=== PATIENT | female | born 1935 | race Caucasian/White ===

== ENCOUNTER 2016-06-30 12:46 | Inpatient (IN) | payer OTHER ==
[2016-06-30] MEDS ORDERED: NS 1,000 ML IV ONE (13:22)
--- NOTE | 2016-06-30 13:24 | EDPHY ---
H & P Stated Complaint: Fell, no LOC, did not hit her head Time Seen by Provider: 06/30/16 12:50 HPI/ROS: CHIEF COMPLAINT: Generalized weakness HISTORY OF PRESENT ILLNESS: The patient is a 81-year-old female who is brought to the emergency department by both of her sons complaining of generalized weakness. She reports that she fell down this morning and was too weak to get up. She denies injuring herself in the fall. Son states that she is falling asleep at inappropriate times and is more "flaky" than usual. She has not had a fever but has had chills. She denies shortness of breath or cough. She denies abdominal pain. She has a chronic wound over her left Achilles tendon that is significantly more inflamed with purulent discharge and surrounding cellulitis than ever before according to family. REVIEW OF SYSTEMS: Constitutional: See HPI EENTM: denies: blurred vision, double vision, nose congestion Respiratory: denies: cough, shortness of breath Cardiac: denies: chest pain, irregular heart rate, lightheadedness, palpitations Gastrointestinal/Abdominal: denies: abdominal pain, diarrhea, nausea, vomiting, blood streaked stools Genitourinary: denies: dysuria, frequency, hematuria, pain Musculoskeletal: Generalized weakness no focal weakness Skin: See HPI Neurological: denies: headache, numbness, paresthesia, tingling, dizziness, weakness Hematologic/Lymphatic: denies: blood clots, easy bleeding, easy bruising Immunologic/allergic: denies: HIV/AIDS, transplant EXAM: GENERAL: Well-appearing, well-nourished and in no acute distress. HEAD: Atraumatic, normocephalic. EYES: Pupils equal round and reactive to light, extraocular movements intact, sclera anicteric, conjunctiva are normal. ENT: TMs normal, nares patent, oropharynx clear without exudates. Moist mucous membranes. NECK: Normal range of motion, supple without lymphadenopathy or JVD. LUNGS: Bilateral coarse breath sounds HEART: Regular rate and rhythm without murmurs, rubs or gallops. ABDOMEN: Soft, nontender, normoactive bowel sounds. No guarding, no rebound. No masses appreciated. BACK: No CVA tenderness, no spinal tenderness, step-offs or deformities EXTREMITIES: Patient has a 3 x 3 ulceration to her left Achilles area with purulent drainage. Also erythema and cellulitis surrounding the wound up to just below her knee. It wraps anteriorly. Chronic venous stasis present both legs. NEUROLOGICAL: Cranial nerves II through XII grossly intact. Normal speech, normal gait. 5/5 strength, normal movement in all extremities, normal sensation PSYCH: Normal mood, normal affect. SKIN: See above Source: Patient Exam Limitations: No limitations - Personal History Tetanus Vaccine Date: 02/2011 - Medical/Surgical History Hx Asthma: No Hx Chronic Respiratory Disease: No Hx Diabetes: Yes Hx Cardiac Disease: No Hx Renal Disease: No Hx Cirrhosis: No Hx Alcoholism: No Hx HIV/AIDS: No Hx Splenectomy or Spleen Trauma: No Other PMH: DM2, quadbypass surgery 2010, archilles tendon repair, RENUKA, HTN, RENUKA , cardiac stents - Family History Significant Family History: No pertinent family hx - Social History Smoking Status: Former smoker Alcohol Use: Sober Drug Use: None Constitutional: Initial Vital Signs Temperature (C) 36.6 C 06/30/16 12:50 Heart Rate 96 06/30/16 12:50 Respiratory Rate 18 06/30/16 12:50 Blood Pressure 137/71 H 06/30/16 12:50 O2 Sat (%) 96 06/30/16 12:50 O2 Delivery Mode Nasal Cannula O2 (L/minute) 3 Allergies/Adverse Reactions: Penicillins Allergy (Mild, Verified 11/02/13 18:21) Rash Home Medications: Medication Instructions Recorded Aspirin [Aspirin 325 mg (*)] 325 mg PO DAILY PRN 06/30/16 Cyanocobalamin [Vitamin B12 (*)] 1,000 mcg PO DAILY 06/30/16 Herbals/Supplements -Info Only 1 ea PO DAILY 06/30/16 Metformin HCl [Metformin 1000 mg] 1,000 mg PO BID 06/30/16 Multivitamins [Multivitamin (*)] 1 each PO DAILY 06/30/16 Oxybutynin Chloride [Ditropan Xl] 10 mg PO DAILY 06/30/16 Medical Decision Making - Diagnostics Imaging Results: Imaging Impressions Chest X-Ray 06/30/16 13:21 Impression: 1. Diffuse peribronchial thickening with patchy bilateral opacities that could be related to bronchitis and multifocal pneumonia or asymmetric pulmonary edema. 2. Cardiomegaly. ED Course/Re-evaluation: 3:00 p.m. the patient meets criteria for severe sepsis but not septic shock. I have only given her 1 L out of her bolus because she also has pulmonary edema on chest x-ray. She has a history of mitral valve replacement and does have extremity edema. Blood pressure and heart rate are stable. I discussed this with Dr. Laurent Marin who agrees. We have started Invanz and vancomycin. He accepts to the medical service. Family is happy with this plan. Differential Diagnosis: Partial list of the Differential diagnosis considered include but were not limited to; cellulitis, wound infection, sepsis, pneumonia, CHF and although unlikely based on the history and physical exam, I also considered PE, seizure, CVA. Critical Care Time: Critical care time spent by me, Dr. Alexander exclusive with this patient was 35 minutes, exclusive of the PA time exclusive of procedures. The organ system that was at risk was cardiovascular and I gave IV fluids, antibiotics, consultations and admission to prevent worsening of the patient's condition - Data Points Laboratory Results: Laboratory Results 06/30/16 14:05 06/30/16 14:05 06/30/16 06/30/16 06/30/16 14:05 14:05 14:05 WBC RBC Hgb Hct MCV MCH MCHC RDW Plt Count MPV Neut % (Auto) Lymph % (Auto) [place] % (Auto) Eos % (Auto) Baso % (Auto) Nucleat RBC Rel Count Absolute Neuts (auto) Absolute Lymphs (auto) Absolute Monos (auto) Absolute Eos (auto) Absolute Basos (auto) Absolute Nucleated RBC Immature Gran % Seg Neutrophils % Band Neutrophils % Lymphocytes % Monocytes % Immature Gran # Absolute Seg Neuts Absolute Band Neuts Absolute Lymphocytes Absolute Monocytes RBC/WBC/PLT Morphology Platelet Estimate PT INR APTT VBG Lactic Acid Sodium 132 mEq/L L mEq/L (134-144) Potassium 4.2 mEq/L mEq/L (3.5-5.2) Chloride 98 mEq/L mEq/L (97-110) Carbon Dioxide 25 mEq/l mEq/l (22-31) Anion Gap 9 mEq/L mEq/L (8-16) BUN 25 mg/dL H mg/dL (7-23) Creatinine 0.7 mg/dL mg/dL (0.6-1.0) Estimated GFR > 60 Glucose 354 mg/dL H mg/dL (70-100) Hemoglobin A1c Pending Estim Average Glucose Pending Calcium 9.0 mg/dL mg/dL (8.5-10.4) Total Bilirubin 1.9 mg/dL H mg/dL (0.1-1.4) NT-Pro-B Natriuret Pep 3200 pg/mL H pg/mL (0-450) 06/30/16 06/30/16 06/30/16 14:05 14:05 14:05 WBC 18.26 10^3/uL H 10^3/uL (3.80-9.50) RBC 4.59 10^6/uL 10^6/uL (4.18-5.33) Hgb 15.0 g/dL g/dL (12.6-16.3) Hct 43.6 % % (38.0-47.0) MCV 95.0 fL fL (81.5-99.8) MCH 32.7 pg pg (27.9-34.1) MCHC 34.4 g/dL g/dL (32.4-36.7) RDW 12.8 % % (11.5-15.2) Plt Count 160 10^3/uL 10^3/uL (150-400) MPV 11.0 fL fL (8.7-11.7) Neut % (Auto) Not Reported Lymph % (Auto) Not Reported [place] % (Auto) Not Reported Eos % (Auto) Not Reported Baso % (Auto) Not Reported Nucleat RBC Rel Count 0.0 % % (0.0-0.2) Absolute Neuts (auto) Not Reported Absolute Lymphs (auto) Not Reported Absolute Monos (auto) Not Reported Absolute Eos (auto) Not Reported Absolute Basos (auto) Not Reported Absolute Nucleated RBC 0.00 10^3/uL 10^3/uL (0-0.01) Immature Gran % Not Reported Seg Neutrophils % 87 % % Band Neutrophils % 6 % % Lymphocytes % 3 % % Monocytes % 4 % % Immature Gran # Not Reported Absolute Seg Neuts 15.89 10^/uL H 10^/uL (1.70-6.50) Absolute Band Neuts 1.10 10^3/uL H 10^3/uL (0.00-0.70) Absolute Lymphocytes 0.55 10^3/uL L 10^3/uL (1.00-3.00) Absolute Monocytes 0.73 10^3/uL 10^3/uL (0.30-0.80) RBC/WBC/PLT Morphology NORMAL (NORMAL) Platelet Estimate ADEQUATE (ADEQ) PT 14.2 SEC SEC (12.0-15.0) INR 1.11 (0.83-1.16) APTT 25.4 SEC SEC (23.0-38.0) VBG Lactic Acid 2.6 mmol/L H mmol/L (0.7-2.1) Sodium Potassium Chloride Carbon Dioxide Anion Gap BUN Creatinine Estimated GFR Glucose Hemoglobin A1c Estim Average Glucose Calcium Total Bilirubin NT-Pro-B Natriuret Pep Microbiology Results: MICROBIOLOGY 06/30/16 13:40 Foot - Anaerobic Tube/Swab Gram Stain - Final Medications Given: Discontinued Medications Sodium Chloride (Ns) 1,000 mls @ 0 mls/hr IV ONCE ONE PRN Reason: Wide Open Stop: 06/30/16 13:23 Last Admin: 06/30/16 14:11 Dose: 1,000 mls Ertapenem 1 gm/ Sodium (Chloride) 100 mls @ 200 mls/hr IV EDNOW ONE PRN Reason: Protocol Stop: 06/30/16 15:20 Last Admin: 06/30/16 15:40 Dose: 100 mls Vancomycin/Sodium Chloride (Vancomycin 1 Gm (Premix)) 250 mls @ 250 mls/hr IV EDNOW ONE PRN Reason: Protocol Stop: 06/30/16 16:00 Last Admin: 06/30/16 16:16 Dose: 250 mls Insulin Human Regular (Humulin R) 10 unit IVP EDNOW ONE Stop: 06/30/16 15:06 Last Admin: 06/30/16 16:00 Dose: 10 unit Departure - [facility] Clinical Impression: Severe sepsis Cellulitis Qualifiers: Site of cellulitis: extremity Site of cellulitis of extremity: lower extremity Laterality: left Qualified Code(s): L03.116 - Cellulitis of left lower limb Pulmonary edema Qualifiers: Chronicity: acute Qualified Code(s): J81.0 - Acute pulmonary edema Condition: Fair
[2016-06-30 14:20] LABS: ADD DIFF? YES; ADD MORPH? NO; ADD SCAN? NO; ATYPICAL LYMPHOCYTE FLAG 0 (0-99); FRAGMENT RBC FLAG 0 (0-99); HEMATOCRIT 43.6 % (38.0-47.0); LEFT SHIFT FLG 10 (0-99); LIPEMIA HEMOLYSIS FLAG 90 (0-99); MEAN CELL HEMOGLOBIN 32.7 pg (27.9-34.1); MEAN CELL HEMOGLOBIN CONCENTR. 34.4 g/dL (32.4-36.7); PLATELET CLUMPS FLAG 0 (0-99); PLATELET COUNT 160 10^3/uL (150-400); RED BLOOD CELL COUNT 4.59 10^6/uL (4.18-5.33); RED CELL DISTRIBUTION WIDTH 12.8 % (11.5-15.2)
[2016-06-30 14:29] LABS: ANION GAP 9 mEq/L (8-16); BILIRUBIN,TOTAL 1.9 mg/dL (0.1-1.4); CARBON DIOXIDE 25 mEq/l (22-31); CHLORIDE 98 mEq/L (97-110); CREATININE 0.7 mg/dL (0.6-1.0); GLOMERULAR FILTRATION RATE > 60; GLUCOSE 354 mg/dL (70-100); POTASSIUM 4.2 mEq/L (3.5-5.2); SODIUM 132 mEq/L (134-144)
[2016-06-30 14:34] LABS: INR 1.11 (0.83-1.16); PROTIME(PATIENT) 14.2 SEC (12.0-15.0)
[2016-06-30 14:35] LABS: APTT 25.4 SEC (23.0-38.0)
[2016-06-30] MEDS ORDERED: ERTAPENEM 1 GM in NS 100 ML IV ONE (14:51)
[2016-06-30] MEDS ORDERED: VANCOMYCIN HCL/NORMAL SALINE 250 ML IV ONE (15:01)
[2016-06-30] MEDS ORDERED: INSULIN REGULAR HUMAN 100 UNIT/ML IVP ONE (15:05)
[2016-06-30 15:11] LABS: LACGHOST ORDER
[2016-06-30 15:20] LABS: PLATELET ESTIMATE ADEQUATE (ADEQ)
[2016-06-30] MEDS ORDERED: oxyCODONE IR 5 MG TAB PO PRN (15:21)
[2016-06-30] MEDS ORDERED: ONDANSETRON DISINTEGRATING 4 MG TAB PO PRN (15:21)
[2016-06-30] MEDS ORDERED: ALBUTEROL 3 ML DEYVIAL IH PRN (15:21)
[2016-06-30] MEDS ORDERED: D50W 25 GM/50 ML SYR IVP PRN (15:21)
[2016-06-30] MEDS ORDERED: ONDANSETRON 4 MG/2 ML VIAL IVP PRN (15:21)
[2016-06-30] MEDS ORDERED: NS 1,000 ML IV SCH (15:30)
--- NOTE | 2016-06-30 16:08 | GHP ---
[f rep st] HISTORY AND PHYSICAL DATE OF ADMISSION: 06/30/2016 CHIEF COMPLAINT: Fall and weakness. HISTORY OF PRESENT ILLNESS: This is a 81-year-old female who presented after falling today. She sa ys that this was nontraumatic. It was a mechanical fall. She lost her balance. She said that she was too weak to get up. Because of this, her son recommended that she come to the emergency departm ent. She tells me that yesterday she had some chills. She does not report any cough or shortness o f breath. She is chronically on 3 L of oxygen, she says mostly at night. She has a left posterior ankle wound, which she has been followed by recently by Dr. Painter. She tells me that her left leg i s usually slightly larger than her right leg. However, she thinks it is redder and more painful bessy n normal. Per Dr. Alexander's report, she has also seems slightly confused today to her son. PAST MEDICAL/SURGICAL HISTORY: 1. Diabetes mellitus. 2. Coronary artery disease, status post CABG and last stent placed in October 2014. 3. Chronic respiratory failure. 4. Obstructive sleep apnea. 5. Pulmonary hypertension. 6. Diastolic dysfunction. MEDICATIONS: Please see medication reconciliation. ALLERGIES: Penicillin. SOCIAL HISTORY: Drinks some alcohol. She lives with her son. FAMILY HISTORY: Coronary artery disease. REVIEW OF SYSTEMS: A 10-point review of systems is conducted and is positive for headache, otherwis e negative except per HPI. PHYSICAL EXAM: VITAL SIGNS: Blood pressure 133/76, heart rate 93, respiratory rate 18, satting 97% on 3 L, temperature is 36.6. GENERAL: The patient is a pleasant female who appears somewhat somno lent; however, she is easily aroused by voice. HEENT: Normocephalic, atraumatic. CARDIOVASCULAR: Regular rate and rhythm. She has a 2/6 systolic murmur. PULMONARY: Shows her lungs to have mild diffuse expiratory wheezes as well as bilateral basilar crackles. She does not appear to be in any respiratory distress. ABDOMEN: Soft, nontender, nondistended. SKIN: No rash. : No Brice. NE UROLOGIC: Shows her to be somnolent. However, she is alert and oriented x3. She has a nonfocal ne urologic exam. PSYCHIATRIC: Normal mood and affect. EXTREMITIES: Shows her left lower extremity with some edema and erythema extending to her mid luong. It is warm as well as tender to palpation. She has a chronic-appearing posterior ulcer that has no purulence on it. It is a clean base. It i s about 1.5 cm diameter. LABORATORY FINDINGS: White count is 18,000 with 87% neutrophils and 6% bands. INR is 1.1. Lactate is 2.6. Sodium is 132, glucose 354. Total bilirubin is 1.9. DATA: 1. I discussed this with Dr. Alexander in the emergency department. We will admit to med/surg. 2. Chest x-ray, which I personally reviewed and interpreted, shows bilateral infiltrates, I think m ost consistent with pulmonary edema. IMPRESSION AND PLAN: A 81-year-old female presents with sepsis, cellulitis, and weakness. 1. Sepsis: I think this is due to cellulitis. I agree with Dr. Alexander's evaluation. We need to be very cautious with IV fluids in the setting of pulmonary edema. She is getting 1 L now. I will continue IV fluids at a rate of 75 per hour overnight and place her on continuous pulse ox monitor. She may not tolerate full 30 mL/kg fluid bolus given her cardiac status. She will get a dose of va ncomycin as well as Invanz in the emergency department. I note that she is normotensive currently. 2. Cellulitis: In the setting of diabetes and a chronic left posterior ankle wound. She will get dual therapy with Invanz and vancomycin in the ED. I will continue only vancomycin starting tomorro w. I do not think it needs any surgical debridement at this point. I have placed a wound consult. We will follow her clinical course. I do not see any resistant organisms in microbiology at this h ospital from her in the past. 3. Fall/weakness/mild encephalopathy: I think that this is due to sepsis. Place PT/OT orders. We will follow this as we treat the underlying etiology. 4. Coronary artery disease, status post CABG as well as last stent in October 2014: I will check an echocardiogram given what I think is pulmonary edema on her chest x-ray. We will have to be car eful with volume given this. At this point, we will likely hold any diuretics when her medications are reconciled. We will continue other cardiac medications. 5. Chronic respiratory failure: I think due to chronic obstructive pulmonary disease as well as ob structive sleep apnea. We will continue oxygen. 6. Diabetes mellitus type 2: Glucose is very elevated here at 354. She got 10 units of IV insulin in the ED. We will continue her home insulin and place her on a sliding scale. I have also checke d an A1c given the significance of her lower extremity cellulitis. 7. Hyponatremia. 8. Code status: She would like to be full code. 9. VTE risk: She is moderate to high risk. I have given her low-dose Lovenox. /[id number]/MODL
--- NOTE | 2016-06-30 17:07 | ECHO ---
[id number] + + [id number] : : [place] [address] : : [phone] + + Adult Echocardiographic Report + -----+ :Name: FLORA LOVE JStudy Date: 06/30/2016 03:53 PM : : Hospital Admission Number: [id number] Sameer n: ER: :: 1935 Gender: Female Height: 64 in : :Age: 81 yrs Race: WH Weight: 210 lb : :Reason For Study: Pulmonary edema : : BSA: 2.0 meters 2 : + -----+ MMode/2D Measurements \T\ Calculations IVSd: 1.00 cm LVIDd: 5.0 cm FS: 15.1 % MV Diam: 3.2 cm LVPWd: 0.77 cm LVIDs: 4.2 cm EDV(Teich): 117.1 ml ESV(Teich): 79.9 ml EF(Teich): 31.8 % Ao root diam: LVOT diam: 1.9 cmLVLd ap4: 7.4 cm SV(MOD-sp4): 3.2 cm LVOT area: EDV(MOD-sp4): 35.0 ml LA dimension: 2.8 cm2 94.0 ml 5.1 cm LVLs ap4: 6.9 cm ESV(MOD-sp4): 59.0 ml EF(MOD-sp4): 37.2 % Normal Measurement Values: + + :LVIDd (3.5-5.7cm) IVSd (0.6-1.1cm) LVPWd (0.6-1.1cm) Aortic Root (2.0-3.7cm)Left Atrium (1.5-4.0cm): :LV Vol(d) (76-115ml) LV Vol(s) (29-48ml) Ejec Fraction (50-65%)PV Jamil (0.6- 1.2m/s) TV Jamil (0.4-1.0m/s) : :MV E Jamil (0.8-1.0m/s)MV A Jamil (0.3-1.0m/s)LVOT Jamil (0.7-1.2m/s) Asc Ao Jamil ( 0.9-1.8m/s) : + + Doppler Measurements \T\ Calculations MV E max jamil: MV V2 max: Ao V2 max: LV V1 max: 148.0 cm/sec 171.0 cm/sec 155.0 cm/sec 87.2 cm/sec MV A max jamil: MV max P.7 mmHgAo max PG: LV V1 max P.3 cm/sec MV V2 mean: 9.6 mmHg 3.0 mmHg MV E/A: 1.6 81.5 cm/sec Ao mean PG: LV V1 mean PG: MV mean P.0 mmHg5.0 mmHg 2.0 mmHg MV V2 VTI: 24.5 cm Ao V2 mean: LV V1 mean: MV area (1 diam): 99.0 cm/sec 64.1 cm/sec 8.0 cm2 Ao V2 VTI: 23.9 cm LV V1 VTI: 15.7 cm HENRI(I,D): 1.9 cm2 MVA(VTI): 1.8 cm2 MV Flow area(1diam):HENRI(V,D): 1.6 cm2 8.0 cm2 MR max jamil: MR(RF 1 diam): 6.1 %SV(MV 1 diam): TR max jamil: 446.0 cm/sec 197.0 ml 337.0 cm/sec MR max PG: SI(MV 1 diam): TR max P.6 mmHg 98.7 ml/m2 45.4 mmHg SV(LVOT): 44.5 ml RAP systole: 10.0 mmHg RVSP(TR): 55.4 mmHg RF(MV,Ao)(1 diam): 0.02 RF(MV,LVOT)(1diam): 0.77 Left Ventricle The left ventricle is normal in size. There is normal left ventricular wall thickness. EF estimate is 40-45%,. There is Doppler evidence for diastolic dysfunction. Left ventricular systolic function is mild to moderately reduced. Septal motion is consistent with conduction abnormality. LV inferolateral and inferior gaitan are akinetic. Right Ventricle The right ventricle is normal in size and function. Atria The left atrium is moderately dilated. Right atrial size is normal. The interatrial septum is intact with no evidence for an atrial septal defect. Mitral Valve The mitral valve leaflets appear thickened, but open well. There is moderate mitral annular calcification. There is no evidence of mitral valve prolapse. There is no mitral valve stenosis. There is moderate mitral regurgitation. Tricuspid Valve Normal tricuspid valve. There is mild tricuspid regurgitation. There is Doppler evidence for mild pulmonary hypertension. Right ventricular systolic pressure is 55mmHg. Aortic Valve The aortic valve is trileaflet. The aortic valve opens well. Mild aortic valve calicification. There is no aortic stenosis. Trace to mild aortic regurgitation. Pulmonic Valve The pulmonic valve is normal in structure and function. Mild pulmonic valvular regurgitation. Great Vessels The aortic root is normal size. Pericardium/Pleural There is no pericardial effusion. Conclusion A complete two-dimensional transthoracic echocardiogram was performed (2D, M-mode, Doppler and color flow Doppler). The left ventricle is normal in size. Left ventricular systolic function is mild to moderately reduced with inferolateral akinesis. Septal motion is consistent with conduction abnormality. EF estimate is 40-45%, There is Doppler evidence for diastolic dysfunction. The left atrium is moderately dilated. Mild aortic valve calicification without stenosis. Trace to mild aortic regurgitation. The mitral valve leaflets appear thickened, but open well. There is moderate mitral annular calcification with reduced posterior leaflet mobility but no mitral stenosis. There is moderate mitral regurgitation. There is mild tricuspid regurgitation. There is Doppler evidence for mild pulmonary hypertension. Right ventricular systolic pressure is 55mmHg. Compared to a study from May of 2014, LVEF has decreased, regional wall motion abnormality is new, mitral regurgitation has increased, and PA systolic pressure has increased. Final Reading Physician: Tyler Mccracken signed on 06/30/2016 05:05 PM Ordering Physician: Laurent Marin Performed By: Juany Mcdonald RDCS
[2016-06-30] MEDS ORDERED: ASPIRIN 325 MG TAB PO PRN (17:53)
[2016-06-30] MEDS: INSULIN LISPRO 100 UNIT/ML SC SCH (18:35)
[2016-06-30 22:35] LABS: COLOR YELLOW; LEUKOCYTE ESTERASE,URINE NEGATIVE (NEGATIVE); NITRITE,URINE NEGATIVE (NEGATIVE)
[2016-06-30] MEDS ORDERED: FUROSEMIDE 20 MG/2 ML VIAL IVP ONE (22:37)
[2016-06-30 22:38] LABS: BACTERIA TRACE /hpf (NONE SEEN)
[2016-06-30 23:39] LABS: HEMOGLOBIN A1C 10.5 % (4.0-6.0)
--- NOTE | 2016-06-30 23:53 | CPEKG ---
Heart Rate: 91 RR Interval: 659 P-R Interval: 153 QRSD Interval: 106 QT Interval: 360 QTC Interval: 443 P [place]: 0 QRS [place]: -71 T Wave [place]: 114 EKG Severity - ABNORMAL ECG - EKG Impression: SINUS RHYTHM EKG Impression: VENTRICULAR TRIGEMINY EKG Impression: LEFT ANTERIOR FASCICULAR BLOCK EKG Impression: BORDERLINE R WAVE PROGRESSION, ANTERIOR LEADS EKG Impression: REPOL ABNRM SUGGESTS ISCHEMIA, ANT-LAT LEADS Electronically Signed By: Heather Ross 01-Jul-2016 12:17:05
[2016-06-30] MEDS ORDERED: ASPIRIN 325 MG TAB PO ONE (23:59)
[2016-07-01] MEDS: ENOXAPARIN 100 MG/ML SYR SC SCH ×2 (01:38→20:20)
[2016-07-01 05:23] LABS: % IMMATURE GRANULYOCYTES 0.9 % (0.0-1.1); ABSOLUTE IMMATURE GRANULOCYTES 0.12 10^3/uL (0.00-0.10); ADD DIFF? NO; ADD MORPH? NO; ADD SCAN? NO; ATYPICAL LYMPHOCYTE FLAG 0 (0-99); FRAGMENT RBC FLAG 0 (0-99); HEMATOCRIT 41.5 % (38.0-47.0); HEMOGLOBIN 13.9 g/dL (12.6-16.3); LEFT SHIFT FLG 10 (0-99); LIPEMIA HEMOLYSIS FLAG 80 (0-99); MEAN CELL HEMOGLOBIN 32.6 pg (27.9-34.1); MEAN CELL HEMOGLOBIN CONCENTR. 33.5 g/dL (32.4-36.7); MEAN CELL VOLUME 97.4 fL (81.5-99.8); PLATELET CLUMPS FLAG 0 (0-99); PLATELET COUNT 143 10^3/uL (150-400); RED BLOOD CELL COUNT 4.26 10^6/uL (4.18-5.33)
[2016-07-01] MEDS: VANCOMYCIN HCL/NORMAL SALINE 250 ML IV SCH ×2 (05:24→17:11)
[2016-07-01 05:57] LABS: ALANINE AMINOTRANSFERASE 37 IU/L (9-52); ALKALINE PHOSPHATASE 53 IU/L (38-126); ANION GAP 10 mEq/L (8-16); ASPARTATE AMINOTRANSFERASE 33 IU/L (14-46); BILIRUBIN,TOTAL 1.6 mg/dL (0.1-1.4); CALCIUM 8.3 mg/dL (8.5-10.4); CARBON DIOXIDE 22 mEq/l (22-31); CHLORIDE 104 mEq/L (97-110); CREATININE 0.8 mg/dL (0.6-1.0); GLOMERULAR FILTRATION RATE > 60; GLUCOSE 230 mg/dL (70-100); SODIUM 136 mEq/L (134-144); TOTAL PROTEIN 5.3 g/dL (6.3-8.2)
[2016-07-01] MEDS ORDERED: Herbals/Supplements -Info Only PO SCH (09:00)
[2016-07-01] MEDS ORDERED: NON-FORMULARY NEW DRUG (Oxybutynin Chloride [Ditropan Xl] 10 MG) PO SCH (09:00)
[2016-07-01] MEDS ORDERED: ENOXAPARIN 40 MG/0.4 ML SYR SC SCH (09:00)
[2016-07-01] MEDS ORDERED: diphenhydrAMINE 25 MG CAP PO ONE (09:12)
[2016-07-01] MEDS ORDERED: ACETAMINOPHEN 325 MG TAB PO PRN (09:12)
[2016-07-01] MEDS ORDERED: NITROGLYCERIN 0.4 MG BTL SL PRN ×2 (09:12→11:23)
[2016-07-01] MEDS ORDERED: TEMAZEPAM 15 MG CAP PO PRN (09:12)
[2016-07-01] MEDS ORDERED: DIAZEPAM 5 MG TAB PO ONE (09:12)
[2016-07-01] MEDS ORDERED: ASPIRIN EC 325 MG TAB PO ONE (09:12)
[2016-07-01] MEDS: OXYBUTYNIN 5 MG EXT REL TAB PO SCH (09:13)
[2016-07-01] MEDS: MULTIVITAMINS 1 EACH TAB PO SCH (09:13)
--- NOTE | 2016-07-01 09:40 | GCON ---
[f rep st] CONSULTATION CARDIAC CONSULTATION DATE OF CONSULTATION: 07/01/2016 CHIEF COMPLAINT: The patient had a mechanical fall but did have some recent dyspnea and an echocard iogram showing new wall motion abnormality with abnormal troponins. HISTORY OF PRESENT ILLNESS: This is a 81-year-old female who fell yesterday. It was, by all accoun ts, a mechanical fall. She lost her balance. She has a nonhealing leg wound of her left leg and pr obably has a cellulitis, followed by Dr. Painter. She was admitted to the hospital. An echocardiogram showed a new inferior wall motion abnormality and EF decreased with some increased mitral regurgitation. Her troponins were elevated at 1.7 and 1.9, respectively. In speaking to he r, she has had no chest pain. Her EKG does not show any acute ST elevation although there is some b aseline wander. In speaking to her, she has had some increasing shortness of breath but no real specific PND, orthop larry, or other issues. She is very compliant with her meds. She does use oxygen at night. Her nguyen nary disease, she is status post coronary bypass grafting in 2010. In 2014, she had a stent placed to a [place] OM. She did have a saphenous vein graft to posterior descending artery. It was patent at that time. A left internal mammary artery to the LAD, which was patent, and a vein graft to an O M which was occluded. Today, she is seen resting comfortably in her bed, and options were discussed. At this point, she h as agreed to cardiac catheterization and if necessary, further intervention. She had no noted compl ications with prior interventions. MEDICATION LIST: See reconciliation form. PAST HISTORY: She as diabetes mellitus but normal creatinine. Coronary artery disease as above. O bstructive sleep apnea on oxygen at night. ALLERGIES: Penicillin allergies. No allergy to iodine. SOCIAL: She lives at home with her son. FAMILY HISTORY: Noncontributory. PHYSICAL EXAMINATION: VITAL SIGNS: Blood pressure is 130/80. Heart rate in the 70s and sinus. GE NERAL: She is an elderly female who is seen resting comfortably in bed. HEENT: Mouth and orophary nx were clear. NECK: Supple. LUNGS: Clear. CARDIOVASCULAR: Regular rate and rhythm with a syst olic murmur. I could not see JVP. ABDOMEN: Soft, nontender. MUSCULOSKELETAL: She had a compress ion bandage on her left ankle. Her right pulses were good. LAB: Of note white count of 12, creatinine 0.8. Troponin is 1.8 and 1.9. ASSESSMENT: 1. Probable mechanical fall without significant injury. 2. History of increasing shortness of breath with an echocardiogram showing new wall motion abnorma lity and abnormal troponins at this point. Patient has known severe coronary artery disease with co ronary bypass and stenting. We discussed our options. At this point, she has agreed to progress wi coronary angiogram and if necessary, intervention. The relative procedure, risks, benefits, comp lications, and alternatives were discussed with her. She understands and accepts and wished to proc eed. Her BNP was 3200 overnight. Her I's are great than O's. We may want to give her some Lasix a lthough she appears to be comfortable and not in extreme distress at this time. 3. History of diabetes mellitus with normal creatinine. 4. History of nonhealing foot wound. Ultrasound showed no deep venous thromboses. 5. History of hyperlipidemia and hypertension. PLAN: Cardiac cath. Further care depending on the results of this procedure. Possibly interventio n may be necessary. She understands. /[id number]/MODL
[2016-07-01] MEDS ORDERED: IOPAMIDOL (ISOVUE-370) 150 ML BTL IV ONE ×2 (10:03→10:50)
[2016-07-01] MEDS ORDERED: LIDOCAINE 1% 30 ML SDV ONE (10:03)
[2016-07-01] MEDS ORDERED: fentaNYL 100 MCG/2 ML INJ ONE (10:10)
[2016-07-01] MEDS ORDERED: MIDAZOLAM 2 MG/2 ML VIAL ONE (10:11)
--- NOTE | 2016-07-01 11:16 | PDDXCAT ---
Diagnostic Cath Note - . Date: 07/01/16 Bet Taker: Alfa Indication: other (sob with abn troponins) - Procedure Access: right groin Procedure: left heart catheterization, coronary angiography, left ventriculogram , vein graft injection, RIVERA injection - Materials Left Heart Cath size: 6F Left Heart Cath materials: standard multipack (JL4, JR4, pigtail), other (rivera catheter and rcb catheter) - Findings-Left Heart Catheterization LM: 1. normal LAD: 1. prox occluded with competitive lad flow..some flow into 1st dg LCX: 1. mid occl but patent stent and flow into superior om RCA: 1. difffuse disease throughout with competitive flow in rca/pda rSV. known occl svg to diag. 2. patent svg to rca RIVERA: 1. patent to lad EDP: 1. 25 mmhg LVEF: 1. 50-55% Wall motion: 1. mild inf rwma Complications: none Estimated blood loss: <50ml Closure method: manual pressure Assessment: 1.satble 3vv cad as described above..no acute changes...findings similar to 2015 cath (post krishna intervention) Plan: 1. continue medical management Patient Problems: Problems Problem Status Onset Cellulitis Acute Pulmonary edema Acute Severe sepsis Acute Chest pain Acute
[2016-07-01] MEDS ORDERED: ATROPINE SULFATE 1 MG/10 ML SYR IVP PRN (11:23)
[2016-07-01] MEDS ORDERED: OXYCODONE/APAP 5/325 TAB PO PRN (11:23)
[2016-07-01] MEDS ORDERED: ONDANSETRON 4 MG/2 ML VIAL IVP PRN (11:23)
[2016-07-01] MEDS: CYANO/VITAMIN B12 1000 MCG TAB PO SCH (11:24)
[2016-07-01] MEDS ORDERED: FUROSEMIDE 20 MG/2 ML VIAL IVP ONE (11:25)
[2016-07-01] MEDS: INSULIN LISPRO 100 UNIT/ML SC SCH ×3 (11:25→18:18)
[2016-07-01] MEDS: ACETAMINOPHEN 325 MG TAB PO PRN ×2 (13:38→20:19)
--- NOTE | 2016-07-01 16:44 | HOSPPROG ---
Hospitalist Progress Note Assessment/Plan: 81 yo F with hx of CAD and chronic respiratory failure as well as fever and chills and e/o cellulitis, also elevated trop and new wall motion abnormality on echo # sepsis: in setting of cellulitis as well as likely pna as below, wbc trending down, afebrile # cellulitis: present on left posterior ankle, started on invanz and vanc initially--now just vanco. Cultures pending. Wound care consulted. # nstemi/CAD: with elevated trop and new wall motion abnormality noted on echo, ecg personally reviewed and without clear st elevation other than early repol abnormality as well as lafb and prwp. S/p cath and noted to have multivessel cad that is stable w/o intervention. Presumed largely due to demand in setting of sepsis. Continue medical mgmt though currently she is only on asa--unclear if she has been intolerant of bb/statin--will need to review w/cardiology # fall/weakness: in setting of above and likely multifactorial and related to sepsis and cellulitis # acute encephalopathy: in the setting of above and now resolved, likely toxic metabolic encephalopathy related to sepsis # chronic hypoxic respiratory failure: with diffuse bilateral infiltrates and increased left basilar consolidation noted on personal review of cxr compared to old. suspect component of pna and will add ctx for coverage of pna as well as cellulitis. # dm2: SSI, poorly controlled at home with A1c of 10.5 # dispo: Ip status, will need > 48 hours stay for eval/mgmt of above given multiple active comorbid conditions Patient new to my caer. Old records reviewed and summarized as above. Care plan reviewed with cardiology as above. Subjective: no significant overnight events, patient currently feeling a bit somnolent post cardiac cath but no other complaints, no fevers overnight Objective: Vital Signs Temp Pulse Resp BP Pulse Ox 36.7 C 84 17 152/74 H 93 07/01/16 12:46 07/01/16 12:46 07/01/16 12:46 07/01/16 12:46 07/01/16 12:46 Laboratory Results 07/01/16 04:46 07/01/16 04:46 06/30/16 07/01/16 07/02/16 05:59 05:59 05:59 Intake Total 2250 200 Output Total 500 150 Balance 1750 50 PT 14.2 SEC (12.0-15.0) 06/30/16 14:05 INR 1.11 (0.83-1.16) 06/30/16 14:05 awake alert nad anicteric op clear rrr systolic murmur + ble edema cta b soft nt nd ble edema, left ankle in dressing that was not removed warm dry well perfused oriented appropriate ICD10 Worksheet Patient Problems: Problems Problem Status Onset Chest pain Acute Cellulitis Acute Pulmonary edema Acute Severe sepsis Acute
[2016-07-02 07:54] LABS: % IMMATURE GRANULYOCYTES 0.6 % (0.0-1.1); ABSOLUTE IMMATURE GRANULOCYTES 0.06 10^3/uL (0.00-0.10); ADD DIFF? NO; ADD MORPH? NO; ADD SCAN? NO; ATYPICAL LYMPHOCYTE FLAG 0 (0-99); FRAGMENT RBC FLAG 10 (0-99); HEMATOCRIT 38.9 % (38.0-47.0); HEMOGLOBIN 12.8 g/dL (12.6-16.3); LEFT SHIFT FLG 0 (0-99); LIPEMIA HEMOLYSIS FLAG 80 (0-99); MEAN CELL HEMOGLOBIN 32.3 pg (27.9-34.1); MEAN CELL HEMOGLOBIN CONCENTR. 32.9 g/dL (32.4-36.7); MEAN CELL VOLUME 98.2 fL (81.5-99.8); PLATELET CLUMPS FLAG 10 (0-99); PLATELET COUNT 147 10^3/uL (150-400); RED BLOOD CELL COUNT 3.96 10^6/uL (4.18-5.33)
[2016-07-02 08:14] LABS: ANION GAP 6 mEq/L (8-16); CALCIUM 8.4 mg/dL (8.5-10.4); CARBON DIOXIDE 26 mEq/l (22-31); CHLORIDE 101 mEq/L (97-110); CREATININE 0.8 mg/dL (0.6-1.0); GLOMERULAR FILTRATION RATE > 60; GLUCOSE 212 mg/dL (70-100); SODIUM 133 mEq/L (134-144)
[2016-07-02] MEDS: INSULIN LISPRO 100 UNIT/ML SC SCH ×3 (08:28→17:40)
[2016-07-02] MEDS: VANCOMYCIN HCL/NORMAL SALINE 250 ML IV SCH (08:29)
[2016-07-02] MEDS: CYANO/VITAMIN B12 1000 MCG TAB PO SCH (10:23)
[2016-07-02] MEDS: ENOXAPARIN 100 MG/ML SYR SC SCH ×2 (10:23→20:08)
[2016-07-02] MEDS: OXYBUTYNIN 5 MG EXT REL TAB PO SCH (10:23)
[2016-07-02] MEDS: MULTIVITAMINS 1 EACH TAB PO SCH (10:23)
--- NOTE | 2016-07-02 10:30 | WOCRNPDOC ---
FAM Advanced Assessment Note - Skin Integrity Problem, Advanced Assess Left Posterior Medial Ankle Diabetic Ulcer Dressing Type: Open to Air Exudate Amount: Scant Exudate Characteristic(s): Serosanguinous Integumentary Issue Intervention: Dressing Applied Jo-Ann Wound Tissue: Erythema (mild, discrete), Swollen, Scarred, Hypertrophic Jo-Ann Wound Swelling: Moderate Wound Bed Color: Red, Yellow Wound Bed Constitution: Smooth Tissue, Adhered Slough Wound Edges: Epibole, Thick Site Odor: None Site Measurement - Head-to-Toe Length X Width X Depth (cm): [id number] Peripheral Edema Location & Description: Bilateral LE, +1 on RLE, +2 on LLE Skin Integrity Problem Comment: Chronic, 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 Wound bed is comprised of 20% well-adhered, embedded slough, and 80% smooth tissue, non-granular in appearance. Wound margins are not attached along lateral margin from 6-12 o'clock, w/ epibole noted circumferentially. Hypertrophic scarring observed in jo-ann-wound tissue, w/ mild , discrete ertythema. No wound odor or purulence. Patient has seen Dr. Painter and [facility], but says she hasn't been "for a while." I advised resuming treatment there after discharge. Dressing applied today to help initiate autolysis of slough, however wound edges inidcate she would benefit from saucerization of the rolled edges in an outpatient setting after this current health issue has resolved.
[2016-07-02] MEDS: ACETAMINOPHEN 325 MG TAB PO PRN ×2 (12:06→20:07)
[2016-07-02] MEDS: IPRATROPIUM/ALBUTEROL 3 ML DEYVIAL IH SCH ×3 (12:39→20:47)
--- NOTE | 2016-07-02 14:57 | PDCARPN ---
Cardiology Progress Note Assessment/Plan: 81-year-old F with history of CAD and prior 4 vessel CABG in 2010. Presented with a mechanical fall, shortness of breath, and weakness. Also has cellulitis of left lower extremity. An echocardiogram demonstrated reduction in her LV systolic function with an ejection fraction of 45% compared to normal EF on previous studies. There was a new inferolateral wall motion abnormality, an increase in the degree of her mitral regurgitation to moderate, and an increase in her PA systolic pressure to 55 mmHg. BNP came back at 3200 and troponin increased to 1.9. Coronary Artery Disease- cardiac catheterization yesterday showed significant multivessel CAD. Her RIVERA to LAD graft and SVG to RCA graft are patent. A sequential SVG to diagonal and obtuse marginal has been occluded since at least 2014. Her circumflex stent site from 2014 is patent. Continued medical management. However, she is only taking aspirin. Had been on lisinopril and statin in the past. Lisinopril was discontinued for unknown reasons. She had musculoskeletal side effects with statin therapy. Congestive Heart Failure- has components of systolic dysfunction, diastolic dysfunction, and cor pulmonale/pulmonary hypertension. Currently not receiving diuretic therapy because of possible sepsis at the time of admission. May mildly volume overloaded at this point in time. Consider low-dose Lasix. Disposition- will defer to the hospitalist service once her other medical issues are resolved. No further cardiac testing is indicated. Will notify the office staff at [facility] to contact her to arrange a followup appointment within one to 2 weeks after discharge. Will sign off for now. Please call with any questions. 07/02/16 14:54 Subjective: No chest pain or palpitations. Baseline dyspnea. Objective: Vital Signs (8 Hrs) Temp Pulse Resp BP Pulse Ox 07/02/16 12:46 76 16 98 07/02/16 11:53 36.9 C 76 13 132/73 H 98 07/02/16 09:37 93 07/02/16 08:00 36.9 C 83 17 127/69 H 97 Intake/Output (24 Hrs) 07/01/16 07/02/16 07/03/16 05:59 05:59 05:59 Intake Total 2250 1250 440 Output Total 500 1525 Balance 1750 -275 440 Intake: Oral (ml) 300 1050 440 IV Intake (ml) 100 IV Infused (ml) 1950 100 Ns 1,000 ml @ 75 mls/hr 300 IV CONT DAYANA Rx#: [id number] Vancomycin HCl/Normal 150 100 Saline 250 ml @ 250 mls/ hr IV Q12H [facility] Rx#: [id number] Output: Urine (ml) 500 1475 Bedside Commode 500 100 Catheter 1375 Estimated Blood Loss (ml) 50 Other: Weight 101.2 kg Number of Voids Toilet 1 Number of Stools Bedside Commode 1 Result Diagrams: 07/02/16 03:57 07/02/16 03:57 Cardiac Labs: Cardiac Lab Results (72 Hrs) 07/01/16 06/30/16 04:46 22:59 Troponin I 1.930 H 1.820 H - Physical Exam Constitutional: no apparent distress Eyes: anicteric sclera Ears, Nose, Mouth, Throat: moist mucous membranes Cardiovascular: regular rate and rhythm, no murmurs Respiratory: other (Decreased at bases.) Gastrointestinal: normoactive bowel sounds, no tenderness, no masses Skin: no rashes ( mild edema L>R) ICD10 Worksheet Patient Problems: Problems Problem Status Onset Chest pain Acute Cellulitis Acute Pulmonary edema Acute Severe sepsis Acute
[2016-07-02] MEDS ORDERED: FUROSEMIDE 40 MG TAB PO ONE (15:58)
--- NOTE | 2016-07-02 16:02 | HOSPPROG ---
Hospitalist Progress Note Assessment/Plan: 81 yo F with hx of CAD and chronic respiratory failure presenting with fever and chills and e/o possible cellulitis as well as pna, also elevated trop and new wall motion abnormality on echo # sepsis: in setting of likely cellulitis as well as pna as below, wbc trending down, afebrile, blood and sputum cxs ngtd/wound cx with staph as next # cellulitis: present on left posterior ankle, started on invanz and vanc initially. Significant improvement with chronic non healing ulcer that is not clearly infected as well as changes c/w venous stasis. Per family, was originally much more red and c/w cellulitis. Will transition from vanc to doxy and continue to monitor. She has followed with Dr. Painter of wound care in the past and should have them evaluate again after dc. # pneumonia: has evidence of diffuse bilateral patchy infiltrates as well as left basilar consolidation c/w pna. Started on ctx for this, but given concurrent cellulitis will transition to monotherapy with doxy tonight for hopeful dc in the coming 1-2 days. # nstemi/CAD: with elevated trop and new wall motion abnormality noted on echo. Cath showing multivessel disease that was not intervened on. Plan is for medical mgmt--she has only been on asa prior to admit. Will add low dose BB. Apparently has been intolerant of statins. # fall/weakness: in setting of above and likely multifactorial and related to sepsis and cellulitis # acute encephalopathy: in the setting of above and now resolved, likely toxic metabolic encephalopathy related to sepsis # acute on chronic hypoxic respiratory failure: at baseline requires 3L of O2, but currently increased to 4-5. As above has e/o likely pna as well as volume overload as next. She has known malachi and prior tobacco use hx, ? underlying copd. # acute on chronic combined systolic/diastolic heart failure: as above, bilateral patchy infiltrates noted on cxr likely related to pulmonary edema, will start lasix 40bid and monitor. Echo showing EF of 40-45% (previously 65%), diastolic dysfunction and mild pulm htn. 2/2 ischemic CM likely as above. # dm2: SSI, poorly controlled at home with A1c of 10.5 # dispo: Ip status, will need > 48 hours stay for eval/mgmt of above given multiple active comorbid conditions Further hx obtained from patients family present at bedside. Subjective: no significant overnight events, notes that her lower extremity is less red and painful than when she came in, still more sob than usual and has had some cough as well Objective: Vital Signs Temp Pulse Resp BP Pulse Ox 36.8 C 81 16 120/67 97 07/02/16 15:12 07/02/16 15:12 07/02/16 15:12 07/02/16 15:12 07/02/16 15:12 Laboratory Results 07/02/16 03:57 07/02/16 03:57 07/01/16 07/02/16 07/03/16 05:59 05:59 05:59 Intake Total 2250 1250 440 Output Total 500 1525 Balance 1750 -275 440 PT 14.2 SEC (12.0-15.0) 06/30/16 14:05 INR 1.11 (0.83-1.16) 06/30/16 14:05 awake alert nad anicteric op clear rrr systolic murmur + ble edema cta b soft nt nd ble edema, left ankle in dressing that was not removed warm dry well perfused oriented appropriate - Time Spent With Patient Time Spent with Patient: greater than 35 minutes Time Spent with Patient: Greater than 35 minutes spent on this patients care, greater than 50% of time spent counseling, educating, and coordinating care regarding the above mentioned plan. ICD10 Worksheet Patient Problems: Problems Problem Status Onset Cellulitis Acute Pulmonary edema Acute Severe sepsis Acute Chest pain Acute
[2016-07-02] MEDS: CARVEDILOL 3.125 MG TAB PO SCH (17:40)
[2016-07-02] MEDS: DOXYCYCLINE HYCLATE 100 MG CAP/TAB PO SCH (20:08)
[2016-07-03] MEDS: HYDROCODONE/APAP 5/325 TAB PO PRN ×2 (04:12→11:09)
[2016-07-03 04:58] LABS: % IMMATURE GRANULYOCYTES 0.4 % (0.0-1.1); ABSOLUTE IMMATURE GRANULOCYTES 0.03 10^3/uL (0.00-0.10); ADD DIFF? NO; ADD MORPH? NO; ADD SCAN? NO; ATYPICAL LYMPHOCYTE FLAG 0 (0-99); FRAGMENT RBC FLAG 0 (0-99); HEMATOCRIT 38.7 % (38.0-47.0); HEMOGLOBIN 12.5 g/dL (12.6-16.3); LEFT SHIFT FLG 0 (0-99); LIPEMIA HEMOLYSIS FLAG 80 (0-99); MEAN CELL HEMOGLOBIN 31.8 pg (27.9-34.1); MEAN CELL HEMOGLOBIN CONCENTR. 32.3 g/dL (32.4-36.7); MEAN CELL VOLUME 98.5 fL (81.5-99.8); MEAN PLATELET VOLUME 11.3 fL (8.7-11.7); PLATELET CLUMPS FLAG 0 (0-99); PLATELET COUNT 137 10^3/uL (150-400); RED BLOOD CELL COUNT 3.93 10^6/uL (4.18-5.33); RED CELL DISTRIBUTION WIDTH 12.7 % (11.5-15.2)
[2016-07-03] MEDS: IPRATROPIUM/ALBUTEROL 3 ML DEYVIAL IH SCH ×4 (05:03→20:33)
[2016-07-03 05:14] LABS: ANION GAP 7 mEq/L (8-16); CALCIUM 8.1 mg/dL (8.5-10.4); CARBON DIOXIDE 27 mEq/l (22-31); CHLORIDE 100 mEq/L (97-110); CREATININE 0.9 mg/dL (0.6-1.0); GLOMERULAR FILTRATION RATE > 60; GLUCOSE 198 mg/dL (70-100); POTASSIUM 4.1 mEq/L (3.5-5.2); SODIUM 134 mEq/L (134-144)
--- NOTE | 2016-07-03 07:42 | CPEKG ---
Heart Rate: 92 RR Interval: 652 P-R Interval: 168 QRSD Interval: 102 QT Interval: 388 QTC Interval: 481 P Harmony: -11 QRS Harmony: -70 T Wave Harmony: 115 EKG Severity - ABNORMAL ECG - EKG Impression: SINUS RHYTHM EKG Impression: LEFT ANTERIOR FASCICULAR BLOCK EKG Impression: BORDERLINE R WAVE PROGRESSION, ANTERIOR LEADS EKG Impression: NONSPECIFIC T ABNORMALITIES, LATERAL LEADS EKG Impression: COMPARED WITH 06/30/2016 AT 11:52 P.M.,,VENTRICULAR ECTOPY RESOLVED Electronically Signed By: Adela Ross 03-Jul-2016 16:42:18
[2016-07-03] MEDS: INSULIN LISPRO 100 UNIT/ML SC SCH ×3 (07:49→18:05)
[2016-07-03] MEDS: CYANO/VITAMIN B12 1000 MCG TAB PO SCH (07:51)
[2016-07-03] MEDS: OXYBUTYNIN 5 MG EXT REL TAB PO SCH (07:51)
[2016-07-03] MEDS: FUROSEMIDE 40 MG TAB PO SCH ×2 (07:51→15:16)
[2016-07-03] MEDS: CARVEDILOL 3.125 MG TAB PO SCH ×2 (07:51→18:06)
[2016-07-03] MEDS: DOXYCYCLINE HYCLATE 100 MG CAP/TAB PO SCH ×2 (07:51→20:53)
[2016-07-03] MEDS: MULTIVITAMINS 1 EACH TAB PO SCH (07:51)
[2016-07-03] MEDS: ENOXAPARIN 100 MG/ML SYR SC SCH (07:54)
--- NOTE | 2016-07-03 17:22 | HOSPPROG ---
Hospitalist Progress Note Assessment/Plan: 81 yo F with hx of CAD and chronic respiratory failure presenting with fever and chills and e/o possible cellulitis as well as pna, also elevated trop and new wall motion abnormality on echo # sepsis: in setting of likely cellulitis as well as ? pna as below, wbc trending down, afebrile, blood and sputum cxs ngtd/wound cx with staph as next # cellulitis: present on left posterior ankle, started on invanz and vanc initially. Significant improvement with chronic non healing ulcer. Transitioned on 07/02 to doxy and has continued to improve symptomatically. Significant component of chronic venous stasis contributing. If continues to improve overnight would dc on oral doxy for likely 10 day total course. # pneumonia: with bilateral patchy infiltrates and sepsis as above, possibly related to volume overload rather than pna as repeat cxr personally reviewed less c/w pna. Either way, she is reasonably well covered on doxy as above. So long as no worsening issues overnight would dc as above. # nstemi/CAD: with elevated trop and new wall motion abnormality noted on echo. Cath showing multivessel disease that was not intervened on. Plan is for medical mgmt--she has only been on asa prior to admit. Will add low dose BB. Apparently has been intolerant of statins. cardiology has plans to have her f/u in their office in the coming 1-2 weeks. # fall/weakness: in setting of above and likely multifactorial and related to sepsis and cellulitis # acute encephalopathy: in the setting of above and now resolved, likely toxic metabolic encephalopathy related to sepsis # acute on chronic hypoxic respiratory failure: at baseline requires 3L of O2, but increased to 4-5 since arrival. As above has e/o likely pna as well as volume overload as next. She has known malachi and prior tobacco use hx, ? underlying copd. # acute on chronic combined systolic/diastolic heart failure: as above, bilateral patchy infiltrates noted on cxr likely related to pulmonary edema, will start lasix 40bid and monitor. Echo showing EF of 40-45% (previously 65%), diastolic dysfunction and mild pulm htn. 2/2 ischemic CM likely as above. # dm2: SSI, poorly controlled at home with A1c of 10.5 # dispo: Ip status, will need > 48 hours stay for eval/mgmt of above given multiple active comorbid conditions, patient likely good for dc home with home health per CM/PT/OT--likely will be ready for dc on 07/04 Subjective: patient had a difficult night last night, not sleeping well, no increased cough or other issues, leg continues to improve Objective: Vital Signs Temp Pulse Resp BP Pulse Ox 37.0 C 81 12 116/57 L 96 07/03/16 15:48 07/03/16 16:16 07/03/16 16:16 07/03/16 15:48 07/03/16 16:16 Laboratory Results 07/03/16 04:10 07/03/16 04:10 07/02/16 07/03/16 07/04/16 05:59 05:59 05:59 Intake Total 1250 1450 700 Output Total 1525 1100 600 Balance -275 350 100 PT 14.2 SEC (12.0-15.0) 06/30/16 14:05 INR 1.11 (0.83-1.16) 06/30/16 14:05 awake alert nad anicteric op clear rrr systolic murmur + ble edema cta b soft nt nd ble edema, left ankle in dressing that was not removed warm dry well perfused oriented appropriate - Time Spent With Patient Time Spent with Patient: greater than 35 minutes Time Spent with Patient: Greater than 35 minutes spent on this patients care, greater than 50% of time spent counseling, educating, and coordinating care regarding the above mentioned plan. ICD10 Worksheet Patient Problems: Problems Problem Status Onset Cellulitis Acute Pulmonary edema Acute Severe sepsis Acute Chest pain Acute
[2016-07-04 05:09] LABS: ANION GAP 5 mEq/L (8-16); CALCIUM 8.4 mg/dL (8.5-10.4); CARBON DIOXIDE 30 mEq/l (22-31); CHLORIDE 99 mEq/L (97-110); CREATININE 0.8 mg/dL (0.6-1.0); GLOMERULAR FILTRATION RATE > 60; GLUCOSE 186 mg/dL (70-100); POTASSIUM 3.5 mEq/L (3.5-5.2); SODIUM 134 mEq/L (134-144)
[2016-07-04] MEDS: IPRATROPIUM/ALBUTEROL 3 ML DEYVIAL IH SCH ×4 (06:02→21:01)
[2016-07-04] MEDS: CYANO/VITAMIN B12 1000 MCG TAB PO SCH (07:56)
[2016-07-04] MEDS: OXYBUTYNIN 5 MG EXT REL TAB PO SCH (07:56)
[2016-07-04] MEDS: CARVEDILOL 3.125 MG TAB PO SCH ×2 (07:57→19:15)
[2016-07-04] MEDS: MULTIVITAMINS 1 EACH TAB PO SCH (07:57)
[2016-07-04] MEDS: FUROSEMIDE 40 MG TAB PO SCH ×2 (07:58→16:23)
[2016-07-04] MEDS: DOXYCYCLINE HYCLATE 100 MG CAP/TAB PO SCH ×2 (07:58→20:52)
[2016-07-04] MEDS: INSULIN LISPRO 100 UNIT/ML SC SCH ×3 (07:58→19:17)
--- NOTE | 2016-07-04 11:47 | WOCRNPDOC ---
WOCRN Advanced Assessment Note - Skin Integrity Problem, Advanced Assess Left Posterior Medial Ankle Diabetic Ulcer Dressing Type: Allevyn Life Dressing Description: Clean/Dry Exudate Amount: Scant Exudate Color: Reddish/Yellow Exudate Characteristic(s): Serosanguinous Integumentary Issue Intervention: Dressing Changed Jo-Ann Wound Tissue: Erythema, Macerated, Scarred, Hypertrophic Jo-Ann Wound Swelling: Mild Wound Bed Color: Red, Yellow Wound Bed Constitution: Granulation Tissue (85%), Adhered Slough (15%) Wound Edges: Epibole, Thick Site Odor: None Skin Integrity Problem Comment: Minimal changes since previous assessment on . There continues to be some adhered slough medially, remainder of wound bed granulating well. There was incresed jo-ann-wound maceration observed, so skin prep was applied X2 to protect from wound exudate. Overall, edema in this extremity has diminished since admission, currently +1 non-pitting. Continue w/ plan of care, and [facility] to [facility] the wound ongoing.
--- NOTE | 2016-07-04 19:09 | HOSPPROG ---
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 - I reviewed with wound care nurse today, no necrosis but no day definite signs of acute healing during her stay here so far -Acute on chronic systolic and diastolic CHF - still with moderate edema both legs -elevation of cardiac troponins with unchanged coronary angiography no new lesions since 2015 ; question new wall motion abnormality on echocardiogram - I wonder if this is actually due to a rhabdomyolysis as she had been on the floor for at least an hour and half before paramedics arrived -I do not think the patient has pneumonia on careful review of her clinical course and x-rays -Acute on chronic hypoxic respiratory failure -Marked gait instability, with multiple recent falls at home without apparent injury - the patient has both a cane and a front wheel and four-wheel walker at home but does not use any of these at home. She has fallen frequently at home and in fact has been assisted by the local e[employer]ift to get her up off of the floor 3 times at her home in the past month -acute encephalopathy resolved -Diabetes mellitus type 2 poorly controlled at home hemoglobin A1c 10.5 PLANS: - continue diuresis and leg elevation here with wound care -Continue current antibiotics -I had a long talk with the patient and her son at the bedside. Reviewed reviewed the high risk of falls with injuries, and the significant benefit to using her walker. She will clearly need ongoing therapies to his sister and burning proper use of the walker she sounds like she does not use it very well -Ongoing physical occupational therapy here -Ongoing monitoring and management of her diabetes and this will need close follow-up in the outpatient setting SUBJECTIVE: overall she feels better with no pain no shortness of breath. However she notices her legs are still very swollen she still quite weak and not able to ambulate safely OBJECTIVE Vitals reviewed: stable without fever Public Policy Associate, my review: sinus rhythm Exam: alert oriented skin warm dry color ok resps not labored lungs clear BSs heart regular abd soft nondistended nontender, bowel sounds present limbs warm, prominent pitting edema from the ankles to the knees bilateral, still with some circumferential cellulitis of the left calf however this is less extensive than less erythematous than yesterday per the son's report to me iv site ok Objective: Vital Signs Temp Pulse Resp BP Pulse Ox 36.7 C 74 18 122/61 H 94 07/04/16 11:53 07/04/16 17:13 07/04/16 17:13 07/04/16 11:53 07/04/16 17:13 Laboratory Results 07/03/16 04:10 07/04/16 04:43 07/03/16 07/04/16 07/05/16 06:59 06:59 06:59 Intake Total 1450 1000 300 Output Total 1100 700 Balance 350 300 300 PT 14.2 SEC (12.0-15.0) 06/30/16 14:05 INR 1.11 (0.83-1.16) 06/30/16 14:05 - Time Spent With Patient Time Spent with Patient: greater than 35 minutes Time Spent with Patient: Greater than 35 minutes spent on this patients care, greater than 50% of time spent counseling, educating, and coordinating care regarding the above mentioned plan. ICD10 Worksheet Patient Problems: Problems Problem Status Onset Cellulitis Acute Pulmonary edema Acute Severe sepsis Acute Chest pain Acute
[2016-07-05] MEDS: IPRATROPIUM/ALBUTEROL 3 ML DEYVIAL IH SCH ×3 (05:43→15:30)
[2016-07-05] MEDS: INSULIN LISPRO 100 UNIT/ML SC SCH ×2 (07:34→12:59)
[2016-07-05] MEDS: DOXYCYCLINE HYCLATE 100 MG CAP/TAB PO SCH (08:17)
[2016-07-05] MEDS: FUROSEMIDE 40 MG TAB PO SCH ×2 (08:17→16:53)
[2016-07-05] MEDS: CARVEDILOL 3.125 MG TAB PO SCH (08:17)
[2016-07-05] MEDS: CYANO/VITAMIN B12 1000 MCG TAB PO SCH (08:18)
[2016-07-05] MEDS: MULTIVITAMINS 1 EACH TAB PO SCH (08:18)
[2016-07-05] MEDS: OXYBUTYNIN 5 MG EXT REL TAB PO SCH (08:18)
[2016-07-05 12:04] VITALS: BP 136/81; TEMP 98.9
[2016-07-05 12:18] VITALS: RESP 18; O2SAT 94
--- NOTE | 2016-07-05 14:05 | PDIAF ---
- Diagnosis Diagnosis: Cellulitis and ulcer L leg; chf; gait instability with multiple falls Code Status: Full Code - Medication Management Discharge Medications: Medications to Continue on Transfer Aspirin [Aspirin 325 mg (*)] 325 mg PO DAILY PRN 06/30/16 [Last Taken Unknown] Cyanocobalamin [Vitamin B12 (*)] 1,000 mcg PO DAILY 06/30/16 [Last Taken Unknown ] Metformin HCl [Metformin 1000 mg] 1,000 mg PO BID 06/30/16 [Last Taken Unknown] Multivitamins [Multivitamin (*)] 1 each PO DAILY 06/30/16 [Last Taken Unknown] Oxybutynin Chloride [Ditropan Xl] 10 mg PO DAILY 06/30/16 [Last Taken Unknown] Acetaminophen [Tylenol 325mg (*)] 650 mg PO QID PRN #0 tab 07/05/16 [Last Taken Unknown] Albuterol [Proventil Neb] 3 ml IH Q2HRS PRN #0 deyvial 07/05/16 [Last Taken Unknown] Carvedilol [Coreg (*)] 3.125 mg PO BIDMEAL tab 07/05/16 [Last Taken Unknown] Doxycycline Hyclate [Vibramycin 100 MG (*)] 100 mg PO BID capsule 07/05/16 [ Last Taken Unknown] Furosemide [Lasix 40 MG (*)] 40 mg PO BID@0900,1500 tab 07/05/16 [Last Taken Unknown] Hydrocodone/APAP 5/325 [Gilby 5/325 (*)] 1 - 2 tab PO Q4HRS PRN #0 tab 07/05/16 [Last Taken Unknown] Insulin Lispro [humALOG LISPRO 100 units/ml (*)] 0 unit SC TIDMEAL unit [Last Taken Unknown] Ipratropium/Albuterol [Duoneb (*)] 3 ml IH QID deyvial 07/05/16 [Last Taken Unknown] Temazepam [Restoril 15 MG (*)] 15 mg PO HS PRN #0 cap 07/05/16 [Last Taken Unknown] Discharge Medications: Refer to the Discharge Home Medication list for PRN reason. PICC Care - Routine: N/A - Orders Services needed: Registered Nurse, Certified Electronics Department Manager, Master Psychologist Personnel , Physical Therapy, Occupational Therapy Diet Recommendation: sodium restricted Diet Texture: Regular Texture Diet Wound Care Instructions: Dressing change orders for L achilles wound: to be done by loan approver q 3 days and PRN. 1) cleanse w/ NS and gauze. 2) apply skin prep to jo-ann-wound skin. May apply twice, allowing to dry in between, to help protect jo-ann-wound skin from exudate. 3) apply Hydrogel to wound bed. 4) tear off piece of Endoform (in patient's wound care supplies), and place into wound bed. 5) cut piece of Hydrofera Blue Ready foam to the size of the wound bed, and place in wound, writing side up. Secure w/ steri-strips. 6) cover w/ Allevyn Life dressing. Activity/Weight Bearing Restrictions: high fall risk Equipment: walker, oxygen - Labs/Radiology BMP Date: 07/12/16 - Follow Up Care Current Providers and Referrals: Dorian Rodríguez MD [Primary Care Provider] - As per Instructions
[2016-07-05 16:39] VITALS: PULSE 74
--- NOTE | 2016-07-05 18:49 | PDDCSUM ---
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 Max Grimm cardiology PROCEDURES: Coronary angiography showing no change since 2014 angiography with diffuse [place] coronary disease but patent bypass grafts HOSPITAL COURSE SUMMARY: This patient came into the hospital with fevers and acute sepsis with cellulitis of her left leg below the knee as well as an ongoing chronic skin ulcer posterior to the left Achilles. Blood cultures grew sensitive Staph and wound cultures grew Klebsiella. She was treated with IV antibiotics leg elevation diuretics and responded very well with good resolution of her cellulitis and her sepsis. She did also at the time of her admission have some low blood pressures, some mildly elevated cardiac troponins, and some mild congestive heart failure. There is a history of coronary disease with bypass surgery so she had coronary angiography here which showed no evidence of new progression of her coronary problems. She had patent grafts and old stable [place] vessel disease. An echocardiogram showed what may be some mild new wall motion abnormality. Is unclear whether she truly had new coronary event or whether her elevated troponins may have represented rhabdomyolysis related to her falling and having been on the floor for some time. Medical management of her heart disease was recommended and she remains stable here in the hospital with improvement on diuretics. The patient has severe weakness and gait instability is quite debilitated with deconditioning. At home she has a cane and 2 walkers but does not use either them. She has falling quite frequently at home and in fact has had 3 visits from the [employer] to get her off the floor at her house in the past month alone according to her son who is a historical society director at the local [employer]. It was strongly emphasized to her that she needs to use her walker to be safe. Here at this time she is stable for discharge from hospital but not stable to go home and so we are sending her to a local nursing facility for ongoing physical therapy and rehabilitation as well as wound care and antibiotic therapy. PENDING TEST RESULTS: None MEDICATION CHANGES: Doxycycline 100 mg twice daily for another week for her cellulitis and wound FOLLOW-UP PLAN: Transfer to senior living facility today for ongoing antibiotics and wound care, diuresis, and physical occupational therapies She will follow up with Dr. Grimm in Cardiology Clinic in 2 weeks Greater than 35 minutes bedside and care coordination time today
== END 2016-07-05 16:48 | DRG 871 ==
LOC: OBSVTOIN 15:21 → F2W 18:00
PROVIDERS: ADMIT Student in an Organized Health Care Education/Training Program; ATTEND Internal Medicine
PROC: B2151ZZ Fluoroscopy of Left Heart using Low Osmolar Contrast (ICD-10-PCS; principal; 2016-07-01 11:43)
PROC: B2121ZZ Fluoroscopy of Single Coronary Artery Bypass Graft using Low Osmolar Contrast (ICD-10-PCS; principal; 2016-07-01 11:43)
PROC: B2111ZZ Fluoroscopy of Multiple Coronary Arteries using Low Osmolar Contrast (ICD-10-PCS; principal; 2016-07-01 11:43)
PROC: 4A023N7 Measurement of Cardiac Sampling and Pressure, Left Heart, Percutaneous Approach (ICD-10-PCS; principal; 2016-07-01 11:43)
PROC: B2181ZZ Fluoroscopy of Left Internal Mammary Bypass Graft using Low Osmolar Contrast (ICD-10-PCS; principal; 2016-07-01 11:43)
DX: A41.9 Sepsis, unspecified organism (principal); L03.116 Cellulitis of left lower limb; L97.329 Non-pressure chronic ulcer of left ankle with unspecified severity; I50.43 Acute on chronic combined systolic (congestive) and diastolic (congestive) heart failure; J96.21 Acute and chronic respiratory failure with hypoxia; G92 Toxic encephalopathy; E11.9 Type 2 diabetes mellitus without complications; I25.10 Atherosclerotic heart disease of native coronary artery without angina pectoris; G47.33 Obstructive sleep apnea (adult) (pediatric); R26.81 Unsteadiness on feet; R29.6 Repeated falls; Z95.1 Presence of aortocoronary bypass graft
CPT/HCPCS: 97110-GP; 97116-GP; 97162-GP; 97166-GO; 97530-GP; 97535-GO; G8978-GP-CK; G8979-GP-CI; G8987-GO-CK; G8988-GO-CI; J0696; J1335; J1644; J1650; J1815; J1940; J2250; J3010; J3370; Q9967

== ENCOUNTER 2016-08-29 08:01 | Emergency (ER) | payer OTHER ==
[2016-08-29 08:19] VITALS: PULSE 74
--- NOTE | 2016-08-29 08:32 | EDPHY ---
H & P Stated Complaint: refrigerator door swung open,knocked pt off walker,hit head; no LOC Time Seen by Provider: 08/29/16 08:09 HPI/ROS: CHIEF COMPLAINT: Mechanical fall, scalp laceration, mild headache HISTORY OF PRESENT ILLNESS: The patient presents to the ED with complaints of a scalp laceration and mild headache after mechanical fall. The patient reportedly was knocked off balance by refrigerator door falling backward. She struck her head. She did not lose consciousness. The patient did sustain a laceration with a moderate amount of bleeding. The patient denies any anti- platelet or anticoagulant use. The patient denies any complaints of neck pain, back pain, chest pain or additional extremity complaints. The patient does complain of a mild occipital headache. REVIEW OF SYSTEMS: A comprehensive 10 point review of systems is otherwise negative aside from elements mentioned in the history of present illness. Source: Patient Exam Limitations: No limitations - Personal History Current Tetanus Diphtheria and Acellular Pertussis (TDAP): Yes Tetanus Vaccine Date: 02/2011 - Medical/Surgical History Hx Asthma: No Hx Chronic Respiratory Disease: Yes Hx Diabetes: Yes Hx Cardiac Disease: No Hx Renal Disease: No Hx Cirrhosis: No Hx Alcoholism: No Hx HIV/AIDS: No Hx Splenectomy or Spleen Trauma: No Other PMH: DM2, quadbypass surgery 2010, archilles tendon repair, RENUKA, HTN, RENUKA , cardiac stents - Social History Smoking Status: Former smoker - Physical Exam Exam: General Appearance: Alert, no distress Head: 5 cm posterior occipital scalp hematoma with 3 cm laceration, scalp tenderness to palpation noted Eyes: Pupils equal, round, reactive ENT, Mouth: No hemotympanum, no oral trauma Neck: Nontender, trachea midline Respiratory: No chest wall tender, subcutaneous air, lungs clear bilaterally Cardiovascular: Regular rate and rhythm Abdomen: Abdomen is soft and nontender, pelvis stable Skin: No lacerations, No abrasion Back: No midline T/L/S pain Extremities: Nontender, full range of motion Neurological: A&Ox3, normal motor function, normal sensory exam Constitutional: Initial Vital Signs Temperature (C) 36.7 C 08/29/16 08:03 Heart Rate 74 08/29/16 08:03 Respiratory Rate 18 08/29/16 08:03 Blood Pressure 168/82 H 08/29/16 08:03 O2 Sat (%) 94 08/29/16 08:03 O2 Delivery Mode Room Air Allergies/Adverse Reactions: Penicillins Allergy (Mild, Verified 08/29/16 08:02) Rash Home Medications: Medication Instructions Recorded Aspirin [Aspirin 325 mg (*)] 325 mg PO DAILY PRN 06/30/16 Cyanocobalamin [Vitamin B12 (*)] 1,000 mcg PO DAILY 06/30/16 Metformin HCl [Metformin 1000 mg] 1,000 mg PO BID 06/30/16 Multivitamins [Multivitamin (*)] 1 each PO DAILY 06/30/16 Oxybutynin Chloride [Ditropan Xl] 10 mg PO DAILY 06/30/16 Acetaminophen [Tylenol 325mg (*)] 650 mg PO QID PRN #0 tab 07/05/16 Albuterol [Proventil Neb] 3 ml IH Q2HRS PRN #0 deyvial 07/05/16 Carvedilol [Coreg (*)] 3.125 mg PO BIDMEAL tab 07/05/16 Doxycycline Hyclate [Vibramycin 100 mg PO BID capsule 07/05/16 100 MG (*)] Furosemide [Lasix 40 MG (*)] 40 mg PO BID@0900,1500 tab 07/05/16 Hydrocodone/APAP 5/325 [[place] 1 - 2 tab PO Q4HRS PRN #0 tab 07/05/16 5/325 (*)] Insulin Lispro [humALOG LISPRO 100 0 unit SC TIDMEAL unit 07/05/16 units/ml (*)] Ipratropium/Albuterol [Duoneb (*)] 3 ml IH QID deyvial 07/05/16 Temazepam [Restoril 15 MG (*)] 15 mg PO HS PRN #0 cap 07/05/16 Medical Decision Making - Diagnostics Imaging Results: CT head without contrast: Occipital scalp hematoma, no fracture or ICH noted. Images reviewed by myself and discussed with Dr. Witt. Procedures: Procedure: Laceration repair. Verbal consent was obtained from the patient. The 2 cm laceration on the scalp was anesthetized using lidocaine. The wound was irrigated per protocol, draped and explored to its base with a gloved finger. There were no deep structures involved. The wound was repaired with erin. The wound repair was simple. The procedure was performed by myself. ED Course/Re-evaluation: The patient presents to the ED with complaints of headache following a mechanical fall. The patient is noted to have a fairly large scalp laceration and associated occipital hematoma. She has no midline neck tenderness and no complaints of neck pain. Given the patient's age and complaints, a CT scan of the head was ordered to exclude skull fracture or intracranial hemorrhage. The patient's laceration was anesthetized by myself, copiously irrigated and closed. Fortunately the patient's head CT scan demonstrates no evidence of an intracranial hemorrhage or skull fracture. The patient underwent serial examinations x3 in the ED by myself over a 1.5 hour period. She remains with a GCS of 15 and no additional traumatic injury appreciated. The patient will be discharged home with customary aftercare instructions and return precautions. Differential Diagnosis: Differential diagnosis considered includes intracranial hemorrhage, skull fracture, laceration, concussion Departure - Departure Disposition: Home, Routine, Self-Care Clinical Impression: Hematoma of occipital surface of head Qualifiers: Encounter type: initial encounter Qualified Code(s): S00.83XA - Contusion of other part of head, initial encounter Occipital scalp laceration Qualifiers: Encounter type: initial encounter Qualified Code(s): S01.01XA - Laceration without foreign body of scalp, initial encounter Condition: Good Instructions: Laceration (ED) Additional Instructions: 1. Please return to the ED in 10 days for staple removal. 2. Tylenol and ibuprofen as needed for pain. 3. Apply ice to area of injury 20-30 minutes at a time 4 to 5 times a day for the next 2 days. 4. Please return to the ED immediately for severe headache, vomiting, new painful complaints or other concerns. Referrals: Dorian Rodríguez MD [Primary Care Provider] - As per Instructions
[2016-08-29 09:31] VITALS: BP 128/66; RESP 16; TEMP 97.9; O2SAT 92
== END 2016-08-29 09:31 | disposition home or self-care (01) ==
PROC: 0HQ0XZZ Repair Scalp Skin, External Approach (ICD-10-PCS; principal; 2016-08-29)
DX: S01.01XA Laceration without foreign body of scalp, initial encounter (principal); E11.9 Type 2 diabetes mellitus without complications; I10 Essential (primary) hypertension; Z79.4 Long term (current) use of insulin; Z95.5 Presence of coronary angioplasty implant and graft; Z87.891 Personal history of nicotine dependence; Z79.82 Long term (current) use of aspirin; Z79.84 Long term (current) use of oral hypoglycemic drugs; W01.198A Fall on same level from slipping, tripping and stumbling with subsequent striking against other object, initial encounter

== ENCOUNTER 2016-12-08 05:46 | Day surgery (SDC) | payer OTHER ==
--- NOTE | 2016-12-07 16:13 | GHP ---
[f rep st] PREOP HISTORY AND PHYSICAL HISTORY OF PRESENT ILLNESS: The patient presented to [facility] earlier in 2016 , back in July, complaining of a chronic heel ulcer on the left heel. She had a previous ruptured Ac hilles tendon, which had a primary repair, resulted in excessive amounts of scar tissue, delayed heal ing. She is a long-standing diabetic. She has had some moderate decrease in circulation to both low er extremities. She does suffer with chronic edema to both lower extremities. She has severe varico sities. Currently, she has a chronic ulceration currently measuring about 1 cm with 1 mm depth. No tracking, 95% granular base, and this is at the posterior left heel proximal to the Achilles tendon i nsertion into the posterior calcaneus. At this point, the wound is chronic, recurrent, and she was w ondering if there was a way to get rid of it permanently. Looking at the area, there is excessive sca r tissue in the area. There are some adhesions to the Achilles tendon, which is contributing to the problem. Any time she moves the Achilles tendon, it pulls on the skin, eventually pulling the skin, tearing it superficially and causing the reopening of the wound. At this point, my recommendation wa s to do a debridement of the scar tissue in the area and cut back to healthy skin and make sure that these adhesions are released. The patient is in moderate health. She has diabetes, hypertension, sev ere degenerative arthritis, back, knees and hips. Currently, she is on chronic anti-inflammatory, Ac cupril. She is insulin-dependent, takes Humulin insulin 30 units daily. ALLERGIES: She is allergic to penicillin, causes a rash. No other drug allergies. HABITS: At her preop appointment, she denied tobacco and alcohol use. FAMILY HISTORY: She has no significant family history of any other health issues she can recall, or foot issues. She is significantly overweight, fully ambulatory, and she does walk with a fully propulsive phase of gait. Currently, she is 80 years of age. At her preop appointment, she is alert and oriented. She is having no difficulties with any cardiac problems. She denied any chest pain, shortness of breath , GI distress, neurologic, dermatologic or other musculoskeletal problems. She denied any chronic he adaches, changes in vision, hearing, nasal or throat issues. She has had multiple surgeries in the p ast, without complication or problems to anesthesia, including the Achilles repair. PHYSICAL EXAM: Preoperatively, she had faint dorsal pedal and posterior tibial arterial pulses due t o the edema. She had 2+ pitting edema from the midcalf distally down to the toes. Skin is very taut over the posterior heel on the left side. Some loss of hair dorsally over both feet. Skin was cool to the touch on both feet. Skin is very smooth, intact, and again, with the edema, the skin appeare d to be slightly strained, but with minimal stress on the posterior left calf. She has the adhesions , scar tissue as stated, and the skin is completely adhesed to the posterior Achilles tendon on the l eft side over about a 2-inch area, and this is visible clinically. At the edge of this adhesion, the re is an open wound measuring approximately 1.5 cm, and it is kind of an oval area. It is 95% granul ar, and there is no tracking. Does not appear to be infected. She has been on antibiotics at least 5 times for multiple infections over this area. She had 5/5 manual muscle testing. The Achilles ten don is intact and functional. She walks with a slightly propulsive phase of gait. She has no pain w ith range of motion of the ankle, subtalar, mid tarsal joints bilateral. She has a low arch foot typ e with complete collapse of the mid tarsal joint on both feet. 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 PLAN: Planned procedure is debridement of wound with loosening of adhesions and primary repair of sk in with skin plasty on the posterior Achilles. It should be noted that there is some Achilles tendin itis and tenosynovitis symptoms as the wound opens up and she does more activity with the skin deborah g on the posterior Achilles tendon where it is adhesed. She does get pain over that area, and there is some palpable tenderness over that area today. Plan is as stated, debride loosening of adhesions, primary closure of the skin. We will place her in a posterior splint or a walking boot postoperative ly. I anticipate her being in that for 3 weeks. I anticipate sutures coming out in about 2-1/2 week s. She will be followed up x3 days postop at [facility], and she was given my [facility] phone number for 24-hour call should she have any problems or questions. /[id number]/MODL
[2016-12-08] MEDS ORDERED: LR 1,000 ML IV ONE (06:17)
[2016-12-08] MEDS ORDERED: LIDOCAINE 1% 2 ML INJ ID PRN (06:17)
[2016-12-08] MEDS ORDERED: BUPIVACAINE 0.25% 30 ML SDV ONE (06:48)
[2016-12-08] MEDS ORDERED: LIDOCAINE 1% 300 MG/30 ML SDV ONE (06:48)
[2016-12-08] MEDS ORDERED: ceFAZolin 1 GM/5 ML SYR ONE (06:48)
--- NOTE | 2016-12-08 07:08 | PDHPUP ---
History & Physical Update H&P update statement: This history and physical update is based on an assessment of the patient which was completed after admission or registration (within 24 hours), but prior to the surgery/procedure.
[2016-12-08] MEDS ORDERED: fentaNYL 100 MCG/2 ML INJ ONE (07:13)
[2016-12-08] MEDS ORDERED: PROPOFOL 200 MG/20 ML VIAL ONE (07:13)
[2016-12-08] MEDS ORDERED: LIDOCAINE 2% 5 ML SDV ONE (07:13)
[2016-12-08] MEDS ORDERED: SUCCINYLCHOLINE CHLORIDE*ANESTHESIA ONLY*200 MG/10 ML SYR IVP ONE (07:13)
[2016-12-08] MEDS ORDERED: ceFAZolin 2 GM/SWFI 20 ML SYR IVP ONE (07:23)
--- NOTE | 2016-12-08 07:45 | PDANEPAE ---
ANE History of Present Illness Patient presents for I&D LLE ANE Past Medical History - Cardiovascular History Hx Hypertension: Yes Hx Arrhythmias: No Hx Chest Pain: No Hx Coronary Artery / Peripheral Vascular Disease: Yes Hx CHF / Valvular Disease: No Hx Palpitations: No - Pulmonary History Hx COPD: No Hx Asthma/Reactive Airway Disease: No Hx Oxygen in Use at Home: Yes Hx Sleep Apnea: Yes Sleep Apnea Screening Result - Last Documented: Positive Pulmonary History Comment: sleep apnea 2L at noc with cpap - Neurologic History Hx Cerebrovascular Accident: No Hx Seizures: No Hx Dementia: No - Endocrine History Hx Diabetes: Yes - Renal History Hx Renal Disorders: No - Liver History Hx Hepatic Disorders: No - Neurological & Psychiatric Hx Hx Neurological and Psychiatric Disorders: No - Cancer History Hx Cancer: Yes Cancer History Comment: skin cancer - Congenital Disorder History Hx Congenital Disorders: No - GI History Hx Gastrointestinal Disorders: No - Other Health History Other Health History: wound on ankle - Chronic Pain History Chronic Pain: Yes (BONE SPURS TO LEFT SHOULDER) - Surgical History Prior Surgeries: [facility] quad bypass 2014 ANE Review of Systems Review of Systems: - Exercise capacity METS (RN): 3 METS ANE Patient History - Allergies Allergies/Adverse Reactions: Penicillins Allergy (Mild, Verified 08/29/16 08:02) Rash - Home Medications Home medications: home medication list seen and reviewed Home Medications: Aspirin [Aspirin 325 mg (*)] 06/30/16 [Last Taken 12/07/16 08:00] Cyanocobalamin [Vitamin B12 (*)] 06/30/16 [Last Taken 12/07/16 08:00] Metformin HCl [Metformin 1000 mg] PO 06/30/16 [Last Taken 12/07/16 20:00] Multivitamins [Multivitamin (*)] 06/30/16 [Last Taken 12/06/16] Acetaminophen [Tylenol 325mg (*)] 12/01/16 [Last Taken Unknown] Albuterol [Proventil Neb] 12/01/16 [Last Taken Unknown] Furosemide [Lasix 40 MG (*)] 12/01/16 [Last Taken 12/07/16 08:00] Ipratropium/Albuterol [Duoneb (*)] 12/01/16 [Last Taken Unknown] ALPHA LIPOIC ACID 12/08/16 [Last Taken Unknown] Klor-Con 12/08/16 [Last Taken Unknown] Metolazone 12/08/16 [Last Taken 2 Days Ago ~12/06/16] Oxybutynin Chloride [Ditropan Xl] 12/08/16 [Last Taken 12/07/16 08:00] Ubiquinol 12/08/16 [Last Taken Unknown] - NPO status NPO Status: no food or drink >8 hours NPO Since - Liquids (Date): 12/07/16 NPO Since - Liquids (Time): 11:59 NPO Since - Solids (Date): 12/07/16 NPO Since - Solids (Time): 17:00 - Smoking Hx Smoking Status: Former smoker - Family Anes Hx Family Hx Anesthesia Complications: none ANE Labs/Vital Signs - Vital Signs Blood Pressure: 143/81 Heart Rate: 78 Respiratory Rate: 18 O2 Sat (%): 91 Height: 162.56 cm Weight: 92.986 kg ANE Physical Exam - Airway Neck exam: FROM Mallampati Score: Class 2 Mouth exam: dentures - Pulmonary Pulmonary: no respiratory distress - Cardiovascular Cardiovascular: regular rate and rhythym - ASA Status ASA Status: III ANE Anesthesia Plan Anesthesia Plan: general endotracheal anesthesia (rba discussed)
[2016-12-08] MEDS ORDERED: OXYCODONE/APAP 5/325 TAB PO PRN (07:55)
[2016-12-08] MEDS ORDERED: HYDROCODONE/APAP 5/325 TAB PO PRN (07:55)
[2016-12-08] MEDS ORDERED: ONDANSETRON 4 MG/2 ML VIAL IVP PRN (07:55)
[2016-12-08] MEDS ORDERED: LR 500 ML IV PRN (07:55)
[2016-12-08] MEDS ORDERED: NALOXONE HCL 0.4 MG/ML INJ IVP PRN (07:55)
[2016-12-08] MEDS ORDERED: fentaNYL 100 MCG/2 ML INJ IVP PRN (07:55)
[2016-12-08 09:09] VITALS: TEMP 97.3
--- NOTE | 2016-12-08 09:38 | POSTANESTH ---
Post Anesthetic Evaluation Cardiovascular Status: Normal, Stable Respiratory Status: Similar to Pre-op Cond. Level of Consciousness/Mental Status: Can Participate in Eval Pain Control: Adequate, Prn Tx Ordered Nausea/Vomiting Control: Adequate, Prn Tx Ordered Complications Possibly Related to Anesthesia: None Noted
[2016-12-08 10:21] VITALS: BP 136/84; PULSE 76; RESP 13; O2SAT 93
--- NOTE | 2016-12-11 13:20 | GOP ---
[f rep st] OPERATIVE REPORT DATE OF OPERATION: 12/08/2016 SURGEON: Shai Saxena DPM ANESTHESIA: General, plus local infiltration of 7 cc of 1% lidocaine plain and 7 cc of 0.25% Marcain e plain. PREOPERATIVE DIAGNOSIS: Severe scar tissue, posterior heel/Achilles tendon, left foot with hypertrop hic scarring and adhesions. POSTOPERATIVE DIAGNOSIS: PROCEDURE PERFORMED: Removal of scar tissue, loosening of adhesions with primary closure of the post erior scar tissue healing on the left posterior Achilles/heel. FINDINGS: ESTIMATED BLOOD LOSS: Less than 20 cc. INDICATIONS: This had caused recurrent ulcerations on the posterior aspect of the heel. She had bee n seen in the Wound Clinic at [facility], off and on, for the last 3-4 years. At thi s point, she wanted things taken care of permanently. DESCRIPTION OF PROCEDURE: The patient was taken to the operating room and placed in a prone position , after general anesthesia. The left lower extremity was elevated, prepped and draped in the usual s terile OR fashion, achieving a sterile field about the entire distal aspect of the left lower extremi ty. At this point, converging semi-elliptical incisions were made over a previous ulceration and exc essive scar tissue on the posterior aspect of the left heel. Dissection was carried down to the leve l of subcutaneous area. There was a significant amount of thickened scarring on the posterior Achill es, and this was debrided directly posteriorly. The adhesions were both medial and lateral, and it w as a little bit worse medially than laterally as far as the skin sticking to that deep layer of tendo n posteriorly. This was freed utilizing sharp and blunt dissection. There was good active bleeding throughout the entire procedure. The area was flushed copiously with dilute antibiotic solution. At this point, the area was reinspected 3 different times for any residual adhesions. None were noted. At this point, the Achilles tendon was intact and healed nicely. Subcu closure was carried out via 4-0 Vicryl in a horizontal mattress suture, and skin closure was carried out via 3-0 Prolene in an a lternating simple interrupted and horizontal mattress suture. Adaptic, 4 x 4s, Nelli, and 4 layers o f Kerlix were placed on the left lower extremity for extreme padding on the area. The concern here is her sedentary lifestyle, the morbid obesity, and the fact that she could put too much pressure on that area and cause a necrosis of the incision. At this point, we will keep with th e cushion padding. I told her to keep pillows underneath the area. It should be noted that intraope ratively Adaptic, 4 x 4s, Nelli, and Coban were placed over the incision. Intraoperatively, the eliseo ent was flipped into a supine position, extubated, and was taken in to recovery in a satisfactory con dition, with all vital signs stable, and her prognosis is good for full recovery and healing. All po stoperative instructions were reiterated in recovery. All questions were answered, and she was given my cell phone number for 24-hour call should she have any problems or questions postoperatively. COMPLICATIONS: There were no complications. DRAINS: No drains were placed in the operative site. /[id number]/MODL
== END 2016-12-08 10:27 | disposition home or self-care (01) ==
LOC: FSGY 05:46
PROVIDERS: ATTEND Podiatrist
PROC: 0LBT0ZZ Excision of Left Ankle Tendon, Open Approach (ICD-10-PCS; principal; 2016-12-08 07:15)
DX: L90.5 Scar conditions and fibrosis of skin (principal); E11.9 Type 2 diabetes mellitus without complications; Z79.4 Long term (current) use of insulin; I10 Essential (primary) hypertension; M17.0 Bilateral primary osteoarthritis of knee; M16.10 Unilateral primary osteoarthritis, unspecified hip; E66.01 Morbid (severe) obesity due to excess calories; Z68.35 Body mass index [BMI] 35.0-35.9, adult
CPT/HCPCS: J0330; J0690; J2704; J3010

== ENCOUNTER 2017-05-03 14:49 | Observation (INO) | payer OTHER ==
--- NOTE | 2017-05-03 15:01 | CPEKG ---
Heart Rate: 104 RR Interval: 577 P-R Interval: 117 QRSD Interval: 104 QT Interval: 336 QTC Interval: 442 P [place]: 0 QRS [place]: -54 T Wave [place]: 95 EKG Severity - ABNORMAL ECG - EKG Impression: SINUS TACHYCARDIA EKG Impression: VENTRICULAR BIGEMINY EKG Impression: ST ELEVATION, PROBABLE INFERIOR INJURY EKG Impression: BORDERLINE R WAVE PROGRESSION, ANTERIOR LEADS EKG Impression: LATERAL LEADS ARE ALSO INVOLVED Electronically Signed By: Adam Vásquez 03-May-2017 21:53:52
--- NOTE | 2017-05-03 15:07 | EDPHY ---
HPI/HX/ROS/PE/MDM Narrative: CHIEF COMPLAINT: Cardiac Alert- Chest pressure HISTORY OF PRESENT ILLNESS: The patient is a 81 y/o female with a history of diabetes, cardiac stent, and a triple bypass surgery several years ago arriving via EMS as a cardiac alert for several days of chest pressure and pain, worsening with exertion. The pain and pressure is better and worse at different points in the day. She had a doctor's appointment this morning for a wound on her ankle and did not take her medications to avoid frequent urination. This afternoon, around 1:00 PM, she went to [employer] and felt a worsening in symptoms. EMS noted elevation in V1, V2, V3 on EKG and administered nitro and aspirin en route. Her blood glucose was 205 per EMS. On arrival in ED, she reported her pain had decreased to a 4 or 5 out of 10. She has associated pressure in her abdomen, pain in her back, nausea, and headache. She denies shortness of breath, vomiting, or any other associated symptoms. She denies history of an abdominal aortic aneurysm, ulcers, gallstones, or acid reflux. REVIEW OF SYSTEMS: Aside from elements discussed in the HPI, a comprehensive 10-point review of systems was reviewed and is negative. PAST MEDICAL HISTORY: Diabetes, cardiac stent, triple bypass, sleep apnea SOCIAL HISTORY: Lives in [place], retired, former smoker VITAL SIGNS: Reviewed by me GENERAL: Pleasant, overweight female, resting comfortably in no respiratory distress. Reports mild anterior chest discomfort, epigastric discomfort and back discomfort. HEENT: Atraumatic. Eyes: No icterus, no injection. Mouth: moist mucous membranes. No erythema or lesions. Neck: supple with no adenopathy. No JVD. LUNGS: Clear to auscultation bilaterally, no wheezes, rhonchi or rales. CARDIAC: Tachycardic, no rubs, murmurs or gallops. ABDOMEN: Obese abdomen. Soft, nontender, nondistended, bowel sounds normal. BACK: No CVA tenderness. EXTREMITIES: No trauma. No edema. Range of motion is normal throughout. NEURO: Alert and oriented, grossly nonfocal. SKIN: Warm and dry, no rash. PSYCHIATRIC: Normal mentation, no agitation. ED Course: 12-LEAD EKG: Please see the full report in [facility]. My interpretation: poor baseline, sinus rhythm, questionable ST elevation inferiorly. I met the patient on arrival at 2:49 PM. She presents with several days of chest pain and pressure with pain extending into her back and pressure extending into her abdomen. Her symptoms worsen with exertion. She has associated nausea and headache. She denies vomiting, shortness of breath, or any other associated symptoms. On exam, she is tachycardic with no abdominal tenderness to palpation. Dr. Tan he will was present admit the patient when she arrived in the emergency department. After review of EMS strep and patient's history, decision was made that the patient is not a criteria for the laboratory technician immediately. We will proceed with standard cardiac labs and further evaluation. 2:58 PM- EKG shows poor baseline, sinus rhythm, questionable ST elevation inferiorly. Echo at bedside. Inferior akinesis noted similar to previous. Incidental gallstone also noted. Liver and lipase labs sent. 3:29 PM- Patient is undergoing right upper quadrant ultrasound. She will be admitted to the hospitalist service from further workup. 4:05 PM- Ultrasound shows 4cm gallstone and slight thickening of the gallbladder gaitan. Chest X-ray shows no major differences from previous X-rays. At this time, she has no fever, no sonographic Adame's sign. She will be admitted for further evaluation of chest pain and surgery will consult for gallbladder. Dr. Wallace agrees to consult. Dr. Juares will be the admitting physician. MDM: After history and physical examination, the differential for this patient's presenting complaints was considered, including but not limited to, myocardial ischemia, acute coronary syndrome, gastrointestinal causes, gallstone disease, worsening congestive heart failure, pleural inflammation and pulmonary infectious causes. - Data Points Imaging Results: Imaging Impressions Chest X-Ray 05/03/17 14:58 Impression: Findings consistent with congestive heart failure are seen superimposed on probable underlying airways disease. Abdomen Ultrasound 05/03/17 15:12 Impression: 1. Technically suboptimal assessment of portions of the CBD and liver parenchyma. 2. Gallbladder sludge with cholelithiasis (dominant 4.2 cm dependent gallstone) , with mild gallbladder wall thickening but no pericholecystic fluid. If there is further clinical concern, a nuclear medicine hepatobiliary scan could be considered. Findings were discussed with Lis Galloway MD at 16:01, on 05/03/2017. Imaging: I viewed and interpreted images myself Laboratory Results: Laboratory Results 05/03/17 15:52 05/03/17 15:15 05/03/17 05/03/17 05/03/17 15:52 15:15 15:15 WBC REJ TNP RBC Not Reported TNP Hgb Not Reported TNP Hct Not Reported TNP MCV Not Reported TNP MCH Not Reported TNP MCHC Not Reported TNP RDW Not Reported TNP Plt Count Not Reported TNP MPV Not Reported TNP Neut % (Auto) Not Reported TNP Lymph % (Auto) Not Reported TNP [place] % (Auto) Not Reported TNP Eos % (Auto) Not Reported TNP Baso % (Auto) Not Reported TNP Nucleat RBC Rel Count Not Reported TNP Absolute Neuts (auto) Not Reported TNP Absolute Lymphs (auto) Not Reported TNP Absolute Monos (auto) Not Reported TNP Absolute Eos (auto) Not Reported TNP Absolute Basos (auto) Not Reported TNP Absolute Nucleated RBC Not Reported TNP Immature Gran % Not Reported TNP Immature Gran # Not Reported TNP Sodium 136 mEq/L mEq/L (135-145) Potassium 4.2 mEq/L mEq/L (3.5-5.2) Chloride 99 mEq/L mEq/L (97-110) Carbon Dioxide 24 mEq/l mEq/l (22-31) Anion Gap 13 mEq/L mEq/L (8-16) BUN 27 mg/dL H mg/dL (7-23) Creatinine 0.7 mg/dL mg/dL (0.6-1.0) Estimated GFR > 60 Glucose 206 mg/dL H mg/dL (70-100) Calcium 8.9 mg/dL mg/dL (8.5-10.4) Total Bilirubin 1.3 mg/dL mg/dL (0.1-1.4) Conjugated Bilirubin 0.5 mg/dL mg/dL (0.0-0.5) Unconjugated Bilirubin 0.8 mg/dL mg/dL (0.0-1.1) AST 28 IU/L IU/L (14-46) ALT 32 IU/L IU/L (9-52) Alkaline Phosphatase 59 IU/L IU/L (38-126) Troponin I < 0.012 ng/mL ng/mL (0.000-0.034) Total Protein 6.5 g/dL g/dL (6.3-8.2) Albumin 4.0 g/dL g/dL (3.5-5.0) Lipase 80 IU/L IU/L (23-300) Medications Given: Insulin Human Lispro (Humalog Lispro) 0 unit SC TIDMEAL DAYANA PRN Reason: Protocol Stop: 10/30/17 17:59 Last Admin: 05/03/17 18:53 Dose: 2 units Discontinued Medications Furosemide (Lasix Injection) 40 mg IVP EDNOW ONE Stop: 05/03/17 16:03 Last Admin: 05/03/17 17:00 Dose: 40 mg General Initial Vital Signs: Initial Vital Signs Temperature (C) 36.8 C 05/03/17 14:51 Heart Rate 98 05/03/17 14:51 Respiratory Rate 20 05/03/17 14:51 Blood Pressure 182/97 H 05/03/17 14:51 O2 Sat (%) 98 05/03/17 14:51 O2 Delivery Mode Nasal Cannula O2 (L/minute) 2 Allergies/Adverse Reactions: Penicillins Allergy (Mild, Verified 08/29/16 08:02) Rash Home Medications: Medication Instructions Recorded Aspirin [Aspirin 325 mg (*)] 325 mg PO DAILY 05/03/17 Cholecalciferol Vit D3 [Vitamin D3 1,000 units PO DAILY 05/03/17 (*)] Furosemide [Lasix 20 MG (*)] 20 mg PO BIDDIUR 05/03/17 Herbals/Supplements -Info Only 1 ea PO DAILY 05/03/17 Metformin HCl [Metformin 1000 mg] 1,000 mg PO BIDMEAL 05/03/17 Metolazone 2.5 mg PO PRN PRN 05/03/17 Multivitamins [Multivitamin (*)] 1 each PO DAILY 05/03/17 Oxybutynin Chloride [Ditropan Xl] 10 mg PO DAILY 05/03/17 Departure - Departure Disposition: [facility] Inpatient Acute Clinical Impression: Rule out ACS Gallstone Qualifiers: Cholecystitis presence: without cholecystitis Biliary obstruction: without biliary obstruction Qualified Code(s): K80.20 - Calculus of gallbladder without cholecystitis without obstruction Chest pain Qualifiers: Chest pain type: unspecified Qualified Code(s): R07.9 - Chest pain, unspecified Abdominal pain Qualifiers: Abdominal location: generalized Qualified Code(s): R10.84 - Generalized abdominal pain Condition: Fair Report Scribed for: Lis Galloway Report Scribed by: Kim Clark Date of Report: 05/03/17 Time of Report: 15:23 Physician Review and Approval Statement: Portions of this note were transcribed by a medical office clerk. I personally performed a history, physical exam, medical decision making, and confirmed accuracy of information the transcribed note.
--- NOTE | 2017-05-03 15:39 | ECHO ---
[email or web address] [email or web address] [id number] Main: [phone] Fax: Transthoracic Echocardiogram Name: FLORA LOVE MR#: [id number] Study Date: 05/03/2017 Study Time: 03:06 PM Date of : 1935 Age: 81 year(s) Height: ( ) Weight: ( ) BSA: Gender: Female Examination: Limited Echo Indication: Cardiac Alert Image Quality: Contrast: Requested by: Lis Galloway BP: 168 mmHg/93 mmHg Heart Rate: Rhythm: Normal sinus rhythm Indication: Cardiac Alert Procedure Staff Cream Dipper: Beny Beaulieu [facility] Reading Physician: Anatoliy Rueda MD Requesting Provider: Conclusions: The ejection fraction is visually estimated to be 55 %. No pericardial effusion. Preserved left ventricular systolic function without significant regional wall motion abnormalities. No significant valvular abnormalities by Doppler. Right ventricular systolic pressure estimate is normal. Measurements: Chambers Valvular Assessment AV/MV Valvular Assessment TV/PV Normal Normal Normal Name Value Range Name Value Range Name Value Range Visual EF: 55 % TR Vmax: 2.73 mm/s ( - ) EF Range: 55-60 % TR PGmax: 30 mmHg ( - ) syst. PAP: 35 mmHg ( - ) Continued Measurements: Valvular Assessment TV/PV Name Value CVP (est.): 5 mmHg Findings: Left Ventricle: The ejection fraction is estimated to be 55-60 %. The ejection fraction is visually estimated to be 55 %. Exam Comments: This is a limited echo to evaluate LV function. There is no pericardial effusion.. Patient: FLORA LOVE Study Date: 05/03/2017 Page 1 of 2 03:06 PM (No Signature Object) Patient: FLORA LOVE Study Date: 05/03/2017 Page 2 of 2 03:06 PM [id number]
[2017-05-03] MEDS ORDERED: FUROSEMIDE 40 MG/4 ML VIAL IVP ONE (16:02)
[2017-05-03] MEDS ORDERED: ONDANSETRON DISINTEGRATING 4 MG TAB PO PRN (16:25)
[2017-05-03] MEDS ORDERED: ACETAMINOPHEN 325 MG TAB PO PRN (16:25)
[2017-05-03] MEDS ORDERED: ONDANSETRON 4 MG/2 ML VIAL IVP PRN (16:25)
[2017-05-03] MEDS ORDERED: D50W 25 GM/50 ML SYR IVP PRN (16:30)
--- NOTE | 2017-05-03 16:37 | GCON ---
[f rep st] CONSULTATION CARDIOLOGY CONSULTATION DATE OF CONSULTATION: 05/03/2017 REFERRING PHYSICIAN: Lis Galloway MD INDICATION FOR CONSULTATION: Chest pain. HISTORY OF PRESENT ILLNESS: The patient is a pleasant 81-year-old female, well known to [facility], followed by Dr. Anatoliy Rueda, with a known history of coronary artery disease status post 4-ves peggy CABG in 2011, history of PCI to the circumflex vessel in 2014, history of diabetes, hypertension, hyperlipidemia, sleep apnea, and chronic respiratory failure on supplemental oxygen at 2 L/minute na lex cannula at night; who [facility]. Initially called her Cardi Alert for a 2-3 day history of constant substernal chest pressure which she describes as 7/. Sh e denies any exacerbating or alleviating factors. She admits to some mild associated shortness of br eath. She also complains of symptoms of abdominal pain with pain radiating to the back. She states her symptoms are sometimes worse with food. She admits to some mild nausea, no vomiting. She denies any complaints of fevers, chills, sweats. No complaints of myalgias or arthralgias. She does have some mild increase in lower extremity edema and some mild erythema to the left ankle. No complaints of PND or orthopnea. She does admit to a 10-pound weight gain over the last several days. ECG on presentation demonstrates normal sinus rhythm to sinus tachycardia with nonspecific interventr icular conduction delay and left axis deviation. ECG is unchanged compared to previous study in Oct. At the time of my exam, she is denying any complaints of substernal chest pressure. She is hypertens pamela with systolic blood pressure in the 177/97. PAST MEDICAL HISTORY: 1. Coronary artery disease. 2. History of 4-vessel CABG 2011. 3. History of PCI to the circumflex in 2014. 4. Type 2 diabetes. 5. Obstructive sleep apnea, compliant with CPAP. 6. Chronic respiratory failure, on 04/09 supplemental oxygen at 2 L/minute. 7. Obesity. MEDICATIONS ON ADMISSION: Include Ditropan, metolazone, metformin, DuoNeb, Lasix, aspirin, and albut ricardo. Of note, she is not on statin therapy. She has been intolerant to statins in the past. ALLERGIES: Penicillin. SOCIAL HISTORY: She lives with her son. She states she has recently been drinking up to 3 beers per day. She is a former smoker, quit at the age of 42. FAMILY HISTORY: Noncontributory. PHYSICAL EXAMINATION: VITAL SIGNS: Blood pressure is currently 186/93, heart rate of 103 in sinus r hythm, respiratory rate of 20, oxygen saturation 93% on 2 L/minute via nasal cannula. GENERAL: She is awake, alert, oriented, appropriate. NECK: There is no evidence of JVP or carotid bruits. CARDI AC: S1, S2. Regular rate and rhythm. No murmurs, rubs, or gallops. LUNGS: Demonstrate decreased breath sounds at bases bilaterally, no wheezing or rhonchi. ABDOMEN: Obese, soft, nontender, nondis tended. No pulsatile mass. Normal bowel sounds. EXTREMITIES: She does have 1 to 1+ bilateral ankl e edema. DATA: ECG, sinus tachycardia with nonspecific interventricular conduction delay, left axis deviation , unchanged compared to previous ECG. LAB WORK: Sodium 136, potassium 4.2, chloride 99, bicarb 24, BUN 27, creatinine 0.7, glucose 206. A ST 28, ALT 32, alkaline phosphatase 59, lipase 80. Troponin less than 0.012. Total protein 6.5, alb umin 4. CBC pending. Chest x-ray demonstrates pulmonary venous redistribution with increased interstitial markings, findin gs are consistent with congestive heart failure with underlying airway disease. Echocardiogram performed this afternoon demonstrates LVEF of 55% with no regional wall motion abnorma lities. No evidence of pericardial effusion. Pulmonary pressures were 30 mmHg. Of note, echocardiogram did demonstrate a large gallstone. She has undergone a right upper quadrant ultrasound in the emergency department. Preliminary results are large gallstone. This does not appe ar to be obstructive. We will wait for final report from the right upper quadrant ultrasound report. IMPRESSION: 1. Complaints of substernal pressure that has been continuous for the last 48 hours. 2. Known history of coronary artery disease, status post coronary artery bypass graft in 2011 and pe rcutaneous coronary intervention to the circumflex in 2014. 3. Poorly controlled hypertension. 4. History of hyperlipidemia, intolerant to statins. 5. Chronic respiratory failure, on chronic supplemental oxygen. 6. Obstructive sleep apnea, on continuous positive airway pressure. 7. Diabetes. 8. Obesity. SUMMARY: The patient is a 81-year-old female with a well-known history of coronary disease. Workup in the emergency department is not consistent with acute coronary syndrome. Her symptoms are continu ous for the last 48 hours. Troponin is normal. Echocardiogram demonstrates normal left ventricular function with no regional wall motion abnormalities. ECG is unchanged with no evidence of infarct or ischemia, and is unchanged compared to previous ECG in 2015. Workup is notable for a large gallston e. This certainly may be causing her discomfort. Chest x-ray does demonstrate pulmonary congestion. She is also hypertensive. PLAN: 1. Recommend admission to the hospitalist service in the setting of no evidence of acute coronary sy ndrome and evidence of a large gallstone. 2. Aggressive blood pressure management. 3. Increased diuresis for further risk stratification, pending ongoing evaluation. /[id number]/MODL
--- NOTE | 2017-05-03 16:39 | PDGENHP ---
History and Physical - Chief Complaint chest pain - History of Present Illness The patient is a 81 y/o female with a history of diabetes, cardiac stent, and a triple bypass surgery several years ago who presented to the E.D. via EMS as a cardiac alert for several days of chest pressure and pain, worsening with exertion. The pain and pressure is better and worse at different points in the day. She had a doctor's appointment this morning for a wound on her ankle and did not take her Lasix to avoid frequent urination. This afternoon, around 1:00 PM, she went to [facility] and felt a worsening in symptoms. EMS noted elevation in V1, V2, V3 on EKG and administered nitro and aspirin en route. Her blood glucose was 205 per EMS. On arrival in ED, she reported her pain had decreased to a 4 or 5 out of 10. She has associated pressure in her abdomen, pain in her back, nausea, and headache. Cardiac alert was activated and she was seen by Cardiology. A troponin was negative. An EKG showed possible inferior ST elevation, but after further review it is reported that its felt that the patient is not have ACS. She is being admitted for further w/u and evaluation. A bedside TTE is c/w preserved LVEF and wall motion abnormalities IN the E.D, Lasix was given. BP has been elevated in the 180's systolic. She also c/o of abdominal discomfort and a RUQ US was done which shows cholelithiasis, mild GB thickening, and negative sonographic sign. Surgery has been consulted. She was also found to have slight hyperglycemia CXR shows mild CHF She denies shortness of breath, vomiting, or any other associated symptoms. She denies history of an abdominal aortic aneurysm, ulcers, gallstones, or acid reflux. No fever, chills, shortness of breath, palpitations, vomiting, diarrhea , urinary complaints, lightheadedness. PAST MEDICAL HISTORY: Diabetes, cardiac stent, triple bypass, sleep apnea SOCIAL HISTORY: Lives in [place], retired, [facility] sm[facility] [place] History Information - Allergies/Home Medication List Allergies/Adverse Reactions: Penicillins Allergy (Mild, Verified 08/29/16 08:02) Rash Home Medications: Aspirin [Aspirin 325 mg (*)] 325 mg PO DAILY 05/03/17 [Last Taken Unknown] Cholecalciferol Vit D3 [Vitamin D3 (*)] 1,000 units PO DAILY 05/03/17 [Last Taken Unknown] Furosemide [Lasix 20 MG (*)] 20 mg PO BIDDIUR 05/03/17 [Last Taken Unknown] Herbals/Supplements -Info Only 1 ea PO DAILY 05/03/17 [Last Taken Unknown] Metformin HCl [Metformin 1000 mg] 1,000 mg PO BIDMEAL 05/03/17 [Last Taken Unknown] Metolazone 2.5 mg PO PRN PRN 05/03/17 [Last Taken Unknown] Multivitamins [Multivitamin (*)] 1 each PO DAILY 05/03/17 [Last Taken Unknown] Oxybutynin Chloride [Ditropan Xl] 10 mg PO DAILY 05/03/17 [Last Taken Unknown] I have personally reviewed and updated: medical history, social history - Social History Smoking Status: Former smoker Review of Systems Review of Systems: ROS: 10pt was reviewed & negative except for what was stated in HPI & below Physical Exam Physical Exam: Temp Pulse Resp BP Pulse Ox 36.8 C 103 H 20 186/93 H 93 05/03/17 14:51 05/03/17 15:00 05/03/17 15:00 05/03/17 15:00 05/03/17 15:00 Constitutional: no apparent distress Eyes: PERRL, EOMI Ears, Nose, Mouth, Throat: moist mucous membranes, No hearing normal Cardiovascular: regular rate and rhythym, edema (trace) Respiratory: no respiratory distress, no rales or rhonchi, clear to auscultation Gastrointestinal: normoactive bowel sounds, soft, non-tender abdomen, No willoughby' s sign, No rebound, No distension Skin: warm Neurologic: AAOx3 Psychiatric: interacting appropriately, not anxious, not encephalopathic Lymph, Heme, Immunologic: No petechiae Lab Data & Imaging Review 05/03/17 15:52 05/03/17 15:15 WBC TNP 05/03/17 15:15 RBC TNP 05/03/17 15:15 Hgb TNP 05/03/17 15:15 Hct TNP 05/03/17 15:15 MCV TNP 05/03/17 15:15 MCH TNP 05/03/17 15:15 MCHC TNP 05/03/17 15:15 RDW TNP 05/03/17 15:15 Plt Count TNP 05/03/17 15:15 MPV TNP 05/03/17 15:15 Neut % (Auto) TNP 05/03/17 15:15 Lymph % (Auto) TNP 05/03/17 15:15 [place] % (Auto) TNP 05/03/17 15:15 Eos % (Auto) TNP 05/03/17 15:15 Baso % (Auto) TNP 05/03/17 15:15 Nucleat RBC Rel Count TNP 05/03/17 15:15 Absolute Neuts (auto) TNP 05/03/17 15:15 Absolute Lymphs (auto) TNP 05/03/17 15:15 Absolute Monos (auto) TNP 05/03/17 15:15 Absolute Eos (auto) TNP 05/03/17 15:15 Absolute Basos (auto) TNP 05/03/17 15:15 Absolute Nucleated RBC TNP 05/03/17 15:15 Immature Gran % TNP 05/03/17 15:15 Immature Gran # TNP 05/03/17 15:15 Sodium 136 mEq/L (135-145) 05/03/17 15:15 Potassium 4.2 mEq/L (3.5-5.2) 05/03/17 15:15 Chloride 99 mEq/L (97-110) 05/03/17 15:15 Carbon Dioxide 24 mEq/l (22-31) 05/03/17 15:15 Anion Gap 13 mEq/L (8-16) 05/03/17 15:15 BUN 27 mg/dL (7-23) H 05/03/17 15:15 Creatinine 0.7 mg/dL (0.6-1.0) 05/03/17 15:15 Estimated GFR > 60 05/03/17 15:15 Glucose 206 mg/dL (70-100) H 05/03/17 15:15 Calcium 8.9 mg/dL (8.5-10.4) 05/03/17 15:15 Total Bilirubin 1.3 mg/dL (0.1-1.4) 05/03/17 15:15 Conjugated Bilirubin 0.5 mg/dL (0.0-0.5) 05/03/17 15:15 Unconjugated Bilirubin 0.8 mg/dL (0.0-1.1) 05/03/17 15:15 AST 28 IU/L (14-46) 05/03/17 15:15 ALT 32 IU/L (9-52) 05/03/17 15:15 Alkaline Phosphatase 59 IU/L (38-126) 05/03/17 15:15 Troponin I < 0.012 ng/mL (0.000-0.034) 05/03/17 15:15 Total Protein 6.5 g/dL (6.3-8.2) 05/03/17 15:15 Albumin 4.0 g/dL (3.5-5.0) 05/03/17 15:15 Lipase 80 IU/L (23-300) 05/03/17 15:15 Assessment & Plan Assessment: #Chest Pain #Hx of CAD #HTN #Cholelithiasis, may be the cause of her chest discomfort #DM, Hyperglycemia #Ankle wound Plan: Admit cardiac r/o TTE already obtained Serial trops Telemetry Cards is following Insulin sliding scale, check A1c wound consult for ankle wound Surgery to consult re cholelithiasis. She will be made NPO at midnight in case surgery wants to proceed with lap yazmin if she r/o from a cardiac perspective SCD's Full code, confirmed at bedside
--- NOTE | 2017-05-03 17:27 | GCON ---
[f rep st] CONSULTATION I have been asked to see the patient by Dr. Lis Galloway in regard to cholelithiasis. HISTORY OF PRESENT ILLNESS: This 81-year-old female came to the emergency room because of substernal pain. She has had it off and on for 2 days. It is unclear if it is related to eating. She states it sometimes comes on when lying supine, although she has trouble shortness of breath from the chest pressure she feels. She states occasionally she has had abdominal pain, but is very vague about where and when or how long it lasts. She also has some back pain, but this is nonspecific. The patient has long cardiac history with triple bypass surgery followed by cardiac stent. Currently , she is not on any long-term anticoagulation. She has a history congestive heart failure. Has skip ped her Lasix recently. Currently presents hypertensive. An ultrasound of the abdomen showed a 4 cm gallstone, some sludge, negative Adame sign. PHYSICAL EXAM: GENERAL: Pleasant, alert, oriented female, cooperative with the exam. Obese. ABDOM EN: Soft, obese, benign. Negative Adame sign. No hernias seen. LABORATORY EXAMS: White blood count is still pending, but liver function tests are all surprisingly normal as was her troponin. ASSESSMENT: Substernal episodes of pain, worse over the last several days. This certainly could be symptomatic cholelithiasis. Many patients with gallstones initially present as possible heart attack s and once this is ruled out ultrasound will show gallstones. Her history does not make it easy to s naranjo definitively that this is the case, however, and obviously with a cardiac history it would be ni ce to have some objective evidence that this is not some angina event. The licensed psychiatric technician has seen the patient, feels this is not acute coronary syndrome. The patient is goi ng to be admitted. Her congestive heart failure is going to be treated and I will talk with the [facility] team about any other efforts they might want to rule out myocardial ischemia as a source of he r pain. Otherwise, I would recommend cholecystectomy as it is very possible her gallstone is causing her substernal pain. /[id number]/MODL
[2017-05-03] MEDS: INSULIN LISPRO 100 UNIT/ML SC SCH (18:53)
[2017-05-03 23:39] LABS: PLATELET COUNT 196 10^3/uL (150-400)
[2017-05-04 07:00] LABS: PLATELET COUNT 194 10^3/uL (150-400)
[2017-05-04] MEDS ORDERED: Herbals/Supplements -Info Only PO SCH (09:00)
[2017-05-04] MEDS ORDERED: ASPIRIN 325 MG TAB PO SCH (09:00)
[2017-05-04] MEDS ORDERED: CHOLECALCIFEROL VIT D3 1,000 UNITS TAB PO SCH (09:00)
[2017-05-04] MEDS ORDERED: MULTIVITAMINS 1 EACH TAB PO SCH (09:00)
[2017-05-04] MEDS ORDERED: OXYBUTYNIN 5 MG EXT REL TAB PO SCH (09:00)
[2017-05-04] MEDS: INSULIN LISPRO 100 UNIT/ML SC SCH ×3 (09:05→12:39)
[2017-05-04] MEDS: FUROSEMIDE 20 MG TAB PO SCH ×2 (10:33→15:35)
[2017-05-04 10:50] VITALS: TEMP 98.2
[2017-05-04 10:52] VITALS: BP 121/62; PULSE 87; RESP 17
--- NOTE | 2017-05-04 12:49 | WOCRNPDOC ---
FAM Advanced Assessment Note - Skin Integrity Problem, Advanced Assess Left Posterior Ankle Surgical Wound/Incision Dressing Type: Coban, Gauze Dressing Description: Intact Exudate Amount: Minimal Exudate Color: Reddish/Yellow Exudate Characteristic(s): Serosanguinous Integumentary Issue Intervention: Dressing Changed Dyan Wound Tissue: Dry, Scarred Dyan Wound Swelling: None Wound Bed Color: Red Wound Bed Constitution: Granulation Tissue (90%), Loose Slough (10%, removed w/ gauze) Wound Edges: Epithelizing Site Odor: None Site Measurement - Head-to-Toe Length X Width X Depth (cm): 3.2cmx1.1cmx0.2cm Skin Integrity Problem Comment: Wound directly over L achilles tendon, which patient reports is a chronic wound that has undergone surgical debridement. She is currently a patient of Dr. Saxena's, and has been seeing him for serial debridements. Presently, trace slough in the wound which was easily removed during cleansing. No periwound eythema or swelling observed. Patient has neuropathy in this extremity and consequently denies pain. Will have nursing apply Yenni Promogran collagen to wound to facilitate healing, followed by Hydrofera Blue Annie and Tee. Patient advised to follow up w/ Dr. Saxena upon dc to resume care.
--- NOTE | 2017-05-04 15:16 | GDS ---
[f rep st] DISCHARGE SUMMARY NEW AND ACUTE DIAGNOSES: 1. Acute cholelithiasis resulting in chest and back pain. 2. Chest pain without evidence of cardiac ischemia. 3. Diabetes mellitus, currently in good control. 4. Hypertension. CHRONIC DIAGNOSES: 1. Diabetes mellitus. 2. Known coronary artery disease, status post cardiac stent and triple bypass, several years percuta neous transluminal angioplasty. CONSULTATIONS: Cardiology and surgery. PROCEDURES: 1. Abdominal ultrasound showing gallbladder sludge with cholelithiasis and a 4.2 cm gallstone, with mild gallbladder wall thickening, but no pericholecystic fluid. 2. Echocardiogram showed an EF of 55%. No pericardial effusion. No wall motion abnormality. HOSPITAL COURSE: 81-year-old female complaining of chest pain. Upon admission, she was noted to hav e a normal ECG. Troponins were normal. Echocardiogram demonstrated normal left ventricular function and no regional wall motion abnormalities. Thus, it was felt that her chest pain was noncardiac in origin. She had been noted to be hypertensive, and this was brought under control nicely during hosp italization. Abdominal ultrasound revealed a 4.2 cm gallstone and surgical consultation indicated it was probable that her chest pain had resulted from her gallstones as it had radiated to her back. T he pain resolved and surgical consultation indicated that the gallstone could be addressed as an outp atient. At the time of discharge the patient was alert, oriented and without pain. The abdomen was benign. She had no nausea and was taking a normal diet. DISCHARGE MEDICATIONS: These will be the same as her admission medications without deletions or pratik tions as follows. Metformin 1000 mg p.o. b.i.d., metolazone 2.5 mg to be taken p.r.n., Ditropan XL 1 0 mg daily, multivitamin daily, Lasix 20 mg b.i.d., vitamin D3 1000 international units daily, ASA 32 5 mg daily. PLAN: Patient has elected to return home and address the history of her gallstones as an outpatient. As she has previously seen Dr. Marquez, she has elected to contact Dr. Juan Manuel Marquez for care of her cholelithiasis. LABORATORIES: Of note at the time of discharge, WBC 6900 hemoglobin 11.1. Glucose was elevated but yet she will be placed back on her usual glucose control. Lipase was normal at 80. Hemoglobin A1c w as estimated at 9.9. FOLLOWUP: Patient will also follow up with her PCP who is located in [place]. The name is not known to our system. /[id number]/MODL
--- NOTE | 2017-05-04 15:24 | ASMTLACE ---
LACE Length of stay for Answers: Less than 1 day current admission Comorbidities - select Answers: Congestive heart failure all that apply Coronary Artery Disease Diabetes (uncontrolled or controlled) Other Notes: cardiac stent, sleep apnea # of Emergency department Answers: 1-2 visits in the last 6 months Score: 7 Date Signed: 05/04/2017 03:24 PM Electronically Signed By:Ann Delcid RN
[2017-05-04 16:47] VITALS: O2SAT 82
--- NOTE | 2017-05-04 16:51 | ASDISCHSUM ---
Discharge Information Plan Status:Home with No Needs Medically Cleared to Leave:05/04/2017 Discharge Date:05/04/2017 04:31 PM CM D/C Disposition:Home, Routine, Self-Care ADT D/C Disposition:Home, Routine, Self-Care Projected Discharge Date:05/04/2017 04:31 PM Transportation at D/C: Discharge Delay Reason: Follow-Up Date:05/04/2017 04:31 PM Discharge Slot: Final Diagnosis: Placement Information Patient Contact Information Contact Name:DAISY Relationship:Patrick Address: City:[place] Alternate Phone: [facility] Code:[place] Email: Financial Information Financial Class:Medicare Primary Plan Desc:MEDICARE OUTPATIENT Primary Plan Number:[id number] Secondary Plan Desc:[facility] Secondary Plan Number:[id number] Assessment Information LACE LACE Length of stay for Answers: Less than 1 day current admission Comorbidities - select Answers: Congestive heart failure all that apply Coronary Artery Disease Diabetes (uncontrolled or controlled) Other Notes: cardiac stent, sleep apnea # of Emergency department Answers: 1-2 visits in the last 6 months Score: 7 Date Signed: 05/04/2017 03:24 PM Electronically Signed By:Ann Delcid RN Case Management Discharge Plan Note Case Management Discharge Discharge Order Complete? Answers: Yes Discharge Comments Notes: 05/04/2017 Case Management Note Discussed pt in rounds today. PT is recommending home care, but pt is refusing home bound status. Encouraged pt to consult outpatient PT for needs. Pt to discharge independent. There were no case management needs identified. Date Signed: 05/04/2017 03:37 PM Electronically Signed By:Ann Delcid RN Intervention Information Intervention Type:KOHLER-Refused Date of Service:05/04/2017 09:49 AM Patient Type:Observation Staff Member:Savanah Martinez Hours:0.25 Discipline: Severity: Comment:Patient stated she asked to be made in patient status when being admitted from the ED. She was very angry that I informed her she is under observation status. I explained to her that she was admitt ed for chest pain and under Medicare guidelines that should be an observati on admission. Patient began to yell and started banging her hands on the table. She then refused to sign the MO ON form. I encouraged her to follow up with her rounding provider to see if her curren t medical condition warrants medical necessity for an inpatient admission.
== END 2017-05-04 16:31 | disposition home or self-care (01) ==
LOC: EDUNIT# → F2W 17:30
PROVIDERS: ADMIT Family Medicine; ATTEND Internal Medicine Pulmonary Disease
DX: R07.89 Other chest pain (principal); K80.20 Calculus of gallbladder without cholecystitis without obstruction; E11.9 Type 2 diabetes mellitus without complications; I10 Essential (primary) hypertension; I25.10 Atherosclerotic heart disease of native coronary artery without angina pectoris; Z95.5 Presence of coronary angioplasty implant and graft; Z95.1 Presence of aortocoronary bypass graft
CPT/HCPCS: 71045; 76705; 93005; 93308; 97116; 97161; 99285; G0378; G8978; G8979; J1815; J1940

== ENCOUNTER 2017-05-04 20:03 | Inpatient (IN) | payer OTHER ==
--- NOTE | 2017-05-04 20:22 | CPEKG ---
Heart Rate: 115 RR Interval: 522 P-R Interval: 180 QRSD Interval: 108 QT Interval: 328 QTC Interval: 454 P [place]: 76 QRS [place]: -55 T Wave [place]: 116 EKG Severity - ABNORMAL ECG - EKG Impression: SINUS TACHYCARDIA EKG Impression: LEFT ANTERIOR FASCICULAR BLOCK EKG Impression: PROBABLE LVH WITH SECONDARY REPOL ABNRM Electronically Signed By: Justin Vallejo 05-May-2017 16:36:16
--- NOTE | 2017-05-04 20:29 | EDPHY ---
HPI/HX/ROS/PE/MDM Narrative: CHIEF COMPLAINT: Dyspnea HPI: The patient is a 81 y/o female with a history of diabetes, cardiac stent, and CABGx3 returning to the ED a few hours after being discharged from the hospital complaining of dyspnea and malaise. She was admitted yesterday for chest pain and work up showed mild CHF, acute cholelithiasis, hyperglycemia, and hypertension. Her abdominal pain resolved and they opted to manage her cholelithiasis as an outpatient. She was discharged this afternoon and began to feel poorly almost immediately upon returning home. She complains of shortness of breath and chills and was noted to be 60% on room air in triage. She normally wears 2lpm O2 at night or while sleeping. She denies pain anywhere, fever, vomiting, diarrhea, urinary symptoms, cough. REVIEW OF SYSTEMS: Aside from elements discussed in the HPI, a comprehensive 10-point review of systems was reviewed and is negative. PMH: Diabetes, hypertension, cardiac stent, CABG x3, home O2 at night and CPAP for sleep apnea, hearing loss, bilateral knee replacements, cholelithiasis SOCIAL HISTORY: Lives in [place], retired, former smoker, family member at bedside. Prior medical records reviewed including admission yesterday 05/03/17 for chest pain. PHYSICAL EXAM: General:Patient is alert, chronically-ill appearing, hypoxemic. ENT:Eyes are normal to inspection. ENT inspection normal. Neck: Normal inspection. Full range of motion. Respiratory: Poor air movement with bilateral rales and scattered wheezes. Cardiovascular: Tachycardic regular rate and rhythm. Strong peripheral pulses. Normal cap refill. Abdomen:The abdomen is nontender to palpation. There are no peritoneal signs. Back: Normal to inspection. No tenderness to palpation. Skin: Normal color. No rash. Warm and dry. Extremities: 2+ pedal edema bilaterally. Old scars on both legs. No deformity. Full range of motion. Neuro: Oriented x3. Normal motor function. Normal sensory function. ED Course: This is a 81 y/o female with multiple comorbidities who returns a few hours after being discharged from the hospital now complaining of dyspnea. She is chronically-ill appearing with poor air movement, bilateral rales, scattered wheezes, bilateral lower extremity pitting edema, and tachycardia. SpO2 improved with O2 via NRB during my assessment. Plan for IV, labs including cultures, EKG, chest x-ray. The 12 lead EKG was interpreted by myself. Sinus tachycardia. See hard copy and/ or "tracemaster" electronic copy for interpretation. Chest x-ray: similar to x-ray from yesterday. Findings suggestive of CHF. BNP elevated at 3780. Nitro paste ordered for CHF. D-dimer elevated at 2.28. Chest CTA ordered. CTA negative for PE/PNA. Likely CHF. Patient admitted to hospitalist service. Stable on Oxymizer mask. - Data Points Imaging Results: Imaging Impressions Chest X-Ray 05/04/17 20:27 Impression: 1. Stable pulmonary edema pattern suspected. 2. Persistent moderate elevation right hemidiaphragm. Imaging: I viewed and interpreted images myself Laboratory Results: Laboratory Results 05/04/17 20:40 05/04/17 20:40 05/04/17 05/04/17 05/04/17 20:40 20:40 20:40 WBC 12.41 10^3/uL H 10^3/uL (3.80-9.50) RBC 4.68 10^6/uL 10^6/uL (4.18-5.33) Hgb 13.4 g/dL g/dL (12.6-16.3) Hct 42.3 % % (38.0-47.0) MCV 90.4 fL fL (81.5-99.8) MCH 28.6 pg pg (27.9-34.1) MCHC 31.7 g/dL L g/dL (32.4-36.7) RDW 13.7 % % (11.5-15.2) Plt Count 205 10^3/uL 10^3/uL (150-400) MPV 10.8 fL fL (8.7-11.7) Neut % (Auto) 85.5 % H % (39.3-74.2) Lymph % (Auto) 4.8 % L % (15.0-45.0) Spink % (Auto) 8.1 % % (4.5-13.0) Eos % (Auto) 0.6 % % (0.6-7.6) Baso % (Auto) 0.6 % % (0.3-1.7) Nucleat RBC Rel Count 0.0 % % (0.0-0.2) Absolute Neuts (auto) 10.61 10^3/uL H 10^3/uL (1.70-6.50) Absolute Lymphs (auto) 0.59 10^3/uL L 10^3/uL (1.00-3.00) Absolute Monos (auto) 1.01 10^3/uL H 10^3/uL (0.30-0.80) Absolute Eos (auto) 0.07 10^3/uL 10^3/uL (0.03-0.40) Absolute Basos (auto) 0.08 10^3/uL 10^3/uL (0.02-0.10) Absolute Nucleated RBC 0.00 10^3/uL 10^3/uL (0-0.01) Immature Gran % 0.4 % % (0.0-1.1) Immature Gran # 0.05 10^3/uL 10^3/uL (0.00-0.10) PT 14.6 SEC SEC (12.0-15.0) INR 1.12 (0.83-1.16) APTT 21.5 SEC L SEC (23.0-38.0) D-Dimer 2.28 ug/mLFEU H ug/mLFEU (0.00-0.50) Sodium 135 mEq/L mEq/L (135-145) Potassium 4.1 mEq/L mEq/L (3.5-5.2) Chloride 95 mEq/L L mEq/L (97-110) Carbon Dioxide 24 mEq/l D mEq/l (22-31) Anion Gap 16 mEq/L mEq/L (8-16) BUN 25 mg/dL H mg/dL (7-23) Creatinine 0.8 mg/dL mg/dL (0.6-1.0) Estimated GFR > 60 Glucose 272 mg/dL H mg/dL (70-100) Calcium 8.9 mg/dL mg/dL (8.5-10.4) Total Bilirubin 1.7 mg/dL H D mg/dL (0.1-1.4) Conjugated Bilirubin 0.5 mg/dL mg/dL (0.0-0.5) Unconjugated Bilirubin 1.2 mg/dL H mg/dL (0.0-1.1) AST 28 IU/L IU/L (14-46) ALT 39 IU/L IU/L (9-52) Alkaline Phosphatase 57 IU/L IU/L (38-126) Troponin I 0.027 ng/mL ng/mL (0.000-0.034) NT-Pro-B Natriuret Pep 3780 pg/mL H pg/mL (0-450) Total Protein 6.8 g/dL D g/dL (6.3-8.2) Albumin 4.1 g/dL g/dL (3.5-5.0) Lipase 72 IU/L IU/L (23-300) Medications Given: Discontinued Medications Nitroglycerin (Nitro-Bid 2%) 1 inch TP EDNOW ONE Stop: 05/04/17 21:08 Last Admin: 05/04/17 21:12 Dose: 1 inch General Time Seen by Provider: 05/04/17 20:08 Initial Vital Signs: Initial Vital Signs Temperature (C) 37.3 C 05/04/17 20:11 Heart Rate 124 H 05/04/17 20:11 Respiratory Rate 24 H 05/04/17 20:11 Blood Pressure 182/98 H 05/04/17 20:11 O2 Sat (%) 58 L 05/04/17 20:11 O2 (L/minute) 15 Allergies/Adverse Reactions: Penicillins Allergy (Mild, Verified 08/29/16 08:02) Rash Home Medications: Medication Instructions Recorded Aspirin [Aspirin 325 mg (*)] 325 mg PO DAILY 05/03/17 Cholecalciferol Vit D3 [Vitamin D3 1,000 units PO DAILY 05/03/17 (*)] Furosemide [Lasix 20 MG (*)] 20 mg PO BIDDIUR 05/03/17 Herbals/Supplements -Info Only 1 ea PO DAILY 05/03/17 Metformin HCl [Metformin 1000 mg] 1,000 mg PO BIDMEAL 05/03/17 Metolazone 2.5 mg PO PRN PRN 05/03/17 Multivitamins [Multivitamin (*)] 1 each PO DAILY 05/03/17 Oxybutynin Chloride [Ditropan Xl] 10 mg PO DAILY 05/03/17 Departure - Departure Disposition: [facility] Acute Clinical Impression: Hypoxemia CHF (congestive heart failure) Qualifiers: Heart failure type: unspecified Heart failure chronicity: unspecified Qualified Code(s): I50.9 - Heart failure, unspecified Condition: Fair Referrals: Dorian Rodríguez MD [Primary Care Provider] - As per Instructions Report Scribed for: Justin Vallejo Report Scribed by: Dorota Hutchison Date of Report: 05/04/17 Time of Report: 20:29 Physician Review and Approval Statement: Portions of this note were transcribed by an ED scribe. I personally performed the history, physical exam, and medical decision making; and confirm the accuracy of the information in the transcribed note.
[2017-05-04 20:51] LABS: PLATELET COUNT 205 10^3/uL (150-400)
[2017-05-04 21:03] LABS: INR 1.12 (0.83-1.16); PROTIME(PATIENT) 14.6 SEC (12.0-15.0)
[2017-05-04] MEDS ORDERED: NITROGLYCERIN 2% 1 GM PACKET TP ONE (21:07)
[2017-05-04] MEDS: INSULIN LISPRO 100 UNIT/ML SC SCH (21:30)
[2017-05-04] MEDS ORDERED: IOPAMIDOL (ISOVUE 370) 100 ML BTL IV ONE (21:59)
[2017-05-04] MEDS ORDERED: ONDANSETRON 4 MG/2 ML VIAL IVP PRN (23:42)
[2017-05-04] MEDS ORDERED: ACETAMINOPHEN 325 MG TAB PO PRN (23:42)
[2017-05-04] MEDS ORDERED: FUROSEMIDE 40 MG/4 ML VIAL IVP ONE (23:46)
[2017-05-04] MEDS ORDERED: METOLAZONE 2.5 MG TAB PO PRN (23:46)
--- NOTE | 2017-05-05 03:36 | PDGENHP ---
History and Physical - Chief Complaint Shortness of breath - History of Present Illness Source-patient is quite fatigued and somnolent. She does wake to answer a few questions but falls asleep intermittently during the interview. EMR was reviewed and case discussed with ED provider. HPI - pleasant 81-year-old female with past medical history significant for DM 2 , CAD status post stent and 3 vessel CABG, as reported CHF with normal recent LVEF of 55%, RENUKA on CPAP and oxygen, HTN, morbid obesity who now with BMI of 36 and biliary colic/cholelithiasis who presents to the emergency department today shortly after being discharged yesterday for chest pain which was found to be secondary to patient's history of biliary colic and cholelithiasis. Patient had a complete cardiac evaluation by Cardiology including echo and laboratory monitoring. Imaging was concerning for cholelithiasis but there is no evidence of acute cholecystitis. Patient pain was able to be put under control and she was discharged home with plans for outpatient follow-up. Patient did note during that hospital stay she had a 10 lb weight gain over the past several days despite diuretic therapy. Patient was also noted to have elevated blood pressures which were managed and improved. Patient states that she was feeling quite well when she left however on route home patient states that she began to develop some shortness of breath. At home her dyspnea continued to severely worsened and patient presented back to the ED for evaluation. In the ED, patient was found to be in acute respiratory distress and failure. She was hypoxic to 58% on room air. She does require the use of OxyMask on to support her O2 sats greater than 90%. Patient without significant cough. She denies any rhinorrhea. She denies any fevers but has been had experiencing some subjective chills. Please see EMR for patient's recent hospital stay History Information - Allergies/Home Medication List Allergies/Adverse Reactions: Penicillins Allergy (Mild, Verified 08/29/16 08:02) Rash Home Medications: Aspirin [Aspirin 325 mg (*)] 325 mg PO DAILY 05/03/17 [Last Taken 05/04/17] Cholecalciferol Vit D3 [Vitamin D3 (*)] 1,000 units PO DAILY 05/03/17 [Last Taken 05/04/17] Furosemide [Lasix 20 MG (*)] 20 mg PO BIDDIUR 05/03/17 [Last Taken 05/04/17] Herbals/Supplements -Info Only 1 ea PO DAILY 05/03/17 [Last Taken Unknown] Metformin HCl [Metformin 1000 mg] 1,000 mg PO BIDMEAL 05/03/17 [Last Taken Unknown] Metolazone 2.5 mg PO PRN PRN 05/03/17 [Last Taken Unknown] Multivitamins [Multivitamin (*)] 1 each PO DAILY 05/03/17 [Last Taken 05/04/17] Oxybutynin Chloride [Ditropan Xl] 10 mg PO DAILY 05/03/17 [Last Taken 05/04/17] I have personally reviewed and updated: family history, medical history, social history, surgical history - Past Medical History Additional medical history: Dm 2, CAD status post stent and CABG, history CHF with normal LV EF on recent echocardiogram 05/01/2017 at 55%, RENUKA on O2 and CPAP , HTN, obesity(BMI 36), hearing deficit with hearing aid requirement, cholelithiasis, left lateral ankle wound - Surgical History Additional surgical history: Gastric bypass, cardiac cath with stent, 3V CABG - Family History Additional family history: None reported - Social History Smoking Status: Former smoker Tobacco Use: Cigarettes Alcohol Use: None Drug Use: None Additional social history: Core-full Review of Systems Review of Systems: ROS: 10pt was reviewed & negative except for what was stated in HPI & below Constitutional: Reports: chills, weakness (Generalized), weight loss (Recent weight gain approximately 10 lb last several days.). Denies: fever, recent illness EENMT: Reports: no symptoms. Denies: blurred vision, nose congestion, sore throat Cardiac: Reports: edema. Denies: chest pain, lightheadedness, palpitations Respiratory: Reports: cough, shortness of breath. Denies: orthopnea, wheezing Gastrointestinal: Denies: vomitting, abdominal pain, diarrhea, nausea Genitourinary: Denies: dysuria, hematuria Muscolosketal: Reports: no symptoms. Denies: muscle pain Skin: Reports: no symptoms. Denies: change in color, rash Neurological: Reports: no symptoms. Denies: headache, weakness (Generalized) Hematologic/Lymphatic: Reports: no symptoms Physical Exam Physical Exam: Selected Entries 05/04/17 20:11 Heart Rate 124 H Respiratory 24 H Rate O2 Sat (%) 58 L Temperature (C) 37.3 C Blood Pressure 182/98 H Mean Arterial 126 H Pressure (MAP) Temperature Oral Source Temp Pulse Resp BP Pulse Ox 37.0 C 84 22 H 139/77 H 94 05/04/17 23:57 05/05/17 01:03 05/05/17 01:03 05/04/17 23:57 05/05/17 01:03 O2 (L/minute) 6 Constitutional: no apparent distress, chronically ill appearing, obese, other ( NAD. Patient seen on PCU floor and she is asleep resting quietly. She is quite fatigued but wakes to name and touch.) Eyes: PERRL, anicteric sclera, EOMI Ears, Nose, Mouth, Throat: moist mucous membranes, hard of hearing, No poor dentition Cardiovascular: regular rate and rhythym, no murmur, rub, or gallop (Slightly distant heart sounds.), tachycardia, edema (2+ pitting bilateral lower extremities.) Peripheral Pulses: 1+: dorsalis-pedis (R) (Limited 2/2 edema), dorsalis-pedis (L ) (Limited 2/2 edema) Respiratory: no respiratory distress, reduced air movement, other (Crackles bibasilarly left slightly greater than the right. Diminished bibasilarly.), No no rales or rhonchi, No clear to auscultation, No expiratory wheeze, No inspiratory crackles Gastrointestinal: normoactive bowel sounds, soft, non-tender abdomen, no palpable masses, other (Obese abdomen), No tenderness, No distension Genitourinary: no bladder tenderness, No [place] in urethra Skin: warm, normal color, no rashes or abrasions, no fluctuance, No rash Musculoskeletal: generalized weakness, other (Limited exam secondary to patient' s somnolence. She is able to move her extremities while lying in bed.) Neurologic: AAOx3 (Patient oriented but fatigue. She does fall asleep intermittently during the interview.), weakness (Generalized), CN II-XII Intact , No facial droop Psychiatric: interacting appropriately, not anxious, not encephalopathic ( Fatigued and falls asleep intermittently.), thought process linear, No encephalopathic Lab Data & Imaging Review 05/05/17 03:13 05/04/17 20:40 WBC 12.41 10^3/uL (3.80-9.50) H 05/04/17 20:40 RBC 4.68 10^6/uL (4.18-5.33) 05/04/17 20:40 Hgb 13.4 g/dL (12.6-16.3) 05/04/17 20:40 Hct 42.3 % (38.0-47.0) 05/04/17 20:40 MCV 90.4 fL (81.5-99.8) 05/04/17 20:40 MCH 28.6 pg (27.9-34.1) 05/04/17 20:40 MCHC 31.7 g/dL (32.4-36.7) L 05/04/17 20:40 RDW 13.7 % (11.5-15.2) 05/04/17 20:40 Plt Count 205 10^3/uL (150-400) 05/04/17 20:40 MPV 10.8 fL (8.7-11.7) 05/04/17 20:40 Neut % (Auto) 85.5 % (39.3-74.2) H 05/04/17 20:40 Lymph % (Auto) 4.8 % (15.0-45.0) L 05/04/17 20:40 [place] % (Auto) 8.1 % (4.5-13.0) 05/04/17 20:40 Eos % (Auto) 0.6 % (0.6-7.6) 05/04/17 20:40 Baso % (Auto) 0.6 % (0.3-1.7) 05/04/17 20:40 Nucleat RBC Rel Count 0.0 % (0.0-0.2) 05/04/17 20:40 Absolute Neuts (auto) 10.61 10^3/uL (1.70-6.50) H 05/04/17 20:40 Absolute Lymphs (auto) 0.59 10^3/uL (1.00-3.00) L 05/04/17 20:40 Absolute Monos (auto) 1.01 10^3/uL (0.30-0.80) H 05/04/17 20:40 Absolute Eos (auto) 0.07 10^3/uL (0.03-0.40) 05/04/17 20:40 Absolute Basos (auto) 0.08 10^3/uL (0.02-0.10) 05/04/17 20:40 Absolute Nucleated RBC 0.00 10^3/uL (0-0.01) 05/04/17 20:40 Immature Gran % 0.4 % (0.0-1.1) 05/04/17 20:40 Immature Gran # 0.05 10^3/uL (0.00-0.10) 05/04/17 20:40 PT 14.6 SEC (12.0-15.0) 05/04/17 20:40 INR 1.12 (0.83-1.16) 05/04/17 20:40 APTT 21.5 SEC (23.0-38.0) L 05/04/17 20:40 D-Dimer 2.28 ug/mLFEU (0.00-0.50) H 05/04/17 20:40 Sodium 135 mEq/L (135-145) 05/04/17 20:40 Potassium 4.1 mEq/L (3.5-5.2) 05/04/17 20:40 Chloride 95 mEq/L (97-110) L 05/04/17 20:40 Carbon Dioxide 24 mEq/l (22-31) D 05/04/17 20:40 Anion Gap 16 mEq/L (8-16) 05/04/17 20:40 BUN 25 mg/dL (7-23) H 05/04/17 20:40 Creatinine 0.8 mg/dL (0.6-1.0) 05/04/17 20:40 Estimated GFR > 60 05/04/17 20:40 Glucose 272 mg/dL (70-100) H 05/04/17 20:40 Calcium 8.9 mg/dL (8.5-10.4) 05/04/17 20:40 Total Bilirubin 1.7 mg/dL (0.1-1.4) H D 05/04/17 20:40 Conjugated Bilirubin 0.5 mg/dL (0.0-0.5) 05/04/17 20:40 Unconjugated Bilirubin 1.2 mg/dL (0.0-1.1) H 05/04/17 20:40 AST 28 IU/L (14-46) 05/04/17 20:40 ALT 39 IU/L (9-52) 05/04/17 20:40 Alkaline Phosphatase 57 IU/L (38-126) 05/04/17 20:40 Troponin I 0.027 ng/mL (0.000-0.034) 05/04/17 20:40 NT-Pro-B Natriuret Pep 3780 pg/mL (0-450) H 05/04/17 20:40 Total Protein 6.8 g/dL (6.3-8.2) D 05/04/17 20:40 Albumin 4.1 g/dL (3.5-5.0) 05/04/17 20:40 Lipase 72 IU/L (23-300) 05/04/17 20:40 Imaging Review: Portable chest x-ray 2059 hours. History: Chest Pain. Findings: Comparison to 05/03/2017. Heart size remains mildly enlarged. Pulmonary vasculature is mildly prominent centrally similar to the prior study. There is persistent moderate elevation of the right hemidiaphragm. Patchy bilateral alveolar infiltrates are stable. There are no new areas of consolidation or significant effusion. Osseous structures are unchanged. Impression: 1. Stable pulmonary edema pattern suspected. 2. Persistent moderate elevation right hemidiaphragm. CT Angio Chest W IV Contrast ___ CT Pulmonary Angiogram 2213 hours Clinical Indications: Chest Pain, possible pulmonary embolus. Technique: Thinly collimated multidetector helical CT imaging was performed through the chest while 85 mL Isovue-370 were injected intravenously without complication. The images were reconstructed in multiple planes. Dose reduction techniques were utilized. Findings: Comparison the prior study from 11/05/2014. CT Angiogram: There is no evidence of intraluminal thrombus within the pulmonary arterial system. The thoracic aorta has a normal contour without evidence of aneurysm or dissection. There is moderate atherosclerotic calcifications of the aortic arch and descending thoracic aorta as well as associated with the coronary arteries. The patient has had previous CABG. There is no pericardial effusion. There is mild cardiomegaly. CT Chest: There are small bibasilar pleural effusions with adjacent compressive atelectatic change at the lung bases. There is subtle haziness centrally within the lungs could represent early fluid overload/pulmonary edema. Peribronchial thickening is seen bilaterally.. There are no pulmonary nodules. There is stable hypodense nodule within the lower pole left lobe of the thyroid. Limited evaluation of upper abdominal structures during arterial phase of imaging once again demonstrates a large laminated gallstone in the gallbladder. There are some surgical clips associated with the stomach from gastric bypass procedure. Skeletal system: Vertebral body heights are well-maintained. There are no lytic or sclerotic osseous lesions. Hypertrophic calcifications are seen along the anterior and right lateral aspect of mid to lower thoracic spine vertebral body segments compatible with underlying diffuse idiopathic skeletal hyperostosis (DISH). Impression: 1. No evidence of pulmonary embolus using CT protocol. 2. Small bibasilar pleural effusions with adjacent compressive atelectatic change as well as central haziness within the lungs possibly from mild fluid overload/pulmonary edema. 3. Peribronchial thickening in the perihilar region bilaterally. The seen with bronchitis, viral process, or reactive airways disease. 4. Stable laminated large gallstone in the gallbladder. Findings discussed with Justin Vallejo MD at 22:43 hour, 05/04/2017. Echocardiogram report from 05/03/2017-LVEF was noted to be 55% with no evidence of hypokinesis. Echo was a limited study. Visualized and Interpreted Chest x-ray results: Yes Chest X-Ray results: effusion, other (Elevated right hemidiaphragm) Visualized and Interpreted imaging results: Yes Visualized and Interpreted EKG results: Yes EKG additional interpertation: Sinus tachycardia 110s. No acute ST changes. LAFB. LVH with repol changes. QTC is 454. Assessment & Plan Assessment: Acute hypoxic respiratory failure - patient initially presented with pulse ox of 58% on room air. She has increased pleural effusions and evidence of pulmonary edema. Patient with a previous history of CHF although her recent EF was noted to be normal patient certainly with risk factors for pulmonary hypertension and diastolic dysfunction. She is status post 40 mg of Lasix in the emergency department will plan to increase her diuresis from her baseline monitor I&Os strictly. Patient respiratory status currently improved on supplemental oxygen by OxyMask. Fluid restriction to 1500 mL daily Pulmonary edema - diuresis as noted above. Accelerated hypertension - patient has had elevated blood pressures during her initial assessment and also during her hospital stay. Patient has been given diuretics. Additionally she has had nitro paste placed with improvement of her blood pressures in her symptoms. Pulmonary effusions - continue with diuresis as noted above. History of CHF - patient currently with normal EF on recent echocardiogram 55%. This was a limited evaluation. No commentary in diastolic function or if pulmonary hypertension which is likely Leukocytosis - likely just reactive in setting of acute respiratory failure. Patient's repeat labs this a.m. Are normalized. I do not suspect a bacterial or viral infection at this time. Holding any antibiotics. Continuing with Lasix. Cholelithiasis with history of biliary colic - patient pain had resolved she is not currently complaining of any chest pain or abdominal pain. patient was recent evaluation see EMR. Plan for outpatient follow-up and assessment. Left ankle wound present on admission-patient was just seen by Wound Care see their note from yesterday. RENUKA on CPAP and O2 - continue with supplemental oxygen. Consider loaner CPAP once stabilized. Dm 2 controlled - patient's blood sugars were notably elevated. Will complain to continue patient's metformin 48 hr from her CTA. Patient will be placed on a regular sliding scale and ADA diet. CAD - patient is not on any bb, ACEI, statin. Continue aspirin. defer to her primary provider/vice president payment. Obesity (BMI 36) - mobilize as tolerated. FEN - saline lock IV. Electrolyte monitoring and replacement p.r.n.. ADA diet with sodium restriction and fluid restriction to 1500 mL per day PPX-SCDs and Lovenox Cor status-full Disposition-patient has been admitted to inpatient status on PCU for close cardiac monitoring. Anticipate greater than 2 midnight stay 2/2 severity of patient's hypoxia and her pulmonary edema. Anticipate she will require several days of IV diuretics.
[2017-05-05 03:49] LABS: PLATELET COUNT 187 10^3/uL (150-400)
[2017-05-05] MEDS ORDERED: D50W 25 GM/50 ML VIAL IVP PRN (04:30)
--- NOTE | 2017-05-05 06:50 | PDMN ---
Medical Necessity Medical necessity: C/M review: est. > 2 MN LOS for eval and TX of acute and persistent hypoxic respiratory failure, pulmonary edema, accelerated hypertension, pulmonary effusions, leukocytosis, requiring ongoing IV Lasix, cardiac monitoring, pulse oximetry, supplemental O2, comorbid history of CHF with normal LVEF on recent echocardiogram 05/01/2017 at 55%, cholelithiasis with history of biliary colic, left lateral ankle wound present on admission, RENUKA on CPAP and O2, CAD obesity, type 2 diabetes, S/P cardiac stent and CABG, hypertension, hearing deficit with hearing aid requirement per H/P.
[2017-05-05] MEDS: INSULIN LISPRO 100 UNIT/ML SC SCH ×4 (09:39→22:09)
[2017-05-05] MEDS: FUROSEMIDE 40 MG/4 ML VIAL IVP SCH ×2 (09:40→16:01)
[2017-05-05] MEDS: ATORVASTATIN CALCIUM 20 MG TAB PO SCH (09:40)
[2017-05-05] MEDS: OXYBUTYNIN 5 MG EXT REL TAB PO SCH (09:40)
[2017-05-05] MEDS: ASPIRIN 81 MG CHEWABLE TAB PO SCH (09:40)
[2017-05-05] MEDS: ENOXAPARIN 40 MG/0.4 ML SYR SC SCH (09:41)
--- NOTE | 2017-05-05 09:49 | GCON ---
[f rep st] CONSULTATION CARDIOLOGY CONSULT DATE OF CONSULTATION: 05/05/2017 PRIMARY ART PSYCHOTHERAPIST: Dr. Anatoliy Rueda. CHIEF COMPLAINT: Shortness of breath and chest pressure. HISTORY OF PRESENT ILLNESS: We were asked by Dr. Vegas to visit with the patient. The patient is a 81-year-old female with a history of coronary disease, status post CABG in 2011 and left circumflex stenting in 2014. She has diabetes, hypertension, sleep apnea, and obesity. She was admitted [facility] this week with chest discomfort and found to have a large gallstone. Plans were made for outpatien t management of this. During that admission, she had a negative troponin, nonischemic EKG, and an echocardiogram with verena l ejection fraction and normal wall motion. A couple of hours after discharge, she was readmitted with chills, malaise, and dyspnea. She was sig nificantly hypoxic in the ER with an oxygen saturation of 58%, and she was also quite hypertensive at 182/98. She was given Lasix, nitroglycerin paste, put on a non-rebreather and admitted for further management. This morning, she feels quite a bit better. She is now on nasal cannula oxygen, but still feels mild ly short of breath. She is currently not having chest pressure, but did have some yesterday. She koch s not noticed palpitations. No syncope. She does have chronic left ankle edema that has worsened sl ightly over the past several days. REVIEW OF SYSTEMS: A full 10-point review of systems is performed. Notable for that which is outlin ed in the History of Present Illness. Additionally, she has been constipated for several days. She denies any GI bleeding. No vomiting. She was concerned about her chills as she has previously had a n admission for sepsis. She does have a chronic productive cough. Otherwise, review of systems is n egative. ALLERGIES: Penicillin. PAST MEDICAL HISTORY: 1. Coronary disease with history of bypass in 2011 and left circumflex stenting in 2014. 2. Hypertension. 3. Diabetes. 4. Obesity. 5. Gallstones. 6. Sleep apnea, treated with CPAP and nocturnal oxygen. 7. History of bilateral knee replacements. 8. Shoulder arthritis. 9. History of gastric bypass. OUTPATIENT MEDICATIONS: Aspirin 325 mg daily, vitamin D3, Lasix 20 mg daily, metformin 1000 mg twice daily, metolazone 2.5 mg as needed, multivitamin, and Ditropan. SOCIAL HISTORY: The patient is a former smoker. She denies alcohol use. FAMILY HISTORY: Not applicable to the current case. PHYSICAL EXAM: CURRENT VITAL SIGNS: Blood pressure 125/70, heart rate 67. Respiratory rate is 18. Oxygen saturation is 100%. She is currently on the last listed with CPAP with 10 L of nasal cannula, but she is awake, now not on her CPAP. She is afebrile. GENERAL: Chronically ill-appearing older female in no acute distress. She is lying flat. HEENT: Sclerae are clear and free of jaundice. Mu cous membranes are moist. CARDIOVASCULAR: JVP is 12-14 cm of water. Carotids equal and 2+ bilatera lly, without bruit. Regular rate and rhythm, without murmur, rub, or gallop. LUNGS: Focal rales at the left base. No wheezes or rhonchi. ABDOMEN: Obese, soft, and nontender, without obvious bruits , masses, or hepatosplenomegaly. EXTREMITIES: Warm, well perfused, with trace to 1+ pitting edema o f both ankles. NEURO: Alert and oriented x3, without gross focal neurological deficits. Appropriat e mood and affect. LABORATORY DATA: White count 9.4, hematocrit 34.3, platelets 187. D-dimer 2.28. INR 1.1. Sodium 1 37, potassium 3.7, chloride 99, BUN 24, creatinine 0.8, glucose 219, albumin 2.9. AST and ALT are no rmal. Total bilirubin 1.2. BNP 3780. Troponin is negative and was negative x3 during her admission from May 03 to May 04. Blood cultures are pending. EKG reviewed by me shows sinus tachycardia, nonspecific interventricular conduction delay and left an terior fascicular block. This is unchanged compared with recent prior EKGs. Chest x-ray reviewed by me: Stable pulmonary edema pattern. Moderate elevation of the right hemidia phragm. CT pulmonary angiogram shows no evidence of pulmonary embolism. There are small bibasilar pleural ef fusions. Central haziness. Peribronchial thickening. Gallstones noted. Echocardiogram on the , ejection fraction is normal. Wall motion is normal. This is a limited e chocardiogram. She had a nuclear stress test in our office in 2014 showing inferior and inferolatera l infarct without ischemia and preserved ejection fraction. ASSESSMENT AND PLAN: A 81-year-old female with known coronary disease, multiple ongoing cardiac risk factors, readmitted shortly after discharge with respiratory distress, chest pressure, and hypoxia. Her troponins have been negative. She was quite hypertensive in the ER. I suspect that she is havi ng exacerbations of diastolic heart failure related to suboptimally controlled hypertension. 1. Hypoxia: This may be partly related to pulmonary edema. She does have a chronic productive coug h and states that she had chills at home, so I would suspect that bronchitis or pneumonia is also sti ll on the differential. She seems to have improved with diuresis. Agree with ongoing diuresis and b lood pressure management. Will add low-dose beta blockers because of her hypertension upon admission and history of coronary disease/myocardial infarction. She will be having a limited echo again to r eassess wall motion and pulmonary pressures today. 2. Coronary disease: She is having intermittent chest pressure. This could certainly be explained by her cholelithiasis. However, given her preoperative status and known coronary disease, as well as heart failure exacerbations, further risk stratification with Lexiscan nuclear stress test is elais christian. This has been ordered. Continue aspirin. She is not on a statin as an outpatient. Will add l ow-dose atorvastatin now for cardio protection. 3. Hypertension: Improved control with nitroglycerin paste and diuresis. Add beta blockers as abov e. I think that the spikes in her blood pressure are the most likely reason for her diastolic heart failure exacerbation. 4. Gallstones: She will ultimately require cholecystectomy. Will further risk stratify with echoca rdiogram and nuclear stress test as detailed above. 5. Diabetes: Per Hospital Medicine. Thank you for allowing us to participate in the patient's care. Will follow with you. /[id number]/MODL
--- NOTE | 2017-05-05 10:04 | ECHO ---
[email or web address] [address] [address] Main: [phone] Fax: Transthoracic Echocardiogram Name: FLORA LOVE MR#: [id number] Study Date: 05/05/2017 Study Time: 09:09 AM Date of : 1935 Age: 81 year(s) Height: 162.6 cm (64 in.) Weight: 94.8 kg (209 lb.) BSA: 1.99 m2 Gender: Female Examination: Limited Echo Indication: Pulmonary edema/eval EF Image Quality: Contrast: Requested by: Robert Vegas BP: 125 mmHg/70 mmHg Heart Rate: Rhythm: Indication: Pulmonary edema/eval EF Procedure Staff Chemical Laboratory Scientist: Juany Mcdonald RDCS Reading Physician: Adela Ross MD Requesting Provider: Robert Vegas Conclusions: The ejection fraction is estimated to be 45-50 %. Grade 2 diastolic dysfunction (pseudonormalized LV filling pattern). Elevated left ventricular filling pressures.. LV basal/mid inferior and inferolateral gaitan are akinetic.. Moderate mitral valve regurgitation is present. Moderate tricuspid regurgitation is present. The pulmonary artery pressure is mildly increased. RVSP is 44mmHG.. No pericardial effusion. Compared with 05/03/2017 the current study is improved quality. Lateral wall may be slightly more hypokinetic. Estimated PA systolic pressure is higher Measurements: Chambers Valvular Assessment AV/MV Valvular Assessment TV/PV Normal Normal Normal Name Value Range Name Value Range Name Value Range LVDd (2D): 4.8 cm (3.9 cm-5.3 AV meanP mmHg ( - ) TR Vmax: 3.08 mm/s ( - ) cm) MV E Vmax: 1.31 m/s ( - ) TR PGmax: 38 mmHg ( - ) EF Range: 45-50 % MV A Vmax: 0.86 m/s ( - ) syst. PAP: 43 mmHg ( - ) MV E/A: 1.52 ( - ) Continued Measurements: Valvular Assessment AV/MV Valvular Assessment TV/PV Name Value Name Value MV E' Septal: 0.05 m/s CVP (est.): 5 mmHg MV E/E' Septal: 27.40 MV E/E' Lateral: 23.60 Patient: FLORA LOVE Study Date: 05/05/2017 Page 1 of 2 09:09 AM Findings: Left Ventricle: The ejection fraction is estimated to be 45-50 %. Grade 2 diastolic dysfunction (pseudonormalized LV filling pattern). Elevated left ventricular filling pressures.. LV basal/mid inferior and inferolateral gaitan are akinetic.. Mitral Valve: Moderate mitral valve regurgitation is present. Tricuspid Valve: Moderate tricuspid regurgitation is present. The pulmonary artery pressure is mildly increased. RVSP is 44mmHG.. Pulmonic Valve: Mild pulmonic valve regurgitation is noted. Pericardium: No pericardial effusion. (No Signature Object) Patient: FLORA LOVE Study Date: 05/05/2017 Page 2 of 2 09:09 AM [id number]
[2017-05-05] MEDS ORDERED: REGADENOSON 0.4 MG/5 ML SYR IVP ONE (10:40)
[2017-05-05] MEDS ORDERED: ERTAPENEM 1 GM VIAL IV SCH (10:45)
--- NOTE | 2017-05-05 11:19 | CPIP ---
[f rep st] INVASIVE CARDIAC PROCEDURE DATE OF PROCEDURE: 05/05/2017 PROCEDURE PERFORMED: Lexiscan scan stress test. INDICATION FOR PROCEDURE: Known coronary disease. Chest pain. Heart failure. COMPLICATIONS: None. DESCRIPTION OF PROCEDURE: Informed consent was obtained. The patient had been caffeine free for at least 12 hours. She was established with a carbon coating machine operator. She received Lexiscan and technetium pe r standard nuclear medicine protocol. FINDINGS: Resting EKG: Sinus rhythm with PVCs. Left axis deviation, nonspecific IVCD. With stress , there were ongoing PVCs. No ischemic changes. Resting heart rate 75 beats per minute. Peak heart rate 84 beats per minute. Resting blood pressure 115/60. Peak infusion blood pressure 89/46. Oxygen saturation remained above 90% throughout the pr ocedure on the patient's baseline 5 L of supplemental nasal cannula oxygen. CONCLUSIONS: Uneventful Lexiscan infusion. Await nuclear images. /[id number]/MODL
--- NOTE | 2017-05-05 13:53 | HOSPPROG ---
Hospitalist Progress Note Assessment/Plan: 81 yo female admitted with SOB, fever possible, shaking chills and maybe chest pain with orthopnea and SOB. -Acute sepsis with Gram neg josefina, probably e. coli; will place on Abx and consult GI -CAD with h/o chest pain and negative troponin: lexiscan today. Cardiology consult -HTN -DM: -Sleep apnea syndrome on CPAP and uses it, with O2 Plan: -ABx coverage, surgical consult -cardiology consult, lexiscan and echo -SSI coverage as needed -O2 prn and may use her own CPAP Subjective: reports no chest pain now. Had shaking chills Objective: Vital Signs Temp Pulse Resp BP Pulse Ox 36.7 C 78 18 109/47 L 97 05/05/17 12:00 05/05/17 12:00 05/05/17 12:00 05/05/17 12:00 05/05/17 12:00 Laboratory Results 05/05/17 03:13 05/05/17 03:13 05/04/17 05/05/17 05/06/17 05:59 05:59 05:59 Intake Total 150 Output Total 475 Balance -325 PT 14.6 SEC (12.0-15.0) 05/04/17 20:40 INR 1.12 (0.83-1.16) 05/04/17 20:40 - Time Spent With Patient Time Spent with Patient: greater than 35 minutes Time Spent with Patient: Greater than 35 minutes spent on this patients care, greater than 50% of time spent counseling, educating, and coordinating care regarding the above mentioned plan. - Pending Discharge Pending Discharge Within 24 Hours: No Pending Discharge Within 48 Hours: No - Physical Exam Constitutional: no apparent distress Eyes: PERRL, anicteric sclera Ears, Nose, Mouth, Throat: moist mucous membranes, hearing normal Cardiovascular: regular rate and rhythym, no murmur, rub, or gallop Respiratory: no respiratory distress, inspiratory crackles Gastrointestinal: normoactive bowel sounds, soft, non-tender abdomen, no palpable masses, other (RUQ is not tender) Skin: warm Musculoskeletal: full muscle strength Neurologic: AAOx3, CN II-XII Intact Psychiatric: interacting appropriately ICD10 Worksheet Patient Problems: Problems Problem Status Onset CHF (congestive heart failure) Acute Hypoxemia Acute Abdominal pain Acute Cellulitis Acute Chest pain Acute Gallstone Acute Pulmonary edema Acute Severe sepsis Acute
--- NOTE | 2017-05-05 17:00 | GCON ---
[f rep st] CONSULTATION INFECTIOUS DISEASE CONSULTATION DATE OF CONSULTATION: 05/05/2017 REASON FOR CONSULTATION: E coli bacteremia. HISTORY OF PRESENT ILLNESS: A 81-year-old woman with a past medical history of type 2 diabetes, coronary artery disease (status post 3-vessel CABG in 2010), with mild congestive heart failure, who was recently admitted from 04/05 to for evaluation of chest and abdominal pain, as well as headache that developed while she was visiting [employer]. She had negative troponins and endorses she encouraged discharge due to things she needed to attend to at home ; but once she got home she noticed lower O2 saturations and felt chilled and nauseated; therefore, she re-presented to the emergency room later the same day of discharge. In the emergency room, she was evaluated with blood cultures and was found to be profoundly hypoxic with O2 sat's in the 50s. She underwent a CTA, which showed no pulmonary embolus, no pneumonia, and a large laminated gallstone. She was also found to have a mild leukocytosis. Additional symptoms uncovered with prompting was mild low back pain and prior symptom of dysuria at the end of voiding that is now improved. Her persistent symptom currently is significant anorexia, which is unusual for her, and persistent chills. Within 24 hours of hospitalization, blood cultures were positive for E coli, and patient was started on ertapenem 1 g. REVIEW OF SYSTEMS: A complete 10-point review of systems was performed and is negative except as mentioned in the HPI. Patient does note a wound on her left posterior ankle but denies pain associated with this wound due to diabetic neuropathy. PAST MEDICAL HISTORY: 1. Type 2 diabetes. 2. Coronary artery disease status post 3-vessel CABG in 2010 and stenting. 3. Hypertension. 4. Obesity. 5. Obstructive sleep apnea, on chronic oxygen supplementation at 2 L. 6. Cholelithiasis diagnosed during last hospitalization. 7. Left lower extremity cellulitis 07/01/2016. Wound culture at that time showed MSSA. FAMILY HISTORY: Reviewed and noncontributory. SOCIAL HISTORY: She is a former smoker; quit at age 42. No alcohol. No drug use. She has cats at home. No recent travel. ALLERGIES: She had a reaction to amoxicillin in 1971; she developed facial swelling but did not seek hospitalization for this. MEDICATIONS: Tylenol, aspirin 81 mg, Lipitor 20 mg daily, enoxaparin 40 subcu daily, ertapenem 1 g IV daily, Lasix 40 mg IV twice daily, insulin, metolazone 2.5 twice daily as needed for swollen legs, metoprolol 12.5 mg twice daily, Zofran, and oxybutynin 10 mg daily. PHYSICAL EXAMINATION: VITAL SIGNS: The patient has been afebrile throughout hospitalization. Blood pressure 109/47, heart rate 78, respiratory rate 18. Saturations are 97% on 5 L. Temperature 36.7. GENERAL: This is a pleasant woman lying flat in bed who is mildly dyspneic with talking. HEENT: Pale conjunctiva; no conjunctival hemorrhages. Oropharynx with moist mucous membranes. Dentures above and below. NECK: Supple. CARDIOVASCULAR: Distant heart sounds but systolic murmur heard at the left apex and a faint diastolic murmur also appreciated, CHEST: Decreased breath sounds in the bases. No crackles. ABDOMEN: Obese, soft, nontender. Bowel sounds are present. Some mild discomfort to deep palpation right upper quadrant, but no definitive Adame sign. SKIN: She has a wound on her left posterior ankle that is approximately 3 x 1.5 cm without surrounding erythema or discharge. She had no lower extremity edema. LABORATORY: White count on admission 12.4 (today, 9.4), hematocrit 34, platelets 187; 82% neutrophils. Creatinine 0.8. Calcium 8.2, total bili 1.7 on admission (1.2 today), AST 18, ALT 27, alk phos 39. BNP 3780. Albumin 2.9. Echocardiogram was performed that showed ejection fraction of 45% to 50%, moderate MR, moderate TR. Also, a right upper quadrant ultrasound was performed during last hospitalization that showed a 4.2 cm gallstone with mild gallbladder wall thickening. ASSESSMENT/PLAN: This is a 81-year-old woman with diabetes and coronary artery disease, who is admitted with significantly worsening hypoxia, with a CTA showing no evidence of pneumonia or pulmonary embolism. Gram-negative josefina bacteremia source is likely related to her gallbladder. Supportive findings include anorexia, nausea, and ultrasound findings. Nonetheless, cannot completely exclude a urinary source, and will obtain a urinalysis as patient with low back pain and some past dysuria. Finally, another source for consideration is the left ankle wound, but no evidence of infection on exam. Patient does have an amoxicillin allergy back in the 1970s and tolerated ertapenem today without complication. Suspect would likely tolerate ceftriaxone and will narrow to this agent tomorrow along with anaerobic coverage with metronidazole. Primary team has already consulted Surgery regarding evaluation of gallbladder. Thank you for this consultation. Will continue to follow on a daily basis. /[id number]/MODL MTDD
--- NOTE | 2017-05-05 17:12 | ASMTCMCOM ---
CM Note CM Note Notes: 05/05/2017 Case Management Note Pt is known to case management with d/c and readmit yesterday 05/04/2017. Pt readmitted for CHF, hypoxia and was found to have gram negative bacteria possibly related to her gall bladder. Discussed pt in rounds today. There are no PT or OT evals ordered at this time. Cardiac Rehab consult has been ordered. Notified RN that respiratory therapy needs to assess if home concentrator is working appropriately for pt. Pt reporting that machine works intermittently. Notified Respiratory Therapy. Case Management d/c poc: to be determined after multiple consultations are completed. Case Management to follow. Date Signed: 05/05/2017 05:12 PM Electronically Signed By:Ann Delcid RN
--- NOTE | 2017-05-05 20:26 | GCON ---
[f rep st] CONSULTATION DATE OF CONSULTATION: 05/05/2017 REASON FOR EVALUATION: Gram-negative sepsis, cholelithiasis, possible cholecystitis. HISTORY OF PRESENT ILLNESS: 81-year-old female with multiple significant comorbidities including obesity, mxi-rzvjhlj-ykqzqlxyd diabetes, coronary artery disease, status post PTCA with a history of congestive heart failure, with a normal EF of 55%. She also has a significant history of sleep apnea on CPAP. She was admitted to the hospital last with complaints of shortness of breath, worsening when supine and associated nausea. Workup at that time disclosed evidence of cholelithiasis without evidence of cholecystitis. The patient was discharged with plans to return for consideration for an outpatient cholecystectomy. Upon return to home, she developed severe chills, as well as some hypoxia, and inability to get her oxygen levels back to her baseline levels with associated nausea, thus bringing her back to the emergency room for further assessment. She was found to be hypoxic with an oxygen level of 58% with acute respiratory distress. She has been managed with diuretic therapy. Blood cultures returned with evidence of gram-negative rods, consistent/E coli. Surgery has been requested for further recommendations. On further discussion, the patient denies a history of specific pain with greasy meals or rich or spicy meals. She denies history of dark urine, acholic stools, or jaundice. She denies a history of a right upper quadrant pain with radiation to her back or shoulder. She reports no prior history of such complaints. She did undergo a prior gastric bypass in the early . She did lose 100 pounds. Preoperative ultrasonography showed no evidence of cholelithiasis per her accord. PAST MEDICAL HISTORY: Coronary artery disease, status post CABG, non-insulin- dependent diabetes, history of congestive heart failure with normal EF, obstructive sleep apnea with home CPAP, hypertension, obesity, hard of hearing. PAST SURGICAL HISTORY: Laparoscopic gastric bypass, PTCA with stent, and subsequent 3 vessel CABG, x2. MEDICATIONS: Aspirin, vitamin D, Lasix, herbals, metformin, metolazone, multivitamin, oxybutynin. ALLERGIES: Penicillin. SOCIAL HISTORY: No alcohol. No tobacco. She does live independently. REVIEW OF SYSTEMS: Notable for a prior hospitalization for sepsis secondary to presumed ankle wound, chronic shortness of breath on oxygen therapy. PHYSICAL EXAMINATION: VITAL SIGNS: Temperature 36.8, blood pressure 160/90, pulse 80, respirations 18. GENERAL: The patient is alert, appropriate, comfortable lying in bed. HEENT: Anicteric. LYMPH NODES: No cervical or supraclavicular lymphadenopathy. NECK: No jugular venous distention. HEART: Regular. LUNGS: Diminished bilaterally. ABDOMEN: Soft. Minimal right upper quadrant tenderness without rebound or guarding. No Adame sign. Well-healed laparoscopic incisions without hernias extremities with minimal ankle edema. NEUROLOGIC: Alert and appropriate x2. Skin without rashes. LABORATORY DATA: White 9, hemoglobin 11, platelets of 190, INR 1.1. Electrolytes within reference range. Liver enzymes currently within reference range. Total bilirubin 1.7 on admission with an unconjugated fraction of 1.2. Right upper quadrant ultrasound earlier in the week with cholelithiasis with gallbladder wall thickening, no pericholecystic fluid, and a 7 mm common bile duct. Chest CT on this admission without evidence of pulmonary embolism. Bilateral small pulmonary effusions, as well as a large gallstone without definite secondary signs of cholecystitis. IMPRESSION: 81-year-old female with gram-negative sepsis, cholelithiasis with gallbladder wall thickening on recent ultrasonography, and diabetes. Heightened suspicion for acute cholecystitis. PLAN: I agree with the recommendations to proceed with laparoscopic cholecystectomy. Surgical risks and benefits were explained to the patient and son in detail, including bleeding, infection, open conversion, retained stone, potential for postoperative ERCP, as well as alternative diagnoses. We also discussed the potential for other adverse surgical outcomes related to her underlying cardiorespiratory disease. All questions were answered. She desires to proceed. A message was left for the hospitalist service regarding the above findings and recommendations. /[id number]/MODL MTDD
[2017-05-05] MEDS: METOPROLOL TARTRATE 25 MG TAB PO SCH (22:08)
[2017-05-06 04:10] LABS: PLATELET COUNT 172 10^3/uL (150-400)
[2017-05-06] MEDS ORDERED: BUPIVACAINE/EPI 0.5% 30 ML SDV ONE (07:12)
--- NOTE | 2017-05-06 08:09 | PDANEPAE ---
ANE History of Present Illness cholelithiasis ANE Past Medical History - Cardiovascular History Hx Hypertension: Yes Hx Arrhythmias: No Hx Chest Pain: No Hx Coronary Artery / Peripheral Vascular Disease: Yes Hx CHF / Valvular Disease: Yes Hx Palpitations: No Cardiovascular History Comment: Echo on 05/05 with EF of 45-50%,diastolyc dysfunction,, basal/mid inferior and inferolteral akinesis,mod MR, mod TR, RSVP 44 mmHG. anemia - Pulmonary History Hx COPD: No Hx Asthma/Reactive Airway Disease: No Hx Oxygen in Use at Home: Yes O2 in Use at Home (L/minute): 2 Hx Sleep Apnea: Yes Sleep Apnea Screening Result - Last Documented: Positive Pulmonary History Comment: sleep apnea 2L at noc with cpap - Neurologic History Hx Cerebrovascular Accident: No Hx Seizures: No Hx Dementia: No - Endocrine History Hx Diabetes: Yes Hypothyroid: No Hyperthyroid: No Obesity: moderate - Renal History Hx Renal Disorders: No - Liver History Hx Hepatic Disorders: No - Neurological & Psychiatric Hx Hx Neurological and Psychiatric Disorders: No - Cancer History Hx Cancer: Yes Cancer History Comment: skin cancer - Congenital Disorder History Hx Congenital Disorders: No - GI History GERD: no Hx Gastrointestinal Disorders: No - Other Health History Other Health History: wound on ankle - Chronic Pain History Chronic Pain: No (BONE SPURS TO LEFT SHOULDER) - Surgical History Prior Surgeries: [facility] quad bypass 2014 ANE Review of Systems Review of Systems: - Exercise capacity METS (RN): 2 METS ANE Patient History - Allergies Allergies/Adverse Reactions: Penicillins Allergy (Mild, Verified 08/29/16 08:02) Rash - Home Medications Home Medications: Aspirin [Aspirin 325 mg (*)] 325 mg PO DAILY 05/03/17 [Last Taken 05/04/17] Cholecalciferol Vit D3 [Vitamin D3 (*)] 1,000 units PO DAILY 05/03/17 [Last Taken 05/04/17] Furosemide [Lasix 20 MG (*)] 20 mg PO BIDDIUR 05/03/17 [Last Taken 05/04/17] Herbals/Supplements -Info Only 1 ea PO DAILY 05/03/17 [Last Taken Unknown] Metformin HCl [Metformin 1000 mg] 1,000 mg PO BIDMEAL 05/03/17 [Last Taken Unknown] Metolazone 2.5 mg PO PRN PRN 05/03/17 [Last Taken Unknown] Multivitamins [Multivitamin (*)] 1 each PO DAILY 05/03/17 [Last Taken 05/04/17] Oxybutynin Chloride [Ditropan Xl] 10 mg PO DAILY 05/03/17 [Last Taken 05/04/17] - NPO status NPO Since - Liquids (Date): 05/06/17 NPO Since - Liquids (Time): 00:00 NPO Since - Solids (Date): 05/06/17 NPO Since - Solids (Time): 00:00 - Anes Hx Anes Hx: no prior problems - Smoking Hx Smoking Status: Former smoker Marijuana use: No - Alcohol Use Alcohol Use: None - Family Anes Hx Family Anes Hx: none Family Hx Anesthesia Complications: none ANE Labs/Vital Signs - Labs Result Diagrams: 05/06/17 03:11 05/06/17 03:11 - Vital Signs Blood Pressure: 130/70 Heart Rate: 75 Respiratory Rate: 16 O2 Sat (%): 95 Height: 162.56 cm Weight: 94.211 kg ANE Physical Exam - Airway Mallampati Score: Class 1 Mouth exam: dentures - Pulmonary Pulmonary: inspiratory crackles - Cardiovascular Cardiovascular: regular rate and rhythym, systolic murmur - ASA Status ASA Status: III ANE Anesthesia Plan Anesthesia Plan: general endotracheal anesthesia (Increased risk of periop complications discussed with patient and her son. Questions answered.)
[2017-05-06] MEDS: INSULIN LISPRO 100 UNIT/ML SC SCH ×4 (08:13→21:29)
[2017-05-06] MEDS: FUROSEMIDE 40 MG/4 ML VIAL IVP SCH ×2 (08:13→16:03)
[2017-05-06] MEDS: METOPROLOL TARTRATE 25 MG TAB PO SCH ×2 (08:13→21:28)
[2017-05-06] MEDS: ATORVASTATIN CALCIUM 20 MG TAB PO SCH (08:14)
[2017-05-06] MEDS: ENOXAPARIN 40 MG/0.4 ML SYR SC SCH (08:14)
[2017-05-06] MEDS: ASPIRIN 81 MG CHEWABLE TAB PO SCH (08:14)
[2017-05-06] MEDS: OXYBUTYNIN 5 MG EXT REL TAB PO SCH (08:16)
[2017-05-06] MEDS ORDERED: PROPOFOL 200 MG/20 ML VIAL ONE (08:20)
[2017-05-06] MEDS ORDERED: ROCURONIUM 50 MG/5 ML VIAL ONE ×2 (08:20)
[2017-05-06] MEDS ORDERED: DEXAMETHASONE 4 MG/ML VIAL ONE (08:20)
[2017-05-06] MEDS ORDERED: RANITIDINE 50 MG/2 ML VIAL ONE (08:21)
[2017-05-06] MEDS ORDERED: ONDANSETRON 4 MG/2 ML VIAL ONE (09:03)
[2017-05-06] MEDS ORDERED: SUGAMMADEX SODIUM 200 MG/2 ML VIAL IVP ONE (09:11)
[2017-05-06] MEDS ORDERED: fentaNYL 100 MCG/2 ML INJ IVP PRN (09:22)
[2017-05-06] MEDS ORDERED: NALOXONE HCL 0.4 MG/ML INJ IVP PRN (09:22)
[2017-05-06] MEDS ORDERED: ONDANSETRON 4 MG/2 ML VIAL IVP PRN (09:22)
[2017-05-06] MEDS ORDERED: HYDROCODONE/APAP 5/325 TAB PO PRN (09:32)
--- NOTE | 2017-05-06 09:32 | POSTOPPROG ---
Post Op Note Date of Operation: 05/06/17 Surgeon: Gaurav Landrum Anesthesiologist: Samuel Gavin Anesthesia: GET(General Endotracheal) Pre-op Diagnosis: Acute choly with GN sepsis Post-op Diagnosis: Same Procedure: Lap choly Findings: Thick omental rind. Friable GB. large stone, small duct. Inf/Abcess present in the surg proc area at time of surgery?: Yes Depth: Organ Space EBL: Minimal Total fluids administered: 250cc Specimen(s): gallbladder
[2017-05-06] MEDS ORDERED: IBUPROFEN 600 MG TAB PO PRN (09:49)
--- NOTE | 2017-05-06 09:58 | GOP ---
[f rep st] OPERATIVE REPORT DATE OF OPERATION: 05/06/2017 SURGEON: aGurav Landrum MD ANESTHESIA: General. ANESTHESIOLOGIST: Kevin Ross MD. PREOPERATIVE DIAGNOSIS: Acute cholecystitis with gram-negative sepsis. POSTOPERATIVE DIAGNOSIS: 1. Acute cholecystitis with gram-negative sepsis. 2. Incarcerated incisional hernia. PROCEDURE PERFORMED: 1. Laparoscopic cholecystectomy. 2. Incisional hernia repair. FINDINGS: Incarcerated supraumbilical hernia with old necrotic omentum - no purulence. Edematous gallbladder. INDICATIONS: 81-year-old female admitted with gram-negative sepsis and findings consistent with acute cholecystitis. She is undergoing a laparoscopic cholecystectomy at this time. Risks and benefits were explained of bleeding, infection, open conversion, retained stone, potential for postoperative ERCP, open conversion, as well as untoward cardiorespiratory complications. All questions were answered. She desires to proceed. DESCRIPTION OF PROCEDURE: General anesthesia was induced. The abdomen was pre- injected with 0.5% Marcaine with epinephrine. A transverse supraumbilical incision was reopened. An area of incarcerated omental fat was present within a supraumbilical hernia. The fat was excised, allowing for entrance into the abdominal cavity via a 2cm incisional hernia. Fat and sac were excised and cleared back to healthy appearing fascial edges. A 12 mm trocar was placed under direct visualization. Three additional 5 mm upper abdominal ports were inserted. Omental adhesions were all lysed. The gallbladder was acutely thickened, edematous, with a densely caked portion of omentum. The omental cast was peeled off the gallbladder proper. The cystic duct and artery were circumferentially encompassed, confirming the critical view of safety. The duct was notably small in caliber. The duct was divided between multiple hemoclips. The artery was divided with the ultrasonic dissector and the gallbladder peeled from the liver bed fossa with the ultrasonic dissector as well. The specimen was brought through the umbilical port site intact using EndoCatch pouch. Satisfactory hemostasis was assured. Trocars were removed under direct visualization. The supraumbilical hernia was closed transversely with a running Vicryl suture. The fascia was of reasonable quality and mesh was not used. The wounds were closed with Monocryl suture followed by Dermabond. The patient was taken to Recovery uneventfully. /[id number]/MODL MTDD
--- NOTE | 2017-05-06 10:13 | POSTANESTH ---
Post Anesthetic Evaluation Cardiovascular Status: Similar to Pre-Op Cond Respiratory Status: Similar to Pre-op Cond. Level of Consciousness/Mental Status: Can Participate in Eval Pain Control: Adequate, Prn Tx Ordered Nausea/Vomiting Control: Adequate, Prn Tx Ordered Complications Possibly Related to Anesthesia: None Noted (patient with O2 Sat of 96% on 10 L/min. Alert, oriented.)
--- NOTE | 2017-05-06 12:38 | PCMIDPN ---
Assessment/Plan: # Low grade E coli bacteremia likely secondary to chronic cholecystitis, feeling much better today. AF. WBC normalized -- no repeat blood cx needed --continue ceftriaxone + flagyl, once sensi available okay to complete total 10 day course with levofloxacin 750mg PO daily (already on D#2) Abx #2 Ceftriaxone 1gm IV daily #1 s/p 1 day ertapenem Subjective: patient feeling well, appetite improved Abdominal pain Objective: Vital Signs Temp Pulse Resp BP Pulse Ox 36.0 C 79 24 H 134/63 H 94 05/06/17 10:34 05/06/17 10:34 05/06/17 10:34 05/06/17 10:34 05/06/17 10:34 Laboratory Results 05/06/17 03:11 05/06/17 03:11 05/05/17 05/06/17 05/07/17 05:59 05:59 05:59 Intake Total 150 1750 250 Output Total 475 1850 20 Balance -325 -100 230 - Physical Exam General Appearance: alert, no apparent distress EENT: pale conjunctiva, No scleral icterus Respiratory: lungs clear, No accessory muscle use Neck: supple Cardiac/Chest: regular rate, rhythm Extremities: No pedal edema Abdomen: non-tender, soft, other (Decreased bowel sounds, multiple small incisions with glue, no erythema.) Male Genitalia: No [place] Skin: pallor, No rash Neuro/Psych: alert, normal mood/affect, oriented x 3 - Time Spent With Patient Time Spent with Patient: greater than 25 minutes Time Spent with Patient: Greater than 25 minutes spent on this patients care, greater than 50% of time spent counseling, educating, and coordinating care regarding the above mentioned plan. ICD10 Worksheet Patient Problems: Problems Problem Status Onset CHF (congestive heart failure) Acute Hypoxemia Acute Abdominal pain Acute Cellulitis Acute Chest pain Acute Gallstone Acute Pulmonary edema Acute Severe sepsis Acute
--- NOTE | 2017-05-06 12:48 | PDCARPN ---
Cardiology Progress Note Assessment/Plan: Assessment/plan: 81-year-old female with coronary disease status post CABG in 2010 and left circumflex stenting in 2015. She also has heart failure, diabetes and hypertension. She was admitted yesterday after having been discharged a few hours previously with hypoxia, chills, malaise. She had gram-negative bacteremia, likely source gallbladder. She is now s/p cholecystectomy. 1. Heart failure: She presented with dyspnea and hypoxia that was likely multifactorial, but in part related to pulmonary edema from heart failure and poorly controlled HTN. Ejection fraction is 45-50%. Troponins have been negative. She is clinically improved status post cholecystectomy. She may require another day of intensified diuresis given perioperative fluid resuscitation, but does not appear markedly volume overloaded today. 2. Cholecystitis and E coli bacteremia: Followed by infectious disease. Now status post cholecystectomy. 3. Coronary disease: Troponins have been negative. She did have the 1st part of her nuclear stress test yesterday. This did show a large lateral defect which I suspect will be fixed when we finish the test tomorrow with rest imaging. She had a similar test in 2014 in our office. Continue ASA, statin, metoprolol. 4. Hypertension: Currently well controlled 5. Diabetes: Per Hospital Medicine 05/06/17 12:48 Subjective: Patricia just returned from the PACU. She reports no chest pressure at the moment. No dyspnea at the moment. Reviewed/Discussed With: hospitalist Objective: Vital Signs (8 Hrs) Temp Pulse Resp BP Pulse Ox 05/06/17 10:34 36.0 C 79 24 H 134/63 H 94 05/06/17 10:31 21 H 134/63 H 95 05/06/17 10:30 25 H 93 05/06/17 10:25 18 94 05/06/17 10:20 21 H 94 05/06/17 10:16 20 129/67 H 92 05/06/17 10:15 20 91 L 05/06/17 10:10 19 89 L 05/06/17 10:05 20 94 05/06/17 10:01 21 H 135/67 H 97 05/06/17 10:00 21 H 96 05/06/17 09:55 21 H 96 05/06/17 09:51 23 H 139/69 H 96 05/06/17 09:50 22 H 97 05/06/17 09:46 21 H 145/69 H 96 05/06/17 09:45 22 H 96 05/06/17 09:41 19 136/66 H 96 05/06/17 09:40 36.0 C 75 19 145/69 H 95 05/06/17 09:36 16 142/68 H 95 05/06/17 09:24 95 05/06/17 09:08 75 16 130/70 H 95 05/06/17 08:10 95 05/06/17 08:09 93 05/06/17 07:52 37.7 C 75 16 130/70 H 95 05/06/17 07:15 85 18 110/85 H 79 L Intake/Output (24 Hrs) 05/05/17 05/06/17 05/07/17 05:59 05:59 05:59 Intake Total 150 1750 250 Output Total 475 1850 20 Balance -325 -100 230 Intake: Oral (ml) 150 1650 IV Intake (ml) 250 IV Infused (ml) 0 100 metroNIDAZOLE 500 MG/NACL 100 100 ml @ 100 mls/hr IV Q8HRS [facility] Rx#:[id number] Output: Urine (ml) 475 1850 Bedside Commode 800 Toilet 475 1050 Estimated Blood Loss (ml) 20 Other: Weight 95.1 kg 94.211 kg 94.211 kg Intake Quantity Yes Sufficient Number of Voids 1 Toilet 1 4 Number of Stools Toilet 2 Sleepy postoperatively but answers questions appropriately. JVP is 12 cm water. Regular rate and rhythm with 2/6 holosystolic murmur at the left lower sternal border Lungs clear anteriorly and laterally No lower extremity edema Result Diagrams: 05/06/17 03:11 05/06/17 03:11 Telemetry: NSR with PVCs ICD10 Worksheet Patient Problems: Problems Problem Status Onset Chest pain Acute Cellulitis Acute Pulmonary edema Acute Severe sepsis Acute Gallstone Acute Abdominal pain Acute CHF (congestive heart failure) Acute Hypoxemia Acute
--- NOTE | 2017-05-06 14:57 | ASMTCMCOM ---
CM Note CM Note Notes: 05/06/2017 Case Management Note Met w/pt during rounds today. Pt son and daughter in law in room. Pt had surgery today to remover her gallbladder. Respiratory therapy contacted pt and family. Oxygen company is [employer]. Pt has concentrator and portable O2. Pt instructed to bring O2 to hospital if needed at d/c. Family to contact [employer] and have concentrator serviced while pt is in the hospital. Awaiting PT eval recommendations for d/c plan. At prior admission pt refused home bound status and refused home care initiation. Case Management to follow. Date Signed: 05/06/2017 02:57 PM Electronically Signed By:Ann Delcid RN
--- NOTE | 2017-05-06 15:11 | HOSPPROG ---
Hospitalist Progress Note Assessment/Plan: 81 yo female admitted with SOB, fever possible, shaking chills and maybe chest pain with orthopnea and SOB. Patient had known large gallstone and surgical consultation was sought. She underwent a lap choly successfully. Patient is much improved. Her oxygen needs have risen and there are tubular breath sounds in her left base as new problems. -Acute sepsis with Gram neg josefina, probably e. coli; patient on rocephin and flagyl, doing well. Patient is afebrile with now normal WBC -rhonchi and tubular BS LLL, increased O2 needs; will check CXR -CAD with h/o chest pain and negative troponin: lexiscan negative except for an inferior wall -HTN currently good control -DM: Will cover with S -Sleep apnea syndrome on CPAP and uses it, with O2 Plan: -ABx coverage, surgical consult -SSI coverage as needed -O2 prn and may use her own CPAP -chest x-ray today Subjective: Reports she is feeling much improved. Abdominal pain nausea Objective: Vital Signs Temp Pulse Resp BP Pulse Ox 36.0 C 79 24 H 134/63 H 94 05/06/17 10:34 05/06/17 10:34 05/06/17 10:34 05/06/17 10:34 05/06/17 10:34 Laboratory Results 05/06/17 03:11 05/06/17 03:11 05/05/17 05/06/17 05/07/17 05:59 05:59 05:59 Intake Total 150 1750 250 Output Total 475 1850 20 Balance -325 -100 230 PT 14.6 SEC (12.0-15.0) 05/04/17 20:40 INR 1.12 (0.83-1.16) 05/04/17 20:40 - Time Spent With Patient Time Spent with Patient: greater than 35 minutes Time Spent with Patient: Greater than 35 minutes spent on this patients care, greater than 50% of time spent counseling, educating, and coordinating care regarding the above mentioned plan. - Pending Discharge Pending Discharge Within 24 Hours: No Pending Discharge Within 48 Hours: Yes Pending Discharge Date: 05/08/17 Pending Discharge Time: 11:00 - Physical Exam Constitutional: no apparent distress Eyes: PERRL, anicteric sclera Ears, Nose, Mouth, Throat: moist mucous membranes, hard of hearing Cardiovascular: regular rate and rhythym, no murmur, rub, or gallop Respiratory: no respiratory distress, inspiratory crackles, bronchial breath sounds, rhonchi, other (Findings in the left lower) Gastrointestinal: normoactive bowel sounds, other (Surgical wound are healing well; slight tenderness no rebound. BS normal) Genitourinary: no bladder fullness Skin: warm Musculoskeletal: full muscle strength Neurologic: AAOx3, CN II-XII Intact Psychiatric: interacting appropriately ICD10 Worksheet Patient Problems: Problems Problem Status Onset Chest pain Acute Cellulitis Acute Pulmonary edema Acute Severe sepsis Acute Gallstone Acute Abdominal pain Acute CHF (congestive heart failure) Acute Hypoxemia Acute
[2017-05-06] MEDS ORDERED: metFORMIN HCL 500 MG TAB PO SCH (18:00)
[2017-05-07 04:22] LABS: PLATELET COUNT 150 10^3/uL (150-400)
--- NOTE | 2017-05-07 08:23 | SOAPPROG ---
SOAP Progress Note Assessment/Plan: Assessment:no complaints s/p lap choly. no pain. breathing better. no further nausea or vomiting. afebrile. comfortable, smiling. abd soft, nontender. incis clean. gn sepsis secondary to acute choly - excellent progress. dispo/ ABX per primary service. office f/u 2 weeks. no diet or activity restriction. Plan: 05/07/17 08:22 Objective: Vital Signs Temp Pulse Resp BP Pulse Ox 36.9 C 66 17 128/67 H 96 05/07/17 07:41 05/07/17 07:41 05/07/17 07:41 05/07/17 07:41 05/07/17 07:41 Laboratory Results 05/07/17 03:30 05/07/17 03:30 05/06/17 05/07/17 05/08/17 05:59 05:59 05:59 Intake Total 1750 800 Output Total 1850 570 Balance -100 230 PT 14.6 SEC (12.0-15.0) 05/04/17 20:40 INR 1.12 (0.83-1.16) 05/04/17 20:40 ICD10 Worksheet Patient Problems: Problems Problem Status Onset CHF (congestive heart failure) Acute Hypoxemia Acute Abdominal pain Acute Cellulitis Acute Chest pain Acute Gallstone Acute Pulmonary edema Acute Severe sepsis Acute
--- NOTE | 2017-05-07 08:55 | CPEKG ---
Heart Rate: 78 RR Interval: 769 P-R Interval: 176 QRSD Interval: 116 QT Interval: 404 QTC Interval: 461 P [place]: 33 QRS [place]: -60 T Wave [place]: 116 EKG Severity - ABNORMAL ECG - EKG Impression: SINUS RHYTHM EKG Impression: VENTRICULAR PREMATURE COMPLEX EKG Impression: LEFT ANTERIOR FASCICULAR BLOCK Electronically Signed By: Guilherme Ferguson 08-May-2017 16:12:26
[2017-05-07] MEDS: ENOXAPARIN 40 MG/0.4 ML SYR SC SCH (10:19)
[2017-05-07] MEDS: FUROSEMIDE 40 MG/4 ML VIAL IVP SCH (10:19)
[2017-05-07] MEDS: ASPIRIN 81 MG CHEWABLE TAB PO SCH (10:20)
[2017-05-07] MEDS: METOPROLOL TARTRATE 25 MG TAB PO SCH ×2 (10:20→21:32)
[2017-05-07] MEDS: ATORVASTATIN CALCIUM 20 MG TAB PO SCH (10:20)
[2017-05-07] MEDS: OXYBUTYNIN 5 MG EXT REL TAB PO SCH (10:20)
--- NOTE | 2017-05-07 11:12 | PDCARPN ---
Cardiology Progress Note Assessment/Plan: Assessment/plan: 81-year-old female with coronary disease status post CABG in 2010 and left circumflex stenting in 2014. She also has heart failure, diabetes and hypertension. She was admitted 05/05after having been discharged a few hours previously with hypoxia, chills, malaise. She had gram-negative bacteremia, likely source gallbladder. She is now s/p cholecystectomy. 1. Heart failure: She presented with dyspnea and hypoxia that was likely multifactorial, but in part related to pulmonary edema from heart failure and poorly controlled HTN. Ejection fraction is 45-50%. Troponins have been negative. She is clinically improved status post cholecystectomy. Switch to oral lasix 2. Cholecystitis and E coli bacteremia: Followed by infectious disease. Now status post cholecystectomy. 3. Coronary disease: Troponins have been negative. She did have a fixed lateral defect on MPI. She had a similar test in 2014 in our office. Continue ASA, statin, metoprolol. 4. Hypertension: Currently well controlled 5. Diabetes: Per Hospital Medicine 6. Hypoxia: does have chronic hypoxic resp failure at home, but is on more O2 here. Does have brandon/? pleural effusion on right. Encouraged mobility. Her parenchymal CHF has resolved on today's CXR 05/07/17 11:11 Subjective: She feels better. Some lower CP and SOB. Objective: Vital Signs (8 Hrs) Temp Pulse Resp BP Pulse Ox 05/07/17 07:41 36.9 C 66 17 128/67 H 96 05/07/17 03:22 36.5 C 74 15 122/70 H 96 Intake/Output (24 Hrs) 05/06/17 05/07/17 05/08/17 05:59 05:59 05:59 Intake Total 1750 800 Output Total 1850 570 Balance -100 230 Intake: Oral (ml) 1650 550 IV Intake (ml) 250 IV Infused (ml) 100 metroNIDAZOLE 500 MG/NACL 100 100 ml @ 100 mls/hr IV Q8HRS [facility] Rx#:[id number] Output: Urine (ml) 1850 550 Bedside Commode 800 550 Toilet 1050 Estimated Blood Loss (ml) 20 Other: Weight 94.211 kg 94.432 kg Number of Voids Bedside Commode 2 Toilet 4 Number of Stools Toilet 2 NAD JVP 12 RRR soft holosystolic murmur LLSB Rales right base Abd soft, NT, positive bowel sounds Minimal bilat ankle edema Result Diagrams: 05/07/17 03:30 05/07/17 03:30 Telemetry: NSR, PVCs, brief PAT ICD10 Worksheet Patient Problems: Problems Problem Status Onset Chest pain Acute Cellulitis Acute Pulmonary edema Acute Severe sepsis Acute Gallstone Acute Abdominal pain Acute CHF (congestive heart failure) Acute Hypoxemia Acute
[2017-05-07] MEDS: INSULIN LISPRO 100 UNIT/ML SC SCH ×3 (12:49→21:41)
--- NOTE | 2017-05-07 14:11 | PCMIDPN ---
Assessment/Plan: Assessment: E coli bacteremia secondary to chronic cholecystitis. Status post cholecystectomy. E coli does not have a sensitivity panel yet. Talked to micro lab and this will be available tomorrow morning. In the meantime will continue ceftriaxone and Flagyl. If the isolate is pansensitive agree with plan to switch to Levaquin for a total of a 10 day course. Plan: 1. Continue ceftriaxone and Flagyl at present. 2. Follow up with sensitivity panel once available tomorrow morning. 3. Plan to discharge on oral Levaquin if isolate is fluoroquinolone sensitive. 10 day course. 05/07/17 14:09 05/07/17 14:09 Subjective: Patient is resting in her hospital chair. She feels improved. Much decreased abdominal pain. No fevers or chills. Tolerating antibiotics without rash. Objective: Ceftriaxone # 2 Flagyl # 2 Vital Signs Temp Pulse Resp BP Pulse Ox 36.8 C 71 17 123/57 H 98 05/07/17 11:37 05/07/17 11:37 05/07/17 11:37 05/07/17 11:37 05/07/17 11:37 Laboratory Results 05/07/17 03:30 05/07/17 03:30 05/06/17 05/07/17 05/08/17 05:59 05:59 05:59 Intake Total 1750 800 Output Total 1850 570 Balance -100 230 - Physical Exam General Appearance: WD/WN, alert, no apparent distress, non-toxic Respiratory: lungs clear, normal breath sounds, No respiratory distress Cardiac/Chest: regular rate, rhythm, No tachycardia Extremities: non-tender, normal inspection Skin: normal color, warm/dry, No rash Neuro/Psych: alert, normal mood/affect, oriented x 3 ICD10 Worksheet Patient Problems: Problems Problem Status Onset CHF (congestive heart failure) Acute Hypoxemia Acute Abdominal pain Acute Cellulitis Acute Chest pain Acute Gallstone Acute Pulmonary edema Acute Severe sepsis Acute
--- NOTE | 2017-05-07 14:53 | HOSPPROG ---
Hospitalist Progress Note Assessment/Plan: DIAGNOSES: -acute systolic congestive heart failure * Ejection fraction of 45% * Improving with diuretic here so far -stable coronary artery disease with evidence of old infarction but no ischemia on myocardial perfusion imaging at this time -bilateral pleural effusions * Appear likely related to her heart failure -E coli bacteremia probably related to her gallbladder disease * Antibiotic sensitivities pending at this time * I do not think she had actual acute sepsis, but had multiple other issues causing her tachycardia -acute on chronic cholecystitis now status post cholecystectomy postop day 1 -acute hypoxemic respiratory failure; multifactorial and suspect that this may have a chronic component as well -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 Adela Ross today and also Dr. Adam Gallagher PLANS: -continue current antibiotics intravenously and await sensitivities -will get a chest x-ray to make sure she does not have accumulation of further effusion on the right side with decubitus views -continue diuresis -continue ambulation with PT and OT -will increase her diabetes treatment at this time and follow sugars closely SUBJECTIVE: states she feels notably better no chest or abd pain no fever sxs eating ok hasn't been walking yet OBJECTIVE Vitals reviewed: Stable without fever at this time Pigment Supplier, my review: Sinus Exam: alert oriented skin warm dry color ok resps not labored lungs clear BSs heart regular abd soft nondistended nontender, bowel sounds present, no wound issues limbs warm, no edema iv site ok Laboratory data: Blood sugars are higher today and need better control at this point Renal function, electrolytes, and CBC all stable Microbiology data: E coli growing from all cultures at this point, no sensitivity data yet Objective: Vital Signs Temp Pulse Resp BP Pulse Ox 36.8 C 71 17 123/57 H 98 05/07/17 11:37 05/07/17 11:37 05/07/17 11:37 05/07/17 11:37 05/07/17 11:37 Laboratory Results 05/07/17 03:30 05/07/17 03:30 05/06/17 05/07/17 05/08/17 06:59 06:59 06:59 Intake Total 1750 800 Output Total 1850 570 Balance -100 230 PT 14.6 SEC (12.0-15.0) 05/04/17 20:40 INR 1.12 (0.83-1.16) 05/04/17 20:40 - Time Spent With Patient Time Spent with Patient: greater than 35 minutes Time Spent with Patient: Greater than 35 minutes spent on this patients care, greater than 50% of time spent counseling, educating, and coordinating care regarding the above mentioned plan. ICD10 Worksheet Patient Problems: Problems Problem Status Onset CHF (congestive heart failure) Acute Hypoxemia Acute Abdominal pain Acute Cellulitis Acute Chest pain Acute Gallstone Acute Pulmonary edema Acute Severe sepsis Acute
[2017-05-07] MEDS: FUROSEMIDE 40 MG TAB PO SCH (16:01)
[2017-05-08 04:32] LABS: PLATELET COUNT 175 10^3/uL (150-400)
--- NOTE | 2017-05-08 06:31 | SOAPPROG ---
SOAP Progress Note Assessment/Plan: Assessment:slept well. min chest pain. no abd complaints. requesting stool softener. avss. comfortable. abd nontender. doing well. no postop concerns. dispo/ABX per ID/hospitalist service. f/u ofc. call with questions. no complaints s/p lap choly. no pain. breathing better. no further nausea or vomiting. afebrile. comfortable, smiling. abd soft, nontender. incis clean. gn sepsis secondary to acute choly - excellent progress. dispo/ABX per primary service. office f/u 2 weeks. no diet or activity restriction. Plan: 05/07/17 08:22 05/08/17 06:30 Objective: Vital Signs Temp Pulse Resp BP Pulse Ox 36.6 C 67 20 120/64 97 05/08/17 04:00 05/08/17 04:00 05/08/17 04:00 05/08/17 04:00 05/08/17 04:00 Laboratory Results 05/08/17 03:30 05/08/17 03:30 05/07/17 05/08/17 05/09/17 05:59 05:59 05:59 Intake Total 800 670 Output Total 570 550 Balance 230 120 PT 14.6 SEC (12.0-15.0) 05/04/17 20:40 INR 1.12 (0.83-1.16) 05/04/17 20:40 ICD10 Worksheet Patient Problems: Problems Problem Status Onset CHF (congestive heart failure) Acute Hypoxemia Acute Abdominal pain Acute Cellulitis Acute Chest pain Acute Gallstone Acute Pulmonary edema Acute Severe sepsis Acute
[2017-05-08 07:10] VITALS: BP 131/73; RESP 15; TEMP 98.2
[2017-05-08] MEDS ORDERED: metFORMIN HCL 500 MG TAB PO SCH (08:00)
[2017-05-08] MEDS: ENOXAPARIN 40 MG/0.4 ML SYR SC SCH (08:25)
[2017-05-08] MEDS: INSULIN LISPRO 100 UNIT/ML SC SCH ×2 (08:25→13:43)
[2017-05-08] MEDS: METOPROLOL TARTRATE 25 MG TAB PO SCH (08:26)
[2017-05-08] MEDS: FUROSEMIDE 40 MG TAB PO SCH ×2 (08:26→17:08)
[2017-05-08] MEDS: ASPIRIN 81 MG CHEWABLE TAB PO SCH (08:26)
[2017-05-08] MEDS: ATORVASTATIN CALCIUM 20 MG TAB PO SCH (08:27)
[2017-05-08] MEDS: OXYBUTYNIN 5 MG EXT REL TAB PO SCH (08:27)
[2017-05-08] MEDS ORDERED: DOCUSATE SODIUM 100 MG CAP PO SCH (09:00)
[2017-05-08] MEDS ORDERED: POLYETHYLENE GLYCOL 3350 17 GM PKT PO SCH (09:00)
[2017-05-08 13:30] VITALS: PULSE 120; O2SAT 88
--- NOTE | 2017-05-08 14:13 | PDCARPN ---
Cardiology Progress Note Assessment/Plan: Assessment/plan: 81-year-old female with coronary disease status post CABG in 2010 and left circumflex stenting in 2014. She also has heart failure, diabetes and hypertension. She was re-admitted 05/05 after having been discharged a few hours previously with hypoxia, chills, malaise. She had E. Coli, likely source gallbladder. She is now s/p cholecystectomy. 1. Heart failure: She presented with dyspnea and hypoxia that was likely multifactorial, but in part related to pulmonary edema from heart failure and poorly controlled HTN. Ejection fraction is 45-50%. Troponins have been negative. She is clinically improved status post cholecystectomy. Continue oral lasix 2. Cholecystitis and E coli bacteremia: Followed by infectious disease. Now status post cholecystectomy. 3. Coronary disease: Troponins have been negative. She did have a fixed lateral defect on MPI. She had a similar test in 2014 in our office. Continue ASA, statin, metoprolol. 4. Hypertension: Currently well controlled 5. Diabetes: Per Hospital Medicine 6. Hypoxia: does have chronic hypoxic resp failure at home, and is now on her baseline 2L of supplemental oxygen. Does have brandon/pleural effusion on right as well as elevated right hemidiaphragm. Encouraged mobility. Her parenchymal CHF has resolved on CXR. Stable for discharge from cardiac standpoint. Follow up with Dr. Rueda 05/08/17 14:13 Subjective: Patricia dennis CP or SOB Reviewed/Discussed With: multidisciplinary team Objective: Vital Signs (8 Hrs) Temp Pulse Resp BP Pulse Ox 05/08/17 12:41 120 H 88 L 05/08/17 07:08 36.8 C 69 15 131/73 H 97 Intake/Output (24 Hrs) 05/07/17 05/08/17 05/09/17 05:59 05:59 05:59 Intake Total 800 670 740 Output Total 570 550 Balance 230 120 740 Intake: Oral (ml) 550 670 740 IV Intake (ml) 250 Output: Urine (ml) 550 550 Bedside Commode 550 200 Toilet 350 Estimated Blood Loss (ml) 20 Other: Weight 94.432 kg 96.2 kg Number of Voids Bedside Commode 2 Toilet 1 Number of Stools Bedside Commode 1 NAD JVP <10. RRR soft early RAMU base Decreased breath sounds right base No edema Result Diagrams: 05/08/17 03:30 03/27/18 03:30 Telemetry: NSR. PVCs. ICD10 Worksheet Patient Problems: Problems Problem Status Onset Chest pain Acute Cellulitis Acute Pulmonary edema Acute Severe sepsis Acute Gallstone Acute Abdominal pain Acute CHF (congestive heart failure) Acute Hypoxemia Acute
--- NOTE | 2017-05-08 16:38 | ASMTLACE ---
LACE Length of stay for Answers: 3 days current admission Acuity / Level of Answers: Yes Care: Did the patient have an inpatient admission? Comorbidities - select Answers: Coronary Artery Disease all that apply Diabetes (uncontrolled or controlled) Other Notes: HTN, sleep apnea, CPAP with home O2, hearing loss # of Emergency department Answers: 1-2 visits in the last 6 months Score: 11 Date Signed: 05/08/2017 04:37 PM Electronically Signed By:Ann Delcid RN
--- NOTE | 2017-05-08 19:27 | PDDCSUM ---
Discharge Summary Discharge Summary: DISCHARGE DIAGNOSES: -acute sepsis with E coli bacteremia -acute on chronic cholecystitis likely a cause of above; laparoscopic cholecystectomy done here -acute systolic congestive heart failure without evidence of acute ischemic disease -accelerated hypertension -chronic obstructive sleep apnea, patient not willing to use CPAP -type 2 diabetes mellitus -acute hypoxemic respiratory failure, multifactorial with heart failure, pleural effusions, abdominal pain, and chronic right hemidiaphragm elevation all contributory -chronic at elevation of the right hemidiaphragm CONSULTANTS: Dr. Adela Costello PROCEDURES: Echocardiogram Laparoscopic cholecystectomy HOSPITAL COURSE SUMMARY: This patient came in with acute febrile illness and sepsis and is found have acute cholecystitis and grew E coli bacteremia. She was started on antibiotics and did improve with that but she did require cholecystectomy which was done laparoscopically and successfully without complication. In addition to this she has had significant dyspnea here and is found have congestive heart failure along with other contributors to acute hypoxemic respiratory failure. She did not appear to have any new ischemic or other new cardiac events other than decompensation. She responded well to diuretic therapy and ambulation. She is much more comfortable and appears close to her dry weight with some ongoing diuresis required she discharges. She did have some significant hypertension early on and this responded well to treatment of her presenting illness and with antihypertensive At this time she is without pain, eating well, no fevers, no shortness of breath , ambulating well. Her exam is fairly unremarkable and she is stable for discharge to home PENDING TEST RESULTS: None MEDICATION CHANGES: Addition of Levaquin 750 mg daily for 1 week FOLLOW-UP PLAN: With Dr. Gaurav Landrum in surgery Clinic With her primary retail merchandiser technician at [facility] Greater than 35 minutes bedside and care coordination time today
--- NOTE | 2017-05-09 15:20 | PDIAF ---
- Diagnosis Diagnosis: CHF, cholecystitis, E coli bacteremia Code Status: Full Code - Medication Management Discharge Medications: Medications to Continue on Transfer Cholecalciferol Vit D3 [Vitamin D3 (*)] 1,000 units PO DAILY 05/03/17 [Last Taken 05/04/17] Metformin HCl [Metformin 1000 mg] 1,000 mg PO BIDMEAL 05/03/17 [Last Taken Unknown] Metolazone 2.5 mg PO PRN PRN 05/03/17 [Last Taken Unknown] Multivitamins [Multivitamin (*)] 1 each PO DAILY 05/03/17 [Last Taken 05/04/17] Oxybutynin Chloride [Ditropan Xl] 10 mg PO DAILY 05/03/17 [Last Taken 05/04/17] Aspirin [Aspirin 81mg (*)] 81 mg PO DAILY tab.chew 05/08/17 [Last Taken Unknown ] Atorvastatin Calcium [Lipitor 20 mg (*)] 20 mg PO DAILY #30 tab 05/08/17 [Last Taken Unknown] Furosemide [Lasix 40 MG (*)] 40 mg PO BID@0900,1500 #60 tab 05/08/17 [Last Taken Unknown] Metoprolol Tartrate [Lopressor 25 mg (*)] 12.5 mg PO BID #60 tab 05/08/17 [Last Taken Unknown] levOFLOXACIN [levAQUIN (*)] 750 mg PO DAILY #7 tab 05/08/17 [Last Taken Unknown] Discharge Medications: Refer to the Discharge Home Medication list for PRN reason. - Orders Services needed: Home Care, Registered Nurse, Physical Therapy, Occupational Therapy Home Care Face to Face: I certify that this patient was under my care and that I had the required [id number] encounter meeting the encounter requirements on the discharge day. My findings support the fact that the patient is homebound as defined in Home Care Face to Face Continued: CMS Chapter 7 Medicare Benefits Manual 30.1.1 , The condition of the patient is such that there exists a normal inability to leave home and consequently, leaving home would require a considerable and taxing effort. Isolation Type: None Diet Recommendation: ADA 1800 consistent carb Diet Texture: Regular Texture Diet, Dysphagia 3 - Advanced - Moist, Bite-Size - Follow Up Care Current Providers and Referrals: Gaurav Landrum MD [Medical Doctor] - follow up in 2 weeks Dorian Rodríguez MD [Primary Care Provider] - As per Instructions Anatoliy Rueda MD [Medical Doctor] - (2-3 weeks)
--- NOTE | 2017-05-09 16:27 | ASDISCHSUM ---
Discharge Information Plan Status:Home with Home Health Medically Cleared to Leave:05/08/2017 Discharge Date:05/08/2017 05:10 PM D/C Disposition:Home Health Service [facility]C Disposition:Home, Routine, Self-Care Projected Discharge Date:05/08/2017 11:00 AM Transportation at D/C:Family Discharge Delay Reason: Follow-Up Date:05/08/2017 11:00 AM Discharge Slot: Final Diagnosis: Placement Information Referral Type:*Home Health Care Services Referral ID:[id number] Provider Name:[facility] Address 1:[address] [address] Address 2: City:[place] Selection Factors: State:[place] Patient Contact Information Contact Name:ADISY Relationship:Son Address: City:[place] Alternate Phone: State/Zip Code:[place] Email: Financial Information Financial Class:Medicare Primary Plan Desc:MEDICARE INPATIENT Primary Plan Number:[id number] Secondary Plan Desc:RACIEL PPO Secondary Plan Number:[id number] Assessment Information [facility] CM Progress Note CM Note CM Note Notes: 05/05/2017 Case Management Note Pt is known to case management with d/c and readmit yesterday 05/04/2017. Pt readmitted for CHF, hypoxia and was found to have gram negative bacteria possibly related to her gall bladder. Discussed pt in rounds today. There are no PT or OT evals ordered at this time. Cardiac Rehab consult has been ordered. Notified RN that respiratory therapy needs to assess if home concentrator is working appropriately for pt. Pt reporting that machine works intermittently. Notified Respiratory Therapy. Case Management d/c poc: to be determined after multiple consultations are completed. Case Management to follow. Date Signed: 05/05/2017 05:12 PM Electronically Signed By:Ann Delcid RN [facility] Progress Note CM Note CM Note Notes: 05/06/2017 Case Management Note Met w/pt during rounds today. Pt son and daughter in law in room. Pt had surgery today to remover her gallbladder. Respiratory therapy contacted pt and family. Oxygen company is [employer]. Pt has concentrator and portable O2. Pt instructed to bring O2 to hospital if needed at d/c. Family to contact [employer] and have concentrator serviced while pt is in the hospital. Awaiting PT eval recommendations for d/c plan. At prior admission pt refused home bound status and refused home care initiation. Case Management to follow. Date Signed: 05/06/2017 02:57 PM Electronically Signed By:Ann Delcid RN LACE LACE Length of stay for Answers: 3 days current admission Acuity / Level of Answers: Yes Care: Did the patient have an inpatient admission? Comorbidities - select Answers: Coronary Artery Disease all that apply Diabetes (uncontrolled or controlled) Other Notes: HTN, sleep apnea, CPAP with home O2, hearing loss # of Emergency department Answers: 1-2 visits in the last 6 months Score: 11 Date Signed: 05/08/2017 04:37 PM Electronically Signed By:Ann Delcid RN Case Management Discharge Plan Note Case Management Discharge Discharge Order Complete? Answers: Yes Patient to Obtain Answers: via Family Medications Transportation Arranged Answers: Family/Friends Faxed Final Orders Answers: Yes Agency/Facility Transfer Answers: Yes Report Printed & Faxed to Receiving Agency Family Notified Answers: Yes Notes: in room Discharge Comments Notes: 05/08/2017 Case Management Note Met w/pt. Reviewed home bound status rules. Pt in agreement. Patrick Hartmann in room and in agreement with need for home care. Faxed referral to [facility] for RN and PT. Og from [facility] accepted pt via phone with start of service tomorrow. Faxed orders. Family to transport home. Date Signed: 05/08/2017 04:40 PM Electronically Signed By:Ann Delcid RN Intervention Information
== END 2017-05-08 17:10 | disposition home or self-care (01) | DRG 853 ==
LOC: F2W 23:33
PROVIDERS: ADMIT Family Medicine; ATTEND Family Medicine
PROC: 0FT44ZZ Resection of Gallbladder, Percutaneous Endoscopic Approach (ICD-10-PCS; principal; 2017-05-06 08:00)
PROC: 0WQF4ZZ Repair Abdominal Wall, Percutaneous Endoscopic Approach (ICD-10-PCS; principal; 2017-05-06 08:00)
DX: A41.51 Sepsis due to Escherichia coli [E. coli] (principal); K80.12 Calculus of gallbladder with acute and chronic cholecystitis without obstruction; I11.0 Hypertensive heart disease with heart failure; I50.21 Acute systolic (congestive) heart failure; J96.91 Respiratory failure, unspecified with hypoxia; K43.0 Incisional hernia with obstruction, without gangrene; E11.9 Type 2 diabetes mellitus without complications; G47.33 Obstructive sleep apnea (adult) (pediatric); K59.00 Constipation, unspecified; Z95.5 Presence of coronary angioplasty implant and graft; Z95.1 Presence of aortocoronary bypass graft; Z99.81 Dependence on supplemental oxygen; E66.01 Morbid (severe) obesity due to excess calories; Z68.36 Body mass index [BMI] 36.0-36.9, adult; Z98.84 Bariatric surgery status; Z87.891 Personal history of nicotine dependence; Z96.653 Presence of artificial knee joint, bilateral; Z86.19 Personal history of other infectious and parasitic diseases
CPT/HCPCS: 97116-GP; 97161-GP; 97530-GP; A9500; G0378; G8978-GP-CJ; G8979-GP-CI; J0696; J1100; J1335; J1650; J1815; J1940; J2405; J2704; J2780; J2785; Q9967

== ENCOUNTER → 2017-08-10 | Outpatient (CLI) | payer OTHER | LOC: FIMAGING 17:30 | PROVIDERS: ATTEND Internal Medicine Hematology & Oncology | DX: J90 Pleural effusion, not elsewhere classified (principal); I25.10 Atherosclerotic heart disease of native coronary artery without angina pectoris; C43.9 Malignant melanoma of skin, unspecified ==

== ENCOUNTER → 2017-10-11 | Outpatient (CLI) | payer OTHER | LOC: BHFA 15:30 | PROVIDERS: ATTEND Internal Medicine Cardiovascular Disease | DX: T14.90XA Injury, unspecified, initial encounter (principal) ==

== ENCOUNTER 2018-02-22 12:13 | Day surgery (SDC) | payer OTHER ==
[2018-02-22] MEDS ORDERED: MIDAZOLAM 2 MG/2 ML VIAL IVP ONE (12:22)
[2018-02-22] MEDS ORDERED: NS 500 ML IV ONE (12:22)
[2018-02-22] MEDS ORDERED: fentaNYL 100 MCG/2 ML INJ IVP ONE (12:22)
[2018-02-22] MEDS ORDERED: ATROPINE SULFATE 1 MG/10 ML SYR IVP ONE (12:22)
--- NOTE | 2018-02-22 12:50 | PDANEPAE ---
ANE History of Present Illness a fib ANE Past Medical History - Cardiovascular History Hx Hypertension: Yes Hx Arrhythmias: No Hx Chest Pain: No Hx Coronary Artery / Peripheral Vascular Disease: Yes Hx CHF / Valvular Disease: Yes Hx Palpitations: No Cardiovascular History Comment: Echo on 05/05 with EF of 45-50%,diastolyc dysfunction,, basal/mid inferior and inferolteral akinesis,mod MR, mod TR, RSVP 44 mmHG. anemia - Pulmonary History Hx COPD: No Hx Asthma/Reactive Airway Disease: No Hx Oxygen in Use at Home: Yes Hx Sleep Apnea: Yes Pulmonary History Comment: sleep apnea 2L at [facility] with cpap - Neurologic History Hx Cerebrovascular Accident: No Hx Seizures: No Hx Dementia: No - Endocrine History Hx Diabetes: Yes Hypothyroid: No Hyperthyroid: No Obesity: mild - Renal History Hx Renal Disorders: No - Liver History Hx Hepatic Disorders: No - Neurological & Psychiatric Hx Hx Neurological and Psychiatric Disorders: No - Cancer History Hx Cancer: Yes Cancer History Comment: skin cancer - Congenital Disorder History Hx Congenital Disorders: No - GI History Hx Gastrointestinal Disorders: No - Other Health History Other Health History: wound on ankle - Chronic Pain History Chronic Pain: No (BONE SPURS TO LEFT SHOULDER) - Surgical History Prior Surgeries: [facility] quad bypass 2014 ANE Review of Systems Review of systems is: negative Review of Systems: - Exercise capacity Exercise capacity: <4 METS ANE Patient History - Allergies Allergies/Adverse Reactions: Penicillins Allergy (Mild, Verified 08/29/16 08:02) Rash amoxicillin Allergy (Verified 02/22/18 12:32) - Home Medications Home medications: home medication list seen and reviewed Home Medications: Cholecalciferol Vit D3 [Vitamin D3 (*)] 1,000 units PO DAILY 05/03/17 [Last Taken 05/04/17] Metformin HCl [Metformin 1000 mg] 1,000 mg PO BIDMEAL 05/03/17 [Last Taken Unknown] Metolazone 2.5 mg PO PRN PRN 05/03/17 [Last Taken Unknown] Multivitamins [Multivitamin (*)] 1 each PO DAILY 05/03/17 [Last Taken 05/04/17] Oxybutynin Chloride [Ditropan Xl] 10 mg PO DAILY 05/03/17 [Last Taken 05/04/17] - NPO status NPO Status: no food or drink >8 hours - Anes Hx Anes Hx: no prior problems - Smoking Hx Smoking Status: Former smoker Marijuana use: No - Alcohol Use Alcohol Use: None - Family Anes Hx Family Anes Hx: none Family Hx Anesthesia Complications: none ANE Physical Exam - Airway Neck exam: FROM Mallampati Score: Class 2 Mouth exam: normal dental/mouth exam, dentures - Pulmonary Pulmonary: no respiratory distress, clear to auscultation - Cardiovascular Cardiovascular: regular rate and rhythym, no murmur, rub, or gallop - ASA Status ASA Status: III ANE Anesthesia Plan Anesthesia Plan: GA with mask Total IV Anesthesia: Yes
[2018-02-22] MEDS ORDERED: PROPOFOL 200 MG/20 ML VIAL ONE (12:52)
[2018-02-22] MEDS ORDERED: APIXABAN 5 MG TAB PO ONE (13:00)
[2018-02-22 13:10] LABS: INR 1.31 (0.83-1.16); PROTIME(PATIENT) 16.5 SEC (12.0-15.0)
--- NOTE | 2018-02-22 13:29 | PDHPUP ---
History & Physical Update H&P update statement: This history and physical update is based on an assessment of the patient which was completed after admission or registration (within 24 hours), but prior to the surgery/procedure. H&P update: H&P reviewed & patient examined, no change in patient's condition since H&P completed
--- NOTE | 2018-02-22 13:30 | PDTEE1 ---
MAULIK Cardioversion Procedure Procedure: electrical cardioversion Indications: atrial fibrillation Consent: signed and in chart Anticoagulation: eliquis Procedural Details: Pads were placed in anterior-posterior position. Synchronized cardioversion attempt #1: [id number] Results: normal sinus rhythm Conclusions: successful cardioversion Patient Problems: Problems Problem Status Onset Chest pain Acute Cellulitis Acute Pulmonary edema Acute Severe sepsis Acute Gallstone Acute Abdominal pain Acute CHF (congestive heart failure) Acute Hypoxemia Acute
[2018-02-22] MEDS ORDERED: NALOXONE HCL 0.4 MG/ML INJ IVP PRN (13:32)
--- NOTE | 2018-02-22 13:32 | POSTANESTH ---
Post Anesthetic Evaluation Cardiovascular Status: Normal, Stable Respiratory Status: Normal, Stable Level of Consciousness/Mental Status: Can Participate in Eval Pain Control: Adequate, Prn Tx Ordered Nausea/Vomiting Control: Adequate, Prn Tx Ordered Complications Possibly Related to Anesthesia: None Noted
--- NOTE | 2018-02-24 14:33 | CPEKG ---
Test Reason : OPEN Blood Pressure : / mmHG Vent. Rate : 106 BPM Atrial Rate : 000 BPM P-R Int : 126 ms QRS Dur : 112 ms QT Int : 350 ms P-R-T Axes : 000 -63 106 degrees QTc Int : 465 ms Atrial fibrillation Paired ventricular premature complexes Left anterior fascicular block LVH with secondary repolarization abnormality Confirmed by Maurisio Reed ([id number]) on 02/24/2018 2:33:28 PM Referred By: Confirmed By:Maurisio Reed
--- NOTE | 2018-02-24 14:35 | CPEKG ---
Test Reason : OPEN Blood Pressure : / mmHG Vent. Rate : 092 BPM Atrial Rate : 093 BPM P-R Int : 181 ms QRS Dur : 113 ms QT Int : 367 ms P-R-T Axes : 038 -58 116 degrees QTc Int : 455 ms Sinus rhythm Left anterior fascicular block Probable left ventricular hypertrophy Nonspecific T abnormalities, lateral leads Confirmed by Maurisio Reed ([id number]) on 02/24/2018 2:34:13 PM Referred By: Confirmed By:Maurisio Reed
== END 2018-02-22 15:35 | disposition home or self-care (01) ==
LOC: FCATH 12:13
PROVIDERS: ATTEND Internal Medicine Interventional Cardiology
PROC: 5A2204Z Restoration of Cardiac Rhythm, Single (ICD-10-PCS; principal; 2018-02-22)
DX: I48.91 Unspecified atrial fibrillation (principal); Z79.01 Long term (current) use of anticoagulants; I25.10 Atherosclerotic heart disease of native coronary artery without angina pectoris; I25.2 Old myocardial infarction; Z95.1 Presence of aortocoronary bypass graft; Z95.5 Presence of coronary angioplasty implant and graft; I50.32 Chronic diastolic (congestive) heart failure; I34.0 Nonrheumatic mitral (valve) insufficiency; I36.1 Nonrheumatic tricuspid (valve) insufficiency; I10 Essential (primary) hypertension; I11.9 Hypertensive heart disease without heart failure; G47.33 Obstructive sleep apnea (adult) (pediatric); E66.09 Other obesity due to excess calories; Z87.891 Personal history of nicotine dependence
CPT/HCPCS: J0461; J2704

== ENCOUNTER 2018-03-07 12:04 | Emergency (ER) | payer OTHER ==
[2018-03-07 12:12] VITALS: BP 131/78
--- NOTE | 2018-03-07 12:16 | EDPHY ---
H & P Stated Complaint: chest pressure Time Seen by Provider: 03/07/18 12:15 HPI/ROS: CHIEF COMPLAINT: Chest pain HISTORY OF PRESENT ILLNESS: The patient presents the emergency department with several issues. The patient has a history of chronic atrial fibrillation and reportedly was told by her home health nurse that she is still in atrial fibrillation following a cardioversion approximately 10 days ago. The patient did have a brief episode of chest pain last night. The patient also feels mild shortness of breath. The patient denies any fever or productive cough. She denies any abdominal pain, vomiting or diarrhea. The patient is chronically anticoagulated. She is scheduled to see her behavioral specialist later today. REVIEW OF SYSTEMS: A comprehensive 10 point review of systems is otherwise negative aside from elements mentioned in the history of present illness. Source: Patient Exam Limitations: No limitations - Personal History Current Tetanus Diphtheria and Acellular Pertussis (TDAP): Yes Tetanus Vaccine Date: 02/2011 - Medical/Surgical History Hx Asthma: No Hx Chronic Respiratory Disease: Yes Hx Diabetes: Yes Hx Cardiac Disease: Yes Hx Renal Disease: No Hx Cirrhosis: No Hx Alcoholism: No Hx HIV/AIDS: No Hx Splenectomy or Spleen Trauma: No Other PMH: DM2, quadbypass surgery 2010, archilles tendon repair, RENUKA, HTN, RENUKA , cardiac stents - Social History Smoking Status: Former smoker - Physical Exam Exam: General Appearance: Alert, no distress Eyes: Pupils equal and round no pallor or injection ENT, Mouth: Mucous membranes moist Respiratory: Fine rales bilateral lower lobes Cardiovascular: Slightly tachycardic, irregular Gastrointestinal: Abdomen is soft and nontender, no masses, bowel sounds normal Neurological: 5/5 strength noted all 4 extremities Skin: Warm and dry, no rashes Musculoskeletal: Neck is supple nontender Extremities: symmetrical, full range of motion Constitutional: Initial Vital Signs Temperature (C) 36.5 C 03/07/18 12:11 Heart Rate 124 H 03/07/18 12:11 Respiratory Rate 18 03/07/18 12:11 Blood Pressure 131/78 H 03/07/18 12:11 O2 Sat (%) 84 L 03/07/18 12:11 O2 Delivery Mode Room Air Allergies/Adverse Reactions: Penicillins Allergy (Mild, Verified 08/29/16 08:02) Rash amoxicillin Allergy (Verified 02/22/18 12:32) Home Medications: Medication Instructions Recorded Cholecalciferol Vit D3 [Vitamin D3 1,000 units PO DAILY 05/03/17 (*)] Metformin HCl [Metformin 1000 mg] 1,000 mg PO BIDMEAL 05/03/17 Metolazone 2.5 mg PO PRN PRN 05/03/17 Multivitamins [Multivitamin (*)] 1 each PO DAILY 05/03/17 Oxybutynin Chloride [Ditropan Xl] 10 mg PO DAILY 05/03/17 Furosemide [Lasix 40 MG (*)] 40 mg PO BID@0900,1500 #60 tab 05/08/17 Metoprolol Tartrate [Lopressor 25 12.5 mg PO BID #60 tab 05/08/17 mg (*)] Eliquis 5 mg PO BID 02/22/18 Medical Decision Making - Diagnostics EKG Interpretation: EKG: Complete interpretation has been separately recorded in the [facility] archive. Summary impression: atrial fibrillation, rate 116, bifascicular block , nonspecific ST T wave changes noted Imaging Results: Chest x-ray AP/lateral: Images reviewed by myself. Impression: Stable chest x -ray without evidence of renetta pulmonary edema. ED Course/Re-evaluation: ED course: I reviewed the patient's past medical records including the dictated report of her cardioversion performed approximately 10 days ago. The patient's EKG demonstrates no evidence of ST segment elevation myocardial infarction. The patient's troponin is normal. The patient's chest x-ray demonstrates no evidence of pulmonary edema. The remainder of her laboratory studies are unremarkable. The patient is currently anticoagulated and I do not feel that pulmonary embolism would be an explanation for her symptoms. The patient was monitored in the emergency department without recurrent chest pain. She is scheduled to see her behavioral specialist today at 2:45 p.m.. I do feel she can be discharged from the department at this point in time. Differential Diagnosis: Differential diagnosis considered includes acute coronary, congestive heart failure, arrhythmia, costochondritis, herpes zoster - Data Points Laboratory Results: Laboratory Results 03/07/18 13:00 03/07/18 13:00 03/07/18 03/07/18 03/07/18 13: 13:00 13:00 WBC 6.93 10^3/uL 10^3/uL (3.80-9.50) RBC 4.67 10^6/uL 10^6/uL (4.18-5.33) Hgb 12.3 g/dL L g/dL (12.6-16.3) Hct 40.3 % % (38.0-47.0) MCV 86.3 fL fL (81.5-99.8) MCH 26.3 pg L pg (27.9-34.1) MCHC 30.5 g/dL L g/dL (32.4-36.7) RDW 14.7 % % (11.5-15.2) Plt Count 264 10^3/uL 10^3/uL (150-400) MPV 9.8 fL fL (8.7-11.7) Neut % (Auto) 69.8 % % (39.3-74.2) Lymph % (Auto) 19.5 % % (15.0-45.0) Lawrence % (Auto) 7.2 % % (4.5-13.0) Eos % (Auto) 2.6 % % (0.6-7.6) Baso % (Auto) 0.6 % % (0.3-1.7) Nucleat RBC Rel Count 0.0 % % (0.0-0.2) Absolute Neuts (auto) 4.84 10^3/uL 10^3/uL (1.70-6.50) Absolute Lymphs (auto) 1.35 10^3/uL 10^3/uL (1.00-3.00) Absolute Monos (auto) 0.50 10^3/uL 10^3/uL (0.30-0.80) Absolute Eos (auto) 0.18 10^3/uL 10^3/uL (0.03-0.40) Absolute Basos (auto) 0.04 10^3/uL 10^3/uL (0.02-0.10) Absolute Nucleated RBC 0.00 10^3/uL 10^3/uL (0-0.01) Immature Gran % 0.3 % % (0.0-1.1) Immature Gran # 0.02 10^3/uL 10^3/uL (0.00-0.10) Sodium 137 mEq/L mEq/L (135-145) Potassium 3.4 mEq/L L mEq/L (3.5-5.2) Chloride 95 mEq/L L mEq/L (97-110) Carbon Dioxide 31 mEq/l mEq/l (22-31) Anion Gap 11 mEq/L mEq/L (6-14) BUN 38 mg/dL H mg/dL (7-23) Creatinine 1.1 mg/dL H mg/dL (0.6-1.0) Estimated GFR 48 Glucose 170 mg/dL H mg/dL (70-100) Calcium 9.2 mg/dL mg/dL (8.5-10.4) POC Troponin I 0.00 ng/mL ng/mL (0.00-0.08) NT-Pro-B Natriuret Pep Pending Point of Care Test Results: Chemistry 03/07/18 13:19 POC Troponin I 0.00 ng/mL ng/mL (0.00-0.08) Departure - Departure Disposition: Home, Routine, Self-Care Clinical Impression: Atrial fibrillation, Chest pain Condition: Good Instructions: A-fib (Atrial Fibrillation) (ED) Additional Instructions: 1. Please follow-up with Dr. Rueda today as scheduled today. 2. The workup in the emergency department today demonstrates persistent atrial fibrillation but there is no evidence of a heart attack. Referrals: Dorian Rodríguez MD [Primary Care Provider] - As per Instructions
[2018-03-07 13:17] LABS: PLATELET COUNT 264 10^3/uL (150-400)
--- NOTE | 2018-03-07 13:36 | CPEKG ---
Test Reason : OPEN Blood Pressure : / mmHG Vent. Rate : 116 BPM Atrial Rate : 106 BPM P-R Int : 140 ms QRS Dur : 146 ms QT Int : 375 ms P-R-T Axes : 000 245 017 degrees QTc Int : 522 ms Atrial fibrillation Ventricular premature complex RBBB and LAFB Confirmed by Eddi Mackay ([id number]) on 03/07/2018 1:36:31 PM Referred By: Eddi Mackay Confirmed By:Eddi Mackay
== END 2018-03-07 14:00 | disposition home or self-care (01) ==
DX: R07.9 Chest pain, unspecified (principal); I48.2 Chronic atrial fibrillation; Z79.01 Long term (current) use of anticoagulants; E11.9 Type 2 diabetes mellitus without complications; G47.33 Obstructive sleep apnea (adult) (pediatric); I10 Essential (primary) hypertension; Z95.1 Presence of aortocoronary bypass graft; Z95.5 Presence of coronary angioplasty implant and graft
CPT/HCPCS: 84484-ER

== ENCOUNTER 2018-04-05 18:30 | Inpatient (IN) | payer OTHER ==
--- NOTE | 2018-04-05 19:18 | EDPHY ---
H & P Stated Complaint: AMS/weakness Time Seen by Provider: 04/05/18 19:18 HPI/ROS: HPI CHIEF COMPLAINT: Multiple complaints, generalized weakness. HISTORY OF PRESENT ILLNESS: This patient is a 82-year-old female, she has a history of AFib on Eliquis, diabetes, hypertension, cardiac stent, RENUKA, history of sepsis, chronic left heel wound, presents emergency room with generalized weakness, increasing confusion, diarrhea, weight loss, nausea, and reported black tarry stools. Her family brings her him by private vehicle. The patient states she feels weak. Patient denies chest pain. Denies shortness of breath denies cough. Past Medical History: Significant medical history for AFib, on Eliquis, diabetes, hypertension, RENUKA, cardiac stent Past Surgical History: Cardiac stent Social History: Denies drugs alcohol tobacco. Family History: Noncontributory ROS REVIEW OF SYSTEMS: 10 Systems were reviewed and negative with the exception of the elements mentioned in the history of present illness. Exam Constitutional elderly, obese, otherwise nontoxic triage nursing summary reviewed, vital signs reviewed, awake/alert. Vital signs stable. Eyes normal conjunctivae and sclera, EOMI, PERRLA. HENT normal inspection, atraumatic, moist mucus membranes, no epistaxis, neck supple/ no meningismus, no raccoon eyes. Respiratory clear to auscultation bilaterally, normal breath sounds, no respiratory distress, no wheezing. Cardiovascular rate normal, regular rhythm, no murmur, no edema, distal pulses normal. Gastrointestinal soft, non-tender, no rebound, no guarding, normal bowel sounds, no distension, no pulsatile mass. Genitourinary no CVA tenderness. Musculoskeletal left lower extremity heel chronic wound, not superinfected, bilateral lower extremity pitting edema no midline vertebral tenderness, full range of motion, no calf swelling, no tenderness of extremities, no meningismus , good pulses, neurovascularly intact. Skin pink, warm, & dry, no rash, skin atraumatic. Neurologic awake, alert and oriented x 3, AAOx3, moves all 4 extremities equally, motor intact, sensory intact, CN II-XII intact, normal cerebellar, normal vision, normal speech. Psychiatric normal mood/affect. Heme/Lymph/Immune no lymphadenopathy. Differential Diagnosis: Includes but is not limited to in a particular order infection, UTI, sepsis, dehydration, electrolyte disturbance, acute GI bleed, pneumonia. Medical Decision Making: Plan for this patient IV establishment gentle IV fluids, check electrolytes, urinalysis, EKG, troponin, chest x-ray, stool studies, rule out GI bleed, rule out electrolyte abnormality rule infection. Re-evaluation: EKG interpretation by me on record in [employer] system. Impression time of EKG 1920, AFib rate of 90, right bundle-branch block present. Similar previous EKG dated 03/07/2018. I do not appreciate acute change or acute ischemia. This EKG was performed for confusion no chest pain. 2001: Patient's labs reviewed. Clinically on exam she is dehydrated, her BUN is close to 90, creatinine 1.5. It indicating acute kidney injury prerenal from dehydration. I have ordered her 1 L fluid. Additionally her potassium is low at 2.6. This may be the cause of her generalized weakness. Plan for hospital admission for dehydration, acute kidney injury generalized weakness, and hypokalemia. Patient agrees for admission. I have asked the hospitalist service to admit Dr. Olson who agrees to admit. Source: Patient - Personal History Current Tetanus/Diphtheria Vaccine: Yes Tetanus Vaccine Date: 02/2011 - Medical/Surgical History Hx Asthma: No Hx Chronic Respiratory Disease: Yes Hx Diabetes: Yes Hx Cardiac Disease: Yes Hx Renal Disease: No Hx Cirrhosis: No Hx Alcoholism: No Hx HIV/AIDS: No Hx Splenectomy or Spleen Trauma: No Other PMH: DM2, quadbypass surgery 2010, archilles tendon repair, RENUKA, HTN, RENUKA , cardiac stents - Social History Smoking Status: Former smoker Constitutional: Initial Vital Signs Temperature (C) 36.5 C 04/05/18 18:52 Heart Rate 92 04/05/18 18:52 Respiratory Rate 18 04/05/18 18:52 Blood Pressure 100/62 04/05/18 18:52 O2 Sat (%) 91 L 04/05/18 18:52 O2 Delivery Mode Nasal Cannula O2 (L/minute) 2 Allergies/Adverse Reactions: Penicillins Allergy (Mild, Verified 04/05/18 18:55) Rash amoxicillin Allergy (Verified 04/05/18 18:55) Home Medications: Medication Instructions Recorded Metformin HCl [Metformin 1000 mg] 1,000 mg PO BIDMEAL 05/03/17 Metolazone 2.5 mg PO PRN PRN 05/03/17 Metoprolol Tartrate [Lopressor 25 12.5 mg PO BID #60 tab 05/08/17 mg (*)] Apixaban [Eliquis] 5 mg PO BID 02/22/18 Amiodarone HCl [Pacerone (*)] 200 mg PO DAILY 04/05/18 Furosemide [Lasix 40 MG (*)] 80 mg PO BID@0900,1500 04/05/18 Medical Decision Making - Data Points Laboratory Results: Laboratory Results 04/05/18 19:20 04/05/18 19:20 Microbiology Results: MICROBIOLOGY 04/05/18 19:20 Blood Blood Culture - Preliminary Medications Given: Acetaminophen (Tylenol) 650 mg PO Q4HRS PRN PRN Reason: Pain, Mild/Fever, Can Take PO Stop: 10/02/18 20:16 Last Admin: 04/07/18 08:13 Dose: 650 mg Amiodarone HCl (Amiodarone Hcl) 200 mg PO BID [facility] Stop: 10/03/18 13:14 Last Admin: 04/07/18 08:13 Dose: 200 mg Apixaban (Eliquis) 2.5 mg PO BID [facility] Stop: 10/03/18 20:59 Last Admin: 04/07/18 08:13 Dose: 2.5 mg Insulin Human Lispro (Humalog Lispro) 0 unit SC TIDMEAL [facility] PRN Reason: Protocol Stop: 10/03/18 07:59 Last Admin: 04/07/18 08:24 Dose: Not Given Metoprolol Tartrate (Lopressor) 12.5 mg PO BID [facility] Stop: 10/03/18 20:59 Last Admin: 04/07/18 08:16 Dose: 12.5 mg Discontinued Medications Apixaban (Eliquis) 5 mg PO BID [facility] Stop: 10/03/18 08:59 Last Admin: 04/06/18 08:39 Dose: 5 mg Sodium Chloride (Ns) 1,000 mls @ 0 mls/hr IV EDNOW ONE; Wide Open PRN Reason: Protocol Stop: 04/05/18 19:30 Last Admin: 04/05/18 20:05 Dose: 1,000 mls Potassium Chloride (Potassium Cl 20 Meq (Premix)) 100 mls @ 50 mls/hr IV EDNOW ONE Stop: 04/05/18 21:54 Last Admin: 04/05/18 20:20 Dose: Not Given Magnesium Sulfate/Dextrose (Magnesium Sulf 1 Gm (Premix)) 100 mls @ 100 mls/hr IV ONCE ONE Stop: 04/06/18 09:00 Last Admin: 04/06/18 08:37 Dose: 100 mls Pneumococcal 13-Valent Conj Vacc (Prevnar 13 Syringe) 0.5 ml IM .ONCE ONE Stop: 04/06/18 20:54 Last Admin: 04/06/18 21:15 Dose: 0.5 ml Potassium Chloride (Potassium Chloride Oral Liquid) 40 meq PO ONCE ONE Stop: 04/05/18 20:14 Last Admin: 04/05/18 20:21 Dose: 40 meq Potassium Chloride (Klor-Con) 10 - 40 meq PO ONCE ONE PRN Reason: Protocol Stop: 04/06/18 06:36 Last Admin: 04/06/18 06:42 Dose: 40 meq Potassium Chloride (Klor-Con) 10 - 40 meq PO ONCE ONE PRN Reason: Protocol Stop: 04/06/18 13:05 Last Admin: 04/06/18 14:03 Dose: 40 meq Potassium Chloride (Klor-Con) 10 - 40 meq PO ONCE ONE PRN Reason: Protocol Stop: 04/06/18 19:34 Last Admin: 04/06/18 20:37 Dose: 10 meq Potassium Chloride (Klor-Con) 10 - 40 meq PO ONCE ONE PRN Reason: Protocol Stop: 04/07/18 07:27 Last Admin: 04/07/18 08:12 Dose: 30 meq Departure - Departure Disposition: [facility] Acute Clinical Impression: Hypokalemia, Dehydration, Acute kidney injury Condition: Good
[2018-04-05] MEDS ORDERED: NS 1,000 ML IV ONE (19:29)
[2018-04-05 19:31] LABS: PLATELET COUNT 215 10^3/uL (150-400)
[2018-04-05] MEDS ORDERED: POTASSIUM Cl (KCl) 100 ML IV ONE (19:55)
[2018-04-05] MEDS ORDERED: POTASSIUM Cl (KCl) 10 MEQ/100 ML BAG IV ONE (20:00)
[2018-04-05] MEDS ORDERED: POTASSIUM CL 20 MEQ/15 ML UDCUP PO ONE (20:13)
[2018-04-05] MEDS ORDERED: ONDANSETRON DISINTEGRATING 4 MG TAB PO PRN (20:17)
[2018-04-05] MEDS ORDERED: HYDROCODONE/APAP 5/325 TAB PO PRN (20:17)
[2018-04-05] MEDS ORDERED: oxyCODONE IR 5 MG TAB PO PRN (20:17)
[2018-04-05] MEDS ORDERED: ONDANSETRON 4 MG/2 ML VIAL IVP PRN (20:17)
[2018-04-05] MEDS ORDERED: HYDROmorphONE/DILAUDID 1 MG/ML INJ IVP PRN (20:17)
[2018-04-05] MEDS ORDERED: PROMETHAZINE HCL 25 MG/ML INJ IVP PRN (20:17)
[2018-04-05] MEDS ORDERED: POTASSIUM CL 20 MEQ PKT ONE (20:18)
[2018-04-05] MEDS ORDERED: NS 1,000 ML IV SCH (20:30)
[2018-04-05] MEDS ORDERED: PROTOCOL MAGNESIUM 1 DOSE IV PRN (22:22)
[2018-04-05] MEDS ORDERED: PROTOCOL K PHOSPHATE 1 DOSE IV PRN (22:22)
[2018-04-05] MEDS ORDERED: PROTOCOL POTASSIUM 1 DOSE MISC PRN (22:22)
[2018-04-05] MEDS ORDERED: D50W 25 GM/50 ML VIAL IVP PRN (22:23)
--- NOTE | 2018-04-05 22:27 | PDGENHP ---
History and Physical - Chief Complaint weakness/diarrhea/n/v - History of Present Illness 82 yo F with PMH that includes CHF, CAD, DM2, MALACHI presenting with complaints of n/v/diarrhea and confusion. Patient lives with brother who is no longer present at bedside but per report given to ER doctor he noted that she was not eating or drinking and having diarrhea and nausea for weeks. He also stated that patient was recently started on increased dose of lasix and has had about a 20 pound weight loss in the last 2 weeks. Patient is able to state that she has had a hard time eating or drinking anything due to nausea and diarrhea but has a poor memory and is unable to relate much more history--therefore much of this history is obtained per discussion with ER doctor and chart review. She denies any chest pain or palpitations, she denies any fevers or chills, she notes she has been compliant with her medications. She also states she has a heel ulcer that is followed by podiatry and that is healing she believes--it has not been hurting more and she has not noticed any drainage. History Information - Allergies/Home Medication List Allergies/Adverse Reactions: Penicillins Allergy (Mild, Verified 04/05/18 18:55) Rash amoxicillin Allergy (Verified 04/05/18 18:55) Home Medications: Metformin HCl [Metformin 1000 mg] 1,000 mg PO BIDMEAL 05/03/17 [Last Taken 04/02] Metolazone 2.5 mg PO PRN PRN 05/03/17 [Last Taken Unknown] Apixaban [Eliquis] 5 mg PO BID 02/22/18 [Last Taken 04/05/18] Amiodarone HCl [Pacerone (*)] 200 mg PO DAILY 04/05/18 [Last Taken Unknown] Furosemide [Lasix 40 MG (*)] 80 mg PO BID@0900,1500 04/05/18 [Last Taken am dose] I have personally reviewed and updated: family history, medical history, social history, surgical history - Past Medical History atrial fibrillation, coronary artery disease, CHF (diastolic and systolic, EF of 45%), dementia, diabetes type 2, hypertension, hyperlipidemia Additional medical history: Dm 2, CAD status post stent and CABG, history CHF with normal LV EF on recent echocardiogram 05/01/2017 at 55%, MALACHI non compliant with CPAP, HTN, obesity(BMI 36), hearing deficit with hearing aid requirement, cholelithiasis, left lateral ankle wound - Surgical History Reports: angioplasty, coronary bypass surgery, cholecystectomy Additional surgical history: Gastric bypass, cardiac cath with stent, 3V CABG - Family History Positive for: non-pertinent Additional family history: None reported - Social History Smoking Status: Former smoker Alcohol Use: None Drug Use: None Additional social history: full code. lives with brother Review of Systems Review of Systems: ROS: 10pt was reviewed & negative except for what was stated in HPI & below Physical Exam Physical Exam: Temp Pulse Resp BP Pulse Ox 36.8 C 90 16 130/78 H 100 04/05/18 21:37 04/05/18 21:37 04/05/18 21:37 04/05/18 21:37 04/05/18 21:37 O2 (L/minute) 2 Constitutional: not in pain, chronically ill appearing Eyes: PERRL, anicteric sclera Ears, Nose, Mouth, Throat: dry mucous membranes, hard of hearing Cardiovascular: regular rate and rhythym, no murmur, rub, or gallop, No edema Respiratory: no respiratory distress, no rales or rhonchi, reduced air movement Gastrointestinal: normoactive bowel sounds, soft, non-tender abdomen Genitourinary: no bladder tenderness Skin: warm, normal color Musculoskeletal: no muscle tenderness Neurologic: CN II-XII Intact, No AAOx3 Psychiatric: interacting appropriately, encephalopathic, poor memory Lab Data & Imaging Review 04/05/18 19:20 04/05/18 19:20 WBC 6.61 10^3/uL (3.80-9.50) 04/05/18 19:20 RBC 4.60 10^6/uL (4.18-5.33) 04/05/18 19:20 Hgb 12.1 g/dL (12.6-16.3) L 04/05/18 19:20 Hct 38.8 % (38.0-47.0) 04/05/18 19:20 MCV 84.3 fL (81.5-99.8) 04/05/18 19:20 MCH 26.3 pg (27.9-34.1) L 04/05/18 19:20 MCHC 31.2 g/dL (32.4-36.7) L 04/05/18 19:20 RDW 16.9 % (11.5-15.2) H 04/05/18 19:20 Plt Count 215 10^3/uL (150-400) 04/05/18 19:20 MPV 11.4 fL (8.7-11.7) 04/05/18 19:20 Neut % (Auto) 73.5 % (39.3-74.2) 04/05/18 19:20 Lymph % (Auto) 17.9 % (15.0-45.0) 04/05/18 19:20 [place] % (Auto) 6.7 % (4.5-13.0) 04/05/18:20 Eos % (Auto) 1.2 % (0.6-7.6) 04/05/18 19:20 Baso % (Auto) 0.5 % (0.3-1.7) 04/05/18: Nucleat RBC Rel Count 0.0 % (0.0-0.2) 04/05/18: Absolute Neuts (auto) 4.87 10^3/uL (1.70-6.50) 04/05/18 19:20 Absolute Lymphs (auto) 1.18 10^3/uL (1.00-3.00) 04/05/18:20 Absolute Monos (auto) 0.44 10^3/uL (0.30-0.80) 04/05/18 19:20 Absolute Eos (auto) 0.08 10^3/uL (0.03-0.40) 04/05/18: Absolute Basos (auto) 0.03 10^3/uL (0.02-0.10) 04/05/18: Absolute Nucleated RBC 0.00 10^3/uL (0-0.01) 04/05/18: Immature Gran % 0.2 % (0.0-1.1) 04/05/18 19: Immature Gran # 0.01 10^3/uL (0.00-0.10) 04/05/18 19:20 VBG Lactic Acid 1.9 mmol/L (0.7-2.1) 04/05/18 19:20 Sodium 133 mEq/L (135-145) L 04/05/18 19:20 Potassium 2.6 mEq/L (3.5-5.2) L* 04/05/18 19:20 Chloride 86 mEq/L (97-110) L 04/05/18 19:20 Carbon Dioxide 32 mEq/l (22-31) H 04/05/18 19:20 Anion Gap 15 mEq/L (6-14) H 04/05/18 19:20 BUN 89 mg/dL (7-23) H 04/05/18 19:20 Creatinine 1.5 mg/dL (0.6-1.0) H 04/05/18 19:20 Estimated GFR 33 04/05/18 19:20 Glucose 153 mg/dL (70-100) H 04/05/18 19:20 Calcium 9.5 mg/dL (8.5-10.4) 04/05/18 19:20 Magnesium 1.8 mg/dL (1.6-2.3) 04/05/18 18:48 Total Bilirubin 1.2 mg/dL (0.1-1.4) 04/05/18 19:20 Conjugated Bilirubin 0.5 mg/dL (0.0-0.5) 04/05/18 19:20 Unconjugated Bilirubin 0.7 mg/dL (0.0-1.1) 04/05/18 19:20 AST 21 IU/L (14-46) 04/05/18 19:20 ALT 28 IU/L (9-52) 04/05/18 19:20 Alkaline Phosphatase 58 IU/L (38-126) 04/05/18 19:20 POC Troponin I 0.02 ng/mL (0.00-0.08) 04/05/18 20:16 Total Protein 6.7 g/dL (6.3-8.2) 04/05/18 19:20 Albumin 4.0 g/dL (3.5-5.0) 04/05/18 19:20 Lipase 112 IU/L (23-300) 04/05/18 19:20 Urine Color PALE YELLOW 04/05/18 20:55 Urine Appearance CLEAR 04/05/18 20:55 Urine pH 5.0 (5.0-7.5) 04/05/18 20:55 Ur Specific [place] 1.008 (1.002-1.030) 04/05/18 20:55 Urine Protein NEGATIVE (NEGATIVE) 04/05/18 20:55 Urine Ketones NEGATIVE (NEGATIVE) 04/05/18 20:55 Urine Blood NEGATIVE (NEGATIVE) 04/05/18 20:55 Urine Nitrate NEGATIVE (NEGATIVE) 04/05/18 20:55 Urine Bilirubin NEGATIVE (NEGATIVE) 04/05/18 20:55 Urine Urobilinogen NEGATIVE EU (0.2-1.0) 04/05/18 20:55 Ur Leukocyte Esterase NEGATIVE (NEGATIVE) 04/05/18 20:55 Urine RBC 1-3 /hpf (0-3) 04/05/18 20:55 Urine WBC 1-3 /hpf (0-3) 04/05/18 20:55 Ur Epithelial Cells TRACE /lpf (NONE-1+) 04/05/18 20:55 Hyaline Casts 1-5 /lpf (0-1) 04/05/18 20:55 Urine Mucus TRACE /lpf (NONE-1+) 04/05/18 20:55 Ur Culture Indicated? NOT INDICATED (NI) 04/05/18 20:55 Urine Glucose NEGATIVE (NEGATIVE) 04/05/18 20:55 Visualized and Interpreted Chest x-ray results: Yes Chest X-Ray results: no infiltrate Visualized and Interpreted EKG results: Yes EKG additional interpertation: a fib/rbbb- no sig change Assessment & Plan Assessment: Acute kidney injury (Acute) Dehydration (Acute) Hypokalemia (Acute) 82 yo F with MMI including CAD, A fib, CHF presenting with c/o n/v/d and 20 pound weight loss found to have severe hypokalemia and trevor on ckd # severe hypokalemia: in the setting of diuresis with 20 pound weight loss in 2 weeks along with n/v/d and poor po intake. Will replete on electrolyte protocol along with magnesium # generalized weakness: patient having difficulty ambulating, not eating or drinking, confused. Lives with family, patient states she feels she needs more help and is no longer safe at home, pt/ot/cm to consult # trevor on ckd: in the setting of diuresis as well as poor po intake and n/v/d. Given gentle IVF and will monitor, creatinine near baseline but BUN very elevated # metabolic encephalopathy: patient confused with poor memory and difficulty providing history currently, presumably this is not her usual baseline, suspect 2/2 GI illness/volume depletion as above, will monitor, does have underlying dementia but this is presumably not baseline for her # n/v/d: difficult to get history but sounds as if this is an acute issues, GI pathogen panel pending, IVF and antiemetics as above, abd exam is benign # chronic combined systolic/diastolic heart failure: with EF of 45%-55% most recently and diastolic HF present as well, currently appears euvolemic, has been on diuresis with lasix 80 bid and metolazone with significant weight loss as above, holding diuresis for now # CAD: with hx of stents and CABG, no c/o chest pain currently, monitoring on tele # DM2: will hold metformin given trevor, SSI, sugars have been only mildly high so far # 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 Old records reviewed and summarized as above. Care plan reviewed with ER doctor as above.
[2018-04-06 04:40] LABS: PLATELET COUNT 190 10^3/uL (150-400)
[2018-04-06] MEDS ORDERED: POTASSIUM CL 10 MEQ TAB PO ONE ×3 (06:35→19:33)
[2018-04-06] MEDS ORDERED: MAGNESIUM SULF 1 GM/DEXTROSE 100 ML IV ONE (08:01)
[2018-04-06] MEDS: INSULIN LISPRO 100 UNIT/ML SC SCH ×3 (08:06→18:22)
[2018-04-06] MEDS ORDERED: APIXABAN 5 MG TAB PO SCH (09:00)
--- NOTE | 2018-04-06 10:32 | CPEKG ---
Test Reason : OPEN Blood Pressure : / mmHG Vent. Rate : 090 BPM Atrial Rate : 086 BPM P-R Int : 130 ms QRS Dur : 177 ms QT Int : 433 ms P-R-T Axes : 000 232 043 degrees QTc Int : 530 ms Atrial fibrillation Right bundle branch block Confirmed by Edilson Alexander ([id number] on 04/06/2018 10:32:28 AM Referred By: [facility] Confirmed By:Edilson Alexander
--- NOTE | 2018-04-06 12:21 | PDMN ---
Medical Necessity Medical necessity: MCG: M123 dehydration: 82 yo F presents with N/V/D , confusion, min PO intake, for coupe weeks- per brother reports. also with 20lb. wt. loss., difficulty ambulating, hypokalemia ( 2.6 ), BUN 89, Cr 1.5, + STOOL OCCULT BLD SCRN. PMHx: CHF, CAD, CABG- DM2, RENUKA, HTN, HLD, anticipate > 2 MN ongoing med nec care. further monitoring, eval and tx.
--- NOTE | 2018-04-06 13:03 | SOAPPROG ---
SOAP Progress Note Assessment/Plan: Assessment: Cardiology consultation performed and dictated. 82 y/o woman with CAD s/p CABG x 4V in 08/22 and MÓNICA to LCX in 10/27 with CHF LVEF 45-55% and persistent afib. She was found to be in afib several months ago and got cardioversion which could not restore NSR. She was started on PO Amiodarone. She saw her clinic parts data writer Dr. Anatoliy Rueda 03/15/18 and was felt to be volume overloaded and started on Lasix and once weekly PO Metalozone. She started having LUQ abdominal pain and lots of watery diarrhea and also urinating a lot. She lost 20lbs in three weeks. She was brought by family to ER last night with dehydration, decreased mental status and too weak to get out of bed. Other PMH: DM, RENUKA, memory issues and PAD of left leg. REC: 1)no Lasix or Metalozone for now. 2)decrease Eliquis to 2.5mg PO BID 3)restart Amiodarone 200mg PO BID. I do not think this med was causing her watery diarrhea 4)IVF at 75cc/hr as doing 5)replace K to 4.0 will follow with you. Thanks. 04/06/18 12:58 Objective: Vital Signs Temp Pulse Resp BP Pulse Ox 36.6 C 88 13 96/59 L 95 04/06/18 11:25 04/06/18 11:25 04/06/18 11:25 04/06/18 11:25 04/06/18 11:25 Microbiology 04/05/18 22:14 Gastrointestinal Tract Panel (PCR) - Final Stool No Organism Detected By Pcr Laboratory Results 04/06/18 03:50 04/05/18 04/06/18 04/07/18 05:59 05:59 05:59 Intake Total 1670 Output Total 1750 Balance -80 ICD10 Worksheet Patient Problems: Problems Problem Status Onset Acute kidney injury Acute Dehydration Acute Hypokalemia Acute Abdominal pain Acute CHF (congestive heart failure) Acute Cellulitis Acute Chest pain Acute Gallstone Acute Hypoxemia Acute Pulmonary edema Acute Severe sepsis Acute
--- NOTE | 2018-04-06 13:35 | GCON ---
[f rep st] CONSULTATION CARDIOLOGY CONSULT DATE OF CONSULTATION: 04/06/2018 REASON FOR CONSULTATION: Evaluate woman with dehydration and fatigue with longstanding coronary timur ry disease, heart failure, and atrial fibrillation. HISTORY OF PRESENT ILLNESS: The patient is an 82-year-old woman with the following cardiac history: She initially had a CABG x4 vessels in August of 2010. She also had a drug-eluting stent to her nativ e left circumflex artery in October of 2014. She has had CHF with an EF ranging from 45% to 55% in the past. Approximately 2 months ago, she went into atrial fibrillation and volume overload. A car dioversion was attempted, which could not restore sinus rhythm. She was started on amiodarone and th en Lasix and metolazone. She was brought by her family today after worsening fatigue and decreased m ental status and inability to get out of bed. She has lost about 20 pounds in the last 3 weeks. Bes ides lots of urination, she has also been having left upper quadrant abdominal pain and lots of water y diarrhea. With IV fluid, she is feeling better today. She denies chest pain or shortness of breat h at rest. She does feel her heart in atrial fibrillation. PAST MEDICAL HISTORY: Coronary artery disease as per HPI, congestive heart failure with an LVEF rang ing from 45% to 55%, diabetes mellitus, sleep apnea, memory issues, atrial fibrillation, and PAD invo lving the left leg. PAST SURGICAL HISTORY: As per HPI, but also cholecystectomy. CURRENT MEDICATIONS: Eliquis 5 mg b.i.d. and normal saline at 75 cc an hour. Note at home patient w as on metolazone, amiodarone, and Lasix also. ALLERGIES: Penicillin. SOCIAL HISTORY: Patient does not smoke or use alcohol. REVIEW OF SYSTEMS: The patient reports no recent fevers, chills, or TIA symptoms. Rest of 10-point review of systems is negative. PHYSICAL EXAM: VITAL SIGNS: Afebrile, pulse 88 and irregularly irregular, blood pressure 96/58, res pirations 20, weight 79.0 kg. GENERAL: An older-appearing woman in no acute distress without chest pain or using accessory respiratory muscles. EYES: Pupils equal and reactive to light. ENT: Oral mucosa with no cyanosis. NECK: Jugular venous pressure to 6 cm. Carotid pulses 2+ bilaterally. RACHEL NGS: Clear to auscultation bilaterally without rales, rhonchi, or wheezing. HEART: Irregularly irr egular rhythm with 1/6 nonradiating systolic murmur. No S3 is heard. ABDOMINAL: Soft and nontender . No guarding or rebound. EXTREMITIES: 1+ peripheral pulses including femoral and pedal pulses. N o edema noted. MUSCULOSKELETAL: No scoliosis. NEURO: Normal affect and mood. SPINE: No nuchal r igidity. SKIN: No bleeding or cyanosis. DIAGNOSTIC DATA: EKG atrial fibrillation at 90 beats per minute with left bundle branch block. LABS: White count 5.4, hematocrit 33, platelets a 190,000; MCV 86. Sodium 135, potassium 2.6, chlor dhruv 92, bicarb 32, BUN 81, creatinine 1.3, glucose 124. LFTs within normal limits. Troponin negativ e. IMPRESSION: 82-year-old woman with coronary disease status post coronary artery bypass grafting x4 v essels in 2010 and last revascularization a drug alluding stent to her [place] left circumflex in 2014 with persistent atrial fibrillation and congestive heart failure with a left ventricular ejection fr action measured in the past at 45% to 55%. Clinically, I think her volume status is now dehydrated. This is probably from her diuretics but also a concurrent gastrointestinal separate problem. She do es not appear to be having a heart attack or pulmonary edema. RECOMMENDATIONS: 1. Would continue to hold metolazone and Lasix. 2. Would restart on amiodarone 200 mg b.i.d. 3. Would decrease Eliquis to 2.5 mg b.i.d. daily. 4. Continue giving normal saline rehydration. 5. Would check a transthoracic echocardiogram in the morning to re-evaluate LV function and make nicole e she has not developed a tachycardia-mediated cardiomyopathy, and check the size of her left and rig ht atria. Thank you for allowing the cardiology service to participate in her care. We will follow along close ly with you during her hospitalization. /[id number]/MODL
[2018-04-06] MEDS: AMIODARONE HCL 200 MG TAB PO SCH ×2 (14:03→20:47)
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
[2018-04-06] MEDS: METOPROLOL TARTRATE 25 MG TAB PO SCH (20:44)
[2018-04-06] MEDS: APIXABAN 2.5 MG TAB PO SCH (20:47)
[2018-04-06] MEDS ORDERED: PNEUMOC 13-VAL CONJ-DIP CRM/PF 0.5 ML SYR (PREVNAR 13) IM ONE (20:53)
[2018-04-07] MEDS ORDERED: POTASSIUM CL 10 MEQ TAB PO ONE (07:26)
[2018-04-07] MEDS: AMIODARONE HCL 200 MG TAB PO SCH ×2 (08:13→20:29)
[2018-04-07] MEDS: APIXABAN 2.5 MG TAB PO SCH ×2 (08:13→20:29)
[2018-04-07] MEDS: ACETAMINOPHEN 325 MG TAB PO PRN (08:13)
[2018-04-07] MEDS: METOPROLOL TARTRATE 25 MG TAB PO SCH ×2 (08:16→20:36)
[2018-04-07] MEDS: INSULIN LISPRO 100 UNIT/ML SC SCH ×3 (08:24→18:13)
--- NOTE | 2018-04-07 12:48 | ECHO ---
[email or web address] [address] [address] Main: [phone] Fax: Transthoracic Echocardiogram Name: FLORA LOVE MR#: [id number] Study Date: 04/07/2018 Study Time: 11:20 AM Date of : 1935 Age: 82 year(s) Height: 162.6 cm (64 in.) Weight: 78.47 kg (173 lb.) BSA: 1.84 m2 Gender: Female Examination: Echo Indication: New onset of A-fib Image Quality: Contrast: Requested by: Maurisio Reed BP: 95 mmHg/62 mmHg Heart Rate: Rhythm: Atrial fibrillation Indication: New onset of A-fib Procedure Staff Compressed Gas Tester: Beny Beaulieu RDCS Reading Physician: Bennett Bruce MD Requesting Provider: Conclusions: Normal size left ventricle. Low normal left ventricular systolic function. The ejection fraction is visually estimated to be 55 %. Grade 1 diastolic dysfunction (abnormal relaxation). Elevated left ventricular filling pressures.. Regional wall motion abnormalities cannot be excluded based on the quality of this study. Mildly dilated right ventricle. The left atrium is severely dilated. The right atrium is mildly dilated. Mild mitral annular calcification. Moderate mitral valve regurgitation is present. Mild aortic cusp calcification is noted. In some views there appears to be calcified atheroma at the level of the sinotubular junction adjacent to the right coronary cusp. Consider MAULIK if clinically indicated. Measurements: Chambers Valvular Assessment AV/MV Valvular Assessment TV/PV Normal Normal Normal Name Value Range Name Value Range Name Value Range Ao Luma (MM): 2.9 cm (2.2 cm-3.7 AV Vmax: 1.00 m/s (1 m/s-1.7 TR Vmax: 2.90 mm/s ( - ) cm) m/s) TR PGmax: 34 mmHg ( - ) IVSd (2D): 0.9 cm (0.6 cm-1.1 AV maxP mmHg ( - ) syst. PAP: 39 mmHg ( - ) cm) LVOT Vmax: 0.46 m/s (0.7 m/s-1.1 PV Vmax: 0.81 m/s (0.6 m/s-0.9 LVDd (2D): 5.0 cm (3.9 cm-5.3 m/s) m/s) cm) MV E Vmax: 1.17 m/s ( - ) PV PGmax: 3 mmHg ( - ) LVDs (2D): 3.6 cm (2.1 cm-4 cm) LVPWd (2D): 0.9 cm ( - ) LVEF (2D): 54 (>=54 %) Visual EF: 55 % Patient: FLORA LOVE Study Date: 04/07/2018 Page 1 of 2 11:20 AM Continued Measurements: Chambers Valvular Assessment TV/PV Name Value Name Value LADs Lon.2 cm CVP (est.): 5 mmHg LA Area: 30.8 cm2 LA Volume: 117 ml LA Volume Index: 63.6 ml/m2 Findings: Left Ventricle: Normal size left ventricle. No LV hypertrophy. Low normal left ventricular systolic function. The ejection fraction is visually estimated to be 55 %. Grade 1 diastolic dysfunction (abnormal relaxation). Elevated left ventricular filling pressures.. Regional wall motion abnormalities cannot be excluded based on the quality of this study. Right Ventricle: Mildly dilated right ventricle. Normal RV function. Left Atrium: The left atrium is severely dilated. Right Atrium: The right atrium is mildly dilated. Mitral Valve: Mild mitral annular calcification. Moderate mitral valve regurgitation is present. Aortic Valve: The aortic valve is tri-leaflet. Mild aortic cusp calcification is noted. There is no significant aortic valve regurgitation. No aortic valve stenosis is present. In some views there appears to be calcified atheroma at the level of the sinotubular junction adjacent to the right coronary cusp. Consider MAULIK if clinically indicated. Tricuspid Valve: Moderate tricuspid regurgitation is present. The pulmonary artery pressure is mildly increased. Pulmonic Valve: The pulmonic valve is normal in appearance and function. Aorta: The aorta is normal. Pericardium: No pericardial effusion. (No Signature Object) Patient: FLORA LOVE Study Date: 04/07/2018 Page 2 of 2 11:20 AM [id number]
--- NOTE | 2018-04-07 13:26 | PDCARPN ---
Cardiology Progress Note Assessment/Plan: 82 y/o F with: - CAD with h/o CABG in 2010 and PCI in 2014 - Cardiomyopathy w/ mildly reduced LVEF - Chronic combined systoic/diastolic CHF - Persistent A-fib s/p failed cardioversion in Feb 2018; being loaded with amiodarone in anticipation of another attempt at cardioversion. In early March, she saw her usual senior account manager and her diuretic regimen was increased because of volume overload. She subsequently developed abdominal pain , nausea, vomiting, diarrhea, reduced oral intake, and possible melena. She was admitted to the hospital on 04/05 because of increasing fatigue and altered status. She had lost approximately 20 pounds in the preceding weeks. Her clinical picture was consistent with dehydration and acute kidney injury. Her diuretics have been held and she received intravenous fluids. Today, her mentation is back to baseline. She is not complaining of any chest discomfort. Coronary artery disease: She has a history of CAD with prior surgical and percutaneous revascularization procedures. She is not experiencing any angina. - Continue secondary prevention. Mild ischemic cardiomyopathy/chronic combined systolic and diastolic CHF: She has mild lower extremity edema but no other signs of decompensated CHF. Her clinical picture on admission was consistent with moderate dehydration. - Continue to hold diuretics. - Will reinstitute diuretic therapy at reduced dosage once her clinical status stabilizes. Persistent atrial fibrillation: She failed a cardioversion in February of this year. Amiodarone has been instituted. - Continue systemic anticoagulation for stroke prophylaxis. - Repeat attempt at cardioversion to be scheduled at a future date. 04/07/18 13:21 Subjective: No CV complaints. Reviewed/Discussed With: family Objective: Vital Signs (8 Hrs) Temp Pulse Resp BP Pulse Ox 04/07/18 10:59 36.6 C 90 10 L 95/62 L 92 04/07/18 08:16 90 115/63 04/07/18 07:39 36.4 C 83 10 L 102/72 97 Intake/Output (24 Hrs) 04/06/18 04/07/18 04/08/18 05:59 05:59 05:59 Intake Total 1670 1010 Output Total 1750 2100 300 Balance -80 -1090 -300 Intake: Oral (ml) 200 1010 IV Infused (ml) 1470 Ns 1,000 ml @ 75 mls/hr 570 IV CONT DAYANA Rx#: [id number] Output: Urine (ml) 1750 2100 300 Bedside Commode 450 1450 Toilet 650 300 Other: Weight 78.925 kg Number of Voids 1 Result Diagrams: 04/06/18 03:50 04/07/18 03:48 Cardiac Labs: Cardiac Lab Results (72 Hrs) 04/06/18 04/06/18 10:19 03:50 Troponin I < 0.012 0.019 - Physical Exam Constitutional: no apparent distress, obese Eyes: anicteric sclera Ears, Nose, Mouth, Throat: moist mucous membranes Cardiovascular: no murmurs, no gallops, irregularly irregular Respiratory: clear to auscultate bilat Gastrointestinal: normoactive bowel sounds, no masses Skin: other (mild edema) Neurologic: AAOx3 Psychiatric: not anxious ICD10 Worksheet Patient Problems: Problems Problem Status Onset Chest pain Acute Cellulitis Acute Pulmonary edema Acute Severe sepsis Acute Gallstone Acute Abdominal pain Acute CHF (congestive heart failure) Acute Hypoxemia Acute Hypokalemia Acute Dehydration Acute Acute kidney injury Acute
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
[2018-04-07] MEDS ORDERED: NS 500 ML IV ONE (15:12)
--- NOTE | 2018-04-07 15:14 | HOSPPROG ---
Hospitalist Progress Note Assessment/Plan: 82 yo F with PMH CAD, A fib, CHF presenting with c/o n/v/d and 20 pound weight loss found to have severe hypokalemia and trevor on ckd severe hypokalemia: likely secondary to overdiiuresis with lasix and metolazone in setting of NVD. -potassium protocol ordered -monitor BID -hold diuresis generalized weakness: patient having difficulty ambulating, not eating or drinking, confused. Lives with family, patient states she feels she needs more help and is no longer safe at home, pt/ot/cm to consult -PT/OT trevor on ckd: in the setting of diuresis as well as poor po intake and n/v/d. Given gentle IVF and will monitor, creatinine near baseline but BUN very elevated. creatinine still elevated today. Will continue gentle fluids and repeat renal function in am. metabolic encephalopathy: resolved this morning with fluids and electrolytes n/v/d: seems to have resolved. GI panel negative. chronic combined systolic/diastolic heart failure: with EF of 45%-55% most recently and diastolic HF present as well, currently appears euvolemic, has been on diuresis with lasix 80 bid and metolazone with significant weight loss as above, holding diuresis for now -hold lasix and metolazone -echo pending Afib- on amio daily, and eliquis daily as well. -per cardiology start amio 200 BID -change eliquis to 2.5 bid -hold lopresor while pressures remain low CAD: with hx of stents and CABG in 2010. Follows with Dr. Rueda. Has appt with him on Sunday -will have cardiology see her while here -hold lasix and metolazone -echo pending DM2: will hold metformin given trevor, SSI, sugars have been only mildly high so far VHD: with moderated MR/TR, no e/o acute decompensation currently malachi: has not tolerated cpap, o2 at night as needed IP status, patient too weak and unable to care for herself at home currently, may need snf Subjective: feels fine. Objective: Vital Signs Temp Pulse Resp BP Pulse Ox 36.6 C 90 10 L 95/62 L 92 04/07/18 10:59 04/07/18 10:59 04/07/18 10:59 04/07/18 10:59 04/07/18 10:59 Microbiology 04/05/18 22:14 Gastrointestinal Tract Panel (PCR) - Final Stool No Organism Detected By Pcr Laboratory Results 04/06/18 03:50 04/07/18 03:48 04/06/18 04/07/18 04/08/18 05:59 05:59 05:59 Intake Total 1670 1010 Output Total 1750 2100 300 Balance -80 -1090 -300 - Physical Exam Constitutional: no apparent distress, appears nourished, not in pain Eyes: PERRL, anicteric sclera, EOMI Ears, Nose, Mouth, Throat: moist mucous membranes, hearing normal, ears appear normal, no oral mucosal ulcers Cardiovascular: regular rate and rhythym, no murmur, rub, or gallop Respiratory: no respiratory distress, no rales or rhonchi, clear to auscultation Gastrointestinal: normoactive bowel sounds, soft, non-tender abdomen, no palpable masses Genitourinary: no bladder fullness, no bladder tenderness, no renal bruits Skin: no rashes or abrasions, no fluctuance, no induration Musculoskeletal: full muscle strength, no muscle tenderness, normal joint ROM Neurologic: AAOx3, sensation intact bilaterally Psychiatric: interacting appropriately, not anxious, not encephalopathic, thought process linear Lymph, Heme, Immunologic: no cervical LAD, no supraclavicular LAD ICD10 Worksheet Patient Problems: Problems Problem Status Onset Acute kidney injury Acute Dehydration Acute Hypokalemia Acute Abdominal pain Acute CHF (congestive heart failure) Acute Cellulitis Acute Chest pain Acute Gallstone Acute Hypoxemia Acute Pulmonary edema Acute Severe sepsis Acute
[2018-04-08] MEDS ORDERED: POTASSIUM CL 10 MEQ TAB PO ONE (08:41)
[2018-04-08] MEDS: INSULIN LISPRO 100 UNIT/ML SC SCH ×3 (08:54→19:51)
[2018-04-08] MEDS: METOPROLOL TARTRATE 25 MG TAB PO SCH ×2 (10:02→20:12)
[2018-04-08] MEDS: AMIODARONE HCL 200 MG TAB PO SCH ×2 (10:03→20:12)
[2018-04-08] MEDS: APIXABAN 2.5 MG TAB PO SCH ×2 (10:04→20:12)
--- NOTE | 2018-04-08 12:02 | PDCARPN ---
Cardiology Progress Note Assessment/Plan: Coronary artery disease: She has a history of CAD with prior surgical and percutaneous revascularization procedures. She is not experiencing any angina. - Continue secondary prevention. Mild ischemic Cardiomyopathy/Chronic Combined Systolic and Diastolic CHF: She has mild lower extremity edema but no other signs of decompensated CHF. Her clinical picture on admission was consistent with moderate dehydration. Previous diuretic regimen was furosemide 40 mg BID. In late Feb, it was increased to 80 mg BID. In early Mar, metolazone 2.5 mg QD was added. - Continue to hold diuretics. Renal function is improving. In Nov 2017, creat was 0.8-0.9. Creat today is 1.3. BUN was 89 on admission and is currently 61. BUN to Creat ratio seems a little high for her degree of dehydration and HAYDEN. She did report some episodes of melena prior to admission. H/H were 12.3 and 40.3 in Feb; currently 10.4 and 33.2. Its possible that some of her BUN elevation might be due to absorption of digested blood. (? empiric PPI / ? GI eval) - Will reinstitute diuretic therapy at reduced dosage once her clinical status stabilizes. I would favor furosemide 80 mg QD w/ no metolazone. Persistent Atrial Fibrillation: She failed a cardioversion in February of this year. Amiodarone has been instituted. - Continue systemic anticoagulation for stroke prophylaxis. - BP has been soft at times. She has been on BID amiodarone long enough; will decrease to QD. - Repeat attempt at cardioversion to be scheduled at a future date. 04/08/18 12:14 Reviewed/Discussed With: family Time Spent with Patient: greater than 25 minutes Time Spent with Patient: Greater than 25 minutes spent on this patients care, greater than 50% of time spent counseling, educating, and coordinating care regarding the above mentioned plan. Objective: Vital Signs (8 Hrs) Temp Pulse Resp BP Pulse Ox 04/08/18 11:14 36.6 C 93 20 102/60 95 04/08/18 08:00 36.6 C 110 H 16 96/69 L 91 L 04/08/18 07:17 85 116/78 04/08/18 04:00 36.3 C 83 18 85/45 L 92 Intake/Output (24 Hrs) 04/07/18 04/08/18 04/09/18 05:59 05:59 05:59 Intake Total 1010 600 Output Total 2100 1150 Balance -1090 -550 Intake: Oral (ml) 1010 100 IV Infused (ml) 500 Ns 500 ml @ 1500 mls/hr 500 IV ONCE ONE Rx#: [id number] Output: Urine (ml) 2100 1150 Bedside Commode 1450 300 Incontinence 550 Toilet 650 300 Other: Number of Voids Bedside Commode 1 Incontinence 2 Result Diagrams: 04/06/18 03:50 04/08/18 04:01 Cardiac Labs: Cardiac Lab Results (72 Hrs) 04/06/18 04/06/18 10:19 03:50 Troponin I < 0.012 0.019 - Physical Exam Constitutional: no apparent distress, obese Eyes: anicteric sclera Ears, Nose, Mouth, Throat: moist mucous membranes Cardiovascular: no murmurs, no gallops, irregularly irregular Respiratory: clear to auscultate bilat Gastrointestinal: normoactive bowel sounds, no tenderness, no masses Skin: no rashes, other (mild edema) Neurologic: AAOx3 Psychiatric: not anxious ICD10 Worksheet Patient Problems: Problems Problem Status Onset Acute kidney injury Acute Dehydration Acute Hypokalemia Acute Abdominal pain Acute CHF (congestive heart failure) Acute Cellulitis Acute Chest pain Acute Gallstone Acute Hypoxemia Acute Pulmonary edema Acute Severe sepsis Acute
--- NOTE | 2018-04-08 16:19 | ASMTCMCOM ---
CM Note CM Note Notes: 04/08/2018 Case Management Note Multiple communications with [facility] requesting status on auth. Lesley from [employer] hoping for auth tomorrow. Requested Lesley call case management once auth recieved. Faxed updates via [employer]. Case Management d/c poc: [facility] in [place] pending auth from insurance. Case Management to follow. Date Signed: 04/08/2018 04:19 PM Electronically Signed By:Ann Delcid RN
--- NOTE | 2018-04-08 17:21 | WOCRNPDOC ---
WOCRN Advanced Assessment Note - Skin Integrity Problem, Advanced Assess Left Posterior Ankle Unknown Dressing Type: Open to Air Exudate Amount: None Wound Bed Constitution: Granulation Tissue (100%), Ligament Wound Edges: Attached Site Measurement - Head-to-Toe Length X Width X Depth (cm): 2.8x2x0.2 Skin Integrity Problem Comment: Unknown etiology of wound. Patient reports that wound heals and then "it keeps re-opening". Per her report this has been chronic for years. [facility] and wound was almost healed. Will continue moist wound healing techniques. Wound care will follow. Report to Pattie CARVALHO. Price CARVALHO in room for care.
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
[2018-04-08] MEDS: ACETAMINOPHEN 325 MG TAB PO PRN (19:50)
[2018-04-09] MEDS ORDERED: POTASSIUM CL 10 MEQ TAB PO ONE (08:21)
[2018-04-09] MEDS: INSULIN LISPRO 100 UNIT/ML SC SCH ×2 (08:29→13:13)
[2018-04-09] MEDS: APIXABAN 2.5 MG TAB PO SCH (08:36)
[2018-04-09] MEDS: METOPROLOL TARTRATE 25 MG TAB PO SCH (08:36)
[2018-04-09] MEDS: AMIODARONE HCL 200 MG TAB PO SCH (08:36)
[2018-04-09 12:16] VITALS: BP 117/71
--- NOTE | 2018-04-09 13:04 | PDIAF ---
- Diagnosis Diagnosis: overdiuresis Code Status: Full Code - Medication Management Discharge Medications: electronically signed and located in the Home Medication List. - Orders Services needed: Registered Nurse, Certified Clerical Transcriber, Master Senior Quality Assurance Analyst , Physical Therapy, Occupational Therapy, Speech Language Pathologist Isolation Type: None - Follow Up Care Current Providers and Referrals: Dorian Rodríguez MD [Primary Care Provider] - As per Instructions
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
--- NOTE | 2018-04-09 14:02 | GDS ---
[f rep st] DISCHARGE SUMMARY DISCHARGE DIAGNOSES: 1. Acute kidney injury secondary to over-diuresis. 2. Heart failure. 3. Atrial fibrillation. 4. Coronary artery disease. 5. Generalized weakness. 6. Metabolic encephalopathy. Please see admission history and physical by Dr. Dolores Olson. The patient presented to the [facility] with nausea, vomiting, diarrhea, and confusion. Her creatinine was elevated at 1.5. She had bee n on Lasix 80 twice daily with metolazone that had recently been increased. She also had been having some volume loss due to nausea, vomiting, and diarrhea. Diuretics were held and the creatinine slow ly trended to normal. She was seen by PT and OT who recommended SNF. She received a couple days of twice daily amiodarone, but was transitioned back to daily. She was discharged on 80 mg of Lasix wit hout metolazone at the direction of Cardiology. Discharge is to [facility] in [place]. /[id number]/MODL
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
[2018-04-10] MEDS ORDERED: AMIODARONE HCL 200 MG TAB PO SCH (09:00)
[2018-04-10] MEDS ORDERED: FUROSEMIDE 80 MG TAB PO SCH (09:00)
--- NOTE | 2018-04-16 13:34 | CPEKG ---
Test Reason : VT runs on monitor Blood Pressure : / mmHG Vent. Rate : 102 BPM Atrial Rate : 000 BPM P-R Int : 149 ms QRS Dur : 161 ms QT Int : 455 ms P-R-T Axes : 009 247 036 degrees QTc Int : 593 ms Atrial fibrillation RBBB and LAFB Confirmed by Micha Grullon ([id number]) on 04/16/2018 1:33:47 PM Referred By: Dolores Olson Confirmed By:Micha Grullon
== END 2018-04-09 15:42 | DRG 682 ==
LOC: F2W 21:45
PROVIDERS: ADMIT Internal Medicine; ATTEND Internal Medicine
DX: N17.9 Acute kidney failure, unspecified (principal); N18.9 Chronic kidney disease, unspecified; T50.1X5A Adverse effect of loop [high-ceiling] diuretics, initial encounter; T50.2X5A Adverse effect of carbonic-anhydrase inhibitors, benzothiadiazides and other diuretics, initial encounter; E86.0 Dehydration; E87.6 Hypokalemia; R11.2 Nausea with vomiting, unspecified; R19.7 Diarrhea, unspecified; G93.41 Metabolic encephalopathy; R53.1 Weakness; I25.10 Atherosclerotic heart disease of native coronary artery without angina pectoris; I25.5 Ischemic cardiomyopathy; Z95.5 Presence of coronary angioplasty implant and graft; I50.42 Chronic combined systolic (congestive) and diastolic (congestive) heart failure; I48.1 Persistent atrial fibrillation; Z79.01 Long term (current) use of anticoagulants; L97.321 Non-pressure chronic ulcer of left ankle limited to breakdown of skin; I13.0 Hypertensive heart and chronic kidney disease with heart failure and stage 1 through stage 4 chronic kidney disease, or unspecified chronic kidney disease; E11.22 Type 2 diabetes mellitus with diabetic chronic kidney disease; G47.33 Obstructive sleep apnea (adult) (pediatric); F03.90 Unspecified dementia, unspecified severity, without behavioral disturbance, psychotic disturbance, mood disturbance, and anxiety; E66.09 Other obesity due to excess calories; Z68.36 Body mass index [BMI] 36.0-36.9, adult; Z23 Encounter for immunization
CPT/HCPCS: 84484-ER; 96365; 96366; 97110-GP; 97116-GP; 97161-GP; 97165-GO; 97530-GO; 97530-GP; 97535-GO; G0009; J1815; J3475; J3480

== ENCOUNTER 2018-05-05 19:16 | Inpatient (IN) | payer OTHER ==
[2018-05-05] MEDS ORDERED: NS 1,000 ML IV ONE ×3 (19:23→23:40)
[2018-05-05] MEDS ORDERED: ONDANSETRON 4 MG/2 ML VIAL IVP ONE (19:23)
[2018-05-05] MEDS ORDERED: PANTOPRAZOLE SODIUM 40 MG VIAL IVP ONE (19:24)
--- NOTE | 2018-05-05 19:26 | EDPHY ---
H & P Time Seen by Provider: 05/05/18 19:17 HPI/ROS: CHIEF COMPLAINT: Vomiting blood HISTORY OF PRESENT ILLNESS: History of atrial fibrillation on Eliquis, nausea yesterday and then multiple episodes of vomiting today since 10:00 a.m.. Started as coffee grounds and now is just red blood. Associated with cramping abdominal pain in her upper belly. Symptoms severe. Not associated with lightheadedness dizziness or syncope. No melena. Not better or worse with anything. REVIEW OF SYSTEMS: Eye: no change in vision ENT: no sore throat Cardiac: no chest pain or syncope Pulmonary: no cough or SOB Abdomen: HPI Musculoskeletal: Chronic left arm pain Skin: Chronic left ankle wound, recently in rehab Neuro: no headache Constitutional: no fever : no urinary symptoms A comprehensive 10 point review of systems is otherwise negative aside from elements mentioned in the history of present illness. PAST MEDICAL HISTORY: Includes diabetes, AFib on Eliquis, a left ankle wound, abdominal hernia surgery. No spinal surgery. Bilateral knee surgery. Social history: Nonsmoker no alcohol General Appearance: Alert and conversant, cooperative. Eyes: No scleral icterus. ENT, Mouth: No intraoral bleeding. Respiratory: Normal respiratory effort, breath sounds equal, lungs are clear to auscultation. Cardiovascular: Regular rate and rhythm. Gastrointestinal: Abdomen is soft and non tender. No rebound or guarding. Neurological: Alert, face symmetric, normal motor and sensory in extremities. Skin: Warm and dry, no rashes. Musculoskeletal: Lower extremity peripheral edema with previous surgical scars. Psychiatric: Not agitated. Emergency Department course/MDM: Presents with acute upper GI bleed on Eliquis. Plan for CBC chemistries, IV fluid resuscitation, PPI and admission to hospitalist service with GI consult. Normal saline 1 L IV. Initial hematocrit 31. BUN and creatinine noted at 56 and 2.2. Fresh frozen plasma ordered for elevated INR. Smoking Status: Former smoker Constitutional: Initial Vital Signs Temperature (C) 36.7 C 05/05/18 19:15 Heart Rate 107 H 05/05/18 19:15 Respiratory Rate 18 05/05/18 19:15 Blood Pressure 111/64 05/05/18 19:15 O2 Sat (%) 96 05/05/18 19:15 O2 (L/minute) 2 Allergies/Adverse Reactions: Penicillins Allergy (Mild, Verified 04/05/18 18:55) Rash amoxicillin Allergy (Verified 04/05/18 18:55) Home Medications: Medication Instructions Recorded Metformin HCl [Metformin 1000 mg] 1,000 mg PO BIDMEAL 05/03/17 Apixaban [Eliquis] 5 mg PO BID 02/22/18 Amiodarone HCl [Pacerone (*)] 200 mg PO DAILY 04/05/18 Furosemide [Lasix 80 MG (*)] 80 mg PO DAILY tab 04/09/18 Metoprolol Tartrate [Lopressor 25 12.5 mg PO BID tab 04/09/18 mg (*)] Acetaminophen [Tylenol 325mg (*)] 650 mg PO Q6 PRN 05/05/18 Arthritis Pain Relief 1% Crm 1 violeta TP BID 05/05/18 Benefiber 1 Gm Tab 3 each PO BID 05/05/18 Loperamide HCl [Imodium 2 mg (*)] 4 mg PO DAILY PRN 05/05/18 Medical Decision Making - Diagnostics EKG Interpretation: 12-lead EKG interpreted by me; official reading is in computer system. My interpretation is AFib rate 110 with right bundle branch block. Consult/Admit Bed Type: [place] [id number], [facility] [address] Critical Care Time: Total critical care time 30 minutes exclusive of PA time and procedures; organ system at risk is GI/Hematologic with upper GI bleed and medication induced coagulopathy. IV fluids, multiple diagnostics, FFP, specialist consultation, PPI. Personally performed by myself. - Data Points Laboratory Results: Laboratory Results 05/05/18 19:30 05/05/18 19:30 05/05/18 05/05/18 05/05/18 19:39 19:30 19:30 WBC RBC Hgb POC Hgb 10.5 gm/dL L gm/dL (12.6-16.3) Hct POC Hct 31 % L % (38-47) MCV MCH MCHC RDW Plt Count MPV Neut % (Auto) Lymph % (Auto) Calhoun % (Auto) Eos % (Auto) Baso % (Auto) Nucleat RBC Rel Count Absolute Neuts (auto) Absolute Lymphs (auto) Absolute Monos (auto) Absolute Eos (auto) Absolute Basos (auto) Absolute Nucleated RBC Immature Gran % Immature Gran # PT INR APTT POC Sodium 136 mEq/L mEq/L (135-145) Sodium 135 mEq/L mEq/L (135-145) POC Potassium 4.1 mEq/L mEq/L (3.3-5.0) Potassium 4.3 mEq/L mEq/L (3.5-5.2) POC Chloride 95 mEq/L L mEq/L (97-110) Chloride 95 mEq/L L mEq/L (97-110) Carbon Dioxide 22 mEq/l mEq/l (22-31) POC Total CO2 23 mEq/L mEq/L (22-31) Anion Gap 18 mEq/L H mEq/L (6-14) POC BUN 56 mg/dL H mg/dL (7-23) BUN 63 mg/dL H mg/dL (7-23) Creatinine 2.0 mg/dL H mg/dL (0.6-1.0) POC Creatinine 2.2 mg/dL H mg/dL (0.6-1.0) Estimated GFR 24 Glucose 131 mg/dL H mg/dL (70-100) POC Glucose 132 mg/dL H mg/dL (70-100) Calcium 8.5 mg/dL mg/dL (8.5-10.4) Total Bilirubin 0.8 mg/dL mg/dL (0.1-1.4) Conjugated Bilirubin 0.5 mg/dL mg/dL (0.0-0.5) Unconjugated Bilirubin 0.3 mg/dL mg/dL (0.0-1.1) AST 17 IU/L IU/L (14-46) ALT 32 IU/L IU/L (9-52) Alkaline Phosphatase 83 IU/L IU/L (38-126) Total Protein 5.7 g/dL L g/dL (6.3-8.2) Albumin 3.2 g/dL L g/dL (3.5-5.0) Patient ABO/Rh A POSITIVE Antibody Screen NEGATIVE Crossmatch IS Only See Detail 05/05/18 05/05/18 19:30 19:30 WBC 8.89 10^3/uL 10^3/uL (3.80-9.50) RBC 3.61 10^6/uL L 10^6/uL (4.18-5.33) Hgb 9.5 g/dL L g/dL (12.6-16.3) POC Hgb Hct 31.1 % L % (38.0-47.0) POC Hct MCV 86.1 fL fL (81.5-99.8) MCH 26.3 pg L pg (27.9-34.1) MCHC 30.5 g/dL L g/dL (32.4-36.7) RDW 18.2 % H % (11.5-15.2) Plt Count 310 10^3/uL 10^3/uL (150-400) MPV 10.6 fL fL (8.7-11.7) Neut % (Auto) 80.2 % H % (39.3-74.2) Lymph % (Auto) 13.0 % L % (15.0-45.0) Calhoun % (Auto) 4.8 % % (4.5-13.0) Eos % (Auto) 1.1 % % (0.6-7.6) Baso % (Auto) 0.6 % % (0.3-1.7) Nucleat RBC Rel Count 0.0 % % (0.0-0.2) Absolute Neuts (auto) 7.12 10^3/uL H 10^3/uL (1.70-6.50) Absolute Lymphs (auto) 1.16 10^3/uL 10^3/uL (1.00-3.00) Absolute Monos (auto) 0.43 10^3/uL 10^3/uL (0.30-0.80) Absolute Eos (auto) 0.10 10^3/uL 10^3/uL (0.03-0.40) Absolute Basos (auto) 0.05 10^3/uL 10^3/uL (0.02-0.10) Absolute Nucleated RBC 0.00 10^3/uL 10^3/uL (0-0.01) Immature Gran % 0.3 % % (0.0-1.1) Immature Gran # 0.03 10^3/uL 10^3/uL (0.00-0.10) PT 22.8 SEC H SEC (12.0-15.0) INR 2.13 H (0.83-1.16) APTT 33.7 SEC SEC (23.0-38.0) POC Sodium Sodium POC Potassium Potassium POC Chloride Chloride Carbon Dioxide POC Total CO2 Anion Gap POC BUN BUN Creatinine POC Creatinine Estimated GFR Glucose POC Glucose Calcium Total Bilirubin Conjugated Bilirubin Unconjugated Bilirubin AST ALT Alkaline Phosphatase Total Protein Albumin Patient ABO/Rh Antibody Screen Crossmatch IS Only Medications Given: Hydromorphone HCl (Dilaudid) 0.2 - 0.4 mg IVP Q4HRS PRN PRN Reason: moderate to severe pain Stop: 05/15/18 20:03 Last Admin: 05/06/18 06:36 Dose: 0.2 mg Pantoprazole Sodium (Protonix) 40 mg IVP Q6H DAYANA Stop: 11/01/18 20:14 Last Admin: 05/06/18 02:23 Dose: Not Given Discontinued Medications Sodium Chloride (Ns) 1,000 mls @ 0 mls/hr IV EDNOW ONE; Wide Open PRN Reason: Protocol Stop: 05/05/18 19:24 Last Admin: 05/05/18 19:34 Dose: 1,000 mls Sodium Chloride (Ns) 1,000 mls @ 0 mls/hr IV EDNOW ONE; Wide Open PRN Reason: Protocol Stop: 05/05/18 19:53 Last Admin: 05/05/18 19:57 Dose: 1,000 mls Sodium Chloride (Ns) 1,000 mls @ 0 mls/hr IV ONCE ONE PRN Reason: Wide Open Stop: 05/05/18 23:41 Last Admin: 05/06/18 01:43 Dose: 1,000 mls Ondansetron HCl (Zofran) 4 mg IVP EDNOW ONE Stop: 05/05/18 19:24 Last Admin: 05/05/18 19:43 Dose: 4 mg Pantoprazole Sodium (Protonix) 80 mg IVP EDNOW ONE Stop: 05/05/18 19:25 Last Admin: 05/05/18 19:39 Dose: 80 mg Point of Care Test Results: Chemistry 05/05/18 19:39 POC Sodium 136 mEq/L mEq/L (135-145) POC Potassium 4.1 mEq/L mEq/L (3.3-5.0) POC Chloride 95 mEq/L L mEq/L (97-110) POC Total CO2 23 mEq/L mEq/L (22-31) POC BUN 56 mg/dL H mg/dL (7-23) POC Creatinine 2.2 mg/dL H mg/dL (0.6-1.0) POC Glucose 132 mg/dL H mg/dL (70-100) ISTAT H&H 05/05/18 19:39 POC Hgb 10.5 gm/dL L gm/dL (12.6-16.3) POC Hct 31 % L % (38-47) Departure - Departure Disposition: [facility] Inpatient Acute Clinical Impression: Upper GI bleed, Medication induced coagulopathy Condition: Serious
[2018-05-05 19:45] LABS: PLATELET COUNT 310 10^3/uL (150-400)
[2018-05-05 19:54] LABS: INR 2.13 (0.83-1.16); PROTIME(PATIENT) 22.8 SEC (12.0-15.0)
[2018-05-05] MEDS ORDERED: PROMETHAZINE HCL 25 MG/ML INJ IVP PRN (20:04)
[2018-05-05] MEDS ORDERED: HYDROmorphONE/DILAUDID 1 MG/ML INJ IVP PRN (20:04)
[2018-05-05] MEDS ORDERED: ONDANSETRON DISINTEGRATING 4 MG TAB PO PRN (20:04)
[2018-05-05] MEDS ORDERED: ACETAMINOPHEN 650 MG SUPP PR PRN (20:04)
[2018-05-05] MEDS ORDERED: ONDANSETRON 4 MG/2 ML VIAL IVP PRN (20:04)
[2018-05-05] MEDS ORDERED: NS 1,000 ML IV SCH (20:15)
[2018-05-05] MEDS ORDERED: D50W 25 GM/50 ML SYR IVP PRN (22:26)
--- NOTE | 2018-05-05 22:30 | PDGENHP ---
History and Physical - Chief Complaint vomiting blood - History of Present Illness 82 yo F with PMH that includes a fib on chronic AC, CHF, CAD, DM2 recently released from SNF presenting with complaints of n/v all day today. Patient is somnolent and easily distracted during this evaluation and hx is limited by that however she states that she was not feeling so great since discharge from SNF--she has had some generalized weakness and discomfort in her upper abdomen, tailbone and shoulder that seemed to be getting worse over the last several days. She has been having a lot of diarrhea as well and this am took a benefiber for that and shortly thereafter began vomiting. She notes that she began to vomit what looked like blood this morning and that every vomit since then has been either dark like coffee grounds or bright red like fresh blood. She brought with her a gallon ziplock bag approximately 1/2 full of dark blood that she says she vomited right prior to coming in. She has never had this happen before. She does not take NSAIDS or aspirin since she is on eliquis. History Information - Allergies/Home Medication List Allergies/Adverse Reactions: Penicillins Allergy (Mild, Verified 04/05/18 18:55) Rash amoxicillin Allergy (Verified 04/05/18 18:55) Home Medications: Metformin HCl [Metformin 1000 mg] 1,000 mg PO BIDMEAL 05/03/17 [Last Taken 05/05 08:00] Apixaban [Eliquis] 5 mg PO BID 02/22/18 [Last Taken 05/05/18 08:00] Amiodarone HCl [Pacerone (*)] 200 mg PO DAILY 04/05/18 [Last Taken 05/05/18] Acetaminophen [Tylenol 325mg (*)] 650 mg PO Q6 PRN 05/05/18 [Last Taken Unknown] Arthritis Pain Relief 1% Crm 1 violeta TP BID 05/05/18 [Last Taken Unknown] Benefiber 1 Gm Tab 3 each PO BID 05/05/18 [Last Taken Unknown] Loperamide HCl [Imodium 2 mg (*)] 4 mg PO DAILY PRN 05/05/18 [Last Taken Unknown ] I have personally reviewed and updated: family history, medical history, social history, surgical history - Past Medical History atrial fibrillation, coronary artery disease, CHF (diastolic and systolic, EF of 45%), dementia, diabetes type 2, hypertension, hyperlipidemia Additional medical history: Dm 2, CAD status post stent and CABG, history CHF with normal LV EF on recent echocardiogram 05/01/2017 at 55%, RENUKA non compliant with CPAP, HTN, obesity(BMI 36), hearing deficit with hearing aid requirement, cholelithiasis, left lateral ankle wound - Surgical History Reports: angioplasty, coronary bypass surgery, cholecystectomy, coronary stent Additional surgical history: Gastric bypass, cardiac cath with stent, 3V CABG - Family History Positive for: non-pertinent Additional family history: None reported - Social History Smoking Status: Former smoker Alcohol Use: None Drug Use: None Additional social history: full code. lives with brother Review of Systems Review of Systems: ROS: 10pt was reviewed & negative except for what was stated in HPI & below Physical Exam Physical Exam: Temp Pulse Resp BP Pulse Ox 36.5 C 103 H 16 110/61 94 05/05/18 22:04 05/05/18 22:04 05/05/18 22:04 05/05/18 22:04 05/05/18 22:04 O2 (L/minute) 2 Constitutional: chronically ill appearing, obese Eyes: PERRL, anicteric sclera Ears, Nose, Mouth, Throat: hearing normal, poor dentition, dry mucous membranes Cardiovascular: regular rate and rhythym, no murmur, rub, or gallop, edema Respiratory: no respiratory distress, no rales or rhonchi, reduced air movement Gastrointestinal: normoactive bowel sounds, tenderness, No guarding, No rebound Genitourinary: no bladder tenderness Skin: warm, normal color Musculoskeletal: no muscle tenderness Neurologic: AAOx3 Psychiatric: interacting appropriately, not anxious, poor memory Lab Data & Imaging Review 05/05/18 19:30 05/05/18 19:30 WBC 8.89 10^3/uL (3.80-9.50) 05/05/18 19:30 RBC 3.61 10^6/uL (4.18-5.33) L 05/05/18 19:30 Hgb 9.5 g/dL (12.6-16.3) L 05/05/18 19:30 POC Hgb 10.5 gm/dL (12.6-16.3) L 05/05/18 19:39 Hct 31.1 % (38.0-47.0) L 05/05/18 19:30 POC Hct 31 % (38-47) L 05/05/18 19:39 MCV 86.1 fL (81.5-99.8) 05/05/18 19:30 MCH 26.3 pg (27.9-34.1) L 05/05/18 19:30 MCHC 30.5 g/dL (32.4-36.7) L 05/05/18: RDW 18.2 % (11.5-15.2) H 05/05/18 19:30 Plt Count 310 10^3/uL (150-400) 05/05/18 19:30 MPV 10.6 fL (8.7-11.7) 05/05/18: Neut % (Auto) 80.2 % (39.3-74.2) H 05/05/18: Lymph % (Auto) 13.0 % (15.0-45.0) L 05/05/18: [place] % (Auto) 4.8 % (4.5-13.0) 05/05/18:30 Eos % (Auto) 1.1 % (0.6-7.6) 05/05/18: Baso % (Auto) 0.6 % (0.3-1.7) 05/05/18: Nucleat RBC Rel Count 0.0 % (0.0-0.2) 05/05/18:30 Absolute Neuts (auto) 7.12 10^3/uL (1.70-6.50) H 05/05/18 19:30 Absolute Lymphs (auto) 1.16 10^3/uL (1.00-3.00) 05/05/18:30 Absolute Monos (auto) 0.43 10^3/uL (0.30-0.80) 05/05/18 19:30 Absolute Eos (auto) 0.10 10^3/uL (0.03-0.40) 05/05/18 19:30 Absolute Basos (auto) 0.05 10^3/uL (0.02-0.10) 05/05/18:30 Absolute Nucleated RBC 0.00 10^3/uL (0-0.01) 05/05/18 19:30 Immature Gran % 0.3 % (0.0-1.1) 05/05/18 19:30 Immature Gran # 0.03 10^3/uL (0.00-0.10) 05/05/18 19:30 PT 22.8 SEC (12.0-15.0) H 05/05/18 19:30 INR 2.13 (0.83-1.16) H 05/05/18 19:30 APTT 33.7 SEC (23.0-38.0) 05/05/18 19:30 POC Sodium 136 mEq/L (135-145) 05/05/18 19:39 Sodium 135 mEq/L (135-145) 05/05/18 19:30 POC Potassium 4.1 mEq/L (3.3-5.0) 05/05/18 19:39 Potassium 4.3 mEq/L (3.5-5.2) 05/05/18 19:30 POC Chloride 95 mEq/L (97-110) L 05/05/18 19:39 Chloride 95 mEq/L (97-110) L 05/05/18 19:30 Carbon Dioxide 22 mEq/l (22-31) 05/05/18 19:30 POC Total CO2 23 mEq/L (22-31) 05/05/18 19:39 Anion Gap 18 mEq/L (6-14) H 05/05/18 19:30 POC BUN 56 mg/dL (7-23) H 05/05/18 19:39 BUN 63 mg/dL (7-23) H 05/05/18 19:30 Creatinine 2.0 mg/dL (0.6-1.0) H 05/05/18 19:30 POC Creatinine 2.2 mg/dL (0.6-1.0) H 05/05/18 19:39 Estimated GFR 24 05/05/18 19:30 Glucose 131 mg/dL (70-100) H 05/05/18 19:30 POC Glucose 132 mg/dL (70-100) H 05/05/18 19:39 Calcium 8.5 mg/dL (8.5-10.4) 05/05/18 19:30 Total Bilirubin 0.8 mg/dL (0.1-1.4) 05/05/18 19:30 Conjugated Bilirubin 0.5 mg/dL (0.0-0.5) 05/05/18 19:30 Unconjugated Bilirubin 0.3 mg/dL (0.0-1.1) 05/05/18 19:30 AST 17 IU/L (14-46) 05/05/18 19:30 ALT 32 IU/L (9-52) 05/05/18 19:30 Alkaline Phosphatase 83 IU/L (38-126) 05/05/18 19:30 Total Protein 5.7 g/dL (6.3-8.2) L 05/05/18 19:30 Albumin 3.2 g/dL (3.5-5.0) L 05/05/18 19:30 Urine Color YELLOW 05/05/18 21:10 Urine Appearance HAZY 05/05/18 21:10 Urine pH 5.0 (5.0-7.5) 05/05/18 21:10 Ur Specific [place] 1.010 (1.002-1.030) 05/05/18 21:10 Urine Protein NEGATIVE (NEGATIVE) 05/05/18 21:10 Urine Ketones TRACE (NEGATIVE) H 05/05/18 21:10 Urine Blood 1+ (NEGATIVE) H 05/05/18 21:10 Urine Nitrate NEGATIVE (NEGATIVE) 05/05/18 21:10 Urine Bilirubin NEGATIVE (NEGATIVE) 05/05/18 21:10 Urine Urobilinogen NEGATIVE EU (0.2-1.0) 05/05/18 21:10 Ur Leukocyte Esterase TRACE (NEGATIVE) H 05/05/18 21:10 Urine RBC 1-3 /hpf (0-3) 05/05/18 21:10 Urine WBC 10-15 /hpf (0-3) H 05/05/18 21:10 Ur Epithelial Cells TRACE /lpf (NONE-1+) 05/05/18 21:10 Urine Bacteria 2+ /hpf (NONE SEEN) H 05/05/18 21:10 Urine Mucus TRACE /lpf (NONE-1+) 05/05/18 21:10 Urine Glucose NEGATIVE (NEGATIVE) 05/05/18 21:10 Patient ABO/Rh A POSITIVE 05/05/18 19:30 Antibody Screen NEGATIVE 05/05/18 19:30 Assessment & Plan Assessment: 82 yo F with MMI including A fib on chronic AC, CHF and CAD presenting with UGIB # UGIB: patient with hx of vomiting blood since this morning, presenting with a baggie full of blood vomited prior to arrival. Is currently on eliquis and with hx of upper GI discomfort for weeks suspicious for PUD or gastritis as etiology for her bleed. 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 Old records reviewed and summarized as above.
--- NOTE | 2018-05-06 00:06 | PDANEPAE ---
ANE History of Present Illness here for EGD for GI bleed ANE Past Medical History - Cardiovascular History Hx Hypertension: Yes Hx Arrhythmias: No Hx Chest Pain: No Hx Coronary Artery / Peripheral Vascular Disease: Yes Hx CHF / Valvular Disease: Yes Hx Palpitations: No Cardiovascular History Comment: Echo on 05/05 with EF of 45-50%,diastolyc dysfunction,, basal/mid inferior and inferolteral akinesis,mod MR, mod TR, RSVP 44 mmHG. anemia - Pulmonary History Hx COPD: No Hx Asthma/Reactive Airway Disease: No Hx Oxygen in Use at Home: Yes O2 in Use at Home (L/minute): 3 Hx Sleep Apnea: Yes Sleep Apnea Screening Result - Last Documented: Positive Pulmonary History Comment: sleep apnea 2L at noc with cpap - Neurologic History Hx Cerebrovascular Accident: No Hx Seizures: No Hx Dementia: No - Endocrine History Hx Diabetes: Yes - Renal History Hx Renal Disorders: No - Liver History Hx Hepatic Disorders: No - Neurological & Psychiatric Hx Hx Neurological and Psychiatric Disorders: No - Cancer History Hx Cancer: Yes Cancer History Comment: skin cancer - Congenital Disorder History Hx Congenital Disorders: No - GI History Hx Gastrointestinal Disorders: No - Other Health History Other Health History: wound on ankle - Chronic Pain History Chronic Pain: No (BONE SPURS TO LEFT SHOULDER) - Surgical History Prior Surgeries: ohs quad bypass 2014 ANE Review of Systems Review of systems is: negative Review of Systems: ANE Patient History - Allergies Allergies/Adverse Reactions: Penicillins Allergy (Mild, Verified 04/05/18 18:55) Rash amoxicillin Allergy (Verified 04/05/18 18:55) - Home Medications Home medications: home medication list seen and reviewed Home Medications: Metformin HCl [Metformin 1000 mg] 1,000 mg PO BIDMEAL 05/03/17 [Last Taken 05/05 08:00] Apixaban [Eliquis] 5 mg PO BID 02/22/18 [Last Taken 05/05/18 08:00] Amiodarone HCl [Pacerone (*)] 200 mg PO DAILY 04/05/18 [Last Taken 05/05/18] Acetaminophen [Tylenol 325mg (*)] 650 mg PO Q6 PRN 05/05/18 [Last Taken Unknown] Arthritis Pain Relief 1% Crm 1 violeta TP BID 05/05/18 [Last Taken Unknown] Benefiber 1 Gm Tab 3 each PO BID 05/05/18 [Last Taken Unknown] Loperamide HCl [Imodium 2 mg (*)] 4 mg PO DAILY PRN 05/05/18 [Last Taken Unknown ] - NPO status NPO Status: no food or drink >8 hours NPO Since - Liquids (Date): 05/04/18 NPO Since - Liquids (Time): 20:00 NPO Since - Solids (Date): 05/04/18 NPO Since - Solids (Time): 20:00 - Smoking Hx Smoking Status: Former smoker - Alcohol Use Alcohol Use: None - Family Anes Hx Family Hx Anesthesia Complications: none ANE Labs/Vital Signs - Labs Result Diagrams: 05/05/18 23:30 05/05/18 19:30 - Vital Signs Vital Signs: reviewed preoperatively; see RN documention for details Blood Pressure: 92/42 Heart Rate: 100 Respiratory Rate: 13 O2 Sat (%): 100 Height: 162.56 cm Weight: 84.1 kg ANE Physical Exam - Airway Neck exam: FROM Mallampati Score: Class 1 Mouth exam: dentures - Pulmonary Pulmonary: no respiratory distress - Cardiovascular Cardiovascular: irregularly irregular - ASA Status ASA Status: III ANE Anesthesia Plan Anesthesia Plan: general endotracheal anesthesia
--- NOTE | 2018-05-06 01:07 | GIREPORT ---
[facility] - Endoscopy Department Patient Name: Patricia Mahoney Procedure Date: 05/05/2018 11:57 PM Patient Type: Inpatient Attending MD/ ER Physician: Ervin Morales MD Procedure: Upper GI endoscopy Indications: Hematemesis, Active gastrointestinal bleeding, Acute post hemorrhagic a nemia Providers: Ervin Morales MD Medicines: General Anesthesia Complications: No immediate complications. Description of Procedure: After obtaining informed consent, the endoscope was passed under direct vision. Throughout the procedure, the patient's blood pressure, pulse, and oxygen saturations were monitored continuously. The Endoscope was intro duced through the mouth, and advanced to the efferent jejunal loop. The upper GI endoscopy was accomplished without difficulty. The patient tolerated th e procedure well. Findings: The examined esophagus was normal. Evidence of a gastric bypass was found. A gastric pouch with a medium s ize was found containing blood which was aspirated clear and underlying muc malachi normal. The staple line appeared intact. The gastrojejunal anastomosis was characterized by healthy appearing mucosa. The proximal jejunal anastom osis was characterized by a giant ulceration without active bleeding albiet some adherant clot which I could not completely remove. The [id number] num limb was not examined as it could not be found. Estimated Blood Loss: Estimated blood loss: none. Post Op Diagnosis: - Normal esophagus. - Gastric bypass with a medium-sized pouch and intact staple line. Gastrojejunal anastomosis characterized by healthy appearing mucosa. Gi ant proximal jejunal ulceration without active bleeding albiet likely sourc e of bleed. - No specimens collected. Recommendation: - Return patient to ICU for ongoing care. - NPO today. IV PPI drip. - Continue present medications. - Interventional angiography with ablation of bleeding arterial source if bleeding persists/recurs. Attending Participation: I personally performed the entire procedure. Ervin Morales MD Ervin Morales MD 05/06/2018 1:06:55 AM This report has been signed electronicallyErvin Morales MD Number of Addenda: 0 Note Initiated On: 05/05/2018 11:57 PM [email or web address]
--- NOTE | 2018-05-06 01:18 | POSTANESTH ---
Post Anesthetic Evaluation Cardiovascular Status: Normal, Stable Respiratory Status: Normal, Stable Level of Consciousness/Mental Status: Mildly Sleepy, Arousable Pain Control: Adequate, Prn Tx Ordered Nausea/Vomiting Control: Adequate, Prn Tx Ordered Complications Possibly Related to Anesthesia: None Noted
[2018-05-06] MEDS: PANTOPRAZOLE SODIUM 40 MG VIAL IVP SCH ×5 (01:42→20:52)
[2018-05-06 05:29] LABS: PLATELET COUNT 205 10^3/uL (150-400)
--- NOTE | 2018-05-06 05:43 | GCON ---
[f rep st] CONSULTATION DATE OF CONSULTATION: 05/05/2018 REQUESTING PHYSICIAN: Dolores Olson MD. CHIEF COMPLAINT: Hematemesis. HISTORY OF PRESENT ILLNESS: Patricia is an 82-year-old female with multiple medical problems including atrial fibrillation on chronic anticoagulation therapy, congestive heart failure, coronary artery disease, type 2 diabetes mellitus, who was admitted to the hospital today with prolonged nausea, vomiting , followed by hematemesis x2. She was recently in a SNF for rehab. MEDICATIONS: Prior to admission include metformin 100 mg p.o. b.i.d. with meals , Eliquis 5 mg p.o. b.i.d., amiodarone 200 mg p.o. daily, Benefiber 1 g p.o. b.i.d., loperamide 4 mg p.o. daily p.r.n. diarrhea. ALLERGIES: She is allergic to penicillins. PAST MEDICAL HISTORY: Significant for atrial fibrillation on chronic anticoagulation, atherosclerotic cardiovascular disease, congestive heart failure (diastolic and systolic, with ejection fracture of 45%), dementia, diabetes mellitus type 2, hypertension, and hyperlipidemia. PAST SURGICAL HISTORY: Significant for coronary artery stenting and CABG, cholecystectomy, gastric bypass. She also has obstructive sleep apnea on CPAP and obesity, and asymptomatic cholelithiasis. FAMILY HISTORY: Negative for GI malignancies or peptic ulcer disease. SOCIAL HISTORY: She is a former smoker. She does not drink alcohol. She lives with her brother. REVIEW OF SYSTEMS: Negative for comprehensive review of systems other than nausea, vomiting, hematemesis, and fatigue, prior to admission. PHYSICAL EXAMINATION: VITAL SIGNS: Temperature 36.5 Celsius, pulse is 103 and regular, blood pressure 110/61, respiratory rate 16, O2 saturation 94% on 2 L per nasal cannula. GENERAL: A well-developed, well-nourished female sitting in chair, looking in moderate distress. INTEGUMENT: Clear. HEENT: Head atraumatic, normocephalic. Pupils equal, round, reactive to light. EOMs intact. Sclerae nonicteric. Nares patent. Mucous membranes moist. Dentition fair. NECK: Supple. Trachea midline. LYMPHATICS: No cervical or axillary adenopathy palpated. PULMONARY: Lungs clear to percussion and auscultation. CARDIOVASCULAR: Mild tachycardia. Normal S1, S2 without murmur. The sternal scar is well healed. GASTROINTESTINAL: Abdomen supple, positive bowel sounds. No liver, spleen tip palpable. No masses or tenderness noted. No fluid wave. EXTREMITIES: Without deformity. NEURO: The patient was alert and oriented x3. No focal neurologic deficits. LABS: White count 8.89, hemoglobin 9.5, hematocrit 31.1, platelets 310,000. Pro time 22.8, INR 2.13, PTT 33.7. Electrolytes normal. Anion gap 18, BUN 63, creatinine 2.0. LFTs normal. Albumin 3.2. IMPRESSION: 1. Acute upper gastrointestinal bleed with posthemorrhagic anemia exacerbated by chronic anticoagulation therapy, rule out peptic ulcer disease, rule out Keren-Franco tear. 2. Atrial fibrillation. 3. Congestive heart failure. 4. Atherosclerotic coronary vascular disease. 5. Diabetes mellitus. 6. Obstructive sleep apnea. 7. Obesity. 8. Status post gastric bypass. RECOMMENDATIONS: 1. N.p.o. 2. IV PPI therapy. 3. Urgent esophagogastroduodenoscopy tonight with general anesthetic and endotracheal intubation due to the patient's chronic medical conditions and active GI bleeding. The patient is high risk for complication with procedure.She is ASA III. /[id number]/MODL MTDD
--- NOTE | 2018-05-06 07:04 | PDMN ---
Medical Necessity Medical necessity: Pt meets inpt criteria per MD order and MCG M-180, Gastrointestinal Bleeding, Upper. 82 y/o w/pmhx including afib- on chronic AC, CHF, and CAD, recently released from SNF presented w/nausea/hematemisis, abd discomfort and weakness, admitted w/acute upper GI bleed w/posthemorrhagic anemia exacerbated by chronic anticoag therapy, required emergent EGD. Inpt status as pt is high risk w/lg vol bleed on anticoagulants (eliquis), SDU lv of care, serial H&H, GI following, NPO, IV PPI.
[2018-05-06] MEDS: INSULIN LISPRO 100 UNIT/ML SC SCH ×3 (08:45→17:42)
--- NOTE | 2018-05-06 09:07 | HOSPPROG ---
Hospitalist Progress Note Assessment/Plan: 82 yo F w cad, af on ac, here w UGIB presumably 2/2 large prox jejunal ulcer ABLA: 2/2 GI bleed about to get 4 th unit jejunal ulcer: presumably this is the source of bleeding continue ppi IR eval if further bleeding AF: continue BB hold anticoag proph: scd's DM: insulin ss hold metformin cad: hold asa dispo: inpt Subjective: case d/w Dr Singh. no vomiting since ER Objective: Vital Signs Temp Pulse Resp BP Pulse Ox 37.1 C 95 14 90/50 L 98 05/06/18 04:00 05/06/18 06:00 05/06/18 06:00 05/06/18 06:00 05/06/18 06:00 Laboratory Results 05/06/18 07:55 05/06/18 05:20 05/05/18 05/06/18 05/07/18 05:59 05:59 05:59 Intake Total 6700 Output Total 150 500 Balance 6550 -500 PT 22.8 SEC (12.0-15.0) H 05/05/18 19:30 INR 2.13 (0.83-1.16) H 05/05/18 19:30 - Physical Exam Constitutional: no apparent distress, appears nourished Eyes: PERRL, anicteric sclera Ears, Nose, Mouth, Throat: moist mucous membranes, hearing normal Cardiovascular: regular rate and rhythym, no murmur, rub, or gallop Respiratory: no respiratory distress, no rales or rhonchi Gastrointestinal: normoactive bowel sounds, soft, non-tender abdomen, No guarding, No rebound Genitourinary: no bladder fullness, No randhawa in urethra Skin: warm, normal color Musculoskeletal: full muscle strength Neurologic: AAOx3 ICD10 Worksheet Patient Problems: Problems Problem Status Onset Medication induced coagulopathy Acute Upper GI bleed Acute Abdominal pain Acute Acute kidney injury Acute CHF (congestive heart failure) Acute Cellulitis Acute Chest pain Acute Dehydration Acute Gallstone Acute Hypokalemia Acute Hypoxemia Acute Pulmonary edema Acute Severe sepsis Acute
[2018-05-06] MEDS: AMIODARONE HCL 200 MG TAB PO SCH (09:10)
[2018-05-06] MEDS: METOPROLOL TARTRATE 25 MG TAB PO SCH ×2 (09:11→20:52)
[2018-05-06] MEDS: DICLOFENAC 1% TP SCH ×2 (09:12→20:56)
--- NOTE | 2018-05-06 12:07 | ASMTCMCOM ---
CM Note CM Note Notes: Patient admitted with UGIB, found to have jejunal ulcer. On IV ppi with GI following. I met with patient's son Salvatore and HONG Levy. Patient was recently at [facility] SNF for 20 days. She was home for 4 days before this admission. She had home care with [facility]. She lives w her other son Shahbaz; however, Salvatore has concerns about her long-term success at home. He is looking into assisted living facilities. Discharge needs TBD right now; Salvatore/Mildred approve [facility] if SNF is recommended. Case Management will follow. Date Signed: 05/06/2018 12:07 PM Electronically Signed By:Alesha Castaneda RN
--- NOTE | 2018-05-06 15:00 | WOCRNPDOC ---
FAM Advanced Assessment Note - Skin Integrity Problem, Advanced Assess Left Heel Dressing Type: Allevyn Life Dressing Description: Clean/Dry, Intact Exudate Amount: Minimal Exudate Color: Yellow, Brown Exudate Characteristic(s): Serosanguinous Integumentary Issue Intervention: Dressing Changed Dyan Wound Tissue: Erythema (up to 2cm circumferential), Scarred Wound Bed Color: Purple, Red Wound Bed Constitution: Granulation Tissue (100%) Wound Edges: Epithelizing, Attached, Irregular Site Measurement - Head-to-Toe Length X Width X Depth (cm): 2.3x1.5x0.2 Skin Integrity Problem Comment: Open area on L achilles per records this is a recurrent/chronic Diabetic ulcer. Cleaned with ns and gauze. wound gel applied and covered with Allevyn life border foam dressing. Shayla BENITEZ and MAIA Yeer in room for care. Wound care will follow.
--- NOTE | 2018-05-06 15:24 | SOAPPROG ---
SOAP Progress Note Assessment/Plan: Assessment: 1. 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 2. Post-hemorrhagic anemia; stabilized. Plan: 1. Full liquid diet. 2. Serial H/H. 3. If has acute rebleed will go to IR for ablation of bleeding vessel. If not, will rescope prior to D/C to better assess ulcer. Ervin Morales MD [phone] 05/06/18 15:20 Subjective: CC: Jejunal ulcer bleed. interval HPI: Patient with one black BM this am. No N/V or abdominal pain. Objective: Vital Signs Temp Pulse Resp BP Pulse Ox 37.1 C 89 22 H 110/65 100 05/06/18 04:00 05/06/18 12:00 05/06/18 12:00 05/06/18 12:00 05/06/18 12:00 Laboratory Results 05/06/18 07:55 05/06/18 05:20 05/05/18 05/06/18 05/07/18 05:59 05:59 05:59 Intake Total 6700 Output Total 150 1200 Balance 6550 -1200 PT 22.8 SEC (12.0-15.0) H 05/05/18 19:30 INR 2.13 (0.83-1.16) H 05/05/18 19:30 Physical Exam - Physical Exam General Appearance: WD/WN, alert, no apparent distress Respiratory: lungs clear, normal breath sounds Cardiac/Chest: regular rate, rhythm Abdomen: normal bowel sounds, non-tender, soft Skin: normal color, warm/dry Neuro/Psych: alert, normal mood/affect, oriented x 3 ICD10 Worksheet Patient Problems: Problems Problem Status Onset Medication induced coagulopathy Acute Upper GI bleed Acute Abdominal pain Acute Acute kidney injury Acute CHF (congestive heart failure) Acute Cellulitis Acute Chest pain Acute Dehydration Acute Gallstone Acute Hypokalemia Acute Hypoxemia Acute Pulmonary edema Acute Severe sepsis Acute
[2018-05-06] MEDS: [UNRECOGNIZED DRUG - OTHER] TP SCH (22:57)
[2018-05-07] MEDS: PANTOPRAZOLE SODIUM 40 MG VIAL IVP SCH ×4 (01:53→21:06)
[2018-05-07] MEDS: INSULIN LISPRO 100 UNIT/ML SC SCH ×3 (07:46→18:27)
[2018-05-07] MEDS: AMIODARONE HCL 200 MG TAB PO SCH (08:05)
[2018-05-07] MEDS: [UNRECOGNIZED DRUG - OTHER] TP SCH ×2 (08:06→20:59)
--- NOTE | 2018-05-07 12:01 | ASMTCMCOM ---
CM Note CM Note Notes: CM spoke with pt in the room. Pt only home from SNF 4 days before admission. PT and OT recommending SNF. Pt hoping to get stronger and avoid SNF, but agreed to send referral to [facility], in case. Referral sent. Family may need CM support to solve housing issues in the [place] [employer]. CM provided family with [facility] on last admission. CM to follow. D/C Plan: SNF v [facility] Date Signed: 05/07/2018 12:01 PM Electronically Signed By:Shanell Almaguer
[2018-05-07] MEDS: METOPROLOL TARTRATE 25 MG TAB PO SCH ×2 (12:45→20:59)
--- NOTE | 2018-05-07 14:29 | HOSPPROG ---
Hospitalist Progress Note Assessment/Plan: 82 yo F w cad, af on ac, here w UGIB presumably 2/2 large prox jejunal ulcer ABLA: 2/2 GI bleed has required 4 units so far and recurrent bleeding today, h/h stable this am post bleed, will get repeat this evening, presumably 2/2 next jejunal ulcer: and GI hemorrhage presumably this is the source of bleeding and near surgical anastamosis line post gastric bypass--no intervention on EGD and no actyive bleed at that time today several large volume liquid marroon stools and IR angiography performed without e/o active bleed if bleeding recurs, would need to d/w GI if repeat EGD first but if that does not show bleed would need surgical consult continue ppi AF: continue BB hold anticoag proph: scd's DM: insulin ss hold metformin cad: hold asa dispo: inpt Discussed at length with Dr. Franklin Subjective: today with several large volme liquid marroon colored stools, not dizzy, no other complaints Objective: Vital Signs Temp Pulse Resp BP Pulse Ox 36.7 C 89 18 115/58 L 98 05/07/18 07:40 05/07/18 12:00 05/07/18 12:00 05/07/18 12:00 05/07/18 12:00 Laboratory Results 05/07/18 11:18 05/06/18 05:20 05/06/18 05/07/18 05/08/18 05:59 05:59 05:59 Intake Total 6700 1550 Output Total 150 1500 700 Balance 6550 50 -700 PT 22.8 SEC (12.0-15.0) H 05/05/18 19:30 INR 2.13 (0.83-1.16) H 05/05/18 19:30 Constitutional: chronically ill appearing, obese Eyes: PERRL, anicteric sclera Ears, Nose, Mouth, Throat: hearing normal, poor dentition, dry mucous membranes Cardiovascular: regular rate and rhythym, no murmur, rub, or gallop, edema Respiratory: no respiratory distress, no rales or rhonchi, reduced air movement Gastrointestinal: normoactive bowel sounds, tenderness, No guarding, No rebound Genitourinary: no bladder tenderness Skin: warm, normal color Musculoskeletal: no muscle tenderness Neurologic: AAOx3 Psychiatric: interacting appropriately, not anxious, poor memory ICD10 Worksheet Patient Problems: Problems Problem Status Onset Medication induced coagulopathy Acute Upper GI bleed Acute Abdominal pain Acute Acute kidney injury Acute CHF (congestive heart failure) Acute Cellulitis Acute Chest pain Acute Dehydration Acute Gallstone Acute Hypokalemia Acute Hypoxemia Acute Pulmonary edema Acute Severe sepsis Acute
[2018-05-07] MEDS ORDERED: IOPAMIDOL (ISOVUE-300) 100 ML BTL ONE (14:54)
[2018-05-07] MEDS ORDERED: MEPERIDINE 25 MG/ML SYR IVP PRN (15:22)
[2018-05-07] MEDS ORDERED: ALTEPLASE 2 MG VIAL IVP PRN (15:22)
[2018-05-07] MEDS ORDERED: FLUMAZENIL 0.5 MG/5 ML MDV IVP PRN (15:22)
[2018-05-07] MEDS ORDERED: GLUCAGON HCL 1 MG VIAL IVP PRN (15:22)
[2018-05-07] MEDS ORDERED: MIDAZOLAM 2 MG/2 ML VIAL IVP PRN (15:22)
[2018-05-07] MEDS ORDERED: NALOXONE HCL 0.4 MG/ML INJ IVP PRN (15:22)
[2018-05-07] MEDS ORDERED: fentaNYL 100 MCG/2 ML INJ IVP PRN (15:22)
[2018-05-07] MEDS ORDERED: HEPARIN 10,000 UNIT/10 ML MDV (1,000 UNIT/ML) IVP PRN (15:22)
[2018-05-07] MEDS ORDERED: PROTAMINE SULFATE 50 MG/5 ML VIAL IVP PRN (15:22)
--- NOTE | 2018-05-07 15:25 | PDHPUP ---
History & Physical Update H&P update statement: This history and physical update is based on an assessment of the patient which was completed after admission or registration (within 24 hours), but prior to the surgery/procedure. Acute upper GI bleed s/p endoscopy which demonstrated large jejunal ulcer at gastroJ anastamosis. Unable to control endoscopically, next step would be angiography with possible embolization. Plan to hydrate given risk of contrast induced nephropathy in this urgent situation. Post surgical alterations of anatomy/blood flow may prevent trans catheter selection of vascular supply to bleed, which may not be angiographically apparent given intermittent nature of GI bleeds. H&P update: H&P reviewed & patient examined, no change in patient's condition since H&P completed
[2018-05-07] MEDS ORDERED: MIDAZOLAM 2 MG/2 ML VIAL ONE (15:28)
[2018-05-07] MEDS ORDERED: NS 1,000 ML IV SCH (15:30)
--- NOTE | 2018-05-07 16:15 | SOAPPROG ---
SOAP Progress Note Assessment/Plan: Assessment: 1. 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 2. Post-hemorrhagic anemia. Plan: 1. NPO. 2. Communicated with Hospitalist and with interventional radiologist, will proceed with angiography urgently today. Ervin Morales MD [phone] 05/07/18 16:12 Subjective: CC: Chronicjejunal ulcer with recurrent bleed. Interval HPI: Patraient have recurrent bleeding this am with BRB per rectum x 2. Objective: Vital Signs Temp Pulse Resp BP Pulse Ox 36.7 C 89 18 99/52 L 100 05/07/18 07:40 05/07/18 12:00 05/07/18 12:00 05/07/18 15:58 05/07/18 16:00 Laboratory Results 05/07/18 11:18 05/06/18 05:20 05/06/18 05/07/18 05/08/18 05:59 05:59 05:59 Intake Total 6700 1550 Output Total 150 1500 700 Balance 6550 50 -700 PT 22.8 SEC (12.0-15.0) H 05/05/18 19:30 INR 2.13 (0.83-1.16) H 05/05/18 19:30 Physical Exam - Physical Exam General Appearance: alert, moderate distress Respiratory: lungs clear, normal breath sounds Cardiac/Chest: regular rate, rhythm Abdomen: non-tender, soft Skin: warm/dry Neuro/Psych: alert, normal mood/affect, oriented x 3 ICD10 Worksheet Patient Problems: Problems Problem Status Onset Medication induced coagulopathy Acute Upper GI bleed Acute Abdominal pain Acute Acute kidney injury Acute CHF (congestive heart failure) Acute Cellulitis Acute Chest pain Acute Dehydration Acute Gallstone Acute Hypokalemia Acute Hypoxemia Acute Pulmonary edema Acute Severe sepsis Acute
--- NOTE | 2018-05-07 16:42 | PDRADPN ---
Radiology Procedure Note Date of Procedure: 05/07/18 Radiologist: Kvng Franklin Anesthesia: IV Sedation Pre-op Diagnosis: Upper GI bleed Post-op Diagnosis: Upper GI bleed Indication: Arterial bleed from jejunal ulcer per GI Procedure: Arteriogram Finding(s): No active extravasation, AVF, AVM, or pseudoaneurysm visualized with selective angiography of GDA, dorsal pancreatic, left gastric, celiac, SMA , and MIKAELA. Prominant venous drainage from left gastric artery supplying decompressed gastric body, correlation with varices on endoscopy is recommended as post gastic bypass surgical alteration can result in variceal formation. Inf/Abcess present in the surg proc area at time of surgery?: No
--- NOTE | 2018-05-07 17:43 | HOSPPROG ---
Hospitalist Progress Note Objective: Vital Signs Temp Pulse Resp BP Pulse Ox 36.7 C 89 18 104/59 L 100 05/07/18 07:40 05/07/18 12:00 05/07/18 12:00 05/07/18 16:23 05/07/18 16:23 Laboratory Results 05/07/18 11:18 05/06/18 05:20 05/06/18 05/07/18 05/08/18 05:59 05:59 05:59 Intake Total 6700 1550 Output Total 150 1500 700 Balance 6550 50 -700 PT 22.8 SEC (12.0-15.0) H 05/05/18 19:30 INR 2.13 (0.83-1.16) H 05/05/18 19:30 ICD10 Worksheet Patient Problems: Problems Problem Status Onset Chest pain Acute Cellulitis Acute Pulmonary edema Acute Severe sepsis Acute Gallstone Acute Abdominal pain Acute CHF (congestive heart failure) Acute Hypoxemia Acute Hypokalemia Acute Dehydration Acute Acute kidney injury Acute Upper GI bleed Acute Medication induced coagulopathy Acute
[2018-05-08] MEDS: PANTOPRAZOLE SODIUM 40 MG VIAL IVP SCH ×4 (02:56→21:26)
[2018-05-08 05:41] LABS: PLATELET COUNT 165 10^3/uL (150-400)
[2018-05-08] MEDS: METOPROLOL TARTRATE 25 MG TAB PO SCH ×2 (07:36→21:23)
[2018-05-08] MEDS: ACETAMINOPHEN 325 MG TAB PO PRN (07:36)
[2018-05-08] MEDS: AMIODARONE HCL 200 MG TAB PO SCH (07:37)
[2018-05-08] MEDS: [UNRECOGNIZED DRUG - OTHER] TP SCH ×2 (08:43→21:31)
[2018-05-08] MEDS: INSULIN LISPRO 100 UNIT/ML SC SCH ×3 (08:43→17:18)
[2018-05-08] MEDS: POTASSIUM Cl (KCl) 100 ML IV SCH ×2 (11:23→14:34)
--- NOTE | 2018-05-08 11:48 | HOSPPROG ---
Hospitalist Progress Note Assessment/Plan: 82 yo F w cad, af on ac, here w UGIB presumably 2/2 large prox jejunal ulcer ABLA: 2/2 GI bleed- 4 units given so far. etiology due to "Giant jejunal ulcer" which is non bleeding, per GI on endocscope. rebled yesterday, taken to IR but anio with no extravasation, and nothing to treat. This morning H/H stable. Family concerned no intervention has been undertaken and is apprehensive about DC. -cont PPI -Cont monitoring H/H -any further rebleed will need to discuss with GI/surgery for repeat scope and then possible surgery. jejunal ulcer: and GI hemorrhage presumably this is the source of bleeding and near surgical anastamosis line post gastric bypass--no intervention on EGD and no actyive bleed at that time. had bleeding yesterday, but IR angiography with no extravasation, no AVF, AVM or other source. -monitor H/H -PPI -any further bleeding, talk to GI and surgery AF: continue BB hold anticoag proph: scd's DM: insulin ss hold metformin cad: hold asa dispo: inpt Extensive discussion had with family, spent over 40 minutes discussion treatment plan with patient and family. Subjective: no ab pain, no sob, cough or other complaints. Objective: Vital Signs Temp Pulse Resp BP Pulse Ox 36.6 C 85 18 113/66 87 L 05/08/18 11:30 05/08/18 11:30 05/08/18 11:30 05/08/18 11:30 05/08/18 11:30 Laboratory Results 05/08/18 05:14 05/08/18 05:14 05/07/18 05/08/18 05/09/18 05:59 05:59 05:59 Intake Total 1550 1500 Output Total 1500 1650 Balance 50 -150 PT 22.8 SEC (12.0-15.0) H 05/05/18 19:30 INR 2.13 (0.83-1.16) H 05/05/18 19:30 - Physical Exam Constitutional: no apparent distress, appears nourished, not in pain Eyes: PERRL, anicteric sclera, EOMI Ears, Nose, Mouth, Throat: moist mucous membranes, hearing normal, ears appear normal, no oral mucosal ulcers Cardiovascular: regular rate and rhythym, no murmur, rub, or gallop Respiratory: no respiratory distress, no rales or rhonchi, clear to auscultation Gastrointestinal: normoactive bowel sounds, soft, non-tender abdomen, no palpable masses Genitourinary: no bladder fullness, no bladder tenderness, no renal bruits Skin: no rashes or abrasions, no fluctuance, no induration Musculoskeletal: full muscle strength, no muscle tenderness, normal joint ROM Neurologic: AAOx3, sensation intact bilaterally Psychiatric: interacting appropriately, not anxious, not encephalopathic, thought process linear Lymph, Heme, Immunologic: no cervical LAD, no supraclavicular LAD ICD10 Worksheet Patient Problems: Problems Problem Status Onset Medication induced coagulopathy Acute Upper GI bleed Acute Abdominal pain Acute Acute kidney injury Acute CHF (congestive heart failure) Acute Cellulitis Acute Chest pain Acute Dehydration Acute Gallstone Acute Hypokalemia Acute Hypoxemia Acute Pulmonary edema Acute Severe sepsis Acute
--- NOTE | 2018-05-08 16:06 | PDANEPAE ---
ANE History of Present Illness GI bleeding, jejunal ulcer ANE Past Medical History - Cardiovascular History Hx Hypertension: Yes Hx Arrhythmias: Yes Hx Chest Pain: No Hx Coronary Artery / Peripheral Vascular Disease: Yes Hx CHF / Valvular Disease: Yes Hx Palpitations: No Cardiovascular History Comment: Echo on 05/05 with EF of 45-50%,diastolyc dysfunction,, basal/mid inferior and inferolteral akinesis,mod MR, mod TR, RSVP 44 mmHG. anemia. a fib - Pulmonary History Hx COPD: No Hx Asthma/Reactive Airway Disease: No Hx Oxygen in Use at Home: Yes O2 in Use at Home (L/minute): 3 Hx Sleep Apnea: Yes Sleep Apnea Screening Result - Last Documented: Positive Pulmonary History Comment: sleep apnea 2L at noc with cpap - Neurologic History Hx Cerebrovascular Accident: No Hx Seizures: No Hx Dementia: No - Endocrine History Hx Diabetes: Yes Hypothyroid: No Hyperthyroid: No Obesity: yes, mild - Renal History Hx Renal Disorders: No - Liver History Hx Hepatic Disorders: No - Neurological & Psychiatric Hx Hx Neurological and Psychiatric Disorders: No - Cancer History Hx Cancer: Yes Cancer History Comment: skin cancer - Congenital Disorder History Hx Congenital Disorders: No - GI History GERD: no Hx Gastrointestinal Disorders: No - Other Health History Other Health History: wound on ankle - Chronic Pain History Chronic Pain: No (BONE SPURS TO LEFT SHOULDER) - Surgical History Prior Surgeries: ohs quad bypass 2014 ANE Review of Systems Review of systems is: negative Review of Systems: ANE Patient History - Allergies Allergies/Adverse Reactions: Penicillins Allergy (Mild, Verified 04/05/18 18:55) Rash amoxicillin Allergy (Verified 04/05/18 18:55) - Home Medications Home medications: home medication list seen and reviewed Home Medications: Metformin HCl [Metformin 1000 mg] 1,000 mg PO BIDMEAL 05/03/17 [Last Taken 05/05 08:00] Apixaban [Eliquis] 5 mg PO BID 02/22/18 [Last Taken 05/05/18 08:00] Amiodarone HCl [Pacerone (*)] 200 mg PO DAILY 04/05/18 [Last Taken 05/05/18] Acetaminophen [Tylenol 325mg (*)] 650 mg PO Q6 PRN 05/05/18 [Last Taken Unknown] Benefiber 1 Gm Tab 3 each PO BID 05/05/18 [Last Taken Unknown] Loperamide HCl [Imodium 2 mg (*)] 4 mg PO DAILY PRN 05/05/18 [Last Taken Unknown ] Deep Blue Rub 1 violeta TP BID 05/06/18 [Last Taken Unknown] - NPO status NPO Status: no food or drink >8 hours NPO Since - Liquids (Date): 05/04/18 NPO Since - Liquids (Time): 20:00 NPO Since - Solids (Date): 05/04/18 NPO Since - Solids (Time): 20:00 - Anes Hx Anes Hx: no prior problems - Smoking Hx Smoking Status: Former smoker - Alcohol Use Alcohol Use: None - Family Anes Hx Family Anes Hx: none Family Hx Anesthesia Complications: none ANE Labs/Vital Signs - Labs Result Diagrams: 05/08/18 14:15 05/08/18 05:14 - Vital Signs Blood Pressure: 112/66 Heart Rate: 75 Respiratory Rate: 18 O2 Sat (%): 94 Height: 162.56 cm Weight: 84.1 kg ANE Physical Exam - Airway Neck exam: FROM Mallampati Score: Class 2 Mouth exam: normal dental/mouth exam - Pulmonary Pulmonary: no respiratory distress, clear to auscultation - Cardiovascular Cardiovascular: regular rate and rhythym, no murmur, rub, or gallop - ASA Status ASA Status: IV ANE Anesthesia Plan Anesthesia Plan: GA with mask
--- NOTE | 2018-05-08 16:42 | ASMTCMCOM ---
CM Note CM Note Notes: CM discussed case with Zeenat TOWNSEND, she met with the patient today and patient vocalized she is more open to returning to [facility], she also mentioned her son would prefer and support discharge to [facility]. Patient my be ready to discharge in 1-2 days. CM spoke with Isabel, [facility] rep, and updated her on patient status. CM to follow. D/C Plan: SNF Date Signed: 05/08/2018 04:41 PM Electronically Signed By:Khushbu Cole
[2018-05-08] MEDS ORDERED: LR 1,000 ML IV ONE (17:14)
--- NOTE | 2018-05-08 17:30 | PDANEPAE ---
ANE History of Present Illness 82 year old with GI bleed ANE Past Medical History - Cardiovascular History Hx Hypertension: Yes Hx Arrhythmias: Yes Hx Chest Pain: No Hx Coronary Artery / Peripheral Vascular Disease: Yes Hx CHF / Valvular Disease: Yes Hx Palpitations: No Cardiovascular History Comment: Echo on 05/05 with EF of 45-50%,diastolyc dysfunction,, basal/mid inferior and inferolteral akinesis,mod MR, mod TR, RSVP 44 mmHG. anemia. a fib - Pulmonary History Hx COPD: No Hx Asthma/Reactive Airway Disease: No Hx Oxygen in Use at Home: Yes O2 in Use at Home (L/minute): 3 Hx Sleep Apnea: Yes Sleep Apnea Screening Result - Last Documented: Positive Pulmonary History Comment: sleep apnea 2L at noc with cpap - Neurologic History Hx Cerebrovascular Accident: No Hx Seizures: No Hx Dementia: No - Endocrine History Hx Diabetes: Yes Hypothyroid: No Hyperthyroid: No Obesity: yes, mild - Renal History Hx Renal Disorders: No - Liver History Hx Hepatic Disorders: No - Neurological & Psychiatric Hx Hx Neurological and Psychiatric Disorders: No - Cancer History Hx Cancer: Yes Cancer History Comment: skin cancer - Congenital Disorder History Hx Congenital Disorders: No - GI History GERD: no Hx Gastrointestinal Disorders: No - Other Health History Other Health History: wound on ankle - Chronic Pain History Chronic Pain: No (BONE SPURS TO LEFT SHOULDER) - Surgical History Prior Surgeries: ohs quad bypass 2014 ANE Review of Systems Review of Systems: ANE Patient History - Allergies Allergies/Adverse Reactions: Penicillins Allergy (Mild, Verified 04/05/18 18:55) Rash amoxicillin Allergy (Verified 04/05/18 18:55) - Home Medications Home Medications: Metformin HCl [Metformin 1000 mg] 1,000 mg PO BIDMEAL 05/03/17 [Last Taken 05/05 08:00] Apixaban [Eliquis] 5 mg PO BID 02/22/18 [Last Taken 05/05/18 08:00] Amiodarone HCl [Pacerone (*)] 200 mg PO DAILY 04/05/18 [Last Taken 05/05/18] Acetaminophen [Tylenol 325mg (*)] 650 mg PO Q6 PRN 05/05/18 [Last Taken Unknown] Benefiber 1 Gm Tab 3 each PO BID 05/05/18 [Last Taken Unknown] Loperamide HCl [Imodium 2 mg (*)] 4 mg PO DAILY PRN 05/05/18 [Last Taken Unknown ] Deep Blue Rub 1 violeta TP BID 05/06/18 [Last Taken Unknown] - NPO status NPO Since - Liquids (Date): 05/04/18 NPO Since - Liquids (Time): 20:00 NPO Since - Solids (Date): 05/04/18 NPO Since - Solids (Time): 20:00 - Anes Hx Anes Hx: no prior problems - Smoking Hx Smoking Status: Former smoker - Alcohol Use Alcohol Use: None - Family Anes Hx Family Hx Anesthesia Complications: none ANE Labs/Vital Signs - Labs Result Diagrams: 05/08/18 14:15 05/08/18 05:14 - Vital Signs Blood Pressure: 112/66 Heart Rate: 75 Respiratory Rate: 18 O2 Sat (%): 94 Height: 162.56 cm Weight: 84.1 kg ANE Physical Exam - Airway Mallampati Score: Class 1 - Pulmonary Pulmonary: no respiratory distress, clear to auscultation - Cardiovascular Cardiovascular: regular rate and rhythym - ASA Status ASA Status: III
[2018-05-08] MEDS ORDERED: fentaNYL 100 MCG/2 ML INJ ONE (17:53)
[2018-05-08] MEDS ORDERED: PROPOFOL 200 MG/20 ML VIAL ONE (17:55)
--- NOTE | 2018-05-08 18:38 | GIREPORT ---
[facility] - Endoscopy Department Patient Name: Patricia Mahonye Procedure Date: 05/08/2018 5:30 PM Patient Type: Inpatient Attending MD/ ER Physician: Ervin Morales MD Procedure: Upper GI endoscopy Indications: Melena, Active gastrointestinal bleeding Providers: Ervin Morales MD Medicines: General Anesthesia Complications: No immediate complications. Description of Procedure: After obtaining informed consent, the endoscope was passed under direct vision. Throughout the procedure, the patient's blood pressure, pulse, and oxygen saturations were monitored continuously. The Endoscope was intro duced through the mouth, and advanced to the jejunum. The upper GI endoscopy was accomplished without difficulty. The patient tolerated the procedure we ll. Findings: The examined esophagus was normal. Evidence of a gastric bypass was found. A gastric pouch with a medium s ize was found. The staple line appeared intact. The gastrojejunal anastomos is was ulcerated on the jejunal side with stigmata of recent bleed. This w as traversed. The zvyce-os-asmleja limb measured 6 cm from anastomosis and was characterized by healthy appearing mucosa beyond the ulcer. The xmwsevea-rr-egziaux limb was not examined as it could not be found. For hemostasis, one hemostatic clip was successfully placed on the ulcerati on at the stigmata. There was no bleeding during, or at the end, of the proce dure. Estimated Blood Loss: Estimated blood loss: none. Post Op Diagnosis: - Normal esophagus. - Gastric bypass with a medium-sized pouch and intact staple line. Gastrojejunal anastomosis characterized by healthy appearing mucosa. Cl ip was placed. - No specimens collected. Recommendation: - Return patient to hospital card for ongoing care. - Clear liquid diet today. - Check hemogram with white blood cell count and platelets and CMP in t he morning. - Consider PICC line. IR radiology for angiography if rebleeds. - The findings and recommendations were discussed with the patient and their family. Attending Participation: I personally performed the entire procedure. Ervin Morales MD Ervin Morales MD 05/08/2018 6:38:09 PM This report has been signed electronicallyErvin Morales MD Number of Addenda: 0 Note Initiated On: 05/08/2018 5:30 PM [email or web address]
[2018-05-08] MEDS ORDERED: NALOXONE HCL 0.4 MG/ML INJ IVP PRN (18:48)
[2018-05-08] MEDS ORDERED: ONDANSETRON 4 MG/2 ML VIAL IVP PRN (18:53)
--- NOTE | 2018-05-08 18:58 | POSTANESTH ---
Post Anesthetic Evaluation Cardiovascular Status: Normal, Stable Respiratory Status: Normal, Stable, Requires Airway Assist Pain Control: Adequate, Prn Tx Ordered Nausea/Vomiting Control: Adequate, Prn Tx Ordered Complications Possibly Related to Anesthesia: Other, See Comments (Pt recieved induction medications including rocuronium a paralytic via IV that was infiltrated. Pt to be admitted to telemetry for observation. No obvious weakness or respiratory distress. Sat 96 on NC, Attending aware)
[2018-05-09] MEDS: PANTOPRAZOLE SODIUM 40 MG VIAL IVP SCH ×4 (02:24→20:29)
[2018-05-09 04:33] LABS: PLATELET COUNT 182 10^3/uL (150-400)
[2018-05-09] MEDS: POTASSIUM Cl (KCl) 100 ML IV SCH (05:34)
[2018-05-09] MEDS ORDERED: POTASSIUM CL 20 MEQ TAB PO ONE (07:30)
[2018-05-09] MEDS ORDERED: PROTOCOL POTASSIUM 1 DOSE MISC PRN (07:52)
[2018-05-09] MEDS ORDERED: PROTOCOL MAGNESIUM 1 DOSE IV PRN (07:52)
[2018-05-09] MEDS ORDERED: PROTOCOL CALCIUM 1 DOSE IV PRN (07:52)
[2018-05-09] MEDS: AMIODARONE HCL 200 MG TAB PO SCH (08:52)
[2018-05-09] MEDS: METOPROLOL TARTRATE 25 MG TAB PO SCH ×2 (08:53→20:29)
--- NOTE | 2018-05-09 08:58 | CPEKG ---
Test Reason : Blood Pressure : / mmHG Vent. Rate : 110 BPM Atrial Rate : 082 BPM P-R Int : 134 ms QRS Dur : 154 ms QT Int : 411 ms P-R-T Axes : 000 233 043 degrees QTc Int : 557 ms Atrial fibrillation Right bundle branch block with LAFB Similar to prior Confirmed by Micha James ([id number]) on 05/09/2018 8:58:12 AM Referred By: Dolores Olson Confirmed By:Micha James
[2018-05-09] MEDS: INSULIN LISPRO 100 UNIT/ML SC SCH ×3 (09:00→17:09)
[2018-05-09] MEDS: [UNRECOGNIZED DRUG - OTHER] TP SCH ×2 (09:51→21:35)
[2018-05-09] MEDS ORDERED: MAGNESIUM SULF 2 GM/WATER 50 ML IV ONE (11:28)
[2018-05-09] MEDS ORDERED: CALCIUM GLUCONATE 50 ML IV ONE (11:28)
--- NOTE | 2018-05-09 11:37 | ASMTCMCOM ---
CM Note CM Note Notes: Met with Pt and she is Ok with going to [facility] at [place]. I spoke to Sonam at [facility] and they have authorization that runs out (48hrs) by the end of Wednesday 05/10. Updates sent to [facility]. MAIA Eduardo updated as well as . CHUCK available for needs. PLAN: To [facility] at [place] Date Signed: 05/09/2018 11:36 AM Electronically Signed By:Sydnee Munoz
[2018-05-09] MEDS ORDERED: ALTEPLASE 2 MG VIAL IVP PRN (13:26)
--- NOTE | 2018-05-09 13:33 | HOSPPROG ---
Hospitalist Progress Note Assessment/Plan: 82 yo F w cad, af on ac, here w UGIB presumably 2/2 large prox jejunal ulcer ABLA: 2/2 GI bleed- 4 units given so far. etiology due to "Giant jejunal ulcer" . had repeat endoscopy last night with area of bleeding identified with stigmata of recent bleed but nothing acute. A clip was able to to be placed. -cont PPI -Cont monitoring H/H -any further rebleed will need to discuss with IR/surgery for possible intervention -H/H has remained stable and even increased overnight. jejunal ulcer: and GI hemorrhage presumably this is the source of bleeding and near surgical anastamosis line post gastric bypass--repeat endoscopy last night with stigmata of recent bleeding, and clip placed. -monitor H/H -PPI AF: continue BB hold anticoag proph: scd's DM: insulin ss hold metformin cad: hold asa dispo: inpt lost IV access. if patient further bleeds will need urgent central line. Will place PICC today. Subjective: no BMs yet today. No ab pain, no other complaints. Objective: Vital Signs Temp Pulse Resp BP Pulse Ox 36.7 C 90 20 112/76 91 L 05/09/18 10:56 05/09/18 10:56 05/09/18 10:56 05/09/18 10:56 05/09/18 10:56 Laboratory Results 05/09/18 04:12 05/09/18 04:12 05/08/18 05/09/18 05/10/18 05:59 05:59 05:59 Intake Total 1500 895 650 Output Total 1650 980 450 Balance -150 -85 200 PT 22.8 SEC (12.0-15.0) H 05/05/18 19:30 INR 2.13 (0.83-1.16) H 05/05/18 19:30 - Physical Exam Constitutional: no apparent distress, appears nourished, not in pain Eyes: PERRL, anicteric sclera, EOMI Ears, Nose, Mouth, Throat: moist mucous membranes, hearing normal, ears appear normal, no oral mucosal ulcers Cardiovascular: regular rate and rhythym, no murmur, rub, or gallop Respiratory: no respiratory distress, no rales or rhonchi, clear to auscultation Gastrointestinal: normoactive bowel sounds, soft, non-tender abdomen, no palpable masses Genitourinary: no bladder fullness, no bladder tenderness, no renal bruits Skin: no rashes or abrasions, no fluctuance, no induration Musculoskeletal: full muscle strength, no muscle tenderness, normal joint ROM Neurologic: AAOx3, sensation intact bilaterally Psychiatric: interacting appropriately, not anxious, not encephalopathic, thought process linear Lymph, Heme, Immunologic: no cervical LAD, no supraclavicular LAD ICD10 Worksheet Patient Problems: Problems Problem Status Onset Medication induced coagulopathy Acute Upper GI bleed Acute Abdominal pain Acute Acute kidney injury Acute CHF (congestive heart failure) Acute Cellulitis Acute Chest pain Acute Dehydration Acute Gallstone Acute Hypokalemia Acute Hypoxemia Acute Pulmonary edema Acute Severe sepsis Acute
--- NOTE | 2018-05-09 17:56 | SOAPPROG ---
SOAP Progress Note Assessment/Plan: Assessment: 1. 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 2. Post-hemorrhagic anemia; stable.. Plan: 1. Full liquid diet. 2. CBC in am. Ervin Morales MD [phone] 05/09/18 17:56 Subjective: CC: DU with bleed. Interval HPI: No melena of GI complaints today. Tolerating clears po. Objective: Vital Signs Temp Pulse Resp BP Pulse Ox 36.7 C 89 16 123/66 H 100 05/09/18 15:21 05/09/18 15:21 05/09/18 15:21 05/09/18 15:21 05/09/18 15:21 Laboratory Results 05/09/18 04:12 05/09/18 04:12 05/08/18 05/09/18 05/10/18 05:59 05:59 05:59 Intake Total 1500 895 700 Output Total 1650 980 525 Balance -150 -85 175 PT 22.8 SEC (12.0-15.0) H 05/05/18 19:30 INR 2.13 (0.83-1.16) H 05/05/18 19:30 Physical Exam - Physical Exam General Appearance: alert, no apparent distress Respiratory: lungs clear, normal breath sounds Cardiac/Chest: regular rate, rhythm Abdomen: normal bowel sounds, non-tender, soft Skin: normal color, warm/dry Neuro/Psych: alert, normal mood/affect, oriented x 3 ICD10 Worksheet Patient Problems: Problems Problem Status Onset Medication induced coagulopathy Acute Upper GI bleed Acute Abdominal pain Acute Acute kidney injury Acute CHF (congestive heart failure) Acute Cellulitis Acute Chest pain Acute Dehydration Acute Gallstone Acute Hypokalemia Acute Hypoxemia Acute Pulmonary edema Acute Severe sepsis Acute
[2018-05-09] MEDS ORDERED: POTASSIUM CL 10 MEQ TAB PO ONE (21:08)
[2018-05-10] MEDS: PANTOPRAZOLE SODIUM 40 MG VIAL IVP SCH ×3 (02:41→20:34)
[2018-05-10 04:54] LABS: PLATELET COUNT 181 10^3/uL (150-400)
[2018-05-10] MEDS ORDERED: POTASSIUM CL 10 MEQ TAB PO ONE ×2 (07:11→19:39)
[2018-05-10] MEDS: INSULIN LISPRO 100 UNIT/ML SC SCH ×3 (08:13→18:13)
[2018-05-10] MEDS: [UNRECOGNIZED DRUG - OTHER] TP SCH ×2 (08:13→20:35)
[2018-05-10] MEDS: AMIODARONE HCL 200 MG TAB PO SCH (08:25)
[2018-05-10] MEDS: METOPROLOL TARTRATE 25 MG TAB PO SCH ×2 (08:25→20:34)
--- NOTE | 2018-05-10 10:23 | WOCRNPDOC ---
WOCRN Advanced Assessment Note - Skin Integrity Problem, Advanced Assess Medial Coccyx Pressure Injury Dressing Type: Mepilex Border Dressing Description: Clean/Dry, Intact Exudate Amount: None Integumentary Issue Intervention: Visualized Under Dressing Jo-Ann Wound Tissue: Erythema, Macerated (minimal jo-ann wound only), Non-blanching , Scarred Wound Bed Constitution: Granulation Tissue (100%) Wound Edges: Attached Site Measurement - Head-to-Toe Length X Width X Depth (cm): 0.6x0.3x0.2 Pressure Injury Stage: Stage 3 Pressure Injury Present on Admit: Yes Skin Integrity Problem Comment: Clean wound bed that is painful upon palpation. Patient reports that she has had a pressure injury for quite a while, and wound presentation supports that statement. Jo-Ann wound is scarred to 0.5 cm circumferentially. There is also darker non blanching area past the scar tissue that is most likely hyperpigmented skin, but may be an evolving deep tissue injury. Wound care will follow. Adriana CARVALHO in room for care and patient education about pressure injury prevention and plan of care.
[2018-05-10] MEDS ORDERED: MAGNESIUM SULF 1 GM/DEXTROSE 100 ML IV ONE (10:40)
[2018-05-10] MEDS ORDERED: POLYETHYLENE GLYCOL 3350 17 GM PKT PO PRN (11:22)
[2018-05-10] MEDS ORDERED: LACTULOSE 20 GM/30 ML UDCUP PO PRN (11:22)
[2018-05-10] MEDS ORDERED: MAGNESIUM HYDROXIDE 30 ML UDCUP PO PRN (11:22)
[2018-05-10] MEDS ORDERED: BISACODYL 10 MG SUPP PR PRN (11:22)
--- NOTE | 2018-05-10 11:52 | SOAPPROG ---
SOAP Progress Note Assessment/Plan: Assessment: 1. 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 Post-hemorrhagic anemia; stable. 3. New medial coccyx pressure sore Plan: 1. RYAN. 2. CBC in am. Ervin Morales MD 05/10/18 11:50 Subjective: cc: DU woth recent bleed. Interval HPI: Patient without BM x 2 days. Tolerating po clears. New pressure ulcer on coccyx, receiving treatment for same. Objective: Vital Signs Temp Pulse Resp BP Pulse Ox 36.3 C 87 10 L 122/75 H 90 L 05/10/18 11:29 05/10/18 11:29 05/10/18 11:29 05/10/18 11:29 05/10/18 11:29 Laboratory Results 05/10/18 04:40 05/10/18 04:40 05/09/18 05/10/18 05/11/18 05:59 05:59 05:59 Intake Total 895 1825 Output Total 980 725 Balance -85 1100 PT 22.8 SEC (12.0-15.0) H 05/05/18 19:30 INR 2.13 (0.83-1.16) H 05/05/18 19:30 Physical Exam - Physical Exam General Appearance: alert, mild distress Respiratory: lungs clear, normal breath sounds Cardiac/Chest: regular rate, rhythm Abdomen: normal bowel sounds, non-tender, soft Skin: decubitus (coccyx) Neuro/Psych: alert, normal mood/affect, oriented x 3 ICD10 Worksheet Patient Problems: Problems Problem Status Onset Medication induced coagulopathy Acute Upper GI bleed Acute Abdominal pain Acute Acute kidney injury Acute CHF (congestive heart failure) Acute Cellulitis Acute Chest pain Acute Dehydration Acute Gallstone Acute Hypokalemia Acute Hypoxemia Acute Pulmonary edema Acute Severe sepsis Acute
[2018-05-10] MEDS: FUROSEMIDE 80 MG TAB PO SCH (12:12)
--- NOTE | 2018-05-10 12:47 | HOSPPROG ---
Hospitalist Progress Note Assessment/Plan: 82 yo F w cad, af on ac, here w UGIB presumably 2/2 large prox jejunal ulcer ABLA: 2/2 GI bleed- 4 units given so far. etiology due to "Giant jejunal ulcer" . She had repeat endoscopy 05/08 with area of bleeding identified with stigmata of recent bleed but nothing acute. A clip was able to to be placed. -cont PPI -Cont monitoring H/H -seems to have stabilized for 48 hours now -Per GI adat, check CBC in am new pressure sore- stage 3 pressure sore. Wound care consulted. jejunal ulcer: and GI hemorrhage presumably this is the source of bleeding and near surgical anastamosis line post gastric bypass--repeat endoscopy last night with stigmata of recent bleeding, and clip placed. -monitor H/H -PPI AF: continue BB hold anticoag proph: scd's DM: insulin ss hold metformin cad: hold asa, patient with some mild edema today, will restart home lasix. dispo: inpt Subjective: no complaints. Objective: Vital Signs Temp Pulse Resp BP Pulse Ox 36.3 C 87 10 L 122/75 H 90 L 05/10/18 11:29 05/10/18 11:29 05/10/18 11:29 05/10/18 11:29 05/10/18 11:29 Laboratory Results 05/10/18 04:40 05/10/18 04:40 05/09/18 05/10/18 05/11/18 05:59 05:59 05:59 Intake Total 895 1825 Output Total 980 725 Balance -85 1100 PT 22.8 SEC (12.0-15.0) H 05/05/18 19:30 INR 2.13 (0.83-1.16) H 05/05/18 19:30 - Physical Exam Constitutional: no apparent distress, appears nourished, not in pain Eyes: PERRL, anicteric sclera, EOMI Ears, Nose, Mouth, Throat: moist mucous membranes, hearing normal, ears appear normal, no oral mucosal ulcers Cardiovascular: regular rate and rhythym, no murmur, rub, or gallop Respiratory: no respiratory distress, no rales or rhonchi, clear to auscultation Gastrointestinal: normoactive bowel sounds, soft, non-tender abdomen, no palpable masses Genitourinary: no bladder fullness, no bladder tenderness, no renal bruits Skin: no rashes or abrasions, no fluctuance, no induration Musculoskeletal: full muscle strength, no muscle tenderness, normal joint ROM Neurologic: AAOx3, sensation intact bilaterally Psychiatric: interacting appropriately, not anxious, not encephalopathic, thought process linear Lymph, Heme, Immunologic: no cervical LAD, no supraclavicular LAD ICD10 Worksheet Patient Problems: Problems Problem Status Onset Medication induced coagulopathy Acute Upper GI bleed Acute Abdominal pain Acute Acute kidney injury Acute CHF (congestive heart failure) Acute Cellulitis Acute Chest pain Acute Dehydration Acute Gallstone Acute Hypokalemia Acute Hypoxemia Acute Pulmonary edema Acute Severe sepsis Acute
--- NOTE | 2018-05-10 15:58 | ASMTCMCOM ---
CM Note CM Note Notes: Spoke with pt in the room and with pt's son Salvatore regarding SNF placement and LTC options. Gave son brochure for [facility] and explained their approach. Pt expressed concern that [facility] could not accommodate her and asked about Inpatient Rehab. Leandra Guerrero contacted who stated they do not have a bed until Sunday and pt has not been active enough with therapy to show that she could make much progress in Inpt Rehab. CM communicated this to pt. Pt requested referral sent to [facility], however stated to son and the CM that she would go to [facility] if necessary. Confirmed auth with Isabel of [facility] today. Discharge likely tomorrow pending stable H/H and stool. D/C Plan: [facility] Date Signed: 05/10/2018 03:57 PM Electronically Signed By:Shanell Almaguer
[2018-05-10] MEDS: SENNOSIDES/DOCUSATE SODIUM TAB PO SCH (20:33)
[2018-05-11] MEDS: ACETAMINOPHEN 325 MG TAB PO PRN (04:09)
--- NOTE | 2018-05-11 07:47 | SOAPPROG ---
SOAP Progress Note Assessment/Plan: Assessment: GIB, Prior Gastric bypass with jejunal ulcer distal to gastric pouch. No signs or symptoms of bleeding. Plan: 1. Diet as tolerated 2. May switch to PO Pantoprazole. PPI BID x 2 weeks then PPI daily indefinitely. 3. Would hold anti-coagulation for at least a week if possible. 3. Will sign off, please call with further questions. 05/11/18 07:50 Subjective: GIB No signs or symptoms of GI bleeding. No abdominal pain. Tolerating PO. Objective: Vital Signs Temp Pulse Resp BP Pulse Ox 36.9 C 81 16 115/67 94 05/11/18 04:00 05/11/18 04:00 05/11/18 04:00 05/11/18 04:00 05/11/18 04:00 Laboratory Results 05/10/18 04:40 05/11/18 03:55 05/10/18 05/11/18 05/12/18 05:59 05:59 05:59 Intake Total 1825 1940 Output Total 725 2000 Balance 1100 -60 PT 22.8 SEC (12.0-15.0) H 05/05/18 19:30 INR 2.13 (0.83-1.16) H 05/05/18 19:30 Generic Name Dose Route Start Last Admin Trade Name Ray PRN Reason Stop Dose Admin Acetaminophen 650 mg 05/05/18 20:04 05/11/18 04:09 Tylenol PO 11/01/18 20:03 650 mg Q4HRS PRN Administration Pain, Mild/Fever, Can Take PO Acetaminophen 650 mg 05/05/18 20:04 Tylenol Rectal CA 11/01/18 20:03 Q4HRS PRN Pain, Mild/Fever,Can't Take PO Alteplase, Recombinant 2 mg 05/09/18 13:26 Cathflo Activase IVP 11/05/18 13:25 PRN PRN Per PICC line policy Amiodarone HCl 200 mg 05/06/18 09:00 05/10/18 08:25 Amiodarone Hcl PO 11/02/18 08:59 200 mg DAILY DAYANA Administration Bisacodyl 10 mg 05/10/18 11:22 Dulcolax Rectal CA 11/06/18 11:21 DAILY PRN Constipation Protocol Calcium Gluconate 1 dose 05/09/18 07:52 Protocol Calcium IV 11/05/18 07:51 AD PRN Pt on Electrolyte Protocol Protocol Dextrose 25 gm 05/05/18 22:26 Dextrose 50% Syringe IVP 11/01/18 22:25 PRN PRN Hypoglycemia Furosemide 80 mg 05/10/18 11:30 05/10/18 12:12 Lasix PO 11/06/18 11:29 80 mg DAILY DAYANA Administration Hydromorphone HCl 0.2 - 0.4 mg 05/05/18 20:04 05/06/18 06:36 Dilaudid IVP 05/15/18 20:03 0.2 mg Q4HRS PRN Administration moderate to severe pain Sodium Chloride 1,000 mls @ 100 mls/hr 05/07/18 15:30 Ns IV 11/03/18 15:29 CONT DAYANA Insulin Human Lispro 0 unit 05/06/18 08:00 05/10/18 18:13 Humalog Lispro SC 11/02/18 07:59 4 units TIDMEAL DAYANA Administration Protocol Lactulose 20 gm 05/10/18 11:22 Cephulac PO 11/06/18 11:21 TID PRN Constipation Protocol Magnesium Hydroxide 30 ml 05/10/18 11:22 Milk Of Magnesia PO 11/06/18 11:21 DAILY PRN Constipation Protocol Magnesium Sulfate 1 dose 05/09/18 07:52 Protocol Magnesium IV 11/05/18 07:51 AD PRN Pt on Electrolyte Protocol Protocol Metoprolol Tartrate 12.5 mg 05/06/18 09:00 05/10/18 20:34 Lopressor PO 11/02/18 08:59 12.5 mg BID DAYANA Administration Miscellaneous Medication 1 violeta 05/06/18 21:30 05/10/18 20:35 Deep Blue Rub TP 11/02/18 21:29 Not Given BID DAYANA Ondansetron HCl 4 mg 05/05/18 20:04 Zofran IVP 11/01/18 20:03 Q4HRS PRN Nausea/Vomiting, Can't Take PO Ondansetron HCl 4 mg 05/05/18 20:04 Zofran Odt PO 11/01/18 20:03 Q4HRS PRN Nausea/Vomiting, Use 1st Pantoprazole Sodium 40 mg 05/10/18 21:00 05/10/18 20:34 Protonix IVP 11/06/18 20:59 40 mg BID DAYANA Administration Polyethylene Glycol 17 gm 05/10/18 11:22 Miralax PO 11/06/18 11:21 DAILY PRN Constipation, patient prefers Protocol Potassium Chloride 1 dose 05/09/18 07:52 Protocol Potassium MISC 11/05/18 07:51 AD PRN Pt on Electrolyte Protocol Protocol Promethazine HCl 6.25 - 12.5 mg 05/05/18 20:04 Phenergan IVP 11/01/18 20:03 Q6HRS PRN Nausea/Vomiting, Use 2nd Senna/Docusate Sodium 1 - 2 tab 05/10/18 21:00 05/10/18 20:33 Senokot-S PO 11/06/18 20:59 2 tab BID DAYANA Administration Protocol Discontinued Medications Generic Name Dose Route Start Last Admin Trade Name Freq PRN Reason Stop Dose Admin Alteplase, Recombinant 0 mg 05/07/18 15:22 Cathflo Activase IVP 05/07/18 16:22 ONCALL PRN Per provider during procedure Fentanyl 0 mcg 05/07/18 15:22 05/07/18 16:07 Sublimaze IVP 05/07/18 16:22 100 mcg ONCALL PRN Administration Per provider during procedure Fentanyl Confirm 05/08/18 17:53 Sublimaze Administered 05/08/18 17:54 Dose 100 mcg .ROUTE .STK-MED ONE Flumazenil 0 mg 05/07/18 15:22 Romazicon IVP 05/07/18 16:22 ONCALL PRN Per provider during procedure Glucagon 0.5 mg 05/07/18 15:22 Glucagon IVP 05/07/18 16:22 ONCALL PRN Per provider during procedure Heparin Sodium (Porcine) Confirm 05/07/18 14:54 Heparin Flush 2,000 Unit/Ns 1,000 Ml Administered 05/07/18 14:55 Dose 6,000 unit .ROUTE .STK-MED ONE Heparin Sodium (Porcine) 0 unit 05/07/18 15:22 Heparin Injection IVP 05/07/18 16:22 ONCALL PRN Per provider during procedure Sodium Chloride 1,000 mls @ 0 mls/hr 05/05/18 19:23 05/05/18 19:34 Ns IV 05/05/18 19:24 1,000 mls EDNOW ONE Administration Protocol Wide Open Sodium Chloride 1,000 mls @ 0 mls/hr 05/05/18 19:52 05/05/18 19:57 Ns IV 05/05/18 19:53 1,000 mls EDNOW ONE Administration Protocol Wide Open Sodium Chloride 1,000 mls @ 150 mls/hr 05/05/18 20:15 05/09/18 01:06 Ns IV 11/01/18 20:14 1,000 mls CONT DAYANA Administration Sodium Chloride 1,000 mls @ 0 mls/hr 05/05/18 23:40 05/06/18 01:43 Ns IV 05/05/18 23:41 1,000 mls ONCE ONE Administration Wide Open Potassium Chloride 100 mls @ 100 mls/hr 05/08/18 11:00 05/09/18 05:34 Potassium Cl 10 Meq (Premix) IV 05/08/18 14:59 Not Given Q1H DAYANA Lactated Ringer's 1,000 mls @ 0 mls/hr 05/08/18 17:14 05/08/18 17:37 Lr IV 05/08/18 17:15 1,000 mls ONCE ONE Administration Per Protocol Calcium Gluconate 50 mls @ 100 mls/hr 05/09/18 11:28 05/09/18 16:28 Calcium Gluconate 1 Gm (Premix) IV 05/09/18 11:57 50 mls ONCE ONE Administration Magnesium Sulfate 50 mls @ 50 mls/hr 05/09/18 11:28 05/09/18 12:16 Magnesium Sulf 2 Gm (Premix) IV 05/09/18 12:27 50 mls ONCE ONE Administration Magnesium Sulfate/Dextrose 100 mls @ 100 mls/hr 05/10/18 10:40 05/10/18 12:11 Magnesium Sulf 1 Gm (Premix) IV 05/10/18 11:39 100 mls ONCE ONE Administration Iopamidol Confirm 05/07/18 14:54 Isovue-300 Administered 05/07/18 14:55 Dose 200 ml .ROUTE .STK-MED ONE Meperidine HCl 25 - 50 mg 05/07/18 15:22 Demerol 25 Mg/Ml Syringe IVP 05/07/18 16:22 ONCALL PRN Tremors DURING procedure Midazolam HCl 0 mg 05/07/18 15:22 05/07/18 16:07 Versed IVP 05/07/18 16:22 2 mg ONCALL PRN Administration Per provider during procedure Midazolam HCl Confirm 05/07/18 15:28 Versed Administered 05/07/18 15:29 Dose 4 mg .ROUTE .STK-MED ONE Miscellaneous Medication 1 violeta 05/06/18 09:00 05/06/18 20:56 Arthritis Pain Relief 1% Crm TP 11/02/18 08:59 Not Given BID DAYANA Naloxone HCl 0 mg 05/07/18 15:22 05/07/18 16:07 Narcan IVP 05/07/18 16:22 0.4 mg ONCALL PRN Administration Per provider during procedure Naloxone HCl 0.1 mg 05/08/18 18:48 Narcan IVP 05/08/18 19:48 PRN PRN PACU Resp Rate <10/min Ondansetron HCl 4 mg 05/05/18 19:23 05/05/18 19:43 Zofran IVP 05/05/18 19:24 4 mg EDNOW ONE Administration Ondansetron HCl 2 - 4 mg 05/08/18 18:53 Zofran IVP 05/08/18 19:55 Q10M PRN PACU, Nausea/Vomiting Post-Op Pantoprazole Sodium 80 mg 05/05/18 19:24 05/05/18 19:39 Protonix IVP 05/05/18 19:25 80 mg EDNOW ONE Administration Pantoprazole Sodium 40 mg 05/05/18 20:15 05/10/18 08:24 Protonix IVP 11/01/18 20:14 40 mg Q6H DAYANA Administration Potassium Chloride 40 meq 05/09/18 07:30 05/09/18 08:52 Klor-Con PO 05/09/18 07:31 40 meq ONCE ONE Administration Potassium Chloride 30 meq 05/09/18 21:08 05/09/18 21:32 Klor-Con PO 05/09/18 21:09 30 meq ONCE ONE Administration Protocol Potassium Chloride 10 - 40 meq 05/10/18 07:11 05/10/18 08:25 Klor-Con PO 05/10/18 07:12 20 meq ONCE ONE Administration Protocol Potassium Chloride 20 meq 05/10/18 19:39 05/10/18 20:34 Klor-Con PO 05/10/18 19:40 20 meq ONCE ONE Administration Protocol Propofol Confirm 05/08/18 17:55 Diprivan Administered 05/08/18 17:56 Dose 200 mg .ROUTE .STK-MED ONE Protamine Sulfate 0 mg 05/07/18 15:22 Protamine Sulfate IVP 05/07/18 16:22 ONCALL PRN Heparin reversal in procedure Physical Exam - Physical Exam General Appearance: alert, no apparent distress Respiratory: lungs clear, normal breath sounds Cardiac/Chest: regular rate, rhythm Abdomen: normal bowel sounds, non-tender, soft Skin: normal color, warm/dry Neuro/Psych: alert, normal mood/affect, oriented x 3 ICD10 Worksheet Patient Problems: Problems Problem Status Onset Medication induced coagulopathy Acute Upper GI bleed Acute Abdominal pain Acute Acute kidney injury Acute CHF (congestive heart failure) Acute Cellulitis Acute Chest pain Acute Dehydration Acute Gallstone Acute Hypokalemia Acute Hypoxemia Acute Pulmonary edema Acute Severe sepsis Acute
[2018-05-11] MEDS: AMIODARONE HCL 200 MG TAB PO SCH (08:42)
[2018-05-11] MEDS: METOPROLOL TARTRATE 25 MG TAB PO SCH (08:42)
[2018-05-11] MEDS: FUROSEMIDE 80 MG TAB PO SCH (08:42)
[2018-05-11] MEDS: [UNRECOGNIZED DRUG - OTHER] TP SCH (08:43)
[2018-05-11] MEDS: PANTOPRAZOLE SODIUM 40 MG VIAL IVP SCH (08:43)
[2018-05-11] MEDS: SENNOSIDES/DOCUSATE SODIUM TAB PO SCH (08:43)
[2018-05-11] MEDS: INSULIN LISPRO 100 UNIT/ML SC SCH ×2 (09:45→12:28)
[2018-05-11] MEDS ORDERED: POTASSIUM CL 10 MEQ TAB PO ONE (12:20)
[2018-05-11] MEDS ORDERED: MAGNESIUM SULF 1 GM/DEXTROSE 100 ML IV ONE (12:20)
--- NOTE | 2018-05-11 12:51 | HOSPPROG ---
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 * Acute blood loss anemia status post 4 units red blood cell transfusion, now stable * Acute kidney injury, resolved, hemodynamic etiology * Pressure ulcer sacral, present on admission but needing ongoing wound care * Urinary tract infection: symptoms have been present for around 6 weeks, not healthcare associated but did not respond to oral antibiotics prescribed at halfway facility prior to coming here, high likelihood of resistant bacteria but no culture done here yet; no history of urinary catheters or procedures * Atrial fibrillation, chronic paroxysmal: Anticoagulant currently held for bleeding episode * Diabetes mellitus type 2, metformin has been held here and thus far * CAD: Aspirin held at this time with her ulcer * Chronic systolic heart failure, compensated at present * History of gastric bypass surgery * Chronic sleep apnea * Chronic memory loss PLANS: * Should be medically stable for discharge from hospital at this time with ongoing proton pump inhibitor, off aspirin and anti coag * As of yesterday PT and OT will recommending halfway facility rehab * I have asked for lab to get culture her urine * Will begin IV antibiotics with Rocephin until have cultures back * Keep her PICC line in now for the antibiotics as she has very poor IV access otherwise, PICC line can come out as soon as she is done with IV antibiotic Waiting to hear from case management as to whether halfway is available today SUBJECTIVE: Feels well overall No pain No bleeding noted Eating well OBJECTIVE Vitals reviewed: All stable Crank Hand, my review: Sinus Exam: alert oriented relaxed skin warm dry color ok resps not labored lungs clear BSs heart regular abd soft nondistended nontender, bowel sounds present limbs warm, very mild edema iv site ok Lab data: Hemoglobin down slightly from yesterday but is in within the range that she has been in for the last several days Sugars in stable range here on current therapy UA yesterday with increasing pyuria, no cultures done yet Objective: Vital Signs Temp Pulse Resp BP Pulse Ox 36.6 C 91 13 123/72 H 98 05/11/18 11:48 05/11/18 11:48 05/11/18 11:48 05/11/18 11:48 05/11/18 11:48 Laboratory Results 05/10/18 04:40 05/11/18 03:55 05/10/18 05/11/18 05/12/18 06:59 06:59 06:59 Intake Total 1825 1940 Output Total 725 1999 Balance 1100 -60 PT 22.8 SEC (12.0-15.0) H 05/05/18 19:30 INR 2.13 (0.83-1.16) H 05/05/18 19:30 ICD10 Worksheet Patient Problems: Problems Problem Status Onset Medication induced coagulopathy Acute Upper GI bleed Acute Abdominal pain Acute Acute kidney injury Acute CHF (congestive heart failure) Acute Cellulitis Acute Chest pain Acute Dehydration Acute Gallstone Acute Hypokalemia Acute Hypoxemia Acute Pulmonary edema Acute Severe sepsis Acute
--- NOTE | 2018-05-11 15:22 | PDDCSUM ---
Discharge Summary Discharge Summary: DISCHARGE DIAGNOSES: * Acute upper GI bleed, * Large jejunal ulcer with visible vessel clipped * Acute blood loss anemia status post 4 units red blood cell transfusion * Acute kidney injury * Pressure ulcer sacral present on admission * Urinary tract infection, not healthcare associated, high likelihood of resistant bacteria ; no history of urinary catheters or procedures * Atrial fibrillation, chronic paroxysmal: Anticoagulant currently held for bleeding episode * Diabetes mellitus type 2 * CAD: Aspirin held at this time with her ulcer * Chronic systolic heart failure, compensated at present * History of gastric bypass surgery * Chronic sleep apnea * Chronic memory loss CONSULTANTS: Dr. Ervin Morales PROCEDURES: Esophagogastroduodenoscopy on 2 occasions, clipping of visible vessel in ulcer in jejunum Transfusion 4 units packed red blood cells HOSPITAL COURSE SUMMARY: This patient who has been in an out of hospital and nursing facility recently presented this time with nausea vomiting diarrhea very weak and dehydrated with acute renal insufficiency. She complained of coffee-ground emesis and in fact had a hemoglobin acutely low at 6. She was found to have a bleeding jejunal ulcer that was very large. There is a visible vessel. She was transfused 4 units of red blood cells hydrated vigorously, and given IV Protonix twice daily. On a 2nd EGD procedure she had a clip placed on the ulcer vessel which was not bleeding by that time. At this time she is showing no signs of bleeding , her vital signs and blood counts are stable. Notably she takes Eliquis because of AFib at home. Her a fib is been stable and she has been taken off the Eliquis at this time. She should stay on Protonix for at least 2 months total and should stay off Eliquis and till May 25 and only started then if all is stable. While here the patient mentioned that she has had approximately 6 weeks of dysuria and urinary frequency which predate her recent hospitalizations and nursing facility stay. She has not had any Brice catheters or instrumentation. She reports that during her recent stay at nursing facility she had oral antibiotics which did not improve her urinary symptoms. Those symptoms persist now. She does not have fever or signs of sepsis. She does have significant pyuria and a urine culture has been sent and is pending. Because of the lack of response to prior oral antibiotics and lack of available culture result right now we are starting her on IV Protonix and plan on a week of that though it could potentially be changed if we get favorable culture and sensitivity results. In addition the patient has had ongoing pain at the sacral area for some time and has an ongoing pressure wound there. It sounds like this is been present for months as best I can tell. At this time she is identified with an open wound and no signs of infection or osteomyelitis. She is being treated with wound care and avoidance of pressure and friction to the area. At this time she is stable for discharge from acute care hospital, however she is not steady enough on her feet to go home and requires ongoing wound care and IV antibiotics. For these reasons she is being transferred to assisted facility. There she will need ongoing IV antibiotics for UTI with Rocephin until May 18, though the antibiotic might be changed if there are favorable findings on culture. She will need PICC catheter care. In addition she needs wound care for her sacral wound. PENDING TEST RESULTS: urine cultures pending and should be reviewed for ongoing antibiotic selection issues MEDICATION CHANGES: Addition of Protonix she should continue the Protonix for at least 2 months unless otherwise instructed by Gastroenterology Addition of Rocephin for urinary tract infection - IV Rocephin through May 18 she is to remain off Eliquis through July 25 but could restart then if all is stable FOLLOW-UP PLAN: At this time she is transferred to assisted facility for ongoing physical therapy rehabilitation, wound care, IV antibiotics Greater than 35 minutes bedside and care coordination time today
--- NOTE | 2018-05-11 15:31 | PDIAF ---
- Diagnosis Diagnosis: GI bleed, bleeding ulcer, UTI, sacral pressure wound chronic Code Status: Full Code - Medication Management Metal Stamper Antibiotics: IV Rocephin 1 g daily through May 18 Group Home Antibiotic Stop Date: 05/18/18 Additional Medication Instructions: Do not stop Protonix until she has had at least 8 weeks therapy or otherwise instructed to stop by gate clerk. Do not anticoagulate for the next 2 weeks but could resume her usual Eliquis twice daily dosing May 25 Discharge Medications: electronically signed and located in the Home Medication List. PICC Care - Routine: Yes - Orders Services needed: Registered Nurse, Certified Trestle Mechanic, Master Instructional Design Specialist , Physical Therapy, Occupational Therapy Isolation Type: None Diet Recommendation: ADA 2200 consistent carb Diet Texture: Regular Texture Diet Wound Care Instructions: Change dressings to coccyx every 3 days and prn. 1. Clean with ns and gauze. 2. Apply skin prep jo-ann wound. 3. Wound gel to wound bed. 4. Cover with Mepilex border Sacral dressing. Change dressings to Left achilles heel every 3 days and prn. 1. Clean with ns and gauze. 2. Silvasorb Wound gel to wound bed. 3. Cover with Mepilex nonborder foam secured with medipore tape. Activity/Weight Bearing Restrictions: Full weightbear, high fall risk - Labs/Radiology CBC w/diff Date: 05/19/18 - Follow Up Care Current Providers and Referrals: Patient,NotPresent [Unknown] - As per Instructions
--- NOTE | 2018-05-11 15:41 | ASMTLACE ---
LACE Length of stay for Answers: 4-6 days current admission Acuity / Level of Answers: Yes Care: Did the patient have an inpatient admission? Comorbidities - select Answers: Congestive heart failure all that apply Coronary Artery Disease Dementia Diabetes (uncontrolled or controlled) Other Notes: AFib; HTN; HLD # of Emergency department Answers: 3-4 visits in the last 6 months Score: 19 Date Signed: 05/11/2018 03:41 PM Electronically Signed By:Cherie Scales RN
[2018-05-11 15:58] VITALS: BP 133/81
--- NOTE | 2018-05-11 16:35 | ASMTCMCOM ---
CM Note CM Note Notes: Medically cleared for discharge to SNF . Final orders in allscipts. Transportation arranged for 5 pm. Family aware and at bedside. CM available should other needs arise. plan: Dc to [facility] in [place]. Date Signed: 05/11/2018 04:34 PM Electronically Signed By:Cherie Scales RN
[2018-05-11] MEDS ORDERED: PEG 3350/NA SULF,BICARB,CL/KCL (GAVILYTE-G) 4000 ML BTL PO ONE (17:31)
== END 2018-05-11 17:32 | DRG 377 ==
LOC: EDUNIT# → F2N 22:39 → F3E 05-06 18:33 → F2W 05-08 20:10 → UNDODISIN 05-11 14:16
PROVIDERS: ADMIT Internal Medicine; ATTEND Internal Medicine
PROC: 0DJ08ZZ Inspection of Upper Intestinal Tract, Via Natural or Artificial Opening Endoscopic (ICD-10-PCS; 2018-05-05)
PROC: 30233K1 Transfusion of Nonautologous Frozen Plasma into Peripheral Vein, Percutaneous Approach (ICD-10-PCS; 2018-05-05)
PROC: 30233N1 Transfusion of Nonautologous Red Blood Cells into Peripheral Vein, Percutaneous Approach (ICD-10-PCS; 2018-05-06)
PROC: B41B1ZZ Fluoroscopy of Other Intra-Abdominal Arteries using Low Osmolar Contrast (ICD-10-PCS; 2018-05-07)
PROC: 0W3P8ZZ Control Bleeding in Gastrointestinal Tract, Via Natural or Artificial Opening Endoscopic (ICD-10-PCS; principal; 2018-05-08 18:00)
PROC: 02HV33Z Insertion of Infusion Device into Superior Vena Cava, Percutaneous Approach (ICD-10-PCS; 2018-05-09)
DX: K28.4 Chronic or unspecified gastrojejunal ulcer with hemorrhage (principal); D62 Acute posthemorrhagic anemia; Z98.84 Bariatric surgery status; I48.91 Unspecified atrial fibrillation; Z79.01 Long term (current) use of anticoagulants; D68.32 Hemorrhagic disorder due to extrinsic circulating anticoagulants; T45.515A Adverse effect of anticoagulants, initial encounter; N39.0 Urinary tract infection, site not specified; N17.9 Acute kidney failure, unspecified; N18.9 Chronic kidney disease, unspecified; L89.153 Pressure ulcer of sacral region, stage 3; L97.321 Non-pressure chronic ulcer of left ankle limited to breakdown of skin; E11.9 Type 2 diabetes mellitus without complications; Z79.84 Long term (current) use of oral hypoglycemic drugs; I25.10 Atherosclerotic heart disease of native coronary artery without angina pectoris; I50.22 Chronic systolic (congestive) heart failure; Z95.1 Presence of aortocoronary bypass graft; Z95.5 Presence of coronary angioplasty implant and graft; I34.0 Nonrheumatic mitral (valve) insufficiency; G47.33 Obstructive sleep apnea (adult) (pediatric); E66.09 Other obesity due to excess calories; Z68.31 Body mass index [BMI] 31.0-31.9, adult; I36.0 Nonrheumatic tricuspid (valve) stenosis; Z87.891 Personal history of nicotine dependence; Z85.828 Personal history of other malignant neoplasm of skin
CPT/HCPCS: 82435-PO; 82565-PO; 82947-PO; 84132-PO; 84295-PO; 84520-PO; 85014-ER; 96374; 97110-GP; 97116-GP; 97162-GP; 97165-GO; 97535-GO; C1751; C1760; C1769; C1894; J0610; J0696; J1170; J1644; J1815; J2250; J2310; J2405; J2704; J3010; J3475; J3480; P9016; P9017; Q9967

== ENCOUNTER 2018-06-19 19:31 | Inpatient (IN) | payer OTHER ==
--- NOTE | 2018-06-19 20:27 | EDPHY ---
H & P Stated Complaint: sent from detention, abdnormal labs, C-diff Time Seen by Provider: 06/19/18 20:12 HPI/ROS: CHIEF COMPLAINT: C diff, renal insufficiency, possibly pneumonia and CHF HISTORY OF PRESENT ILLNESS: The patient is an 83-year-old female with dementia sent from the detention. She cannot really contribute to her past medical history. They sent a note from the detention staff stating that she has been confused and today had a chest x-ray that revealed pneumonia also CHF with a BNP of 20,000. The patient states that she is frustrated and does not know why she is here. She has been treated for last month with oral vancomycin for C difficile although she is taking Welchol which would bind and make the vancomycin inadequate. Patient denies having abdominal pain. She denies chest pain. She is on 5 L of oxygen at baseline but cannot tell me why. She denies having a fever. According to the detention note however she has been short of breath and has had a cough. Severity: Moderate Modifying factors: None REVIEW OF SYSTEMS: Unable to assess secondary to condition EXAM: GENERAL: Confused, lying in bed without complaint, morbidly obese HEAD: Atraumatic, normocephalic. EYES: Pupils equal round and reactive to light, extraocular movements intact, sclera anicteric, conjunctiva are normal. ENT: TMs normal, nares patent, oropharynx clear without exudates. Moist mucous membranes. NECK: Normal range of motion, supple without lymphadenopathy or JVD. LUNGS: Coarse breath sounds HEART: Regular rate and rhythm without murmurs, rubs or gallops. ABDOMEN: Soft, nontender, normoactive bowel sounds. No guarding, no rebound. No masses appreciated. BACK: No CVA tenderness, no spinal tenderness, step-offs or deformities EXTREMITIES: Normal range of motion, 1+ pitting or edema. No clubbing or cyanosis. NEUROLOGICAL: Cranial nerves II through XII grossly intact. Normal speech, normal gait. 5/5 strength, normal movement in all extremities, normal sensation , normal reflexes PSYCH: Normal mood, normal affect. SKIN: Warm, dry, normal turgor, no visible rashes or lesions. Source: Patient Exam Limitations: No limitations - Personal History Current Tetanus Diphtheria and Acellular Pertussis (TDAP): Unsure Tetanus Vaccine Date: 02/2011 - Medical/Surgical History Hx Asthma: No Hx Chronic Respiratory Disease: Yes Hx Diabetes: Yes Hx Cardiac Disease: Yes Hx Renal Disease: No Hx Cirrhosis: No Hx Alcoholism: No Hx HIV/AIDS: No Hx Splenectomy or Spleen Trauma: No Other PMH: DM2, quadbypass surgery 2010, archilles tendon repair, RENUKA, HTN, RENUKA , cardiac stents - Family History Significant Family History: No pertinent family hx - Social History Smoking Status: Former smoker Alcohol Use: Sober Drug Use: None Constitutional: Initial Vital Signs Temperature (C) 36.5 C 06/19/18 19:38 Heart Rate 87 06/19/18 19:38 Respiratory Rate 18 06/19/18 19:38 Blood Pressure 125/75 H 06/19/18 19:38 O2 Sat (%) 95 06/19/18 19:38 O2 Delivery Mode Nasal Cannula O2 (L/minute) 5 Allergies/Adverse Reactions: Penicillins Allergy (Mild, Verified 06/19/18 19:38) Rash amoxicillin Allergy (Verified 06/19/18 19:38) Home Medications: Medication Instructions Recorded Acetaminophen [Tylenol 325mg (*)] 650 mg PO Q4 PRN 06/19/18 Amiodarone HCl [Pacerone (*)] 200 mg PO DAILY 06/19/18 Ascorbic Acid [Vitamin C 500 mg 500 mg PO BID 06/19/18 (*)] Capsaicin 0.025% 1 violeta TP TID 06/19/18 Cholestyramine (with Sugar) 4 gm PO BID 06/19/18 [Cholestyramine Packet] Furosemide [Lasix 80 MG (*)] 80 mg PO DAILY 06/19/18 Glucagon HCl [Glucagon] 1 mg IM ONCE PRN 06/19/18 Herbals/Supplements -Info Only 1 ea PO DAILY 06/19/18 Lidocaine 2% Jelly [Glydo] 1 violeta TP Q2H PRN 06/19/18 Linagliptin [Tradjenta] 5 mg PO DAILY 06/19/18 Menthol/Zinc Oxide [Calmoseptine 1 violeta TP AD 06/19/18 Ointment] Metoprolol Tartrate [Lopressor 25 12.5 mg PO BID 06/19/18 mg (*)] Ondansetron Odt [Zofran Odt 4 mg 4 mg PO Q6 PRN 06/19/18 (*)] Pantoprazole Sodium [Protonix 40mg 40 mg PO BID 06/19/18 (*)] Vancomycin [Vancomycin Oral Liquid] 125 mg PO Q6H 06/19/18 metFORMIN HCL [Glucophage 500 mg 500 mg PO BIDMEAL 06/19/18 (*)] Medical Decision Making - Diagnostics EKG Interpretation: An EKG obtained and was read and documented in trace view. Please see trace view for full reading and report. Atrial fibrillation with right bundle branch block Imaging: Discussed imaging studies w/ advertising representative Radiologist ED Course/Re-evaluation: 8:50 p.m. Patient's x-rays more consistent with a pleural effusion then with pneumonia or CHF. Her BNP is elevated. Will not diurese at this time because of her elevated creatinine and renal insufficiency. Have paged hospitalist service for admission. 9:05 p.m. discussed the case with Dr. Osiris Padilla who will admit to the hospitalist service. Will hold Lasix for now because of the patient's creatinine. 9:30 p.m. the patient's lactate was delayed because it was not drawn upfront. It is elevated. She qualifies for severe sepsis. I believe this is from the C diff. Will hydrate over time. There is some concern about fluid overload with her lower extremity edema and pleural effusions. I do not think that she has pneumonia or CHF. Differential Diagnosis: Partial list of the Differential diagnosis considered include but were not limited to; pneumonia, CHF, pleural effusion, renal insufficiency, dehydration , C difficile and although unlikely based on the history and physical exam, I also considered sepsis, CVA, acute coronary disease. - Data Points Laboratory Results: Laboratory Results 06/19/18 19:50 06/19/18 19:50 Medications Given: Amiodarone HCl (Amiodarone Hcl) 200 mg PO DAILY [facility] Stop: 12/17/18 08:59 Last Admin: 06/20/18 09:29 Dose: Not Given Dextrose (Dextrose 50% Syringe) 25 gm IVP PRN PRN PRN Reason: Hypoglycemia Stop: 12/17/18 08:13 Last Admin: 06/20/18 08:20 Dose: 25 gm Ceftriaxone Sodium/Dextrose (Rocephin 1 Gm (Premix)) 50 mls @ 100 mls/hr IV DAILY@2100 [facility] PRN Reason: Protocol Stop: 07/20/18 01:29 Last Admin: 06/20/18 01:53 Dose: 50 mls Metoprolol Tartrate (Lopressor) 12.5 mg PO BID [facility] Stop: 12/17/18 08:59 Last Admin: 06/20/18 09:28 Dose: Not Given Pantoprazole Sodium (Protonix) 40 mg PO BID [facility] Stop: 12/17/18 08:59 Last Admin: 06/20/18 09:28 Dose: Not Given Vancomycin HCl (Vancomycin Oral Liquid) 125 mg PO QID [facility] PRN Reason: Protocol Stop: 07/20/18 11:59 Last Admin: 06/20/18 14:49 Dose: 125 mg Discontinued Medications Sodium Chloride (Ns) 2,700 mls @ 450 mls/hr 30 ml/kg infuse over 6 hr (2700 ml ) IV EDNOW ONE PRN Reason: Protocol Stop: 06/20/18 03:35 Last Admin: 06/19/18 21:50 Dose: 2,700 mls Sodium Chloride (Ns) 1,000 mls @ 100 mls/hr IV CONT [facility] Stop: 12/17/18 07:29 Last Admin: 06/20/18 08:02 Dose: 1,000 mls Vancomycin HCl (Vancomycin Oral Liquid) 125 mg PO Q6H [facility] PRN Reason: Protocol Stop: 07/20/18 04:59 Last Admin: 06/20/18 05:09 Dose: 125 mg Point of Care Test Results: Chemistry 06/19/18 20:30 POC Troponin I 0.02 ng/mL ng/mL (0.00-0.08) Departure - Departure Disposition: [facility] Acute Clinical Impression: Renal insufficiency, C. difficile colitis, Acute kidney injury Condition: Fair
[2018-06-19 20:31] LABS: PLATELET COUNT 242 10^3/uL (150-400)
[2018-06-19 20:38] LABS: INR 1.21 (0.83-1.16); PROTIME(PATIENT) 14.8 SEC (12.0-15.0)
--- NOTE | 2018-06-19 21:19 | CPEKG ---
Test Reason : OPEN Blood Pressure : / mmHG Vent. Rate : 091 BPM Atrial Rate : 000 BPM P-R Int : 251 ms QRS Dur : 163 ms QT Int : 430 ms P-R-T Axes : 000 225 005 degrees QTc Int : 530 ms Atrial fibrillation Right bundle branch block Confirmed by Edilson Alexander ([id number] on 06/19/2018 9:18:39 PM Referred By: Edilson Alexander Confirmed By:Edilson Alexander
[2018-06-19] MEDS ORDERED: NS 2,700 ML IV ONE (21:36)
[2018-06-19] MEDS ORDERED: ONDANSETRON 4 MG/2 ML VIAL IVP PRN (22:24)
[2018-06-19] MEDS ORDERED: ONDANSETRON DISINTEGRATING 4 MG TAB PO PRN (22:24)
[2018-06-20 04:34] LABS: PLATELET COUNT 204 10^3/uL (150-400)
--- NOTE | 2018-06-20 04:45 | PDGENHP ---
History and Physical - Chief Complaint Confusion, abnormal CXR - History of Present Illness 83 yo F w/ hx of dementia, CAD, AF, HTN, DM, and dCHF presents from living facility with reports of confusion and abnormal XR. Her living facility noted that she was confused beyond baseline. They obtained a CXR that was suspicious for pneumonia so they sent her to the ED for evaluation. The patient herself can contribute minimally to her history as she is demented. She is able to tell me that she has been under treatment for C. Diff for several weeks. Also, she tells me she has been having dysuria and foul smelling urine for a while as well. I asked the RN to straight cath her for a urine sample and this was reported as puss-appearing. In the ED her evaluation is notable for bilateral pleural effusions, infectious appearing UA, HAYDEN, elevated BNP, and very elevated lactate. The patient herself is confused but non-toxic appearing. She has a benign abdominal exam and 0/4 SIRS criteria. Case discussed with Dr. Padilla; records reviewed and summarized above. History Information - Allergies/Home Medication List Allergies/Adverse Reactions: Penicillins Allergy (Mild, Verified 06/19/18 19:38) Rash amoxicillin Allergy (Verified 06/19/18 19:38) Home Medications: Acetaminophen [Tylenol 325mg (*)] 650 mg PO Q4 PRN 06/19/18 [Last Taken Unknown] Amiodarone HCl [Pacerone (*)] 200 mg PO DAILY 06/19/18 [Last Taken Unknown] Ascorbic Acid [Vitamin C 500 mg (*)] 500 mg PO BID 06/19/18 [Last Taken Unknown] Capsaicin 0.025% 1 violeta TP TID 06/19/18 [Last Taken Unknown] Cholestyramine (with Sugar) [Cholestyramine Packet] 4 gm PO BID 06/19/18 [Last Taken Unknown] Furosemide [Lasix 80 MG (*)] 80 mg PO DAILY 06/19/18 [Last Taken Unknown] Glucagon HCl [Glucagon] 1 mg IM ONCE PRN 06/19/18 [Last Taken Unknown] Herbals/Supplements -Info Only 1 ea PO DAILY 06/19/18 [Last Taken Unknown] Lidocaine 2% Jelly [Glydo] 1 violeta TP Q2H PRN 06/19/18 [Last Taken Unknown] Linagliptin [Tradjenta] 5 mg PO DAILY 06/19/18 [Last Taken Unknown] Menthol/Zinc Oxide [Calmoseptine Ointment] 1 violeta TP AD 06/19/18 [Last Taken Unknown] Metoprolol Tartrate [Lopressor 25 mg (*)] 12.5 mg PO BID 06/19/18 [Last Taken Unknown] Ondansetron Odt [Zofran Odt 4 mg (*)] 4 mg PO Q6 PRN 06/19/18 [Last Taken Unknown] Pantoprazole Sodium [Protonix 40mg (*)] 40 mg PO BID 06/19/18 [Last Taken Unknown] Vancomycin [Vancomycin Oral Liquid] 125 mg PO Q6H 06/19/18 [Last Taken Unknown] metFORMIN HCL [Glucophage 500 mg (*)] 500 mg PO BIDMEAL 06/19/18 [Last Taken Unknown] I have personally reviewed and updated: family history, medical history - Past Medical History atrial fibrillation, coronary artery disease, CHF (diastolic and systolic, EF of 45%), dementia, diabetes type 2, hypertension, hyperlipidemia Additional medical history: Dm 2, CAD status post stent and CABG, history CHF with normal LV EF on recent echocardiogram 05/01/2017 at 55%, RENUKA non compliant with CPAP, HTN, obesity(BMI 36), hearing deficit with hearing aid requirement, cholelithiasis, left lateral ankle wound - Surgical History Reports: angioplasty, coronary bypass surgery, cholecystectomy, coronary stent Additional surgical history: Gastric bypass, cardiac cath with stent, 3V CABG - Family History Additional family history: None reported - Social History Smoking Status: Former smoker Alcohol Use: Sober Drug Use: None Additional social history: full code. lives with brother Review of Systems Review of Systems: ROS: 10pt was reviewed & negative except for what was stated in HPI & below Physical Exam Physical Exam: Temp Pulse Resp BP Pulse Ox 36.4 C 101 H 20 103/56 L 95 06/20/18 04:00 06/20/18 04:00 06/20/18 04:00 06/20/18 04:00 06/20/18 04:00 O2 (L/minute) 3 Constitutional: no apparent distress, chronically ill appearing Eyes: PERRL, EOMI Ears, Nose, Mouth, Throat: moist mucous membranes, no oral mucosal ulcers Cardiovascular: systolic murmur, irregularly irregular Respiratory: no respiratory distress, reduced air movement (Bibasilar) Gastrointestinal: normoactive bowel sounds, soft, non-tender abdomen Skin: warm, other (Edema bilaterally, appears chronic) Musculoskeletal: full muscle strength, no muscle tenderness Neurologic: other (A&Ox1), No facial droop Psychiatric: interacting appropriately, not anxious, encephalopathic, poor insight, poor memory Lab Data & Imaging Review 06/20/18 04:22 06/19/18 19:50 WBC 7.59 10^3/uL (3.80-9.50) 06/20/18 04:22 RBC 3.65 10^6/uL (4.18-5.33) L 06/20/18 04:22 Hgb 10.0 g/dL (12.6-16.3) L 06/20/18 04:22 Hct 34.9 % (38.0-47.0) L 06/20/18 04:22 MCV 95.6 fL (81.5-99.8) 06/20/18 04:22 MCH 27.4 pg (27.9-34.1) L 06/20/18 04:22 MCHC 28.7 g/dL (32.4-36.7) L 06/20/18 04:22 RDW 17.5 % (11.5-15.2) H 06/20/18 04:22 Plt Count 204 10^3/uL (150-400) 06/20/18 04:22 MPV 11.0 fL (8.7-11.7) 06/20/18 04:22 Neut % (Auto) 81.2 % (39.3-74.2) H 06/20/18 04:22 Lymph % (Auto) 9.6 % (15.0-45.0) L 06/20/18 04:22 [place] % (Auto) 6.6 % (4.5-13.0) 06/20/18 04:22 Eos % (Auto) 1.4 % (0.6-7.6) 06/20/18 04:22 Baso % (Auto) 0.7 % (0.3-1.7) 06/20/18 04:22 Nucleat RBC Rel Count 0.0 % (0.0-0.2) 06/20/18 04:22 Absolute Neuts (auto) 6.16 10^3/uL (1.70-6.50) 06/20/18 04:22 Absolute Lymphs (auto) 0.73 10^3/uL (1.00-3.00) L 06/20/18 04:22 Absolute Monos (auto) 0.50 10^3/uL (0.30-0.80) 06/20/18 04:22 Absolute Eos (auto) 0.11 10^3/uL (0.03-0.40) 06/20/18 04:22 Absolute Basos (auto) 0.05 10^3/uL (0.02-0.10) 06/20/18 04:22 Absolute Nucleated RBC 0.00 10^3/uL (0-0.01) 06/20/18 04:22 Immature Gran % 0.5 % (0.0-1.1) 06/20/18 04:22 Immature Gran # 0.04 10^3/uL (0.00-0.10) 06/20/18 04:22 PT 14.8 SEC (12.0-15.0) 06/19/18 19:50 INR 1.21 (0.83-1.16) H 06/19/18 19:50 APTT 32.0 SEC (23.0-38.0) 06/19/18 19:50 VBG Lactic Acid 9.1 mmol/L (0.7-2.1) H 06/20/18 04:22 Sodium 137 mEq/L (135-145) 06/19/18 19:50 Potassium 5.0 mEq/L (3.5-5.2) 06/19/18 19:50 Chloride 95 mEq/L (97-110) L 06/19/18 19:50 Carbon Dioxide 21 mEq/l (22-31) L 06/19/18 19:50 Anion Gap 21 mEq/L (6-14) H 06/19/18 19:50 BUN 54 mg/dL (7-23) H 06/19/18 19:50 Creatinine 2.9 mg/dL (0.6-1.0) H 06/19/18 19:50 Estimated GFR 16 06/19/18 19:50 Glucose 65 mg/dL (70-100) L 06/19/18 19:50 Calcium 9.2 mg/dL (8.5-10.4) 06/19/18 19:50 Total Bilirubin 0.7 mg/dL (0.1-1.4) 06/19/18 19:50 Conjugated Bilirubin 0.4 mg/dL (0.0-0.5) 06/19/18 00:17 Unconjugated Bilirubin 0.3 mg/dL (0.0-1.1) 06/19/18 00:17 AST 18 IU/L (14-46) 06/19/18 00:17 ALT 13 IU/L (9-52) 06/19/18 00:17 Alkaline Phosphatase 60 IU/L (38-126) 06/19/18 00:17 POC Troponin I 0.02 ng/mL (0.00-0.08) 06/19/18 20:30 NT-Pro-B Natriuret Pep 47874 pg/mL (0-450) H 06/19/18 19:50 Total Protein 6.0 g/dL (6.3-8.2) L 06/19/18 00:17 Albumin 3.4 g/dL (3.5-5.0) L 06/19/18 00:17 Urine Color YELLOW 06/20/18 00:25 Urine Appearance MODERATELY TURBID 06/20/18 00:25 Urine pH 5.0 (5.0-7.5) 06/20/18 00:25 Ur Specific [place] 1.011 (1.002-1.030) 06/20/18 00:25 Urine Protein 2+ (NEGATIVE) H 06/20/18 00:25 Urine Ketones TRACE (NEGATIVE) H 06/20/18 00:25 Urine Blood 1+ (NEGATIVE) H 06/20/18 00:25 Urine Nitrate NEGATIVE (NEGATIVE) 06/20/18 00:25 Urine Bilirubin NEGATIVE (NEGATIVE) 06/20/18 00:25 Urine Urobilinogen NEGATIVE EU (0.2-1.0) 06/20/18 00:25 Ur Leukocyte Esterase 3+ (NEGATIVE) H 06/20/18 00:25 Urine RBC 5-10 /hpf (0-3) H 06/20/18 00:25 Urine WBC 50-182 /hpf (0-3) H 06/20/18 00:25 Ur Epithelial Cells TRACE /lpf (NONE-1+) 06/20/18 00:25 Amorphous Sediment PRESENT /hpf (NONE-1+) 06/20/18 00:25 Urine Glucose NEGATIVE (NEGATIVE) 06/20/18 00:25 Imaging Review: Imaging Impressions Chest X-Ray 06/19/18 20:18 Impression: Bibasilar consolidation, worse right than left, with associated pleural effusions, worse right than left. Bronchopneumonia versus compressive atelectasis due to the effusions. Visualized and Interpreted EKG results: Yes EKG Interpretation: Positive for: other (AF), right bundle branch block Assessment & Plan Assessment: 83 yo F w/ hx of dementia, CAD, AF, HTN, DM, and dCHF presents from living facility with HAYDEN, lactic acidosis, UTI, and pleural effusions. Plan: 1. UTI - Patient reports dysuria and foul smelling urine. UA obtained via straight cath; RN reported urine as puss appearing. She has 0/4 SIRS criteria at this time but severely elevated lactate. - CTX 1 g qD - Blood and urine cultures pending 2. C. Diff - Diagnosed at her living facility several weeks ago; has been under treatment with PO Vancomycin. Her abdominal exam is reassuring and she denies abdominal pain. However, lactate is very elevated. She has not had any diarrheal episodes overnight. - Continue PO Vancomycin - Low threshold for abdominal imaging 3. Lactic acidosis - Lactate increasing despite fluid resuscitation. It is possible this is due to metformin use in the setting of acute kidney injury. Fluid resuscitation limited by CHF. - Hold metformin - Continue to monitor lactic acid - Low threshold for abdominal imaging, exam is currently reassuring (soft, non- tender) 4. HAYDEN - Serum creatinine 2.9 on admission, increased from normal baseline. This is likely due to dehydration and infection. - S/p ~1.5 L IVF (30 mL/kg fluid bolus stopped due to shortness of breath) - Monitor BMP - Avoid nephrotoxic agents, renally dose medications 5. Chronic diastolic heart failure with acute exacerbation - Bilateral pleural effusions, BNP 65790 on admission. She is short of breath with IVF administration. TTE 04/02 notable for normal EF and Grade I diastolic dysfunction. She is on furosemide 80 mg PO daily. - Will continue home furosemide for now (will not increase diuresis noting active infection and elevated lactate) - Monitor daily weights, I/Os 6. NIDDM - On metformin and Tradjenta as an outpatient. - Will hold oral meds noting hypoglycemia, HAYDEN, and lactic acidosis - May need insulin if hyperglycemic 7. AF - Will continue amiodarone and metoprolol. No longer on AC due to recent GI bleed. - Monitor on telemetry 8. CAD - S/p CABG, no active chest pain. - Continue home medications 9. Chronic anemia - Stable from prior values, has history of recent GI bleed due to bleeding jejunal ulcer. - Continue PPI BID 10. Acute on chronic encephalopathy - Acute worsened due to severe acidosis and acute infection. - Acute management as above - Fall risk, bed alarm Diet - NPO pending swallow screen by RN Code - Full Ppx - SCDs noting recent GIB Dispo - Admit under inpatient status
[2018-06-20] MEDS ORDERED: VANCOMYCIN 125 MG/2.5 ML UDL PO SCH (05:00)
--- NOTE | 2018-06-20 07:19 | PDMN ---
Medical Necessity Medical necessity: Pt meets inpt criteria per MD order and [facility] [id number], Renal Failure, Acute, admission indicated for: clinically significant metabolic abnormality (eg, acidosis) that is severe (lactate 8.7 upon admission and 9.1 today), worsening of clinical findings (creatinine up from 2.9 yesterday to 3.2 today), need for IV hydration support (fluid resuscitation limited by CHF). 83 y /o w/hx dementia, CAD, AF, HTN, DM, and CHF admitted w/UTI, HAYDEN, severe lactic acidosis, and pleural effusions, presents w/beyond baseline confusion, SOB, dysuria/foul smelling urine, and BNP 23,000. IV ABX's, needing 3-5 L O2, ongoing med nec eval/management of above, anticipate>2MN.
[2018-06-20] MEDS ORDERED: NS 1,000 ML IV SCH (07:30)
[2018-06-20] MEDS: D50W 25 GM/50 ML SYR IVP PRN (08:20)
--- NOTE | 2018-06-20 08:29 | HOSPPROG ---
Hospitalist Progress Note Assessment/Plan: #Sepsis: elevated lactate, tachy, +UTI, +URI #Lactic acidosis: decreased PO, on metformin. Check ABG #Acutely decompensated systolic/diastolic HF: BNP >23K, volume overload on exam with leg swelling, effusions. Negative troponin -echo 04/02 EF 55%, Grade 1 diastolic HF -stat echo now -hold diuretics. Plan for HD -Vasopressin if MAP <65 #C diff infection: therapy extended due to abx for UTIs and still having diarrhea (confirmed by PA at [facility]) -cont Vanc now since on abx -med likely not effective bc was administered with Cholestyramine. Stop this med while on Vanc #HAYDEN: Cr 3.2. (BL 0.8). Urine lytes pending -volume overloaded, but ATN possible with hypotension, diarrhea -appreciate renal consult -catheter placed, HD today #UTI: renetta pus on straight cath. CTX, urine/blood culture pending #Hypoglycemia: due to acute illness, decreased PO #CAD: prior CABG #h/o GIB: 04/2018 #Right heel ulcer: present at admission. Wound care #Permanent atrial fib: amiodarone, BB. Cardioversion 03/02 #Acute on chronic hypoxemic failure: +human metapneumovirus, bilateral effusions #Acute metabolic encephalopathy: due to #Social: lives at [facility]. SonSalvatore is MDPOA Critical care time spent: 60min bedside with pt, d/w staff at [facility], d/w Card/ Nephro (9:00-10:00) Subjective: feels weak. Denies lightheadedness Objective: Vital Signs Temp Pulse Resp BP Pulse Ox 36.3 C 92 17 99/55 L 95 06/20/18 07:19 06/20/18 07:19 06/20/18 07:19 06/20/18 07:19 06/20/18 07:19 Microbiology 06/20/18 02:00 Respiratory Panel (PCR) - Final Nasal, Sinus - Swab Human Metapneumovirus Detected Laboratory Results 06/20/18 04:22 06/20/18 04:22 06/19/18 06/20/18 06/21/18 05:59 05:59 05:59 Intake Total 1100 Balance 1100 PT 14.8 SEC (12.0-15.0) 06/19/18 19:50 INR 1.21 (0.83-1.16) H 06/19/18 19:50 - Time Spent With Patient Time Spent with Patient: greater than 35 minutes Time Spent with Patient: Greater than 35 minutes spent on this patients care, greater than 50% of time spent counseling, educating, and coordinating care regarding the above mentioned plan. - Physical Exam Constitutional: obese Ears, Nose, Mouth, Throat: dry mucous membranes, hard of hearing Cardiovascular: irregularly irregular, edema (+2-3 pitting edema up to luong) Respiratory: other (decreased BS BL bases) Gastrointestinal: normoactive bowel sounds, soft, non-tender abdomen Genitourinary: No randhawa in urethra Skin: warm Musculoskeletal: generalized weakness Neurologic: CN II-XII Intact ICD10 Worksheet Patient Problems: Problems Problem Status Onset Acute kidney injury Acute C. difficile colitis Acute Renal insufficiency Acute Abdominal pain Acute CHF (congestive heart failure) Acute Cellulitis Acute Chest pain Acute Dehydration Acute Gallstone Acute Hypokalemia Acute Hypoxemia Acute Medication induced coagulopathy Acute Pulmonary edema Acute Severe sepsis Acute Upper GI bleed Acute
[2018-06-20] MEDS ORDERED: FUROSEMIDE 80 MG TAB PO SCH (09:00)
[2018-06-20] MEDS: PANTOPRAZOLE SODIUM 40 MG TAB PO SCH ×2 (09:28→21:31)
[2018-06-20] MEDS: METOPROLOL TARTRATE 25 MG TAB PO SCH (09:28)
[2018-06-20] MEDS: AMIODARONE HCL 200 MG TAB PO SCH (09:29)
--- NOTE | 2018-06-20 09:29 | ASMTLACE ---
ANGELE Acuity / Level of Answers: Yes Care: Did the patient have an inpatient admission? Comorbidities - select Answers: Congestive heart failure all that apply Coronary Artery Disease Dementia Diabetes (uncontrolled or controlled) Other Notes: HTN # of Emergency department Answers: 3-4 visits in the last 6 months Score: 15 Date Signed: 06/20/2018 09:28 AM Electronically Signed By:Savanah Martinez
--- NOTE | 2018-06-20 09:51 | PDCONSULT ---
Occupational Therapist Assistants Note: Renal Consult Note - Chief Complaint Altered mental status - History of Present Illness The patient is an 83 y/o F with a known h/o HTN, CAD, DM, and CHF who presented from an assisted living facility for AMS as well as possible PNA. While the patient also has dementia, she was reportedly confused beyond her baseline. She recently completed treatment for C. diff. On admission she c/o symptoms of a UTI and there was puss in her urine once straight mak'd per nursing. This am she is extremely confused and cannot answer any questions appropriately. Per her son and chart review she had a normal Cr of 0.9mg/dl in March. She has a brother who from renal disease of unknown cause at age 50. Her son states that normally her dementia is mild and that she has only been more confused for the last week. He confirmed that she is full code. He agrees to dialysis. History Information - Allergies/Home Medication List Penicillins Allergy (Mild, Verified 06/19/18 19:38) Rash amoxicillin Allergy (Verified 06/19/18 19:38) Home Medications: Acetaminophen [Tylenol 325mg (*)] 650 mg PO Q4 PRN Amiodarone HCl [Pacerone (*)] 200 mg PO DAILY Ascorbic Acid [Vitamin C 500 mg (*)] 500 mg PO BID Capsaicin 0.025% 1 violeta TP TID Cholestyramine (with Sugar) [Cholestyramine Packet] 4 gm PO BID Furosemide [Lasix 80 MG (*)] 80 mg PO DAILY Glucagon HCl [Glucagon] 1 mg IM ONCE PRN Herbals/Supplements -Info Only 1 ea PO DAILY Lidocaine 2% Jelly [Glydo] 1 violeta TP Q2H PRN Linagliptin [Tradjenta] 5 mg PO DAILY Menthol/Zinc Oxide [Calmoseptine Ointment] 1 violeta TP AD Metoprolol Tartrate [Lopressor 25 mg (*)] 12.5 mg PO BID Ondansetron Odt [Zofran Odt 4 mg (*)] 4 mg PO Q6 PRN Pantoprazole Sodium [Protonix 40mg (*)] 40 mg PO BID Vancomycin [Vancomycin Oral Liquid] 125 mg PO Q6H metFORMIN HCL [Glucophage 500 mg (*)] 500 mg PO BIDMEAL - Past Medical History atrial fibrillation, coronary artery disease, CHF (diastolic and systolic, EF of 45%), dementia, diabetes type 2, hypertension, hyperlipidemia CAD status post stent and CABG, history CHF with normal LV EF on recent echocardiogram 05/01/2017 at 55%, RENUKA non compliant with CPAP, HTN, obesity(BMI 36), hearing deficit with hearing aid requirement, cholelithiasis, left lateral ankle wound - Surgical History angioplasty, coronary bypass surgery, cholecystectomy, coronary stent, Gastric bypass, - Family History None reported - Social History Smoking Status: Former smoker Alcohol Use: No ETOH use Drug Use: None Review of Systems 10pt was reviewed & negative except for what was stated in HPI & below Physical Exam Temp Pulse Resp BP Pulse Ox 36.3 C 92 17 99/55 L 95 06/20/18 07:19 06/20/18 07:19 06/20/18 07:19 06/20/18 07:19 06/20/18 07:19 O2 (L/minute) 3 GEN: Ill appearing, disoriented to self and place HEENT: No jaundice, EOMI NECK: Supple, no thyromegaly CV: Irregular, no rub RESP: Crackles bilaterally with no wheezing ABD: Soft, NT, distended EXT: +diffuse anarsarca NEURO: Non-focal, unable to answer questions SKIN: No rashes noted WBC 7.59 10^3/uL (3.80-9.50) 06/20/18 04:22 RBC 3.65 10^6/uL (4.18-5.33) L 06/20/18 04:22 Hgb 10.0 g/dL (12.6-16.3) L 06/20/18 04:22 Hct 34.9 % (38.0-47.0) L 06/20/18 04:22 MCV 95.6 fL (81.5-99.8) 06/20/18 04:22 MCH 27.4 pg (27.9-34.1) L 06/20/18 04:22 MCHC 28.7 g/dL (32.4-36.7) L 06/20/18 04:22 RDW 17.5 % (11.5-15.2) H 06/20/18 04:22 Plt Count 204 10^3/uL (150-400) 06/20/18 04:22 MPV 11.0 fL (8.7-11.7) 06/20/18 04:22 Neut % (Auto) 81.2 % (39.3-74.2) H 06/20/18 04:22 Lymph % (Auto) 9.6 % (15.0-45.0) L 06/20/18 04:22 [place] % (Auto) 6.6 % (4.5-13.0) 06/20/18 04:22 Eos % (Auto) 1.4 % (0.6-7.6) 06/20/18 04:22 Baso % (Auto) 0.7 % (0.3-1.7) 06/20/18 04:22 Nucleat RBC Rel Count 0.0 % (0.0-0.2) 06/20/18 04:22 Absolute Neuts (auto) 6.16 10^3/uL (1.70-6.50) 06/20/18 04:22 Absolute Lymphs (auto) 0.73 10^3/uL (1.00-3.00) L 06/20/18 04:22 Absolute Monos (auto) 0.50 10^3/uL (0.30-0.80) 06/20/18 04:22 Absolute Eos (auto) 0.11 10^3/uL (0.03-0.40) 06/20/18 04:22 Absolute Basos (auto) 0.05 10^3/uL (0.02-0.10) 06/20/18 04:22 Absolute Nucleated RBC 0.00 10^3/uL (0-0.01) 06/20/18 04:22 Immature Gran % 0.5 % (0.0-1.1) 06/20/18 04:22 Immature Gran # 0.04 10^3/uL (0.00-0.10) 06/20/18 04:22 Platelet Estimate ADEQUATE (ADEQ) 06/20/18 04:22 Echinocytes 1+ H 06/20/18 04:22 Elliptocytes 1+ H 06/20/18 04:22 Acanthocytes (Spur) 2+ H 06/20/18 04:22 Schistocytes 1+ H 06/20/18 04:22 PT 14.8 SEC (12.0-15.0) 06/19/18 19:50 INR 1.21 (0.83-1.16) H 06/19/18 19:50 APTT 32.0 SEC (23.0-38.0) 06/19/18 19:50 VBG Lactic Acid 9.1 mmol/L (0.7-2.1) H 06/20/18 04:22 Sodium 145 mEq/L (135-145) 06/20/18 04:22 Potassium 5.3 mEq/L (3.5-5.2) H 06/20/18 04:22 Chloride 107 mEq/L (97-110) 06/20/18 04:22 Carbon Dioxide 11 mEq/l (22-31) L 06/20/18 04:22 Anion Gap 27 mEq/L (6-14) H 06/20/18 04:22 BUN 58 mg/dL (7-23) H 06/20/18 04:22 Creatinine 3.2 mg/dL (0.6-1.0) H 06/20/18 04:22 Estimated GFR 14 06/20/18 04:22 Glucose 54 mg/dL (70-100) L 06/20/18 04:22 POC Glucose 138 mg/dL (70-100) H 06/20/18 08:45 Calcium 9.2 mg/dL (8.5-10.4) 06/20/18 04:22 Total Bilirubin 0.7 mg/dL (0.1-1.4) 06/19/18 19:50 Conjugated Bilirubin 0.4 mg/dL (0.0-0.5) 06/19/18 00:17 Unconjugated Bilirubin 0.3 mg/dL (0.0-1.1) 06/19/18 00:17 AST 18 IU/L (14-46) 06/19/18 00:17 ALT 13 IU/L (9-52) 06/19/18 00:17 Alkaline Phosphatase 60 IU/L (38-126) 06/19/18 00:17 POC Troponin I 0.02 ng/mL (0.00-0.08) 06/19/18 20:30 NT-Pro-B Natriuret Pep 21239 pg/mL (0-450) H 06/19/18 19:50 Total Protein 6.0 g/dL (6.3-8.2) L 06/19/18 00:17 Albumin 3.4 g/dL (3.5-5.0) L 06/19/18 00:17 Urine Color YELLOW 06/20/18:25 Urine Appearance MODERATELY TURBID 06/20/18 00:25 Urine pH 5.0 (5.0-7.5) 06/20/18 00:25 Ur Specific [place] 1.011 (1.002-1.030) 06/20/18 00:25 Urine Protein 2+ (NEGATIVE) H 06/20/18 00: Urine Ketones TRACE (NEGATIVE) H 06/20/18 00: Urine Blood 1+ (NEGATIVE) H 06/20/18 00: Urine Nitrate NEGATIVE (NEGATIVE) 06/20/18: Urine Bilirubin NEGATIVE (NEGATIVE) 06/20/18: Urine Urobilinogen NEGATIVE EU (0.2-1.0) 06/20/18 00: Ur Leukocyte Esterase 3+ (NEGATIVE) H 06/20/18 00:25 Urine RBC 5-10 /hpf (0-3) H 06/20/18:25 Urine WBC 50-182 /hpf (0-3) H 06/20/18 00:25 Ur Epithelial Cells TRACE /lpf (NONE-1+) 06/20/18: Amorphous Sediment PRESENT /hpf (NONE-1+) 06/20/18: Urine Glucose NEGATIVE (NEGATIVE) 06/20/18 00:25 Imaging: CXR results reviewed. ASSESSMENT/PLAN: The patient is an 83 y/o F with a complex PMH who presented with altered mental status found to have probable UTI sepsis and HAYDEN. Etiology likely ATN given hypotension and elevated lactate. HAYDEN: -baseline Cr 0.9, now >3 and oliguric -would place randhawa to monitor UO -plan for placing IR temp CVC today and hemodialysis -if unable to tolerate will need to consider CRRT (d/w son) -avoid contrast and nephrotoxins (renally dose amio) -UA reviewed, other urine studies pending -continue to monitor Hypotension -urine and blood cultures pending -on abx for C.diff and empiric -keep MAP>65, may need some vaso on HD (moving to ICU) Volume overload -would hold diuretics at this time -will UF with HD if possible -echo pending Acidosis -ABG pending -will correct with HD -hold fluids for now given no urine output BMD -NPO for now -check phos Consult appreciated, will continue to follow #[phone]. Nicanor Pruitt DO [facility]
--- NOTE | 2018-06-20 10:21 | ASMTCMCOM ---
CM Note CM Note Notes: Patient admitted with confusion, HAYDEN, CHF exacerbation. She has a UTI. She is being treated for Cdiff (tx started by SNF where she has been for last month). Patient has been at [facility] since late April. Per Isabel at [facility], her insurance company has threatened to stop paying and family/facility are in an appeals process. SNF says they will take her back, however. I spoke w her son Salvatore who is amenable to her returning to [facility]. Family has arranged for her to move into [facility] but she needs to get stronger in order to pass the assessment to move in there. Family would be find w her moving directly into RETIREMENT if appropriate but understand that SNF may be necessary first. Case Management will follow. Date Signed: 06/20/2018 10:20 AM Electronically Signed By:Alesha Castaneda RN
--- NOTE | 2018-06-20 11:16 | ECHO ---
[email or web address] [address] Main: [phone] Echocardiography Examination Transthoracic Name: FLORA LOVE MR#: [id number] Study Date: 06/20/2018 Study Time: 10:19 AM Date of : 1935 Age: 83 year(s) Height: 162.6 cm (64 in.) Weight: 90.27 kg (199 lb.) BSA: 1.95 m2 Gender: Female Examination: Echo Contrast: Image Quality: Rhythm: Tachycardia Heart Rate: 96 bpm BP: 105 mmHg/63 mmHg Indication: Pleural Effusion Procedure Staff Referring Physician: Wildlife [employer] Professor: Beny Beaulieu RDCS Reading Physician: Farshad Rivero MD Requesting Provider: Ordering Physician: Ynes Velez Indication: Pleural Effusion Measurements Chambers AV/MV Label Value Normal Value Label Value Normal Value LVOT Vmax 0.68 m/s (0.7m/s - 1.1m/s) AR PHT 0.56 s LVOTd 2 cm (1.8cm - 2cm) AR PHT 564 ms LVOT VTI 15.5 cm (18cm - 22cm) AR Vmax 3.58 m/s LVDd, MM 5.1 cm (3.9cm - 5.3cm) AV PGmax 8 mmHg LVDd, 2D 5.2 cm (3.9cm - 5.3cm) AV PGmean 5 mmHg LVDs, MM 3.7 cm (2cm - 3.8cm) AV Vmax 1.45 m/s LVDs, 2D 3.6 cm (2.1cm - 4cm) HENRI (Vmax) 1.5 cm2 IVSd, MM 1.2 cm (0.6cm - 0.9cm) HENRI (VTI) 1.6 cm2 IVSd, 2D 1 cm (0.6cm - 1.1cm) MV E Vmax 1.59 m/s LVPWd, MM 1.4 cm (0.6cm - 0.9cm) MV E/E' lateral 24.7 LVPWd, 2D 0.8 cm MV E/E' septal 30.8 (0.45 - 1.25) LVEF, 2D 57 % (54% - 74%) MV E' septal 0.05 m/s LVOT PGmean 1 mmHg MV E' lateral 0.06 m/s LVOT Vmean 0.48 m/s MV E/E' mean 28.91 RVDd, 2D 2.8 cm (1.9cm - 3.8cm) MV E' mean 0.06 m/s LA Volume, BP 120 ml (22ml - 52ml) TV/PV LAESV index, BP 61.5 ml/m2 Label Value Normal Value RA Area 22.1 cm2 RA Pressure 5 mmHg Additional Vessels RVSP 50 mmHg Patient: FLORA LOVE Study Date: 06/20/2018 Page 1 of 3 10:19 AM Label Value Normal Value TR Pmax 45 mmHg AoRoot, MM 3.2 cm (2.2cm - 3.7cm) TR Vmax 3.34 m/s PV PGmax 4 mmHg PV Vmax, Caliper 1.03 m/s (0.6m/s - 0.9m/s) Conclusions Left Ventricle: There is inferior inferoseptal hypokinesis.. Left ventricle is normal in size. The EF is visually estimated to be 55 %. Grade I Diastolic Dysfunction. Left Atrium: The left atrium is severely dilated. Mitral Valve: Moderate mitral regurgitation. There is mild mitral calcification. Aortic Valve: Mild aortic regurgitation is present. Aortic leaflets exhibit mild calcification. Tricuspid Valve: Moderate tricuspid regurgitation. Right Ventricular systolic pressure is measured at 50 mmHg. Overall Conclusions: Compared to echo of 04/07/2018, today's echo is unchanged. Findings Left Ventricle: There is inferior inferoseptal hypokinesis.. Left ventricle is normal in size. The EF is visually estimated to be 55 %. EF range is estimated at 50 % - 60 %. Left ventricle wall thickness is normal. Grade I Diastolic Dysfunction. Right Ventricle: Normal size right ventricle. Left Atrium: The left atrium is severely dilated. Right Atrium: The right atrium is mildly dilated. Mitral Valve: Moderate mitral regurgitation. There is mild mitral calcification. Aortic Valve: Mild aortic regurgitation is present. There is no aortic stenosis. Aortic leaflets exhibit mild calcification. The aortic valve is trileaflet. Tricuspid Valve: Moderate tricuspid regurgitation. Right Ventricular systolic pressure is measured at 50 mmHg. Pulmonary artery pressure is mildly to moderately increased. Aorta: The aorta is normal. The aortic root size in M-mode measures 3.2 cm. Aorta Measurements AoRoot, MM is 3.2 cm. Patient: FLORA LOVE Study Date: 06/20/2018 Page 2 of 3 10:19 AM Pericardium: No pericardial effusion. There is a large left pleural effusion. Exam Details Procedure Ordered: Echo (No Signature Object) Patient: FLORA LOVE Study Date: 06/20/2018 Page 3 of 3 10:19 AM [id number]
[2018-06-20] MEDS ORDERED: HEPARIN 50,000 UNIT/10 ML VIAL ONE ×2 (12:06→23:26)
[2018-06-20] MEDS: VANCOMYCIN 125 MG/2.5 ML UDL PO SCH ×4 (14:49→21:32)
--- NOTE | 2018-06-20 15:55 | WOCRNPDOC ---
WOCRN Advanced Assessment Note - Skin Integrity Problem, Advanced Assess Left Ankle Pressure Injury Dressing Type: Allevyn Life Dressing Description: Clean/Dry, Intact Exudate Amount: Scant Exudate Color: Yellow Integumentary Issue Intervention: Visualized Under Dressing Dyan Wound Tissue: Erythema (1 cm circumferentially) Wound Bed Color: Brown, Yellow Wound Bed Constitution: Stable Eschar Wound Edges: Attached Site Measurement - Head-to-Toe Length X Width X Depth (cm): [id number] Pressure Injury Stage: Unstageable Pressure Injury Present on Admit: Yes Skin Integrity Problem Comment: This is a chronic wound that keeps opening (per son). Presents as a harder crusty area over the achilles surrounded by erythema and peeling skin. Will initiate off loading boot and moist wound healing with Silvasorb. Would care will follow. Coccyx Dressing Type: Mepilex Border Dressing Description: Intact Integumentary Issue Intervention: Visualized Under Dressing Skin Integrity Problem Comment: Patient sacrococcygeal area appears intact and blanching. Healed stage 3 coccyx wound closed, no concerns currently. Will continue Mepilex border sacral dressing as well as turning.
--- NOTE | 2018-06-20 16:03 | PDCARPN ---
Cardiology Progress Note Assessment/Plan: Ms. Mahoney is an 83 year old female familiar to me from previous hospital encounters, most recently in March. She is currently admitted from her living facility because of altered mental status and chest x-ray abnormalities. She has been under treatment for C. difficile. She also reported dysuria and foul-smelling urine. In the emergency room, she had borderline blood pressure, acute kidney injury with a creatinine of 2.9 (baseline 0.8-0.9), and significantly elevated lactate of 8.3. She had obvious pyuria and her overall clinical picture was consistent with sepsis. Over night, her lactate continued to increase. An ABG this morning demonstrated a metabolic acidosis with a pH of 7.27. Initially, she had been admitted to PCU but was transferred to ICU and a dialysis catheter was placed. Her admission BNP was 23,000. Her cardiac history includes CAD with a 4 vessel CABG in 2010. In 2014 a sequential SVG to diagonal and obtuse marginal was found to be occluded. Her RIVERA to LAD graft and SVG to distal RCA were patent. She underwent PCI of the circumflex. I performed a cardiac catheterization 2 years ago this month. That study demonstrated that the RIVERA to LAD graft, SVG to RCA, and circumflex stent site were all patent. She has a history of predominantly diastolic CHF. She also has a history of atrial fibrillation. She did not maintain sinus rhythm following a cardioversion in February of this year. Amiodarone was started in anticipation of subsequent attempt at cardioversion. This has not yet taken place. Congestive Heart Failure: She has predominantly diastolic CHF. While her BNP is significantly elevated at 23,000, She does not appear to be severely volume overloaded. She does have chronic lower extremity edema. Her chest x-ray demonstrated bilateral pleural effusions with some compression atelectasis but no pulmonary edema. She does not have a significant O2 requirement. An echocardiogram earlier today demonstrated an ejection fraction of 55% with diastolic dysfunction. She had severe left atrial enlargement, moderate MR, mild AR, moderate TR, with an estimated PA systolic pressure of 50 mmHg. This is unchanged from March. Her usual diuretic regimen is on hold because of her acute renal failure. - Her volume status can be addressed with dialysis. Coronary Artery Disease: Anatomic details as described above. She does not report any chest pain. Her ECG does not demonstrate any ischemic changes. Her troponin is normal. - Continue secondary prevention. Atrial Fibrillation: She has been in persistent atrial fibrillation for at least the past several months and is adequately rate controlled. She failed a cardioversion in February of this year. She was started on amiodarone with plans for a repeat cardioversion. In the past, she had been on Eliquis as an outpatient. However, it was discontinued in April secondary to an upper GI bleed. - At this point, would probably forego another attempt at cardioversion. I feel she should be relegated to chronic atrial fibrillation. At some point, we can discontinue her amiodarone and replace it with metoprolol. 06/20/18 15:58 Subjective: Unable to voice specific complaints. Reviewed/Discussed With: hospitalist Objective: Vital Signs (8 Hrs) Temp Pulse Resp BP Pulse Ox 06/20/18 11:36 36.4 C 96 16 106/55 L 90 L 06/20/18 09:28 93 105/53 L Intake/Output (24 Hrs) 06/19/18 06/20/18 06/21/18 05:59 05:59 05:59 Intake Total 1100 80 Output Total 90 Balance 1100 -10 Intake: Oral (ml) 100 IV Infused (ml) 1000 80 Ns 1,000 ml @ 100 mls/hr 80 IV CONT DAYANA Rx#: [id number] Output: Urine (ml) 90 Catheter 90 Other: Weight 90.4 kg Number of Voids 2 Result Diagrams: 06/20/18 04:22 06/20/18 12:00 - Physical Exam Constitutional: other (ill-appearing) Eyes: anicteric sclera Ears, Nose, Mouth, Throat: moist mucous membranes, other (very hard of hearing) Cardiovascular: no murmurs, irregularly irregular Respiratory: other (clear anteriorly) Gastrointestinal: normoactive bowel sounds, no tenderness, no masses Skin: other (2-3+ edema) Neurologic: other (confused) ICD10 Worksheet Patient Problems: Problems Problem Status Onset Acute kidney injury Acute C. difficile colitis Acute Renal insufficiency Acute Abdominal pain Acute CHF (congestive heart failure) Acute Cellulitis Acute Chest pain Acute Dehydration Acute Gallstone Acute Hypokalemia Acute Hypoxemia Acute Medication induced coagulopathy Acute Pulmonary edema Acute Severe sepsis Acute Upper GI bleed Acute
[2018-06-20 18:45] LABS: HEPATITIS B CORE AB TOTAL NEGATIVE (NEGATIVE); HEPATITIS B SURFACE ANTIGEN NEGATIVE (NEGATIVE)
[2018-06-20] MEDS: ALBUMIN 25% 50 ML IV PRN (21:33)
[2018-06-21] MEDS ORDERED: FUROSEMIDE 100 MG/10 ML VIAL IVP ONE (03:18)
--- NOTE | 2018-06-21 03:25 | HOSPPROG ---
Hospitalist Progress Note Assessment/Plan: XC: Notified by RN of acute increase in O2 requirement. Patient now requiring 15L via oxymask to maintain O2 sats. I ordered a CXR, which shows much larger pleural effusion on the R side. HD yesterday was complicated and only 700 mL fluid was removed. She was also given additional fluids due to low BPs. She is making minimal urine. I discussed the case with family practitioner Dr. Guaman. We discussed trying Lasix 120 mg IV and switching patient to Vapotherm @ 40 LPM. If worsening despite this, she will need emergent HD or CRRT. Objective: Vital Signs Temp Pulse Resp BP Pulse Ox 36.5 C 84 14 95/66 L 97 06/20/18 20:00 06/21/18 00:00 06/21/18 00:00 06/21/18 00:00 06/21/18 00:00 Microbiology 06/20/18 02:00 Respiratory Panel (PCR) - Final Nasal, Sinus - Swab Human Metapneumovirus Detected Laboratory Results 06/20/18 04:22 06/20/18 12:00 06/19/18 06/20/18 06/21/18 05:59 05:59 05:59 Intake Total 1100 80 Output Total 125 Balance 1100 -45 PT 14.8 SEC (12.0-15.0) 06/19/18 19:50 INR 1.21 (0.83-1.16) H 06/19/18 19:50 ICD10 Worksheet Patient Problems: Problems Problem Status Onset Chest pain Acute Cellulitis Acute Pulmonary edema Acute Severe sepsis Acute Gallstone Acute Abdominal pain Acute CHF (congestive heart failure) Acute Hypoxemia Acute Hypokalemia Acute Dehydration Acute Acute kidney injury Acute Upper GI bleed Acute Medication induced coagulopathy Acute Renal insufficiency Acute C. difficile colitis Acute
[2018-06-21] MEDS ORDERED: FUROSEMIDE 100 MG/10 ML VIAL ONE (03:26)
[2018-06-21] MEDS ORDERED: FUROSEMIDE 20 MG/2 ML VIAL ONE (03:26)
[2018-06-21] MEDS: VANCOMYCIN 125 MG/2.5 ML UDL PO SCH ×4 (05:33→21:06)
--- NOTE | 2018-06-21 09:23 | HOSPPROG ---
Hospitalist Progress Note Assessment/Plan: #Sepsis: elevated lactate, tachy, +UTI, +Human metapneumovirus -blood/urine cultures pending #Acute on chronic hypoxemic failure: +human metapneumovirus, bilateral effusions -needs urgent HD today with increased O2 needs; now on Vapotherm -consider right-sided thoracentesis (son consented if needed -pressors if needed #Acutely decompensated systolic/diastolic HF: BNP >23K, volume overload on exam with leg swelling, effusions. Negative troponin -echo unchanged from prior; EF 55%, Grade 1 diastolic HF -hold diuretics. #C diff infection: therapy extended due to abx for UTIs and still having diarrhea (confirmed by PA at [facility]) -cont Vanc now since on abx -med likely not effective bc was administered with Cholestyramine. Stop this med while on Vanc #ABLA: lost 600cc blood with HD, counts stable #Oliguric HAYDEN: Cr 2.4 (BL 0.8). -volume overloaded, but ATN possible with hypotension, diarrhea -appreciate renal consult #UTI: renetta pus on straight cath. CTX, urine/blood culture pending #Hypoglycemia: due to acute illness, decreased PO #CAD: prior CABG #h/o GIB: 04/2018 #Right heel ulcer: present at admission. Wound care #Permanent atrial fib:Hold BB, amio with hypotension. Cardioversion 03/02. Use PRN IV dig. No AC with recent UGIB #Lactic acidosis: decreased PO, on metformin #Acute metabolic encephalopathy: due to #Social: lives at [facility]. Salvatore Nguyen is MDPOA #Goals: spoke with Salvatore nguyen (ALIS) broached goals of care. Changed to DNR status. Wants to see how she tolerates HD. Will have him completed MOST form Critical care time spent: 35min Subjective: increased oxygen needs overnight; more edema on xray Objective: Vital Signs Temp Pulse Resp BP Pulse Ox 36.0 C 115 H 20 113/80 99 06/21/18 08:00 06/21/18 08:00 06/21/18 08:00 06/21/18 08:00 06/21/18 08:00 Microbiology 06/20/18 02:00 Respiratory Panel (PCR) - Final Nasal, Sinus - Swab Human Metapneumovirus Detected Laboratory Results 06/21/18 04:20 06/21/18 04:20 06/20/18 06/21/18 06/22/18 05:59 05:59 05:59 Intake Total 1100 130 Output Total 225 Balance 1100 -95 PT 14.8 SEC (12.0-15.0) 06/19/18 19:50 INR 1.21 (0.83-1.16) H 06/19/18 19:50 - Time Spent With Patient Time Spent with Patient: greater than 35 minutes Time Spent with Patient: Greater than 35 minutes spent on this patients care, greater than 50% of time spent counseling, educating, and coordinating care regarding the above mentioned plan. - Physical Exam Constitutional: other (ill-appearing) Ears, Nose, Mouth, Throat: dry mucous membranes, hard of hearing Cardiovascular: irregularly irregular, tachycardia Respiratory: rhonchi, other (decreased BS right mid-lung to base) Gastrointestinal: normoactive bowel sounds Genitourinary: randhawa in urethra Neurologic: CN II-XII Intact ICD10 Worksheet Patient Problems: Problems Problem Status Onset Acute kidney injury Acute C. difficile colitis Acute Renal insufficiency Acute Abdominal pain Acute CHF (congestive heart failure) Acute Cellulitis Acute Chest pain Acute Dehydration Acute Gallstone Acute Hypokalemia Acute Hypoxemia Acute Medication induced coagulopathy Acute Pulmonary edema Acute Severe sepsis Acute Upper GI bleed Acute
[2018-06-21] MEDS: PANTOPRAZOLE SODIUM 40 MG TAB PO SCH ×2 (09:43→21:06)
[2018-06-21] MEDS: AMIODARONE HCL 200 MG TAB PO SCH (09:43)
--- NOTE | 2018-06-21 09:54 | SOAPPROG ---
SOAP Progress Note Assessment/Plan: Assessment/Plan: HAYDEN: likely ATN, oliguric. - HD done yesterday but only 200ml removed due to hypotension. - Will do HD again today given worsening volume status and hypoxia. - Will continue to monitor daily for HD needs, if BP continues to be difficult then may need to consider CRRT. - Avoid hypotension and nephrotoxins. Hypotension: BP ok this am, but had problems overnight and also limited fluid removal on HD yesterday. - Will support BP with albumin and low dialysate temp while on HD. - If this prevents fluid removal on HD, will consider starting pressor support to allow more fluid removal. Hypervolemia: with worsening hypoxia. - Will modulate on HD today with supporting BP as above. - Consider thoracentesis for large pleural effusion. Acidosis: pH improved, lactic acidosis improving, also modulating with HD. Will continue to monitor. Subjective: Pt had increasing O2 requirements overnight from 2-3L to now 70% FiO2, also had low BP and got IVFs. She has large R sided pleural effusion. She remains confused. Objective: Vital Signs Temp Pulse Resp BP Pulse Ox 36.0 C 115 H 20 113/80 99 06/21/18 08:00 06/21/18 08:00 06/21/18 08:00 06/21/18 08:00 06/21/18 08:00 Microbiology 06/20/18 02:00 Respiratory Panel (PCR) - Final Nasal, Sinus - Swab Human Metapneumovirus Detected Laboratory Results 06/21/18 04:20 06/21/18 04:20 06/20/18 06/21/18 06/22/18 05:59 05:59 05:59 Intake Total 1100 130 Output Total 225 Balance 1100 -95 PT 14.8 SEC (12.0-15.0) 06/19/18 19:50 INR 1.21 (0.83-1.16) H 06/19/18 19:50 General: awake, alert, mild distress Eyes: EOMI, PERRL OP: Clear CV: tachycardia Resp: +cough, +increased work of breathing Abd: Soft, NT Ext: +2 edema BLE Neuro: CN II-XII grossly intact ICD10 Worksheet Patient Problems: Problems Problem Status Onset Acute kidney injury Acute C. difficile colitis Acute Renal insufficiency Acute Abdominal pain Acute CHF (congestive heart failure) Acute Cellulitis Acute Chest pain Acute Dehydration Acute Gallstone Acute Hypokalemia Acute Hypoxemia Acute Medication induced coagulopathy Acute Pulmonary edema Acute Severe sepsis Acute Upper GI bleed Acute
--- NOTE | 2018-06-21 12:15 | PDCARPN ---
Cardiology Progress Note Assessment/Plan: Chronic Diastolic Congestive Heart Failure: BNP significantly elevated at 23, 000. Has chronic lower extremity edema. Chest x-ray demonstrated bilateral pleural effusions with some compression atelectasis but no pulmonary edema. Echocardiogram from 06/20 demonstrated an ejection fraction of 55% with diastolic dysfunction, severe LA enlargement, moderate MR, mild AR, and moderate TR with an estimated PA systolic pressure of 50 mmHg. (Unchanged from Mar.) Diuretics on hold due to HAYDEN. Only 400 ml able to be removed with dialysis yesterday. Volume status and O2 requirement worsened overnight. - Volume status to be addressed with dialysis. Second HD run about to start Coronary Artery Disease: Had 4-vessel CABG in 2004. PCI of circumflex in 2014 when seq SVG to diag and OM was found to occluded. Cath in June 2016 showed 3- vessel platinum CAD, patent RIVERA to LAD, patent SVG to RCA, and patent circumflex stent site. She does not report any chest pain. ECG does not demonstrate any ischemic changes. Troponin is normal. - Continue secondary prevention. Atrial Fibrillation: She has been in persistent atrial fibrillation for at least the past several months. Failed cardioversion in February of this year. Was started on amiodarone with plans for a repeat cardioversion. Had been on Eliquis. However, it was discontinued in April secondary to an upper GI bleed. HR running 100-130 bpm which is fairly appropriate for her degree of illness but increased HR is disadvantageous in the setting of diastolic dysfunction. - At this point, I feel she should be relegated to chronic atrial fibrillation. Will DC amiodarone. - Metoprolol is on hold due to hypotension. - Can use PRN IV digoxin for rate control. Will give first dose after today's HD session. 06/21/18 12:30 Subjective: Unable to voice specific complaints. Objective: Vital Signs (8 Hrs) Temp Pulse Resp BP Pulse Ox 06/21/18 10:00 108 H 18 119/64 79 L 06/21/18 08:00 36.0 C 115 H 20 113/80 99 Intake/Output (24 Hrs) 06/20/18 06/21/18 06/22/18 05:59 05:59 05:59 Intake Total 1100 130 Output Total 225 Balance 1100 -95 Intake: Oral (ml) 100 0 IV Infused (ml) 1000 130 Ns 1,000 ml @ 100 mls/hr 80 IV CONT [facility] Rx#: [id number] cefTRIAXone 1 GM/DEXTROSE 50 50 ml @ 100 mls/hr IV DAILY@2100 [facility] Rx#: [id number] Output: Urine (ml) 225 Catheter 225 Other: Weight 90.4 kg 90.4 kg Number of Voids 2 Number of Stools Incontinence 1 Result Diagrams: 06/21/18 04:20 06/21/18 04:20 - Physical Exam Constitutional: other (illappearing) Eyes: anicteric sclera Ears, Nose, Mouth, Throat: moist mucous membranes Cardiovascular: no murmurs, irregularly irregular Respiratory: other (clear anteriorly) Gastrointestinal: normoactive bowel sounds, no tenderness, no masses Skin: other (3+ edema) Neurologic: other (confused) ICD10 Worksheet Patient Problems: Problems Problem Status Onset Chest pain Acute Cellulitis Acute Pulmonary edema Acute Severe sepsis Acute Gallstone Acute Abdominal pain Acute CHF (congestive heart failure) Acute Hypoxemia Acute Hypokalemia Acute Dehydration Acute Acute kidney injury Acute Upper GI bleed Acute Medication induced coagulopathy Acute Renal insufficiency Acute C. difficile colitis Acute
[2018-06-21] MEDS ORDERED: DIGOXIN 500 MCG/2 ML AMP IVP ONE ×3 (12:58→16:00)
--- NOTE | 2018-06-21 13:37 | ASMTCMCOM ---
CM Note CM Note Notes: Waiting on PT eval for patient. Patient can return to [facility] for SNF rehab if that's the recommendation. D/C plan TBD. CM will follow. Date Signed: 06/21/2018 01:35 PM Electronically Signed By:Tavia Cerna LCSW
--- NOTE | 2018-06-21 18:29 | GCON ---
[f rep st] CONSULTATION PULMONARY/CRITICAL CARE CONSULTATION DATE OF CONSULTATION: 06/21/2018 REFERRING PHYSICIAN: Osiris Padilla MD REASON FOR REFERRAL: Evaluation and management of hypoxemic respiratory failure and pleural effusion . HISTORY: The patient is an 83-year-old woman with a history of dementia, hypertension, coronary timur ry disease, diabetes, and heart failure, who presented from an assisted living facility due to altere d mental status and possible pneumonia. She was admitted here yesterday due to confusion beyond her normal baseline dementia. A chest x-ray was done at that time, which was suspicious for pneumonia, s o she was sent to the emergency department yesterday. She was found to have pyuria and an elevated B ANGLESMITH, as well. She was also found to have acute kidney injury, with oliguric renal failure. She was s tarted on hemodialysis yesterday, but not much fluid could be taken off. Hemodialysis was repeated a gain today. She states that her breathing is unchanged, with some dyspnea. PAST MEDICAL HISTORY: 1. Atrial fibrillation. 2. Coronary artery disease. 3. Diastolic and systolic congestive heart failure, with an ejection fraction of 45%. 4. Dementia. 5. Type 2 diabetes. 6. Hypertension. 7. Hyperlipidemia. 8. Obstructive sleep apnea, noncompliant with CPAP. MEDICATIONS: At the time of admission include amiodarone, vitamin C, furosemide, Tradjenta, metoprol ol, pantoprazole, and metformin. She was recently treated with vancomycin for C difficile. ALLERGIES: Penicillin. SOCIAL HISTORY: The patient is a former smoker. She denies alcohol. She lives in assisted living. FAMILY HISTORY: Unremarkable. REVIEW OF SYSTEMS: Difficult to obtain due to the patient's dementia and hearing loss. PHYSICAL EXAMINATION: GENERAL: The patient is awake and alert. VITAL SIGNS: Her blood pressure is 95/77 with a heart rate of 134. Her oxygen saturations are 92% on 100% Vapotherm at 4 L/min. She i s afebrile. HEENT: Normocephalic and atraumatic. No icterus. NECK: No JVD. Trachea is midline. CHEST: She has decreased breath sounds in the right more so than the left base, with some rales in the left base. CARDIAC: Irregular tachycardia without murmur. ABDOMEN: Soft and nontender. Bowel sounds are present. EXTREMITIES: No clubbing or cyanosis. She has 1+ lower extremity edema. LABORATORY: A creatinine is 2.4, down from a peak of 3.2. Her BUN is 41. Potassium is 4.0. A whit e blood count of 6.3, down from 8.4. Hemoglobin is 8.2. INR is 1.2. A BNP is 23,000. An arterial blood gas early this morning showed a pH of 7.38 with a pO2 of 52, a CO2 of 40, and a bicarbonate of 24. Her pH is improved from 7.27 yesterday morning, with a metabolic acidosis with a bicarbonate of 17. Her respiratory panel was positive for human metapneumovirus. Urinalysis shows 50-180 white blo od cells. Urine culture shows no growth at 24 hours. IMAGING: A chest x-ray shows a large right and medium size left pleural effusion, increased from the previous day. There is also diffuse interstitial edema. ASSESSMENT: 1. Hypoxemic respiratory failure. This is likely due to congestive heart failure with large pleural effusions. The patient is status post dialysis with some fluid removal, so hopefully, this will hel p somewhat. There also may be a component of noncardiogenic pulmonary edema from probable urinary tr act infection, as well as human metapneumovirus, which could also contribute to pulmonary infiltrates . The patient has been started on ceftriaxone, which is appropriate coverage for the urinary tract i nfection and will also cover causes of community-acquired pneumonia. 2. Acute kidney injury. The patient is being treated with dialysis. 3. Atrial fibrillation. The patient has known chronic atrial fibrillation, and the plan is to try t o optimize rate control. 4. Congestive heart failure. This is likely systolic and diastolic congestive heart failure. Her B ANGLESMITH is markedly elevated. She has been somewhat refractory to fluid removal with dialysis with her ac susannah illness. RECOMMENDATIONS: 1. Continue ceftriaxone and rate control for atrial fibrillation. 2. Chest x-ray tomorrow, consider thoracentesis if she continues to have significant hypoxemia, as I expect she will. /[id number]/MODL
[2018-06-21] MEDS ORDERED: HEPARIN 50,000 UNIT/10 ML VIAL ONE (18:46)
[2018-06-22] MEDS: VANCOMYCIN 125 MG/2.5 ML UDL PO SCH ×4 (04:42→21:33)
[2018-06-22] MEDS: PANTOPRAZOLE SODIUM 40 MG TAB PO SCH ×2 (09:23→21:33)
--- NOTE | 2018-06-22 10:40 | SOAPPROG ---
SOAP Progress Note Assessment/Plan: Assessment: HAYDEN: likely ATN, oliguric. - HD done 06/20 but only 200ml removed due to hypotension. - HD 06/21 with 3L removed - Will attempt HD again today with 3L removal - CXR shows worsening R pleural effusion which can be resistant to HD volume removal, pulm considering thoracentesis - Avoid hypotension and nephrotoxins. Hypotension: Improved today - Will support BP with albumin and low dialysate temp while on HD. - If this prevents fluid removal on HD, will consider starting pressor support to allow more fluid removal. Acidosis: Improved. Will continue to monitor. d/w Dr. Beaver Plan: 06/22/18 10:37 06/22/18 10:39 06/22/18 10:45 Subjective: Pt reports tolerating HD well yesterday. Objective: Vital Signs Temp Pulse Resp BP Pulse Ox 36.4 C 105 H 21 H 123/69 H 91 L 06/22/18 07:07 06/22/18 07:07 06/22/18 07:07 06/22/18 07:07 06/22/18 07:07 Microbiology 06/20/18 00:25 Urine Culture - Final Urine,Catheterized Two [place] Types Laboratory Results 06/22/18 04:20 06/22/18 04:20 06/21/18 06/22/18 06/23/18 05:59 05:59 05:59 Intake Total 130 600 Output Total 225 3300 Balance -95 -2700 PT 14.8 SEC (12.0-15.0) 06/19/18 19:50 INR 1.21 (0.83-1.16) H 06/19/18 19:50 Physical Exam - Physical Exam General Appearance: no apparent distress Neck: other (R IJ elisa) Respiratory: rales (b/l) Cardiac/Chest: regular rate, rhythm Abdomen: non-tender, soft Extremities: swelling (1+ sacral) ICD10 Worksheet Patient Problems: Problems Problem Status Onset Acute kidney injury Acute C. difficile colitis Acute Renal insufficiency Acute Abdominal pain Acute CHF (congestive heart failure) Acute Cellulitis Acute Chest pain Acute Dehydration Acute Gallstone Acute Hypokalemia Acute Hypoxemia Acute Medication induced coagulopathy Acute Pulmonary edema Acute Severe sepsis Acute Upper GI bleed Acute
--- NOTE | 2018-06-22 11:46 | SOAPPROG ---
SOAP Progress Note Assessment/Plan: Assessment: 83 y/o woman with multiple medical issues including: --CAD s/p CABG in 2004 and subsequent PCIs --diastolic CHF --ARF on CRI --dementia --permanent afib with LBBB --bilateral pleural effusions --UTI --DNR Echo 06/20/18 showed LVEF 55%, mild AI, moderate MR and TR and estimated PAS 50mmhg with bilateral pleural effusions. She has been getting daily HD. Her family is at bedside and says she is a little less delirious and less short of breath. In afib at 90-110bpm. PLAN: 1)no change in current cardiac meds (Metoprolol 12.5mg PO BID). 2)hemodialysis today. 3)no Coumadin or DOAC agent with her renal failure and previous GI bleed in April 2018. 06/22/18 11:42 Subjective: reports she is short of breath at rest but no CP or near syncope Objective: Vital Signs Temp Pulse Resp BP Pulse Ox 36.4 C 105 H 21 H 123/69 H 91 L 06/22/18 07:07 06/22/18 07:07 06/22/18 07:07 06/22/18 07:07 06/22/18 07:07 Microbiology 06/20/18 00:25 Urine Culture - Final Urine,Catheterized Two [place] Types Laboratory Results 06/22/18 04:20 06/22/18 04:20 06/21/18 06/22/18 06/23/18 05:59 05:59 05:59 Intake Total 130 600 Output Total 225 3300 Balance -95 -2700 PT 14.8 SEC (12.0-15.0) 06/19/18 19:50 INR 1.21 (0.83-1.16) H 06/19/18 19:50 Physical Exam - Physical Exam General Appearance: no apparent distress EENT: normal ENT inspection Neck: non-tender Respiratory: rhonchi (bilaterally and decrease breath sounds at bases c/w pleural effusions.) Cardiac/Chest: systolic murmur (1/6 RAMU heard.), irregularly irregular, No gallop Peripheral Pulses: 1+: femoral (R), femoral (L), dorsalis-pedis (R), dorsalis- pedis (L), 2+: carotid (R), carotid (L) Abdomen: soft, No guarding Skin: warm/dry Extremities: pedal edema Neuro/Psych: cognition abnormalities ICD10 Worksheet Patient Problems: Problems Problem Status Onset Acute kidney injury Acute C. difficile colitis Acute Renal insufficiency Acute Abdominal pain Acute CHF (congestive heart failure) Acute Cellulitis Acute Chest pain Acute Dehydration Acute Gallstone Acute Hypokalemia Acute Hypoxemia Acute Medication induced coagulopathy Acute Pulmonary edema Acute Severe sepsis Acute Upper GI bleed Acute
--- NOTE | 2018-06-22 12:33 | HOSPPROG ---
Hospitalist Progress Note Assessment/Plan: #Acute on chronic hypoxemic failure: +human metapneumovirus, bilateral effusions -right effusion larger today; 3L off in HD yesterday. HD again today -consider right-sided thoracentesis; will d/w pulm #Oliguric HAYDEN: -volume overloaded, but ATN possible with hypotension, diarrhea -appreciate renal consult #Hypotension: trial albumin; if not tolerating HD, may need pressors #Pyuria: culture with 2 organisms, less <100k. Stop abx #Acutely decompensated systolic/diastolic HF: BNP >23K, volume overload on exam with leg swelling, effusions. Negative troponin -echo unchanged from prior; EF 55%, Grade 1 diastolic HF -hold diuretics. #C diff infection: therapy extended due to abx for UTIs and still having diarrhea (confirmed by PA at [facility]) -cont Vanc now since on abx -efficacy likely decreased since binds with Cholestyramine; stop this med while on Vanc #Sepsis: resolved -elevated lactate, tachy, +UTI, +Human metapneumovirus. Neg bld cx #ABLA: lost 600cc blood with HD, counts stable #Acidosis: resolved with HD #Hypoglycemia: due to acute illness, decreased PO #CAD: prior CABG #h/o GIB: 04/2018 #Right heel ulcer: present at admission. Wound care #Permanent atrial fib: Hold BB, amio with hypotension. Cardioversion 03/02. Use PRN IV dig. No AC with recent UGIB #Acute metabolic encephalopathy: due to #Social: lives at [facility]. Salvatore Nguyen is MDPOA #Goals: spoke with Salvatore nguyen (ALIS) broached goals of care. Changed to DNR status. Wants to see how she tolerates HD. Will have him completed MOST Subjective: SOB still present Objective: Vital Signs Temp Pulse Resp BP Pulse Ox 36.4 C 105 H 21 H 123/69 H 91 L 06/22/18 07:07 06/22/18 07:07 06/22/18 07:07 06/22/18 07:07 06/22/18 07:07 Microbiology 06/20/18 00:25 Urine Culture - Final Urine,Catheterized Two [place] Types Laboratory Results 06/22/18 04:20 06/22/18 04:20 06/21/18 06/22/18 06/23/18 05:59 05:59 05:59 Intake Total 130 600 Output Total 225 3300 Balance -95 -2700 PT 14.8 SEC (12.0-15.0) 06/19/18 19:50 INR 1.21 (0.83-1.16) H 06/19/18 19:50 - Time Spent With Patient Time Spent with Patient: greater than 35 minutes Time Spent with Patient: Greater than 35 minutes spent on this patients care, greater than 50% of time spent counseling, educating, and coordinating care regarding the above mentioned plan. - Physical Exam Constitutional: no apparent distress Ears, Nose, Mouth, Throat: hard of hearing Cardiovascular: irregularly irregular, edema (+2 LE edema) Respiratory: rhonchi, other (decreased BS right lung field) Gastrointestinal: normoactive bowel sounds Genitourinary: no bladder fullness, [place] in urethra (clear, yellow urine) Skin: warm Musculoskeletal: full muscle strength Neurologic: CN II-XII Intact Psychiatric: encephalopathic ICD10 Worksheet Patient Problems: Problems Problem Status Onset Acute kidney injury Acute C. difficile colitis Acute Renal insufficiency Acute Abdominal pain Acute CHF (congestive heart failure) Acute Cellulitis Acute Chest pain Acute Dehydration Acute Gallstone Acute Hypokalemia Acute Hypoxemia Acute Medication induced coagulopathy Acute Pulmonary edema Acute Severe sepsis Acute Upper GI bleed Acute
[2018-06-22] MEDS ORDERED: BENZONATATE 100 MG CAP PO PRN (12:37)
--- NOTE | 2018-06-22 12:57 | PDINTPN ---
Emergency Room Specialist Progress Note Assessment/Plan: Assessment: Hypoxemic respiratory failure: Likely due to congestive heart failure with right greater than left pleural effusion. Also having difficulty clearing secretions, so may have some atelectasis/mucus plugging. She is on high-flow oxygen. Human metapneumovirus on respiratory panel: Could contribute to infiltrates/ hypoxemia and secretions, which she is having difficulty coughing up. Acute kidney injury: Had dialysis yesterday, scheduled for dialysis again today. Atrial fibrillation: Chronic atrial fibrillation. Anticoagulation is contraindicated due to recent GI bleed. Plan is to optimize rate control Congestive heart failure: The patient has systolic and diastolic congestive heart failure. Her BNP is down but remains markedly elevated. Pyuria, presumed urinary tract infection: Culture positive for yeast, no bacteria. On ceftriaxone Plan: Ultrasound-guided thoracentesis. Will then check a chest x-ray, and if it shows ongoing opacification, consider a bronchoscopy. Atrial fibrillation rate control per Cardiology Continue dialysis per Nephrology Continue ceftriaxone for possible urinary tract infection 06/22/18 12:57 Subjective: Dyspneic. Weak cough, difficulty clearing secretions. Objective: Vital Signs Temp Pulse Resp BP Pulse Ox 36.4 C 105 H 21 H 123/69 H 91 L 06/22/18 07:07 06/22/18 07:07 06/22/18 07:07 06/22/18 07:07 06/22/18 07:07 Microbiology 06/20/18 00:25 Urine Culture - Final Urine,Catheterized Two [place] Types Laboratory Results 06/22/18 04:20 06/22/18 04:20 06/21/18 06/22/18 06/23/18 05:59 05:59 05:59 Intake Total 130 600 Output Total 225 3300 Balance -95 -2700 PT 14.8 SEC (12.0-15.0) 06/19/18 19:50 INR 1.21 (0.83-1.16) H 06/19/18 19:50 Chest x-ray: Opacification of the right hemithorax. Images reviewed by me. Physical Exam - Physical Exam General Appearance: alert, no apparent distress EENT: normal ENT inspection Neck: normal inspection Respiratory: decreased breath sounds (On right), rhonchi Cardiac/Chest: regular rate, rhythm, edema (1+) Abdomen: non-tender, No soft Skin: normal color, warm/dry Extremities: normal inspection Neuro/Psych: alert, normal mood/affect ICD10 Worksheet Patient Problems: Problems Problem Status Onset Acute kidney injury Acute C. difficile colitis Acute Renal insufficiency Acute Abdominal pain Acute CHF (congestive heart failure) Acute Cellulitis Acute Chest pain Acute Dehydration Acute Gallstone Acute Hypokalemia Acute Hypoxemia Acute Medication induced coagulopathy Acute Pulmonary edema Acute Severe sepsis Acute Upper GI bleed Acute
[2018-06-22] MEDS ORDERED: LIDOCAINE 1% 300 MG/30 ML SDV MISC ONE (13:13)
--- NOTE | 2018-06-22 13:15 | GPN ---
[f rep st] PROCEDURE NOTE DATE OF PROCEDURE: 06/22/2018 PROCEDURE: Ultrasound-guided thoracentesis. REASON FOR THE PROCEDURE: Hypoxemic respiratory failure with pleural effusion. PROCEDURE NOTE: The risks and benefits of the procedure were explained to the patient's son, who consented to the procedure. The entire procedure was performed in the intensive care unit with the patient under blood pressure, EKG and oximetry monitoring. Ultrasound was used to interrogate the chest and identify an appropriate site. The area was then prepped sterilely, and finder needles were used to inject lidocaine subcutaneously. The thoracentesis catheter was then introduced, with return of bloody fluid, 800 mL of blood- tinged fluid intermittently with serous fluid removed without difficulty. The patient tolerated the procedure well throughout. Postprocedure chest x-ray is pending. /[id number]/MODL MTDD
[2018-06-22] MEDS ORDERED: MIDAZOLAM 2 MG/2 ML VIAL ONE (13:17)
[2018-06-22] MEDS ORDERED: fentaNYL 100 MCG/2 ML INJ IVP ONE (13:17)
[2018-06-22] MEDS ORDERED: fentaNYL 100 MCG/2 ML INJ ONE (13:17)
[2018-06-22] MEDS ORDERED: MIDAZOLAM 2 MG/2 ML VIAL IVP ONE (13:17)
[2018-06-22] MEDS ORDERED: LIDOCAINE 1% 300 MG/30 ML SDV ONE (13:18)
--- NOTE | 2018-06-22 14:16 | GPN ---
[f rep st] PROCEDURE NOTE DATE OF PROCEDURE: 06/22/2018 PROCEDURE: Flexible fiberoptic bronchoscopy. REASON FOR THE PROCEDURE: Hypoxemic respiratory failure with probable mucus plugging. PROCEDURE NOTE: The risks and benefits of the procedure were explained to the patient's son, her MDP OA, who agreed to proceed. Telephone consent was obtained. The entire procedure performed in the in tensive care unit with the patient under blood pressure, EKG and oximetry monitoring. It was my asse ssment that there was no risk of airborne infection from the procedure. After an appropriate time-out, the patient was given IV sedation with Versed and fentanyl (total of 1 mg of Versed and 50 mcg of fentanyl), and a bite block was placed between her teeth. The bronchosco pe was advanced through the bite block to the vocal cords, which moved normally. I advanced the bron choscope through the vocal cords into the main trachea. I encountered thick purulent secretions in t he proximal right mainstem bronchus. I had removed the bronchoscope several times due to occlusion f rom the thick mucus plugs. After multiple removals of the bronchoscope, I was able to clearly visual ize all airways. There were purulent secretions that had been coming from the upper, middle and lowe r lobes on the right side. I performed a lavage of the upper lobe and lower lobes, with return of sl ightly cloudy fluid and patent airways throughout. On the left side, there were some scattered purul ent secretions in the lower lobe which were easily suctioned. The patient tolerated the procedure we ll, with good saturations throughout. A specimen will be sent for Gram stain and culture. /[id number]/MODL
[2018-06-22] MEDS: ACETYLCYSTEINE 20% IH/PO 4 ML VIAL IH SCH ×2 (17:18→23:21)
[2018-06-22] MEDS: guaiFENesin 600 MG TAB.ER PO SCH (21:33)
[2018-06-22] MEDS ORDERED: HEPARIN 50,000 UNIT/10 ML VIAL ONE (22:30)
[2018-06-23] MEDS: ACETYLCYSTEINE 20% IH/PO 4 ML VIAL IH SCH ×4 (04:59→22:40)
[2018-06-23] MEDS: VANCOMYCIN 125 MG/2.5 ML UDL PO SCH ×4 (06:18→19:52)
--- NOTE | 2018-06-23 08:42 | SOAPPROG ---
JODY Progress Note Assessment/Plan: Assessment: 83 y/o woman with multiple medical issues including: --CAD s/p CABG in 2004 and subsequent PCIs --diastolic CHF --ARF on CRI --dementia --permanent afib with LBBB --bilateral pleural effusions --UTI --DNR Echo 06/20/18 showed LVEF 55%, mild AI, moderate MR and TR and estimated PAS 50mmhg with bilateral pleural effusions. She has been getting daily HD. Her weight is down but still with JVP 8-9cm. Her chronic, permanent afib rate is trending back to controlled rate of 100bpm. REC: 1)no change in current meds. 2)continue HD as per renal and IV ABX. no active cardiac issues. Will sign off. Please call if new cardiac issues. Thanks. 06/23/18 08:39 Subjective: Patient is very hard of hearing. She wants breakfast. Denies chest pressure or rest shortness of breath. Objective: Vital Signs Temp Pulse Resp BP Pulse Ox 36.7 C 106 H 24 H 93/40 L 95 06/22/18 20:00 06/23/18 05:00 06/23/18 05:00 06/23/18 04:00 06/23/18 05:00 Microbiology 06/22/18 14:00 - Final Sputum, Induced/Suctioned Laboratory Results 06/22/18 17:45 06/23/18 05:10 06/22/18 06/23/18 06/24/18 05:59 05:59 05:59 Intake Total 600 300 Output Total 3300 285 Balance -2700 15 PT 14.8 SEC (12.0-15.0) 06/19/18 19:50 INR 1.21 (0.83-1.16) H 06/19/18 19:50 Physical Exam - Physical Exam General Appearance: no apparent distress, No alert EENT: normal ENT inspection Neck: non-tender Respiratory: rales (rare crackles bilaterally. No wheezes heard.) Cardiac/Chest: JVD (jvp to 8-9cm.), systolic murmur, irregularly irregular, No gallop Peripheral Pulses: 1+: femoral (R), femoral (L), dorsalis-pedis (R), dorsalis- pedis (L), 2+: carotid (R), carotid (L) Abdomen: No non-tender, No guarding Skin: warm/dry Extremities: pedal edema (1+ edema bilaterally.) Neuro/Psych: No alert ICD10 Worksheet Patient Problems: Problems Problem Status Onset Acute kidney injury Acute C. difficile colitis Acute Renal insufficiency Acute Abdominal pain Acute CHF (congestive heart failure) Acute Cellulitis Acute Chest pain Acute Dehydration Acute Gallstone Acute Hypokalemia Acute Hypoxemia Acute Medication induced coagulopathy Acute Pulmonary edema Acute Severe sepsis Acute Upper GI bleed Acute
--- NOTE | 2018-06-23 11:02 | SOAPPROG ---
SOAP Progress Note Assessment/Plan: Assessment/Plan: HAYDEN: likely ATN, oliguric. - HD done yesterday but only about 1L removed. - Will plan HD again either today or tomorrow. - Will continue to monitor daily for HD needs. - Avoid hypotension and nephrotoxins. Hypotension: low BP limits fluid removal on HD. - Will support BP with albumin and low dialysate temp while on HD. - If this prevents fluid removal on HD, will consider starting pressor support to allow more fluid removal. Hypervolemia: with worsening hypoxia. She had thoracentesis done yesterday. Will continue to modulate with fluid removal on HD as tolerated. Subjective: No acute events overnight. Pt states that she is feeling tired, her dyspnea feels a little better from thoracentesis yesterday. She had tolerated more fluid removal on Sunday with HD with 3L removed, yesterday only was able to get about 1L off with HD. Objective: Vital Signs Temp Pulse Resp BP Pulse Ox 36.7 C 106 H 24 H 93/40 L 95 06/22/18 20:00 06/23/18 05:00 06/23/18 05:00 06/23/18 04:00 06/23/18 05:00 Microbiology 06/22/18 14:00 - Final Sputum, Induced/Suctioned Laboratory Results 06/22/18 17:45 06/23/18 05:10 06/22/18 06/23/18 06/24/18 05:59 05:59 05:59 Intake Total 600 300 Output Total 3300 285 Balance -2700 15 PT 14.8 SEC (12.0-15.0) 06/19/18 19:50 INR 1.21 (0.83-1.16) H 06/19/18 19:50 General: alert and oriented, no acute distress Eyes: EOMI, PERRL OP: Clear CV: RRR Resp: nonlabored respirations on NC with 60% FiO2 Abd: Soft, NT/ND Ext: +1 edema BLE Neuro: CN II-XII Grossly intact Psych: cooperative Access; RIJ temp cath ICD10 Worksheet Patient Problems: Problems Problem Status Onset Acute kidney injury Acute C. difficile colitis Acute Renal insufficiency Acute Abdominal pain Acute CHF (congestive heart failure) Acute Cellulitis Acute Chest pain Acute Dehydration Acute Gallstone Acute Hypokalemia Acute Hypoxemia Acute Medication induced coagulopathy Acute Pulmonary edema Acute Severe sepsis Acute Upper GI bleed Acute
[2018-06-23] MEDS: PANTOPRAZOLE SODIUM 40 MG TAB PO SCH ×2 (11:45→19:52)
[2018-06-23] MEDS: guaiFENesin 600 MG TAB.ER PO SCH ×2 (11:45→19:52)
--- NOTE | 2018-06-23 12:47 | HOSPPROG ---
Hospitalist Progress Note Assessment/Plan: #Acute on chronic hypoxemic failure: +human metapneumovirus, bilateral effusions -thoracentesis 06/22, bronch with significant secretions. May repeat both -cont HD #Oliguric HAYDEN: -volume overloaded, but ATN possible with hypotension, diarrhea -cont HD #Hypotension: trial albumin; if not tolerating HD, may need pressors #Pyuria: culture with 2 organisms, less <100k. Stop abx #Acutely decompensated systolic/diastolic HF: BNP >23K, volume overload on exam with leg swelling, effusions. Negative troponin -echo unchanged from prior; EF 55%, Grade 1 diastolic HF -hold diuretics. #C diff infection: therapy extended due to abx for UTIs and still having diarrhea (confirmed by PA at [facility]) -cont Vanc now since on abx -efficacy likely decreased since binds with Cholestyramine; stop this med while on Vanc #Sepsis: resolved -elevated lactate, tachy, +UTI, +Human metapneumovirus. Neg bld cx #ABLA: lost 600cc blood with HD, counts stable #Acidosis: resolved with HD #CAD: prior CABG #h/o GIB: 04/2018 #Right heel ulcer: present at admission. Wound care #Permanent atrial fib: resume BB. Amio held. AC with recent UGIB #Acute metabolic encephalopathy: due to acute illness #Social: lives at [facility]. SonSalvatore is MDPOA #Goals: spoke with Salvatore vazquez ([facility]) broached goals of care. Changed to DNR status. -Palliative Care consulted Subjective: "wants to know if more fluid will be removed from lung today" Objective: Vital Signs Temp Pulse Resp BP Pulse Ox 36.4 C 108 H 23 H 115/54 L 99 06/23/18 12:00 06/23/18 12:00 06/23/18 12:00 06/23/18 12:00 06/23/18 12:00 Microbiology 06/22/18 14:00 - Final Sputum, Induced/Suctioned Laboratory Results 06/22/18 17:45 06/23/18 05:10 06/22/18 06/23/18 06/24/18 05:59 05:59 05:59 Intake Total 600 300 Output Total 3300 285 Balance -2700 15 PT 14.8 SEC (12.0-15.0) 05/08/19 19:50 INR 1.21 (0.83-1.16) H 06/19/18 19:50 - Time Spent With Patient Time Spent with Patient: greater than 35 minutes Time Spent with Patient: Greater than 35 minutes spent on this patients care, greater than 50% of time spent counseling, educating, and coordinating care regarding the above mentioned plan. - Physical Exam Constitutional: no apparent distress Ears, Nose, Mouth, Throat: hard of hearing Cardiovascular: systolic murmur, irregularly irregular, JVD (elvevated ), edema (+1 BL legs), other Respiratory: reduced air movement Gastrointestinal: normoactive bowel sounds Genitourinary: randhawa in urethra Psychiatric: encephalopathic ICD10 Worksheet Patient Problems: Problems Problem Status Onset Acute kidney injury Acute C. difficile colitis Acute Renal insufficiency Acute Abdominal pain Acute CHF (congestive heart failure) Acute Cellulitis Acute Chest pain Acute Dehydration Acute Gallstone Acute Hypokalemia Acute Hypoxemia Acute Medication induced coagulopathy Acute Pulmonary edema Acute Severe sepsis Acute Upper GI bleed Acute
[2018-06-23] MEDS ORDERED: LIDOCAINE 1% 300 MG/30 ML SDV MISC ONE (13:06)
[2018-06-23] MEDS ORDERED: fentaNYL 100 MCG/2 ML INJ ONE (13:07)
[2018-06-23] MEDS ORDERED: MIDAZOLAM 2 MG/2 ML VIAL ONE (13:07)
[2018-06-23] MEDS ORDERED: MIDAZOLAM 2 MG/2 ML VIAL IVP ONE (14:04)
[2018-06-23] MEDS ORDERED: fentaNYL 100 MCG/2 ML INJ IVP ONE (14:04)
--- NOTE | 2018-06-23 14:10 | PDINTPN ---
Hotel Manager Progress Note Assessment/Plan: Assessment: Hypoxemic respiratory failure: Likely due to congestive heart failure with right greater than left pleural effusion. Also having difficulty clearing secretions, so may have some atelectasis/mucus plugging. She is on high-flow oxygen. Human metapneumovirus on respiratory panel: Could contribute to infiltrates/ hypoxemia and secretions, which she is having difficulty coughing up. Acute kidney injury: Had dialysis yesterday, scheduled for dialysis again today. Atrial fibrillation: Chronic atrial fibrillation. Anticoagulation is contraindicated due to recent GI bleed. Plan is to optimize rate control Congestive heart failure: The patient has systolic and diastolic congestive heart failure. Her BNP is down but remains markedly elevated. Pyuria, presumed urinary tract infection: Culture positive for yeast, no bacteria. On ceftriaxone Plan: Ultrasound-guided thoracentesis. Will then check a chest x-ray, and if it shows ongoing opacification, consider a bronchoscopy. Atrial fibrillation rate control per Cardiology Continue dialysis per Nephrology Continue ceftriaxone for possible urinary tract infection 06/22/18 12:57 Objective: Vital Signs Temp Pulse Resp BP Pulse Ox 36.4 C 108 H 23 H 115/54 L 99 06/23/18 12:00 06/23/18 12:00 06/23/18 12:00 06/23/18 12:00 06/23/18 12:00 Microbiology 06/22/18 14:00 - Final Sputum, Induced/Suctioned Laboratory Results 06/22/18 17:45 06/23/18 05:10 06/22/18 06/23/18 06/24/18 05:59 05:59 05:59 Intake Total 600 300 Output Total 3300 285 Balance -2700 15 PT 14.8 SEC (12.0-15.0) 06/19/18 19:50 INR 1.21 (0.83-1.16) H 06/19/18 19:50 Chest x-ray: Persistent consolidation right base. Images reviewed by me. Physical Exam - Physical Exam General Appearance: alert, no apparent distress EENT: normal ENT inspection Neck: normal inspection Respiratory: decreased breath sounds (Right base) Cardiac/Chest: regular rate, rhythm, No edema Abdomen: normal bowel sounds, non-tender Skin: normal color, warm/dry Extremities: normal inspection Neuro/Psych: alert, normal mood/affect, oriented x 3 ICD10 Worksheet Patient Problems: Problems Problem Status Onset Acute kidney injury Acute C. difficile colitis Acute Renal insufficiency Acute Abdominal pain Acute CHF (congestive heart failure) Acute Cellulitis Acute Chest pain Acute Dehydration Acute Gallstone Acute Hypokalemia Acute Hypoxemia Acute Medication induced coagulopathy Acute Pulmonary edema Acute Severe sepsis Acute Upper GI bleed Acute
--- NOTE | 2018-06-23 14:43 | PDINTPN ---
Seed Cleaner Operator Progress Note Assessment/Plan: Assessment: Hypoxemic respiratory failure: Likely due to congestive heart failure with right greater than left pleural effusion. Thoracentesis 06/22 revealed bloody fluid. Bronchoscopy 06/22 revealed complete occlusion of right side airways with thick mucus plugs. Similar but slightly less extensive findings on repeat bronchoscopy 06/23 Human metapneumovirus on respiratory panel: Could contribute to infiltrates/ hypoxemia and secretions, which she is having difficulty coughing up. Acute kidney injury: Had dialysis yesterday, scheduled for dialysis again today. Atrial fibrillation: Chronic atrial fibrillation. Anticoagulation is contraindicated due to recent GI bleed. Plan is to optimize rate control Congestive heart failure: The patient has systolic and diastolic congestive heart failure. Her BNP is down but remains markedly elevated. Pyuria, presumed urinary tract infection: Culture positive for yeast, no bacteria. On ceftriaxone Plan: Check chest x-ray now and in the morning. Consider repeat bronchoscopy tomorrow Atrial fibrillation rate control per Cardiology Continue dialysis per Nephrology Continue ceftriaxone for possible urinary tract infection 06/23/18 14:41 Subjective: Denies pain or dyspnea. Still somewhat confused Objective: Vital Signs Temp Pulse Resp BP Pulse Ox 36.4 C 108 H 23 H 115/54 L 99 06/23/18 12:00 06/23/18 12:00 06/23/18 12:00 06/23/18 12:00 06/23/18 12:00 Microbiology 06/22/18 14:00 - Final Sputum, Induced/Suctioned Laboratory Results 06/22/18 17:45 06/23/18 05:10 06/22/18 06/23/18 06/24/18 05:59 05:59 05:59 Intake Total 600 300 Output Total 3300 285 Balance -2700 15 PT 14.8 SEC (12.0-15.0) 06/19/18 19:50 INR 1.21 (0.83-1.16) H 06/19/18 19:50 Chest x-ray: Unchanged right basilar consolidation. Images reviewed by me. Physical Exam - Physical Exam General Appearance: alert, no apparent distress EENT: normal ENT inspection Neck: normal inspection Respiratory: decreased breath sounds (Right base) Cardiac/Chest: irregularly irregular, No regular rate, rhythm, No edema Abdomen: normal bowel sounds, non-tender Skin: normal color, warm/dry Extremities: normal inspection Neuro/Psych: alert, normal mood/affect, motor weakness ICD10 Worksheet Patient Problems: Problems Problem Status Onset Acute kidney injury Acute C. difficile colitis Acute Renal insufficiency Acute Abdominal pain Acute CHF (congestive heart failure) Acute Cellulitis Acute Chest pain Acute Dehydration Acute Gallstone Acute Hypokalemia Acute Hypoxemia Acute Medication induced coagulopathy Acute Pulmonary edema Acute Severe sepsis Acute Upper GI bleed Acute
[2018-06-23] MEDS: METOPROLOL TARTRATE 25 MG TAB PO SCH ×2 (16:14→16:15)
[2018-06-23] MEDS ORDERED: HEPARIN 50,000 UNIT/10 ML VIAL ONE (21:48)
[2018-06-23] MEDS: ALBUMIN 25% 50 ML IV PRN ×2 (22:07→22:08)
--- NOTE | 2018-06-24 02:30 | GPN ---
[f rep st] PROCEDURE NOTE DATE OF PROCEDURE: 06/23/2018 PROCEDURE: Flexible fiberoptic bronchoscopy. INDICATION FOR THE PROCEDURE: Retained secretions with hypoxemic respiratory failure, probable mucus plugging. The risks and benefits of the procedure were explained to the patient's her and MPOA, who agreed to lorrie briscoe. The entire procedure was performed in the intensive care unit with the patient under blood p ressure, EKG and oximetry monitoring. It was my assessment that there was no risk of airborne infect ion from the procedure. After an appropriate time-out, a bite block was placed between the patient' s teeth and the bronchoscope was advanced through the bite block. 1% lidocaine was used topically on the posterior pharynx and airways for anesthesia. I advanced the bronchoscope through the vocal cor ds into the main trachea, which was clear of secretions. Some secretions were encountered in the rig ht mainstem bronchus, and these required extensive suctioning, including removing the bronchoscope se veral times due to occlusion from the secretions. There was slightly fewer secretions when compared to the bronchoscopy the prior day, and they were blood tinged today. I was able to clear secretions from the right lower lobe, middle lobe, and upper lobe, and lavaged all these lobes until the airways were clear. I proceeded to the left-sided airways, where I encountered a scant amount of mucopurule nt secretions which were easily suctioned and were not occlusive. No specimens were sent. There was no blood loss. The patient received 1 mg of Versed, and 100 mcg of fentanyl intravenously for anal gesia and sedation. /[id number]/MODL
[2018-06-24] MEDS: VANCOMYCIN 125 MG/2.5 ML UDL PO SCH ×4 (04:20→21:50)
[2018-06-24] MEDS: ACETYLCYSTEINE 20% IH/PO 4 ML VIAL IH SCH ×4 (05:14→20:15)
[2018-06-24] MEDS ORDERED: LIDOCAINE 1% 300 MG/30 ML SDV MISC ONE (11:21)
[2018-06-24] MEDS ORDERED: LIDOCAINE 2% JELLY 6 ML TOPICAL SYR TP ONE (11:21)
[2018-06-24] MEDS ORDERED: BENZOCAINE UNIT DOSE SPRAY HURRICAINE MM ONE (11:26)
[2018-06-24] MEDS: LEVALBUTEROL 0.63 MG/3 ML DEYVIAL IH SCH ×3 (11:30→20:16)
--- NOTE | 2018-06-24 11:38 | SOAPPROG ---
SOAP Progress Note Assessment/Plan: Assessment/Plan: HAYDEN: likely ATN, oliguric. - HD done yesterday. - Will plan HD next for tomorrow. - Will continue to monitor daily for HD needs. - Avoid hypotension and nephrotoxins. Hypotension: low BP limits fluid removal on HD. - Will support BP with albumin and low dialysate temp while on HD. - If this prevents fluid removal on HD, will consider starting pressor support to allow more fluid removal. Hypervolemia: with worsening hypoxia. She had thoracentesis done 06/22. Will continue to modulate with fluid removal on HD as tolerated. Anemia: Hgb 7.4, not giving epo, consider transfusing PRBCs if Hgb<7. Subjective: No acute events overnight. Pt had bronch yesterday for removal of secretions, plan for another one today. She had HD yesterday and tolerated fine. Objective: Vital Signs Temp Pulse Resp BP Pulse Ox 36.8 C 96 20 105/55 L 97 06/24/18 07:13 06/24/18 07:13 06/24/18 07:13 06/24/18 07:13 06/24/18 07:13 Microbiology 06/22/18 14:00 - Final Sputum, Induced/Suctioned Laboratory Results 06/24/18 04:22 06/24/18 04:22 06/23/18 06/24/18 06/25/18 05:59 05:59 05:59 Intake Total 300 0 Output Total 285 170 Balance 15 -170 PT 14.8 SEC (12.0-15.0) 06/19/18 19:50 INR 1.21 (0.83-1.16) H 06/19/18 19:50 General: awake, alert, disoriented Eyes: EOMI, PERRL OP: Clear CV: RRR Resp: nonlabored respirations on NC, +cough Abd: Soft Ext: +1 edema BLE, improving Neuro: CN II-XII Grossly intact Access: RIJ temp cath ICD10 Worksheet Patient Problems: Problems Problem Status Onset Acute kidney injury Acute C. difficile colitis Acute Renal insufficiency Acute Abdominal pain Acute CHF (congestive heart failure) Acute Cellulitis Acute Chest pain Acute Dehydration Acute Gallstone Acute Hypokalemia Acute Hypoxemia Acute Medication induced coagulopathy Acute Pulmonary edema Acute Severe sepsis Acute Upper GI bleed Acute
--- NOTE | 2018-06-24 13:36 | HOSPPROG ---
Hospitalist Progress Note Assessment/Plan: 83yo F with multiple medical problems (CAD, CHF, afib, diabetes), recent C diff colitis (still on abx at admission) presents from assisted living with confusion found to be septic with respiratory and renal failure requiring dialysis. #Acute on chronic hypoxemic respiratory failure: Infection and pulm edema - Pulm planning on bronch this PM. Afterwards, will initiate abx for aspiration - Volume removal with HD #Oliguric HAYDEN: Suspect ATN - Renal following, iHD #Hypotension: BP stable today. Limiting volume removal. #Acute on chronic diastolic CHF: BNP>23k, LVEF 55% - Holding diuretics with renal failure #C diff colitis: No longer having diarrhea - Continue PO vanco. On extended course d/t abx for UTI but will need to clarify stop date. #Chronic atrial fibrillation: Rates controlled. [id number]=5. - Holding AC with recent UGIB. If recovers from this illness, will need to consider risks/benefits of restarting but will hold for now. - Continue BB. Amiodarone stopped per cards #Thrombocytopenia: Down-trending. No e/o bleeding currently. Monitor. #Severe sepsis: Resolved. #Pyuria: Culture with 2 organisms but without significant bacterial burden. Stopped abx. #Lactic acidosis: Resolved. #ABLA: lost 600cc blood with HD, counts stable #CAD: prior CABG #h/o GIB: 04/2018, large jejunal ulcer s/p clipping. Continue PPI BID through end of month #Right heel ulcer: present at admission. Wound care #Acute metabolic encephalopathy: due to acute illness #Deafness #Social: lives at [facility]. Son, Salvatore is [facility] #Goals: Palliative care met with family today. Dr Robel Singh also spoke w/ family. Plan to continue current level of care for few more days. Patient and family not yet ready to consider hospice. Code: DNR Dispo: Remain in SDU Subjective: Perseverating on fluid in lungs. No new complaints today. Objective: Vital Signs Temp Pulse Resp BP Pulse Ox 36.8 C 113 H 27 H 129/76 H 96 06/24/18 07:13 06/24/18 11:42 06/24/18 11:42 06/24/18 11:42 06/24/18 11:42 Microbiology 06/22/18 14:00 - Final Sputum, Induced/Suctioned Laboratory Results 06/24/18 04:22 06/24/18 04:22 06/23/18 06/24/18 06/25/18 05:59 05:59 05:59 Intake Total 300 0 Output Total 285 170 Balance 15 -170 PT 14.8 SEC (12.0-15.0) 06/19/18 19:50 INR 1.21 (0.83-1.16) H 06/19/18 19:50 - Physical Exam Constitutional: chronically ill appearing Eyes: PERRL, anicteric sclera, EOMI Ears, Nose, Mouth, Throat: other (hard of hearing) Cardiovascular: systolic murmur, tachycardia, No JVD, No edema Respiratory: reduced air movement (bases) Gastrointestinal: normoactive bowel sounds, soft, non-tender abdomen, no palpable masses Genitourinary: randhawa in urethra Skin: no rashes or abrasions, no fluctuance, no induration Musculoskeletal: generalized weakness Neurologic: AAOx3 ICD10 Worksheet Patient Problems: Problems Problem Status Onset Acute kidney injury Acute C. difficile colitis Acute Renal insufficiency Acute Abdominal pain Acute CHF (congestive heart failure) Acute Cellulitis Acute Chest pain Acute Dehydration Acute Gallstone Acute Hypokalemia Acute Hypoxemia Acute Medication induced coagulopathy Acute Pulmonary edema Acute Severe sepsis Acute Upper GI bleed Acute
--- NOTE | 2018-06-24 13:39 | PDINTPN ---
Process Development Manager Progress Note Assessment/Plan: Assessment: Hypoxemic respiratory failure: Likely due to congestive heart failure with right greater than left pleural effusion. Pneumonia with mucus plugging also playing a significant role. Pleural effusion: Thoracentesis 06/22 revealed fluid which became bloody.. Likely aspiration pneumonia: Bronchoscopy 06/22 revealed complete occlusion of right side airways with thick mucus plugs. Similar but slightly less extensive findings on repeat bronchoscopy 06/23. For repeat bronchoscopy today. Will cover for anaerobes post bronchoscopy. Cultures growing only mixed addy. Human metapneumovirus on respiratory panel: Could contribute to infiltrates/ hypoxemia and secretions, which she is having difficulty coughing up. Acute kidney injury: On intermittent hemodialysis. Atrial fibrillation: Chronic atrial fibrillation. Anticoagulation is contraindicated due to recent GI bleed. Continue to optimize rate control. Congestive heart failure: The patient has systolic and diastolic congestive heart failure. BNP is down but remains elevated. Pyuria, presumed urinary tract infection: Culture positive for yeast, no bacteria. On ceftriaxone. Anemia, thrombocytopenia. For repeat H/H later today. May need blood if hematocrit continues to drop. Platelets being followed. Advanced directives: Patient is do not resuscitate. Seen by palliative care today. IA discussed issues with the patient's son and granddaughter after the palliative care meeting. At this point they would like to maintain current therapies, optimize pulmonary status, and give the patient the chance if possible to at least return to longterm facility care. Plan: Repeat bronchoscopy later today. Continue atrial fibrillation rate control. Continue dialysis per Nephrology Continue ceftriaxone for possible urinary tract infection. Add clindamycin post bronchoscopy to cover for anaerobes. H/H this afternoon - blood if needed. Follow laboratory, chest x-ray. Considered CT scan chest tomorrow to better evaluate effusion versus atelectasis /infiltrate. Repeat thoracentesis if indicated. Continue present care otherwise. Discussed with the family as above, hospitalist, RT, palliative care, nursing, and the ICU multi disciplinary team. 50 min of clinic time spent directly with the patient. Subjective: Some cough, pulmonary congestion. Denies pain. Concern regarding "fluid in the lungs" Objective: Vital Signs Temp Pulse Resp BP Pulse Ox 36.8 C 113 H 27 H 129/76 H 96 06/24/18 07:13 06/24/18 11:42 06/24/18 11:42 06/24/18 11:42 06/24/18 11:42 Microbiology 06/22/18 14:00 - Final Sputum, Induced/Suctioned Laboratory Results 06/24/18 04:22 06/24/18 04:22 06/23/18 06/24/18 06/25/18 05:59 05:59 05:59 Intake Total 300 0 Output Total 285 170 Balance 15 -170 PT 14.8 SEC (12.0-15.0) 06/19/18 19:50 INR 1.21 (0.83-1.16) H 06/19/18 19:50 Laboratory Tests 06/24/18 04:22 Calcium 8.2 L Phosphorus 2.5 Albumin 3.1 L CXR: Unchanged compared to yesterday, better than the day before pre bronchoscopy and thoracentesis. Upper right lung remains aerated. Atelectasis/ effusion/infiltrate persists lower right. Retrocardiac infiltrate/atelectasis present as well. Physical Exam - Physical Exam General Appearance: alert, no apparent distress EENT: PERRL/EOMI, other (High-flow oxygen in place) Neck: normal inspection (No JVD) Respiratory: decreased breath sounds (Decreased breath sounds bilaterally. Dullness at the bases.), rales (Few rales present at the bases), rhonchi ( Central rhonchi present with cough. Able to clear a small amount of mucus at times.), No lungs clear Cardiac/Chest: irregularly irregular Abdomen: normal bowel sounds, non-tender, soft Pelvic Exam: other (Catheter in place. Decreased urine output) Skin: warm/dry, pallor Extremities: No pedal edema Neuro/Psych: no motor/sensory deficits (Moves all extremities), cognition abnormalities (Oriented x2. Some underlying dementia.) ICD10 Worksheet Patient Problems: Problems Problem Status Onset Chest pain Acute Cellulitis Acute Pulmonary edema Acute Severe sepsis Acute Gallstone Acute Abdominal pain Acute CHF (congestive heart failure) Acute Hypoxemia Acute Hypokalemia Acute Dehydration Acute Acute kidney injury Acute Upper GI bleed Acute Medication induced coagulopathy Acute Renal insufficiency Acute C. difficile colitis Acute
[2018-06-24] MEDS ORDERED: LIDOCAINE 1% 300 MG/30 ML SDV ONE (14:35)
[2018-06-24] MEDS ORDERED: LIDOCAINE 2% JELLY 6 ML TOPICAL SYR ONE (14:35)
[2018-06-24] MEDS ORDERED: MIDAZOLAM 2 MG/2 ML VIAL IVP ONE (14:45)
[2018-06-24] MEDS: PANTOPRAZOLE SODIUM 40 MG TAB PO SCH ×2 (14:52→21:50)
[2018-06-24] MEDS: guaiFENesin 600 MG TAB.ER PO SCH ×2 (14:52→21:49)
--- NOTE | 2018-06-24 15:14 | ASMTCMCOM ---
CM Note CM Note Notes: Palliative Care Consult held today. See Palliative Care note for more details. Pt's son Salvatore ([email or web address]) and his daughter Adrianna were present for meeting. They signed on with [facility] support. CM submit order via [employer]. CM followed up with Dr. Singh after meeting to discuss family's request for family meeting and Dr. Singh went to speak with Salvatore and were in agreement of continuing to treat and plan for family meeting later in the week to discuss goals of care depending on how she continues to progress. CM to continue to provide support and information regarding care planning after this hospitalization. At this time pt is able to return back to [facility]. Family is looking at other options as they were not totally satisfied with the care there. CM to follow. Plan: TBD, likely back to [facility]. Date Signed: 06/24/2018 03:13 PM Electronically Signed By:MAX Kelly
--- NOTE | 2018-06-24 15:46 | WOCRNPDOC ---
WOCRN Advanced Assessment Note - Skin Integrity Problem, Advanced Assess Left Ankle Pressure Injury Dressing Type: Allevyn Life Dressing Description: Clean/Dry, Intact Integumentary Issue Intervention: Visualized Under Dressing Skin Integrity Problem Comment: Tissue intact with no evidence of wound. No issues or concerns regarding this wound at this time. Wound care will sign off on this patient.
[2018-06-24] MEDS ORDERED: ERTAPENEM 1 GM in NS 100 ML IV SCH (16:00)
[2018-06-24] MEDS: ERTAPENEM 1 GM in NS 100 ML IV SCH (16:58)
[2018-06-24] MEDS ORDERED: CLINDAMYCIN 600 MG/DEXTROSE 50 ML IV SCH (22:00)
[2018-06-24] MEDS: PANTOPRAZOLE SODIUM 40 MG VIAL IVP SCH (22:12)
[2018-06-24] MEDS: D50W 25 GM/50 ML SYR IVP PRN (22:13)
--- NOTE | 2018-06-25 03:22 | GPN ---
[f rep st] PROCEDURE NOTE DATE OF PROCEDURE: 06/24/2018 PROCEDURE PERFORMED: Therapeutic bronchoscopy. REASON FOR BRONCHOSCOPY: Mucous plugging, pneumonia. PROCEDURE: Procedure was performed in the patient's room in the intensive care unit. Informed conse nt was obtained from the patient. Appropriate time-out was performed. Conscious sedation included 2 mg of IV Versed. Approximately 15 cc of 1% lidocaine was used to topically anesthetize the posterio r oropharynx and tracheobronchial tree. The fiberoptic bronchoscope was passed via a bite block orally into the larynx. The vocal cords were identified and cannulated. Thick purulent bloody secretions were found in the trachea and primarily on the right side. Some secretions were found on the left. Secretions were removed with suction an d lavage. On several occasions, secretions were too thick to be sucked through the bronchoscope and the bronchoscope had to be removed to eject these thick secretions. No cultures were sent. The eliseo ent tolerated the procedure well. At the end of the procedure, no further bloody plugs were present. There were no complications. /[id number]/MODL
[2018-06-25] MEDS: VANCOMYCIN 125 MG/2.5 ML UDL PO SCH ×4 (04:15→20:01)
[2018-06-25 04:30] LABS: PLATELET COUNT 108 10^3/uL (150-400)
[2018-06-25] MEDS: ACETYLCYSTEINE 20% IH/PO 4 ML VIAL IH SCH ×4 (05:08→23:07)
[2018-06-25] MEDS: LEVALBUTEROL 0.63 MG/3 ML DEYVIAL IH SCH ×4 (05:08→23:07)
[2018-06-25] MEDS: D50W 25 GM/50 ML SYR IVP PRN (05:20)
[2018-06-25] MEDS: guaiFENesin 600 MG TAB.ER PO SCH ×2 (09:33→20:00)
[2018-06-25] MEDS: PANTOPRAZOLE SODIUM 40 MG VIAL IVP SCH ×2 (09:33→20:01)
--- NOTE | 2018-06-25 10:09 | SOAPPROG ---
SOAP Progress Note Assessment/Plan: Assessment: Oliguric HAYDEN, HD yesterday, HD today, assess HD needs tomorrow resp insufficiency, due to volume, secretions and infection bronch yesterday bronch today C-diff colitis Plan: Assess HD needs daily if needs blood, would try to give on HD continue antibiotics 06/25/18 10:05 Subjective: hard of hearing wants to have some breakfast spirits OK no cp sob nausea or vomiting Objective: Vital Signs Temp Pulse Resp BP Pulse Ox 36.6 C 73 16 97/50 L 99 06/25/18 07:57 06/25/18 07:57 06/25/18 07:57 06/25/18 07:57 06/25/18 05:08 Microbiology 06/22/18 14:00 - Final Sputum, Induced/Suctioned Laboratory Results 06/25/18 04:05 06/25/18 04:05 06/24/18 06/25/18 06/26/18 05:59 05:59 05:59 Intake Total 0 0 Output Total 170 150 Balance -170 -150 PT 14.8 SEC (12.0-15.0) 06/19/18 19:50 INR 1.21 (0.83-1.16) H 06/19/18 19:50 Physical Exam - Physical Exam General Appearance: alert Neck: full range of motion Respiratory: rales, wheezing Cardiac/Chest: other (irregular, no rub + murmur) Abdomen: normal bowel sounds, non-tender Extremities: swelling Neuro/Psych: alert, normal mood/affect, oriented x 3 ICD10 Worksheet Patient Problems: Problems Problem Status Onset Acute kidney injury Acute C. difficile colitis Acute Renal insufficiency Acute Abdominal pain Acute CHF (congestive heart failure) Acute Cellulitis Acute Chest pain Acute Dehydration Acute Gallstone Acute Hypokalemia Acute Hypoxemia Acute Medication induced coagulopathy Acute Pulmonary edema Acute Severe sepsis Acute Upper GI bleed Acute
--- NOTE | 2018-06-25 11:27 | HOSPPROG ---
Hospitalist Progress Note Assessment/Plan: 83yo F with multiple medical problems (CAD, CHF, afib, diabetes), recent C diff colitis (still on abx at admission) presents from assisted living with confusion found to be septic with respiratory and renal failure requiring dialysis. #Acute on chronic hypoxemic respiratory failure: Infection and pulm edema - s/p bronch 06/24 w/thick bloody secretions, PRN bronch per pulm - Started invanz (pcn allergy) for ? 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 Limiting volume removal. #Acute on chronic diastolic CHF: BNP>23k, LVEF 55% - Holding diuretics with renal failure #C diff colitis: No longer having diarrhea - Continue PO vanco through 06/27 #Chronic atrial fibrillation: Rates controlled. [id number]. - Holding AC with recent UGIB. If recovers from this illness, will need to consider risks/benefits of restarting but will hold for now. - Continue BB. Amiodarone stopped per cards #Hypoglycemia: Poor PO +/- infection - Now eating, monitor #Thrombocytopenia: Stable. No e/o bleeding currently. Monitor. #Severe sepsis: Resolved. #Pyuria: Culture with 2 organisms but without significant bacterial burden. Stopped abx for this. #Lactic acidosis: Resolved. #ABLA: lost 600cc blood with HD, counts low but stable, transfuse to keep hgb>7 #CAD: prior CABG #h/o GIB: 04/2018, large jejunal ulcer s/p clipping. Continue PPI BID through end of June #Right heel ulcer: present at admission. Wound care #Acute metabolic encephalopathy: due to acute illness #Deafness #Social: lives at [facility]. SonSalvatore is MDPOA #Goals: Palliative care met with family 06/24. Dr Robel Singh also spoke w/ family. Plan to continue current level of care for now. Patient and family not yet ready to consider hospice. Diet: passed swallow, dysphagia 3 renal diet Code: DNR Dispo: Remain in SDU Subjective: Perseverating on fluid on lungs. No significant change in breathing however. Objective: Vital Signs Temp Pulse Resp BP Pulse Ox 36.6 C 73 16 97/50 L 99 06/25/18 07:57 06/25/18 07:57 06/25/18 07:57 06/25/18 07:57 06/25/18 05:08 Microbiology 06/22/18 14:00 - Final Sputum, Induced/Suctioned Laboratory Results 06/25/18 04:05 06/25/18 04:05 06/24/18 06/25/18 06/26/18 05:59 05:59 05:59 Intake Total 0 0 Output Total 170 150 Balance -170 -150 PT 14.8 SEC (12.0-15.0) 06/19/18 19:50 INR 1.21 (0.83-1.16) H 06/19/18 19:50 - Physical Exam Constitutional: no apparent distress Eyes: PERRL Ears, Nose, Mouth, Throat: moist mucous membranes, hearing normal, ears appear normal, no oral mucosal ulcers Cardiovascular: systolic murmur, other (ectopic beats) Respiratory: reduced air movement, inspiratory crackles, No expiratory wheeze Gastrointestinal: normoactive bowel sounds, soft, non-tender abdomen, no palpable masses Genitourinary: no bladder fullness, no bladder tenderness, no renal bruits Skin: no rashes or abrasions, no fluctuance, no induration Musculoskeletal: generalized weakness Neurologic: other (hard of hearing) ICD10 Worksheet Patient Problems: Problems Problem Status Onset Acute kidney injury Acute C. difficile colitis Acute Renal insufficiency Acute Abdominal pain Acute CHF (congestive heart failure) Acute Cellulitis Acute Chest pain Acute Dehydration Acute Gallstone Acute Hypokalemia Acute Hypoxemia Acute Medication induced coagulopathy Acute Pulmonary edema Acute Severe sepsis Acute Upper GI bleed Acute
--- NOTE | 2018-06-25 13:32 | PDINTPN ---
Fluorescent Lamp Replacer Progress Note Assessment/Plan: Assessment: Hypoxemic respiratory failure: Likely due to congestive heart failure with right greater than left pleural effusion. Pneumonia with mucus plugging also playing a significant role. Pleural effusion: Thoracentesis 06/22 revealed fluid which became bloody.. Likely aspiration pneumonia: Bronchoscopy 06/22 revealed complete occlusion of right side airways with thick mucus plugs. Similar but slightly less extensive findings on repeat bronchoscopy 06/23. For repeat bronchoscopy today. Will cover for anaerobes post bronchoscopy. Cultures growing only mixed addy. Human metapneumovirus on respiratory panel: Could contribute to infiltrates/ hypoxemia and secretions, which she is having difficulty coughing up. Acute kidney injury: On intermittent hemodialysis. Atrial fibrillation: Chronic atrial fibrillation. Anticoagulation is contraindicated due to recent GI bleed. Continue to optimize rate control. Congestive heart failure: The patient has systolic and diastolic congestive heart failure. BNP is down but remains elevated. Pyuria, presumed urinary tract infection: Culture positive for yeast, no bacteria. On ceftriaxone. Anemia, thrombocytopenia. For repeat H/H later today. May need blood if hematocrit continues to drop. Platelets being followed. Advanced directives: Patient is do not resuscitate. Seen by palliative care today. IA discussed issues with the patient's son and granddaughter after the palliative care meeting. At this point they would like to maintain current therapies, optimize pulmonary status, and give the patient the chance if possible to at least return to [facility] facility care. Plan: CT chest today to better delineate size of effusion, atelectasis, infiltrates? Possible right-sided repeat thoracentesis based on CT scan result No indication for bronchoscopy today. Continue atrial fibrillation rate control. Hemo dialysis today per Nephrology Continue ertapenem for aspiration and possible urinary tract infection. Follow laboratory, CBC, chest x-ray. Continue present care otherwise. Discussed with hospitalist, RT, nursing, and the ICU multi disciplinary team. 35 min of clinic time spent directly with the patient. Subjective: Doing okay. Still with some cough, shortness of breath. For hemodialysis today. Objective: Vital Signs Temp Pulse Resp BP Pulse Ox 36.6 C 102 H 19 103/54 L 95 06/25/18 07:57 06/25/18 12:00 06/25/18 12:00 06/25/18 12:00 06/25/18 12:00 Microbiology 06/22/18 14:00 - Final Sputum, Induced/Suctioned Laboratory Results 06/25/18 04:05 06/25/18 04:05 06/24/18 06/25/18 06/26/18 05:59 05:59 05:59 Intake Total 0 0 Output Total 170 150 Balance -170 -150 PT 14.8 SEC (12.0-15.0) 06/19/18 19:50 INR 1.21 (0.83-1.16) H 06/19/18 19:50 Laboratory Tests 06/25/18 06/25/18 04:05 05:15 pCO2 49 H pO2 75 ABG pH 7.32 L ABG O2 Saturation 95 O2 Concentration % 40 Calcium 8.5 Phosphorus 3.4 Total Bilirubin 0.5 AST 15 ALT 27 Albumin 2.9 L CXR: About the same. Effusions/atelectasis is right side greater than left. Physical Exam - Physical Exam General Appearance: alert, no apparent distress, obese EENT: PERRL/EOMI, other (Vapotherm in place), No TM abnormal (L) Neck: normal inspection (No obvious JVD) Respiratory: lungs clear (And tear Walt), decreased breath sounds (At bases, right more so than left), rales (Few rales present left base), other (Dullness right base) Cardiac/Chest: systolic murmur, irregularly irregular (Hyperdynamic, systolic murmur present) Abdomen: normal bowel sounds, non-tender, soft Pelvic Exam: other (Brice catheter in place, decreased urine output) Skin: normal color, warm/dry Extremities: pedal edema Neuro/Psych: no motor/sensory deficits, No cognition abnormalities (Underlying dementia) ICD10 Worksheet Patient Problems: Problems Problem Status Onset Chest pain Acute Cellulitis Acute Pulmonary edema Acute Severe sepsis Acute Gallstone Acute Abdominal pain Acute CHF (congestive heart failure) Acute Hypoxemia Acute Hypokalemia Acute Dehydration Acute Acute kidney injury Acute Upper GI bleed Acute Medication induced coagulopathy Acute Renal insufficiency Acute C. difficile colitis Acute
[2018-06-25] MEDS: ERTAPENEM 1 GM in NS 100 ML IV SCH (16:10)
[2018-06-25] MEDS ORDERED: HEPARIN 50,000 UNIT/10 ML VIAL ONE (18:38)
[2018-06-25] MEDS: ACETAMINOPHEN 325 MG TAB PO PRN (19:56)
[2018-06-26] MEDS: LEVALBUTEROL 0.63 MG/3 ML DEYVIAL IH SCH ×4 (05:25→22:20)
[2018-06-26] MEDS: ACETYLCYSTEINE 20% IH/PO 4 ML VIAL IH SCH ×4 (05:25→22:20)
[2018-06-26] MEDS: VANCOMYCIN 125 MG/2.5 ML UDL PO SCH ×4 (05:56→20:39)
--- NOTE | 2018-06-26 09:17 | SOAPPROG ---
SOAP Progress Note Assessment/Plan: Assessment: Oliguric HAYDEN, HD yesterday, assess HD tomorrow resp insufficiency, due to volume, secretions and infection CT reviewed ? another bronch today C-diff colitis on therapy atrial fib, rate low 100's Plan: Assess HD needs daily if needs blood, would try to give on HD continue antibiotics discussed possibility of renal recovery with her all questions answered 06/25/18 10:05 06/26/18 09:13 Subjective: sitting up in bed [place] still SOB and cough feels weak today sleeping OK tolerated HD yesterday trying PO today with speech help Objective: Vital Signs Temp Pulse Resp BP Pulse Ox 36.8 C 89 14 103/60 93 06/26/18 07:43 06/26/18 07:43 06/26/18 07:43 06/26/18 07:43 06/26/18 07:43 Microbiology 06/22/18 14:00 - Final Sputum, Induced/Suctioned Sputum Culture - Final Laboratory Results 06/26/18 04:25 06/26/18 04:25 06/25/18 06/26/18 06/27/18 05:59 05:59 05:59 Intake Total 0 920 Output Total 150 110 Balance -150 810 PT 14.8 SEC (12.0-15.0) 06/19/18 19:50 INR 1.21 (0.83-1.16) H 06/19/18 19:50 Physical Exam - Physical Exam General Appearance: alert, other (ill appearing) Neck: normal inspection Respiratory: rales, rhonchi, wheezing Cardiac/Chest: edema, systolic murmur, irregularly irregular, No friction rub Abdomen: normal bowel sounds, non-tender, soft Skin: warm/dry Extremities: other (tr-1+ edema) Neuro/Psych: alert, normal mood/affect, oriented x 3, other (hard of hearing) ICD10 Worksheet Patient Problems: Problems Problem Status Onset Acute kidney injury Acute C. difficile colitis Acute Renal insufficiency Acute Abdominal pain Acute CHF (congestive heart failure) Acute Cellulitis Acute Chest pain Acute Dehydration Acute Gallstone Acute Hypokalemia Acute Hypoxemia Acute Medication induced coagulopathy Acute Pulmonary edema Acute Severe sepsis Acute Upper GI bleed Acute
[2018-06-26] MEDS: guaiFENesin 600 MG TAB.ER PO SCH ×2 (09:42→20:39)
[2018-06-26] MEDS: PANTOPRAZOLE SODIUM 40 MG VIAL IVP SCH ×2 (09:42→20:39)
[2018-06-26] MEDS ORDERED: OLANZapine 5 MG TAB PO ONE (10:13)
[2018-06-26 11:13] LABS: INR 1.46 (0.83-1.16); PROTIME(PATIENT) 17.1 SEC (12.0-15.0)
--- NOTE | 2018-06-26 11:33 | PDINTPN ---
Acquisitions Logistics Analyst Progress Note Assessment/Plan: Assessment: Hypoxemic respiratory failure: Likely due to congestive heart failure with right greater than left pleural effusion. Pneumonia with mucus plugging also playing a significant role. Pleural effusion: Thoracentesis 06/22 revealed fluid which became bloody. Remains large on CT scan - for repeat thoracentesis in radiology under ultrasound guidance today Likely aspiration pneumonia: Bronchoscopy 06/22 revealed complete occlusion of right side airways with thick mucus plugs. Similar but slightly less extensive findings on repeat bronchoscopies subsequently. On anaerobic coverage with her dependent. Cultures growing only mixed addy. Human metapneumovirus on respiratory panel: Could contribute to infiltrates/ hypoxemia and secretions. Acute kidney injury: On hemodialysis TIW. Atrial fibrillation: Chronic atrial fibrillation. Anticoagulation is contraindicated due to recent GI bleed. Continue to optimize rate control. Congestive heart failure: The patient has systolic and diastolic congestive heart failure. BNP down but remains elevated. Pyuria, presumed urinary tract infection: Culture positive for yeast, no bacteria. On ceftriaxone initially, ertapenem now for pulmonary reasons. Anemia, thrombocytopenia. Hematocrit 26, stable. Platelets stable at approximately 100. CBC being followed. Advanced directives: Patient is do not resuscitate. Seen by palliative care. I discussed issues with the patient's son and granddaughter after the palliative care meeting 06/24. The wish to maintain current therapies, optimize pulmonary status, and give the patient the chance if possible to at least return to intermediate facility care. Plan: Repeat ight-sided repeat thoracentesis today under ultrasound guidance. No indication for bronchoscopy today. Continue atrial fibrillation rate control. Hemodialysis possibly tomorrow per Nephrology Continue ertapenem for aspiration. Follow laboratory, CBC, chest x-ray. Continue present care otherwise. Discussed with hospitalist, RT, nursing, and the ICU multi disciplinary team. 35 min of clinic time spent directly with the patient. 40 min of critical care time spent directly with the patient. Subjective: Anxious Objective: Vital Signs Temp Pulse Resp BP Pulse Ox 36.8 C 89 14 103/60 93 06/26/18 07:43 06/26/18 07:43 06/26/18 07:43 06/26/18 07:43 06/26/18 07:43 Microbiology 06/22/18 14:00 - Final Sputum, Induced/Suctioned Sputum Culture - Final Laboratory Results 06/26/18 04:25 06/26/18 04:25 06/25/18 06/26/18 06/27/18 05:59 05:59 05:59 Intake Total 0 920 Output Total 150 110 Balance -150 810 PT 17.1 SEC (12.0-15.0) H 06/26/18 10:45 INR 1.46 (0.83-1.16) H 06/26/18 10:45 Laboratory Tests 06/26/18 06/26/18 04:25 10:45 PT 17.1 H INR 1.46 H Calcium 8.1 L Phosphorus 2.1 [address]in [address] scan yesterday: Large pleural effusion on the right persists, with associated compressive atelectasis. Physical Exam - Physical Exam General Appearance: alert, no apparent distress, obese EENT: PERRL/EOMI, other (Nasal cannula in place at 5 L) Neck: normal inspection (No obvious JVD) Respiratory: lungs clear (Anteriorly), decreased breath sounds (At bases bilaterally, right greater than left. Dullness on the right. Few rales.), rales, rhonchi (Central congestion with cough, up high, mostly laryngeal), No wheezing Cardiac/Chest: irregularly irregular Abdomen: normal bowel sounds, non-tender (Overweight), soft Pelvic Exam: other (Brice catheter in place, decreased urine output) Skin: normal color, warm/dry Extremities: pedal edema Neuro/Psych: no motor/sensory deficits, cognition abnormalities (Dementia, anxiety) ICD10 Worksheet Patient Problems: Problems Problem Status Onset Chest pain Acute Cellulitis Acute Pulmonary edema Acute Severe sepsis Acute Gallstone Acute Abdominal pain Acute CHF (congestive heart failure) Acute Hypoxemia Acute Hypokalemia Acute Dehydration Acute Acute kidney injury Acute Upper GI bleed Acute Medication induced coagulopathy Acute Renal insufficiency Acute C. difficile colitis Acute
--- NOTE | 2018-06-26 14:01 | HOSPPROG ---
Hospitalist Progress Note Assessment/Plan: 83yo F with multiple medical problems (CAD, CHF, afib, diabetes), recent C diff colitis (still on abx at admission) presents from assisted living with confusion found to be septic with respiratory and renal failure requiring dialysis. #Acute on chronic hypoxemic respiratory failure: Infection and pulm edema. Moderate R pleural effusion on CT yesterday - Going for therapeutic thora on right this afternoon - s/p bronch 06/24 w/thick bloody secretions, may need bronch again today or tomorrow - Started invanz (pcn allergy) for ? 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 #Acute on chronic diastolic CHF: BNP>23k, LVEF 55% - Holding diuretics with renal failure #C diff colitis: No longer having diarrhea - Continue PO vanco through 06/27 #Anxiety - Trial zyprexa HS #Chronic atrial fibrillation: Rates controlled. [id number]. - Holding AC with recent UGIB. If recovers from this illness, will need to consider risks/benefits of restarting but will hold for now. - Continue BB. Amiodarone stopped per cards #Hypoglycemia: Poor PO +/- infection - Now eating, monitor #Thrombocytopenia: Stable. No e/o bleeding currently. Monitor. #Severe sepsis: Resolved. #Pyuria: Culture with 2 organisms but without significant bacterial burden. Stopped abx for this. #Lactic acidosis: Resolved. #ABLA: lost 600cc blood with HD, counts low but stable, transfuse to keep hgb>7 #CAD: prior CABG #h/o GIB: 04/2018, large jejunal ulcer s/p clipping. Continue PPI BID through end of June #Right heel ulcer: present at admission. Wound care #Acute metabolic encephalopathy: Due to acute illness #Deafness #Social: lives at [facility]. Son, Salvatore is MDPOA #Goals: Palliative care met with family 06/24. Dr Robel Singh also spoke w/ family. Plan to continue current level of care for now. Patient and family not yet ready to consider hospice. Prognosis is guarded. Remove randhawa catheter today. Diet: dysphagia 3 renal diet Code: DNR Dispo: Remain in SDU Subjective: Complaining of left ear pain and dry mouth. Coughing a bit more today. No fevers. Objective: Vital Signs Temp Pulse Resp BP Pulse Ox 36.3 C 101 H 19 74/58 L 100 06/26/18 12:00 06/26/18 12:00 06/26/18 12:00 06/26/18 12:00 06/26/18 12:00 Microbiology 06/22/18 14:00 - Final Sputum, Induced/Suctioned Sputum Culture - Final Laboratory Results 06/26/18 04:25 06/26/18 04:25 06/25/18 06/26/18 06/27/18 05:59 05:59 05:59 Intake Total 0 920 Output Total 150 110 15 Balance -150 810 -15 PT 17.1 SEC (12.0-15.0) H 06/26/18 10:45 INR 1.46 (0.83-1.16) H 06/26/18 10:45 - Physical Exam Constitutional: no apparent distress Eyes: PERRL Ears, Nose, Mouth, Throat: hard of hearing Cardiovascular: no murmur, rub, or gallop, tachycardia Respiratory: reduced air movement, rhonchi Gastrointestinal: normoactive bowel sounds, soft, non-tender abdomen, no palpable masses Genitourinary: randhawa in urethra Skin: no rashes or abrasions, no fluctuance, no induration Musculoskeletal: generalized weakness Neurologic: other (alert, difficult to assess orientation due to hearing difficulty and dementia) ICD10 Worksheet Patient Problems: Problems Problem Status Onset Acute kidney injury Acute C. difficile colitis Acute Renal insufficiency Acute Abdominal pain Acute CHF (congestive heart failure) Acute Cellulitis Acute Chest pain Acute Dehydration Acute Gallstone Acute Hypokalemia Acute Hypoxemia Acute Medication induced coagulopathy Acute Pulmonary edema Acute Severe sepsis Acute Upper GI bleed Acute
[2018-06-26] MEDS ORDERED: LIDOCAINE 1% 300 MG/30 ML SDV ONE (14:08)
[2018-06-26] MEDS: ERTAPENEM 1 GM in NS 100 ML IV SCH (16:22)
[2018-06-26] MEDS: OLANZapine 5 MG TAB PO SCH (20:39)
[2018-06-27 04:23] LABS: PLATELET COUNT 125 10^3/uL (150-400)
[2018-06-27] MEDS: ACETYLCYSTEINE 20% IH/PO 4 ML VIAL IH SCH ×4 (05:11→22:45)
[2018-06-27] MEDS: LEVALBUTEROL 0.63 MG/3 ML DEYVIAL IH SCH ×4 (05:11→22:45)
[2018-06-27] MEDS: VANCOMYCIN 125 MG/2.5 ML UDL PO SCH ×4 (05:33→21:22)
[2018-06-27] MEDS: PANTOPRAZOLE SODIUM 40 MG VIAL IVP SCH ×2 (08:27→22:51)
[2018-06-27] MEDS: guaiFENesin 600 MG TAB.ER PO SCH ×2 (08:27→21:23)
--- NOTE | 2018-06-27 10:49 | SOAPPROG ---
SOAP Progress Note Assessment/Plan: Assessment/Plan: HAYDEN: likely ATN, remains oliguric. - Will do HD today. - Will continue to monitor daily for HD needs and renal recovery. - Avoid hypotension and nephrotoxins. Hypotension: low BP limits fluid removal on HD. - Will support BP with albumin and low dialysate temp while on HD. - If this prevents fluid removal on HD, will consider starting pressor support to allow more fluid removal. Hypervolemia: with worsening hypoxia initially. She had thoracentesis done x2, last was yesterday. Will continue to modulate with fluid removal on HD as tolerated. Anemia: Hgb 7.4, not giving epo, consider transfusing PRBCs if Hgb<7. Subjective: No acute events overnight. Pt had R thoracentesis yesterday with 750ml removed. She is resting this am comfortably. Objective: Vital Signs Temp Pulse Resp BP Pulse Ox 36.2 C 79 14 104/57 L 100 06/27/18 07:43 06/27/18 07:43 06/27/18 07:43 06/27/18 07:43 06/27/18 07:43 Microbiology 06/26/18 14:45 Gram Stain - Final Thoracic Fluid - Aspirate Laboratory Results 06/27/18 04:00 06/27/18 04:00 06/26/18 06/27/18 06/28/18 05:59 05:59 05:59 Intake Total 920 300 Output Total 110 15 Balance 810 285 PT 17.1 SEC (12.0-15.0) H 06/26/18 10:45 INR 1.46 (0.83-1.16) H 06/26/18 10:45 General: alert and oriented, no acute distress Eyes: EOMI, PERRL OP: Clear CV: RRR Resp: nonlabored respirations on NC Abd: Soft, NT Ext: +1 edema all extremities Neuro: CN II-XII Grossly intact except deafness Access: RIJ catheter ICD10 Worksheet Patient Problems: Problems Problem Status Onset Acute kidney injury Acute C. difficile colitis Acute Renal insufficiency Acute Abdominal pain Acute CHF (congestive heart failure) Acute Cellulitis Acute Chest pain Acute Dehydration Acute Gallstone Acute Hypokalemia Acute Hypoxemia Acute Medication induced coagulopathy Acute Pulmonary edema Acute Severe sepsis Acute Upper GI bleed Acute
--- NOTE | 2018-06-27 11:26 | HOSPPROG ---
Hospitalist Progress Note Assessment/Plan: 83yo F with multiple medical problems (CAD, CHF, afib, diabetes), recent C diff colitis (still on abx at admission) presents from assisted living with confusion found to be septic with respiratory and renal failure requiring dialysis. #Acute on chronic hypoxemic respiratory failure: Infection, pulm edema, effusion /atelectasis - s/p thora with 750ml removed 06/26 - s/p bronch 06/24 w/thick bloody secretions - Started invanz (pcn allergy) for ? 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 #Acute on chronic diastolic CHF: BNP>23k, LVEF 55% - Holding diuretics with renal failure #C diff colitis: No longer having diarrhea - Continue PO vanco while on antibiotics (through 06/30) #Anxiety - Trial zyprexa HS #Chronic atrial fibrillation: Rates controlled. [id number]=3. - Holding AC with recent UGIB. If recovers from this illness, will need to consider risks/benefits of restarting but will hold for now. - Continue BB. Amiodarone stopped per cards #Hypoglycemia: Resolved. Now eating some. #Thrombocytopenia: Stable. No e/o bleeding currently. Monitor. #Severe sepsis: Resolved. #Pyuria: Culture with 2 organisms but without significant bacterial burden. Stopped abx for this. #Lactic acidosis: Resolved. #ABLA: lost 600cc blood with HD, counts low but stable, transfuse to keep hgb>7 #CAD: prior CABG #h/o GIB: 04/2018, large jejunal ulcer s/p clipping. Continue PPI BID through end of June #Right heel ulcer: present at admission. Wound care #Acute metabolic encephalopathy: Due to acute illness #Deafness #Social: Was living at home, previously at [facility] after recent hospital stay. SonSalvatore is MDPOA #Goals: Palliative care met with family 06/24. Dr Robel Singh also spoke w/ family. Plan to continue current level of care for now. Will need to continue discussions. Prognosis is guarded. Diet: dysphagia 3 renal diet Code: DNR Dispo: Remain inpatient, transfer to floor Subjective: Sleepy today. Concerned about fluid in lungs. No other complaints. Objective: Vital Signs Temp Pulse Resp BP Pulse Ox 36.2 C 79 14 104/57 L 100 06/27/18 07:43 06/27/18 07:43 06/27/18 07:43 06/27/18 07:43 06/27/18 07:43 Microbiology 06/26/18 14:45 Gram Stain - Final Thoracic Fluid - Aspirate Laboratory Results 06/27/18 04:00 06/27/18 04:00 06/26/18 06/27/18 06/28/18 05:59 05:59 05:59 Intake Total 920 300 Output Total 110 15 Balance 810 285 PT 17.1 SEC (12.0-15.0) H 06/26/18 10:45 INR 1.46 (0.83-1.16) H 06/26/18 10:45 - Physical Exam Constitutional: no apparent distress Eyes: PERRL Ears, Nose, Mouth, Throat: moist mucous membranes Cardiovascular: regular rate and rhythym, edema, other (frequent ectopy) Respiratory: reduced air movement Gastrointestinal: normoactive bowel sounds, soft, non-tender abdomen, no palpable masses Genitourinary: no bladder fullness, no bladder tenderness, no renal bruits Skin: no rashes or abrasions, no fluctuance, no induration Musculoskeletal: generalized weakness Neurologic: other (alert, difficult to assess orientation due to hard of hearing ) ICD10 Worksheet Patient Problems: Problems Problem Status Onset Acute kidney injury Acute C. difficile colitis Acute Renal insufficiency Acute Abdominal pain Acute CHF (congestive heart failure) Acute Cellulitis Acute Chest pain Acute Dehydration Acute Gallstone Acute Hypokalemia Acute Hypoxemia Acute Medication induced coagulopathy Acute Pulmonary edema Acute Severe sepsis Acute Upper GI bleed Acute
--- NOTE | 2018-06-27 12:25 | PDINTPN ---
[facility] Machine [employer] Progress Note Assessment/Plan: Assessment: Hypoxemic respiratory failure: Likely due to congestive heart failure with right greater than left pleural effusion. Pneumonia with mucus plugging also playing a role. Improving, oxygen requirements now down to 3-4 L Pleural effusion: Thoracentesis 06/22 revealed fluid which became bloody. Yesterday 750 cc removed. Blood still present. Studies otherwise consistent with a transient dated of effusion. Likely aspiration pneumonia: Bronchoscopy 06/22 revealed complete occlusion of right side airways with thick mucus plugs. Similar but slightly less extensive findings on repeat bronchoscopies subsequently. On anaerobic coverage with ertapenem. Cultures growing only mixed addy. Human metapneumovirus on respiratory panel: Could contribute to infiltrates/ hypoxemia and secretions. Acute kidney injury: On hemodialysis TIW. For repeat HD today. Atrial fibrillation: Chronic atrial fibrillation. Full-dose anticoagulation remains contraindicated secondary to recent GI bleed. Prophylactic anticoagulation with heparin can be started.. Congestive heart failure: The patient has systolic and diastolic congestive heart failure. BNP down but remains elevated. Pyuria, presumed urinary tract infection: Culture positive for yeast, no bacteria. On ceftriaxone initially, ertapenem now for pulmonary reasons. Anemia, thrombocytopenia. Hematocrit 24, slightly down. Platelets improved at 125. CBC being followed. Advanced directives: Patient is do not resuscitate. Seen by palliative care. I discussed issues with the patient's son and granddaughter after the palliative care meeting 06/24. The wish to maintain current therapies, optimize pulmonary status, and give the patient the chance if possible to at least return to [facility] care. Plan: Continue present care. No indication for bronchoscopy at this point in time. Continue bronchopulmonary treatments Continue atrial fibrillation rate control. Hemodialysis again today. Continue ertapenem for aspiration x7 days total. Follow laboratory, CBC, chest x-ray intermittently as indicated. Discussed with hospitalist, RT, nursing, and the ICU multi disciplinary team. 30 min of clinic time spent directly with the patient. Subjective: Denies pain, shortness of breath, eating. Objective: Vital Signs Temp Pulse Resp BP Pulse Ox 36.2 C 79 14 104/57 L 100 06/27/18 07:43 06/27/18 07:43 06/27/18 07:43 06/27/18 07:43 06/27/18 07:43 Microbiology 06/26/18 14:45 Gram Stain - Final Thoracic Fluid - Aspirate Laboratory Results 06/27/18 04:00 06/27/18 04:00 06/26/18 06/27/18 06/28/18 05:59 05:59 05:59 Intake Total 920 300 Output Total 110 15 Balance 810 285 PT 17.1 SEC (12.0-15.0) H 06/26/18 10:45 INR 1.46 (0.83-1.16) H 06/26/18 10:45 Laboratory Tests 06/27/18 04:00 Calcium 8.2 L Phosphorus 2.9 Albumin 2.7 L CXR: Right basilar atelectasis/consolidation with possible small residual fusion persists. Pleural fluid yesterday: Somewhat of 50 cc, serosanguineous. Results consistent with some blood and a likely transient data of effusion, consistent with CHF/fluid retention/renal failure. Physical Exam - Physical Exam General Appearance: alert, no apparent distress, obese EENT: PERRL/EOMI, other (Nasal cannula in place at 3-4 L) Neck: normal inspection (No obvious JVD but somewhat large neck.) Respiratory: lungs clear (Anteriorly), decreased breath sounds (At bases), rales (At bases), rhonchi (Oropharyngeal secretions/rhonchi present with occasional cough) Cardiac/Chest: irregularly irregular Abdomen: normal bowel sounds, non-tender, soft (Overweight) Pelvic Exam: other Skin: normal color, warm/dry Extremities: pedal edema Neuro/Psych: no motor/sensory deficits, cognition abnormalities (Underlying dementia, unchanged. Seems somewhat calmer, less agitated with Zyprexa) ICD10 Worksheet Patient Problems: Problems Problem Status Onset Chest pain Acute Cellulitis Acute Pulmonary edema Acute Severe sepsis Acute Gallstone Acute Abdominal pain Acute CHF (congestive heart failure) Acute Hypoxemia Acute Hypokalemia Acute Dehydration Acute Acute kidney injury Acute Upper GI bleed Acute Medication induced coagulopathy Acute Renal insufficiency Acute C. difficile colitis Acute
[2018-06-27] MEDS: ALBUMIN 25% 50 ML IV PRN ×2 (13:22→15:19)
[2018-06-27] MEDS: HEPARIN 5,000 UNIT/0.5 ML INJ SC SCH ×2 (16:52→21:24)
[2018-06-27] MEDS: ERTAPENEM 0.5 GM in NS 50 ML IV SCH (16:52)
[2018-06-27] MEDS ORDERED: HEPARIN 50,000 UNIT/10 ML VIAL ONE (17:46)
[2018-06-27] MEDS ORDERED: NS 250 ML IV ONE (21:00)
[2018-06-27] MEDS: PANTOPRAZOLE SODIUM 40 MG TAB PO SCH (21:23)
[2018-06-27] MEDS: OLANZapine 5 MG TAB PO SCH (22:36)
[2018-06-28] MEDS: HEPARIN 5,000 UNIT/0.5 ML INJ SC SCH ×3 (05:02→21:28)
[2018-06-28] MEDS: VANCOMYCIN 125 MG/2.5 ML UDL PO SCH ×4 (05:02→21:28)
[2018-06-28] MEDS: LEVALBUTEROL 0.63 MG/3 ML DEYVIAL IH SCH ×4 (05:10→23:44)
[2018-06-28] MEDS: ACETYLCYSTEINE 20% IH/PO 4 ML VIAL IH SCH ×4 (05:10→23:43)
--- NOTE | 2018-06-28 09:23 | SOAPPROG ---
SOAP Progress Note Assessment/Plan: Assessment/Plan: HAYDEN: likely ATN, remains oliguric. - HD done yesterday. - Will plan on HD again either later today vs tomorrow. - Will continue to monitor daily for HD needs and renal recovery. - Avoid hypotension and nephrotoxins. Hypotension: low BP limits fluid removal on HD. - Will support BP with albumin and low dialysate temp while on HD. Hypervolemia: with worsening hypoxia initially. She had thoracentesis done x2, last was 06/26. Will continue to modulate with fluid removal on HD as tolerated. Anemia: Hgb 7.7, not giving epo, consider transfusing PRBCs if Hgb<7. Subjective: Pt had HD yesterday and tolerated well, was able to remove almost 3kg fluid with one dose of albumin given. She was transferred to floor yesterday and only required 2.5L O2 last night, but this am suddenly needed 15L oxymask, now resting comfortably on 5L oxymask. She is confused this am. Objective: Vital Signs Temp Pulse Resp BP Pulse Ox 36.5 C 93 12 111/56 L 100 06/28/18 08:00 06/28/18 08:00 06/28/18 08:00 06/28/18 08:00 06/28/18 08:00 Microbiology 06/26/18 14:45 Gram Stain - Final Thoracic Fluid - Aspirate Laboratory Results 06/28/18 07:21 06/28/18 07:21 06/27/18 06/28/18 06/29/18 05:59 05:59 05:59 Intake Total 300 850 Output Total 15 0 Balance 285 850 PT 17.1 SEC (12.0-15.0) H 06/26/18 10:45 INR 1.46 (0.83-1.16) H 06/26/18 10:45 General: somnolent but arousable, no acute distress Eyes: EOMI, PERRL CV: RRR Resp: nonlabored respirations on 5L oxymask Abd: Soft, NT Ext: +1 edema BLE Neuro: CN II-XII grossly intact except for deafness ICD10 Worksheet Patient Problems: Problems Problem Status Onset Acute kidney injury Acute C. difficile colitis Acute Renal insufficiency Acute Abdominal pain Acute CHF (congestive heart failure) Acute Cellulitis Acute Chest pain Acute Dehydration Acute Gallstone Acute Hypokalemia Acute Hypoxemia Acute Medication induced coagulopathy Acute Pulmonary edema Acute Severe sepsis Acute Upper GI bleed Acute
[2018-06-28] MEDS: PANTOPRAZOLE SODIUM 40 MG TAB PO SCH ×2 (11:22→21:28)
[2018-06-28] MEDS: guaiFENesin 600 MG TAB.ER PO SCH ×2 (11:22→21:28)
--- NOTE | 2018-06-28 12:46 | HOSPPROG ---
Hospitalist Progress Note Assessment/Plan: 83yo F with multiple medical problems (CAD, CHF, afib, diabetes), recent C diff colitis (still on abx at admission) presents from SNF with confusion found to be septic with respiratory and renal failure requiring dialysis. #Goals of care: Now DNR/DNI. Pall care ([facility]) on board. Met with son and daughter -in-law today. Want to complete course of antibiotics through the weekend and see if any improvement in mentation, breathing, renal fxn. If not, they are considering hospice. CM following. #Acute on chronic hypoxemic respiratory failure: slightly worse this AM but now back on 5L - s/p thora with 750ml removed 06/26 - s/p bronch 06/24 w/thick bloody secretions - Started invanz (pcn allergy) for ? 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 #Acute on chronic diastolic CHF: BNP>23k, LVEF 55% - Holding diuretics with renal failure #C diff colitis: No longer having diarrhea - Continue PO vanco while on antibiotics (through 06/30) #Chronic atrial fibrillation: Rates controlled. [id number]=7. - Holding AC with recent UGIB - Continue BB. Amiodarone stopped per cards #Hypoglycemia: Resolved. Now eating some. #Thrombocytopenia: Stable. No e/o bleeding currently. Monitor. #Severe sepsis: Resolved. #Pyuria: Culture with 2 organisms but without significant bacterial burden. Stopped abx for this. #Lactic acidosis: Resolved. #ABLA: lost 600cc blood with HD, counts low but stable, transfuse to keep hgb>7 #CAD: prior CABG #h/o GIB: 04/2018, large jejunal ulcer s/p clipping. Continue PPI BID through end of June #Right heel ulcer: present at admission. Wound care #Deafness #Social: Was living at home, previously at [facility] after recent hospital stay. SonSalvatore is MDPOA Diet: dysphagia 3 renal diet Code: DNR Dispo: Remain inpatient on floor Subjective: Very somnolent this AM, not arousable. Was requiring 15L oxymask. Then became more alert and back to previous mentation and O2 needs decreased to 5-6L. Objective: Vital Signs Temp Pulse Resp BP Pulse Ox 36.5 C 105 H 25 H 111/56 L 95 06/28/18 08:00 06/28/18 12:14 06/28/18 12:14 06/28/18 08:00 06/28/18 12:14 Microbiology 06/26/18 14:45 Gram Stain - Final Thoracic Fluid - Aspirate Laboratory Results 06/28/18 07:21 06/28/18 07:21 06/27/18 06/28/18 06/29/18 05:59 05:59 05:59 Intake Total 300 850 Output Total 15 0 Balance 285 850 PT 17.1 SEC (12.0-15.0) H 06/26/18 10:45 INR 1.46 (0.83-1.16) H 06/26/18 10:45 - Physical Exam Constitutional: no apparent distress Eyes: PERRL Ears, Nose, Mouth, Throat: dry mucous membranes Cardiovascular: regular rate and rhythym, no murmur, rub, or gallop Respiratory: reduced air movement, inspiratory crackles Gastrointestinal: normoactive bowel sounds, soft, non-tender abdomen, no palpable masses Genitourinary: no bladder fullness, no bladder tenderness, no renal bruits Skin: no rashes or abrasions, no fluctuance, no induration Musculoskeletal: generalized weakness Neurologic: other (alert, difficult to assess orientation due to hearing ) Psychiatric: encephalopathic ICD10 Worksheet Patient Problems: Problems Problem Status Onset Acute kidney injury Acute C. difficile colitis Acute Renal insufficiency Acute Abdominal pain Acute CHF (congestive heart failure) Acute Cellulitis Acute Chest pain Acute Dehydration Acute Gallstone Acute Hypokalemia Acute Hypoxemia Acute Medication induced coagulopathy Acute Pulmonary edema Acute Severe sepsis Acute Upper GI bleed Acute
[2018-06-28] MEDS ORDERED: HEPARIN 50,000 UNIT/10 ML VIAL ONE (15:00)
--- NOTE | 2018-06-28 15:38 | ASMTCMCOM ---
CM Note CM Note Notes: CM, hospitalist, and son Salvatore and his had impromptu family meeting regarding pt's prognosis. Pt is stabilized and moved yesterday to med surg floor, however, she is encephalopathic, perseverating on her condition, requiring hemodialysis Q2 days and still has high O2 needs. Pt is unable to have meaningful conversation regarding goals of care. Though pt and family had palliative consult and family meeting on June 24 and signed on with [facility]. Pt's course of antibiotics for sepsis from UTI, possible pneumonia and c diff will be complete on Sunday. Family and hospitalist want to wait and see how she responds to the end of this treatment or if patient is at a new baseline with increased needs. Family will then consider if treatment needs are aligned with pt's care goals. [facility] agreed to pass this along to [facility] Pall care team. Family agreed to reconvene with hospitalist and care team on Sunday. Pt could still discharge to [facility] and if able, participate in short term rehab to get strong enough to complete admissions assessment for [facility] assisted living, which is family's shelter plan. However, if patient does not improve family may consider hospice instead. Updates sent to [facility] and [facility]. Pt has used her covered days at [employer] and they are in the process of appealing with the insurance company. CM to follow. D/C Plan: [facility] and [facility] pending pt stability Date Signed: 06/28/2018 03:37 PM Electronically Signed By:Shanell Almaguer
[2018-06-28] MEDS: ALBUMIN 25% 50 ML IV PRN (15:59)
[2018-06-28] MEDS: ERTAPENEM 0.5 GM in NS 50 ML IV SCH (19:34)
[2018-06-29] MEDS: VANCOMYCIN 125 MG/2.5 ML UDL PO SCH ×4 (05:10→21:37)
[2018-06-29] MEDS: HEPARIN 5,000 UNIT/0.5 ML INJ SC SCH ×3 (05:10→21:37)
[2018-06-29] MEDS: ACETYLCYSTEINE 20% IH/PO 4 ML VIAL IH SCH ×4 (05:37→21:13)
[2018-06-29] MEDS: LEVALBUTEROL 0.63 MG/3 ML DEYVIAL IH SCH ×4 (05:37→21:13)
[2018-06-29] MEDS: PANTOPRAZOLE SODIUM 40 MG TAB PO SCH ×2 (09:30→21:37)
[2018-06-29] MEDS: guaiFENesin 600 MG TAB.ER PO SCH ×2 (09:30→21:37)
--- NOTE | 2018-06-29 13:22 | HOSPPROG ---
Hospitalist Progress Note Assessment/Plan: 83yo F with multiple medical problems (CAD, CHF, afib, diabetes), recent C diff colitis (still on abx at admission) presents from SNF with confusion found to be septic with respiratory and renal failure requiring dialysis. #Goals of care: Now DNR/DNI. Pall care ([facility]) on board. Family/mdpoa wants to complete course of antibiotics through the weekend and see if any improvement in mentation, breathing, renal fxn. If not, they are considering hospice. CM following. #Acute on chronic hypoxemic respiratory failure: on 2-3L, cxr stable - s/p several thora and bronch this admit - Continue invanz through 06/30 for ? 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 #Acute on chronic diastolic CHF: BNP>23k, LVEF 55% - Holding diuretics with renal failure #C diff colitis: No longer having diarrhea - Continue PO vanco while on antibiotics (through 06/30) #Chronic atrial fibrillation: Rates controlled. [id number]. - Holding AC with recent UGIB - Continue BB. Amiodarone stopped per cards #Hypoglycemia: Resolved. Now eating some. #Thrombocytopenia: Stable. No e/o bleeding currently. Monitor. #Severe sepsis: Resolved. #Pyuria: Culture with 2 organisms but without significant bacterial burden. Stopped abx for this. #ABLA: lost 600cc blood with HD, counts low but stable, transfuse to keep hgb>7 #CAD: prior CABG #h/o GIB: 04/2018, large jejunal ulcer s/p clipping. Continue PPI BID through end of June #Right heel ulcer: present at admission. Wound care #Deafness #Social: Was living at home, previously at [facility] after recent hospital stay. Son, Salvatore is MDPOA Diet: dysphagia 3 renal diet Code: DNR Dispo: Remain inpatient on floor Subjective: HD yesterday with 2.7L removed. Today actually about the most alert and interactive I've seen her. Reports lower back pain but otherwise doing ok, sitting up and eating lunch. Objective: Vital Signs Temp Pulse Resp BP Pulse Ox 36.6 C 90 20 89/47 L 91 L 06/29/18 12:00 06/29/18 13:03 06/29/18 13:03 06/29/18 13:03 06/29/18 12:00 Microbiology 06/26/18 14:45 Gram Stain - Final Thoracic Fluid - Aspirate Laboratory Results 06/28/18 07:21 06/29/18 04:30 06/28/18 06/29/18 06/30/18 05:59 05:59 05:59 Intake Total 850 500 Output Total 0 Balance 850 500 PT 17.1 SEC (12.0-15.0) H 06/26/18 10:45 INR 1.46 (0.83-1.16) H 06/26/18 10:45 - Physical Exam Constitutional: no apparent distress Eyes: PERRL Ears, Nose, Mouth, Throat: hard of hearing Cardiovascular: regular rate and rhythym, no murmur, rub, or gallop, edema Respiratory: no respiratory distress, reduced air movement (bases) Gastrointestinal: normoactive bowel sounds, soft, non-tender abdomen, no palpable masses Genitourinary: no bladder fullness, no bladder tenderness, no renal bruits Skin: no rashes or abrasions, no fluctuance, no induration Musculoskeletal: generalized weakness Neurologic: other (alert, difficult to assess orientation based on hard of hearing) ICD10 Worksheet Patient Problems: Problems Problem Status Onset Acute kidney injury Acute C. difficile colitis Acute Renal insufficiency Acute Abdominal pain Acute CHF (congestive heart failure) Acute Cellulitis Acute Chest pain Acute Dehydration Acute Gallstone Acute Hypokalemia Acute Hypoxemia Acute Medication induced coagulopathy Acute Pulmonary edema Acute Severe sepsis Acute Upper GI bleed Acute
--- NOTE | 2018-06-29 13:26 | SOAPPROG ---
SOAP Progress Note Assessment/Plan: Assessment: 1. arf: presumably ischemic atn from sepsis/hypotension. Remains oliguric without evidence of recovery. B/l creat appears to be <1, therefore would expect eventual recovery though timeframe for this is difficult to predict. Family beginning to contemplate limits to care, which seems reasonable to me. Next hd tentatively Sunday. I think outpt acute hd would be difficult given her confusion. 2. Overload: s/p 2.5-3L uf per rx each of past 2 days. Has persistent effusions on cxr that may need to be tapped if continues to have episodes of increased O2 req. 3. Hypotension: mild but limiting uf on hd somewhat. 4. anemia: txfuse prn. Plan: 06/29/18 13:22 Subjective: S/p 2.7L uf on hd yesterday. Currently eating lunch, appears well. A bit confused and not really able to have conversation. Objective: Vital Signs Temp Pulse Resp BP Pulse Ox 36.6 C 90 20 89/47 L 91 L 06/29/18 12:00 06/29/18 13:03 06/29/18 13:03 06/29/18 13:03 06/29/18 12:00 Microbiology 06/26/18 14:45 Gram Stain - Final Thoracic Fluid - Aspirate Laboratory Results 06/28/18 07:21 06/29/18 04:30 06/28/18 06/29/18 06/30/18 05:59 05:59 05:59 Intake Total 850 500 Output Total 0 Balance 850 500 PT 17.1 SEC (12.0-15.0) H 06/26/18 10:45 INR 1.46 (0.83-1.16) H 06/26/18 10:45 Physical Exam - Physical Exam General Appearance: no apparent distress Respiratory: decreased breath sounds Cardiac/Chest: irregularly irregular Abdomen: soft Extremities: pedal edema (mild) ICD10 Worksheet Patient Problems: Problems Problem Status Onset Acute kidney injury Acute C. difficile colitis Acute Renal insufficiency Acute Abdominal pain Acute CHF (congestive heart failure) Acute Cellulitis Acute Chest pain Acute Dehydration Acute Gallstone Acute Hypokalemia Acute Hypoxemia Acute Medication induced coagulopathy Acute Pulmonary edema Acute Severe sepsis Acute Upper GI bleed Acute
[2018-06-29] MEDS: ACETAMINOPHEN 325 MG TAB PO PRN (15:50)
[2018-06-29] MEDS: ERTAPENEM 0.5 GM in NS 50 ML IV SCH (16:19)
[2018-06-30] MEDS: ACETYLCYSTEINE 20% IH/PO 4 ML VIAL IH SCH ×2 (05:30→11:15)
[2018-06-30] MEDS: LEVALBUTEROL 0.63 MG/3 ML DEYVIAL IH SCH ×4 (05:30→22:10)
[2018-06-30] MEDS: HEPARIN 5,000 UNIT/0.5 ML INJ SC SCH ×3 (05:31→21:27)
[2018-06-30] MEDS: VANCOMYCIN 125 MG/2.5 ML UDL PO SCH ×4 (05:32→21:27)
[2018-06-30] MEDS: PANTOPRAZOLE SODIUM 40 MG TAB PO SCH ×2 (08:39→21:27)
[2018-06-30] MEDS: guaiFENesin 600 MG TAB.ER PO SCH ×2 (08:39→21:27)
[2018-06-30] MEDS: ACETAMINOPHEN 325 MG TAB PO PRN ×2 (09:17→14:34)
--- NOTE | 2018-06-30 12:03 | SOAPPROG ---
SOAP Progress Note Assessment/Plan: Assessment: 1. arf: presumably ischemic atn from sepsis/hypotension. Remains oliguric without evidence of recovery. B/l creat appears to be <1, therefore would expect eventual recovery though timeframe for this is difficult to predict. Family beginning to contemplate limits to care, which seems reasonable to me. Next hd Sunday. I think outpt acute hd would be difficult and she could require LTAC if were to continue this on d/c. 2. Overload: s/p 2.5-3L uf per rx on /Sun. Seems better, O2 req down. Has persistent effusions on cxr that may need to be tapped if continues to have episodes of increased O2 req. Will cont to uf on hd as tolerated, though bp will probably be a limitation. 3. Hypotension: has been limiting uf on hd. 4. anemia: txfuse prn. Plan: 06/29/18 13:22 06/30/18 12:00 Subjective: Extremely hard of hearing but seems less confused than yesterday. Motions to her hd catheter when I tell her (via writing) that we are going to dialyze her tomorrow. Objective: Vital Signs Temp Pulse Resp BP Pulse Ox 36.6 C 94 18 102/68 91 L 06/30/18 11:45 06/30/18 11:45 06/30/18 11:45 06/30/18 11:45 06/30/18 11:45 Microbiology 06/26/18 14:45 Gram Stain - Final Thoracic Fluid - Aspirate Laboratory Results 06/28/18 07:21 06/30/18 04:10 06/29/18 06/30/18 07/01/18 05:59 05:59 05:59 Intake Total 500 700 Output Total 150 Balance 500 550 PT 17.1 SEC (12.0-15.0) H 06/26/18 10:45 INR 1.46 (0.83-1.16) H 06/26/18 10:45 Physical Exam - Physical Exam General Appearance: no apparent distress, other (frail) Respiratory: decreased breath sounds Cardiac/Chest: irregularly irregular Abdomen: soft Extremities: pedal edema ICD10 Worksheet Patient Problems: Problems Problem Status Onset Acute kidney injury Acute C. difficile colitis Acute Renal insufficiency Acute Abdominal pain Acute CHF (congestive heart failure) Acute Cellulitis Acute Chest pain Acute Dehydration Acute Gallstone Acute Hypokalemia Acute Hypoxemia Acute Medication induced coagulopathy Acute Pulmonary edema Acute Severe sepsis Acute Upper GI bleed Acute
--- NOTE | 2018-06-30 13:55 | HOSPPROG ---
Hospitalist Progress Note Assessment/Plan: 83yo F with multiple medical problems (CAD, CHF, afib, diabetes), recent C diff colitis (still on abx at admission) presents from SNF with confusion found to be septic with respiratory and renal failure requiring dialysis. #Goals of care: Now DNR/DNI. Pall care ([facility]) on board. Her mentation and respiratory status have improved but still oliguric/dialysis dependent. Family considering hospice but wants to meet Saturday 07/01 to discuss. I spoke with sonALIS 06/30, via phone and gave updates. #Acute on chronic hypoxemic respiratory failure: on 2-3L, cxr stable - s/p several thora and bronch this admit - Continue invanz through 06/30 for ? aspiration - Volume removal with HD - Repeat cxr in AM #Acute renal failure: Suspect ATN, now requiring DIRECTOR BUSINESS TRAVEL, hardly making any urine - Renal following, next HD tomorrow #Acute metabolic/toxic encephalopathy: not at baseline per family for last 2 weeks, but better last couple days - Avoid centrally acting meds #Hypotension: BP stable but limiting volume removal. #Acute on chronic diastolic CHF: BNP>23k, LVEF 55% - Holding diuretics with renal failure #C diff colitis: No longer having diarrhea - Continue PO vanco while on antibiotics (through 06/30) #Chronic atrial fibrillation: Rates controlled. [id number]=0. - Holding AC with recent UGIB - Continue BB. Amiodarone stopped per cards #Hypoglycemia: Resolved. Now eating some. #Thrombocytopenia: Stable. No e/o bleeding currently. Monitor. #Severe sepsis: Resolved. #Pyuria: Culture with 2 organisms but without significant bacterial burden. Stopped abx for this. #ABLA: lost 600cc blood with HD, counts low but stable, transfuse to keep hgb>7 #CAD: prior CABG #h/o GIB: 04/2018, large jejunal ulcer s/p clipping. Continue PPI BID through end of June #Right heel ulcer: present at admission. Wound care #Deafness #Social: Was living at home, previously at [facility] after recent hospital stay. SonSalvatore is ALIS Diet: dysphagia 3 renal diet Code: DNR Dispo: Remain inpatient on floor Subjective: Remains more alert. Interacting appropriately. Low back still hurting. Objective: Vital Signs Temp Pulse Resp BP Pulse Ox 36.6 C 94 18 102/68 91 L 06/30/18 11:45 06/30/18 11:45 06/30/18 11:45 06/30/18 11:45 06/30/18 11:45 Microbiology 06/26/18 14:45 Gram Stain - Final Thoracic Fluid - Aspirate Laboratory Results 06/28/18 07:21 06/30/18 04:10 06/29/18 06/30/18 07/01/18 05:59 05:59 05:59 Intake Total 500 700 Output Total 150 Balance 500 550 PT 17.1 SEC (12.0-15.0) H 06/26/18 10:45 INR 1.46 (0.83-1.16) H 06/26/18 10:45 - Physical Exam Constitutional: no apparent distress Eyes: PERRL, anicteric sclera Ears, Nose, Mouth, Throat: moist mucous membranes Cardiovascular: no murmur, rub, or gallop, tachycardia, No edema Respiratory: no respiratory distress, reduced air movement (bases) Gastrointestinal: normoactive bowel sounds, soft, non-tender abdomen, no palpable masses Genitourinary: no bladder fullness Skin: no rashes or abrasions, no fluctuance, no induration Musculoskeletal: generalized weakness Neurologic: other (alert, hard of hearing, appears oriented) Psychiatric: interacting appropriately ICD10 Worksheet Patient Problems: Problems Problem Status Onset Chest pain Acute Cellulitis Acute Pulmonary edema Acute Severe sepsis Acute Gallstone Acute Abdominal pain Acute CHF (congestive heart failure) Acute Hypoxemia Acute Hypokalemia Acute Dehydration Acute Acute kidney injury Acute Upper GI bleed Acute Medication induced coagulopathy Acute Renal insufficiency Acute C. difficile colitis Acute
--- NOTE | 2018-06-30 14:35 | ASMTCMCOM ---
CM Note CM Note Notes: Pt to get dialyzed Sunday, will dc to [facility] when medically stable with [facility]. There was a family meeting on Sunday, see CM note. DC Plan: [facility] + [facility] Date Signed: 06/30/2018 02:34 PM Electronically Signed By:Jolene Castro RN
[2018-06-30] MEDS: ERTAPENEM 0.5 GM in NS 50 ML IV SCH (16:01)
[2018-07-01] MEDS: ACETAMINOPHEN 325 MG TAB PO PRN ×2 (00:28→12:30)
[2018-07-01] MEDS: HEPARIN 5,000 UNIT/0.5 ML INJ SC SCH ×3 (05:56→21:12)
[2018-07-01] MEDS: LEVALBUTEROL 0.63 MG/3 ML DEYVIAL IH SCH ×4 (06:16→22:16)
--- NOTE | 2018-07-01 08:04 | HOSPPROG ---
Hospitalist Progress Note Assessment/Plan: 83yo F with multiple medical problems (CAD, CHF, afib, diabetes), recent C diff colitis presents from SNF with confusion found to be septic with respiratory and renal failure requiring dialysis. #Goals of care: Imet with pt, son (ALIS) and granddaughter -explained HD is long-term and will likely fail outpatient HD with multiple co- morbidities. Her goal is to "live". Palliative care met with them as well and they want to proceed with HD. #Acute on chronic hypoxemic respiratory failure: on 2-3L, cxr stable - s/p several thora and bronch this admit. Completed course Invanz - Volume removal with HD #Anuric HAYDEN: requiring HD. If she wants to proceed, IR will place line tomorrow. #Acute metabolic/toxic encephalopathy: near baseline today per family. Able to participate in discussions #Hypotension: BP stable but limiting volume removal. #Acute on chronic diastolic CHF: BNP>23k, LVEF 55% - Hold diuretics with HAYDEN #C diff colitis: No longer having diarrhea - completed course Vanc 06/30 #Chronic atrial fibrillation: Rates controlled. [id number]=8. - Holding AC with recent UGIB - Continue BB. Amiodarone stopped per cards #Hypoglycemia: Resolved. Now eating some. #Thrombocytopenia: Stable. No e/o bleeding currently. Monitor. #Severe sepsis: Resolved. #Pyuria: Culture with 2 organisms but without significant bacteria, abx stopped #ABLA: lost 600cc blood with HD. H/H trending down. Transfuse if Hb <7 #CAD: prior CABG #h/o GIB: 04/2018, large jejunal ulcer s/p clipping. PPI BID through June #Right heel ulcer: present at admission. Wound care #Deafness #Social: plan for DC to [facility] with outpatient HD, [facility] Time spent on visit: 60 min bedside discussing goals/prognosis with family. Discussed with PC and Renal Subjective: denies SOB or chest pain Objective: Vital Signs Temp Pulse Resp BP Pulse Ox 36.5 C 83 16 97/57 L 95 07/01/18 04:00 07/01/18 06:17 07/01/18 06:17 07/01/18 04:00 07/01/18 06:17 Microbiology 06/26/18 14:45 Gram Stain - Final Thoracic Fluid - Aspirate Laboratory Results 06/28/18 07:21 07/01/18 06:02 06/30/18 07/01/18 07/02/18 05:59 05:59 05:59 Intake Total 700 250 Output Total 150 Balance 550 250 PT 17.1 SEC (12.0-15.0) H 06/26/18 10:45 INR 1.46 (0.83-1.16) H 06/26/18 10:45 - Time Spent With Patient Time Spent with Patient: greater than 35 minutes Time Spent with Patient: Greater than 35 minutes spent on this patients care, greater than 50% of time spent counseling, educating, and coordinating care regarding the above mentioned plan. - Physical Exam Ears, Nose, Mouth, Throat: hard of hearing (nearly deaf; can hear right with aid ) Cardiovascular: edema Respiratory: no respiratory distress, reduced air movement Gastrointestinal: normoactive bowel sounds Genitourinary: no bladder fullness Musculoskeletal: generalized weakness Neurologic: AAOx3, CN II-XII Intact Psychiatric: No not encephalopathic ICD10 Worksheet Patient Problems: Problems Problem Status Onset Acute kidney injury Acute C. difficile colitis Acute Renal insufficiency Acute Abdominal pain Acute CHF (congestive heart failure) Acute Cellulitis Acute Chest pain Acute Dehydration Acute Gallstone Acute Hypokalemia Acute Hypoxemia Acute Medication induced coagulopathy Acute Pulmonary edema Acute Severe sepsis Acute Upper GI bleed Acute
--- NOTE | 2018-07-01 11:12 | SOAPPROG ---
SOAP Progress Note Assessment/Plan: Assessment/Plan: HAYDEN: likely ATN, remains oliguric. - HD today. - Will order tunneled catheter placement for tomorrow, could cancel if her goals of care move toward comfort measures. - Will also discuss with CM about working toward placement in outpatient dialysis unit in [place]. - Will continue to monitor daily for HD needs and renal recovery. - Avoid hypotension and nephrotoxins. Hypotension: low BP limits fluid removal on HD. - Will support BP with albumin and low dialysate temp while on HD. Hypervolemia: with worsening hypoxia initially, now doing much better s/p fluid removal with HD as well as thoracenteses. Will continue to modulate fluid removal with HD. Anemia: Hgb 7.7, not giving epo, consider transfusing PRBCs if Hgb<7. Subjective: No acute events overnight. Pt awake and alert today, wants to start moving around more as she feels weak. Objective: Vital Signs Temp Pulse Resp BP Pulse Ox 36.4 C 74 13 100/58 L 96 07/01/18 08:09 07/01/18 08:09 07/01/18 08:09 07/01/18 08:09 07/01/18 08:09 Microbiology 06/26/18 14:45 Gram Stain - Final Thoracic Fluid - Aspirate Laboratory Results 06/28/18 07:21 07/01/18 06:02 06/30/18 07/01/18 07/02/18 05:59 05:59 05:59 Intake Total 700 250 Output Total 150 Balance 550 250 PT 17.1 SEC (12.0-15.0) H 06/26/18 10:45 INR 1.46 (0.83-1.16) H 06/26/18 10:45 General: alert and oriented, no acute distress Eyes: EOMI, PERRL OP: Clear CV: RRR Resp: nonlabored respirations on NC Abd: Soft, NT Ext: +1 edema BLE Neuro: CN II-XII Grossly intact except for deafness ICD10 Worksheet Patient Problems: Problems Problem Status Onset Acute kidney injury Acute C. difficile colitis Acute Renal insufficiency Acute Abdominal pain Acute CHF (congestive heart failure) Acute Cellulitis Acute Chest pain Acute Dehydration Acute Gallstone Acute Hypokalemia Acute Hypoxemia Acute Medication induced coagulopathy Acute Pulmonary edema Acute Severe sepsis Acute Upper GI bleed Acute
[2018-07-01] MEDS: guaiFENesin 600 MG TAB.ER PO SCH ×2 (12:30→21:12)
[2018-07-01] MEDS: PANTOPRAZOLE SODIUM 40 MG TAB PO SCH ×2 (12:30→21:12)
--- NOTE | 2018-07-01 17:59 | ASMTCMCOM ---
CM Note CM Note Notes: CM spoke privately with pt and then in family meeting with pt's son/ALIS Chase and [facility] Palliative care team. Pt verbalized to CM and to Salvatore that she is not ready for hospice and wants to pursue hemodialysis. CM and hospitalist made it clear that she will need HD for the rest of her life. CM also clarified with pt how important it is for her to participate in therapies if she is to gain enough strength to discharge from [facility] [place] [facility] living. Pt expressed understanding but concern that the therapist that she turned away earlier today was asking her to do too much. [facility] notified of pt's potential discharge tomorrow and updates were sent. [facility] to meet with son here at the hospital again tomorrow at 9:00. CM sent updates to [facility] as well. CM to follow. D/C Plan: [facility] with [facility] care and Hemodialysis at [facility] [place] Date Signed: 07/01/2018 04:29 PM Electronically Signed By:Shanell Almaguer
[2018-07-01] MEDS: ALBUMIN 25% 50 ML IV PRN ×7 (18:23→21:03)
[2018-07-02 05:26] LABS: INR 1.19 (0.83-1.16); PROTIME(PATIENT) 14.6 SEC (12.0-15.0)
[2018-07-02] MEDS: LEVALBUTEROL 0.63 MG/3 ML DEYVIAL IH SCH ×2 (06:11→11:16)
[2018-07-02] MEDS: HEPARIN 5,000 UNIT/0.5 ML INJ SC SCH (06:35)
--- NOTE | 2018-07-02 07:51 | HOSPPROG ---
Hospitalist Progress Note Assessment/Plan: DIAGNOSES: # Anuric HAYDEN: requiring HD. # Acute metabolic/toxic encephalopathy: Resolved at present, Able to participate in discussions # Hypotension: BP #s stable but limiting volume removal. # Acute on chronic diastolic CHF with large pleural effusion and general volume overload: BNP>23k, LVEF 55% - status post thoracentesis, ongoing dialysis # acute hypoxemic respiratory failure due to volume overload and human metapneumovirus infection # C diff colitis: No longer having diarrhea - completed course Vanc 06/30 # acute hemorrhage episode, ABLA: lost 600cc blood with HD. Transfuse if Hb <7 # Chronic atrial fibrillation: Rates controlled. [id number]=3. - Holding AC with recent UGIB with large jejunal ulcer visible vessel - Continue BB. Amiodarone stopped per cards# Severe sepsis: Resolved. # Pyuria of uncertain cause or significance: Culture with 2 organisms but without significant bacteria, abx stopped # Hypoglycemia: Resolved. # h/o GIB: 04/2018, large jejunal ulcer s/p clipping. PPI BID through June # Right heel ulcer: present at admission. Wound care # Thrombocytopenia: Resolved # Deafness # sleep apnea # chronic memory loss # CAD: prior CABG PLANS: * She will have tunneled dialysis catheter placed today * Repeat dialysis tomorrow * Working on arranging outpatient dialysis * Follow hemoglobin closely * ? benefits of erythropoietin for her * Continue off anticoagulation at this time (acute hemorrhage here from catheter placement, recent GI bleed with very large jejunal ulcer visible vessel * Wound care for her right heel ulcer SUBJECTIVE: Feels tired but no other specific complaint from a Is clear that she does not have recollection of conversations from yesterday, and in fact Dr. 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, my review: Exam: alert oriented but severe memory deficit skin warm dry color pale resps not labored lungs clear BSs heart regular abd soft nondistended nontender, bowel sounds present limbs warm, mild edema iv site ok Lab data: Stable electrolytes, CO2 24 Stable anemia INR 1.1 Objective: Vital Signs Temp Pulse Resp BP Pulse Ox 36.7 C 90 14 89/45 L 98 07/02/18 07:33 07/02/18 07:33 07/02/18 07:33 07/02/18 07:33 07/02/18 07:33 Microbiology 06/26/18 14:45 Gram Stain - Final Thoracic Fluid - Aspirate 06/20/18 00:25 Urine Culture - Final Urine,Catheterized [facility] Laboratory Results 07/02/18 04:28 07/02/18 04:28 07/01/18 07/02/18 07/03/18 06:59 06:59 06:59 Intake Total 250 Output Total 100 Balance 250 -100 PT 14.6 SEC (12.0-15.0) 07/02/18 04:28 INR 1.19 (0.83-1.16) H 07/02/18 04:28 ICD10 Worksheet Patient Problems: Problems Problem Status Onset Acute kidney injury Acute C. difficile colitis Acute Renal insufficiency Acute Abdominal pain Acute CHF (congestive heart failure) Acute Cellulitis Acute Chest pain Acute Dehydration Acute Gallstone Acute Hypokalemia Acute Hypoxemia Acute Medication induced coagulopathy Acute Pulmonary edema Acute Severe sepsis Acute Upper GI bleed Acute
[2018-07-02] MEDS ORDERED: EPOETIN ALFA 10,000 UNIT/ML VIAL SC SCH (10:00)
--- NOTE | 2018-07-02 10:16 | SOAPPROG ---
SOAP Progress Note Assessment/Plan: Assessment: 1. Patient with oliguric HAYDEN related to urosepsis. Very debilitated. As of yesterday, she wished to continue aggressive level of care and do dialysis. Plans are for tunneled catheter placement today. Next HD in am. I would plan on placement on MWF at [facility] [phone]. 2. Anemia Start [facility]. May need transfused prior to DC. 3. Plan of Care Pt a very poor candidate for dialysis. She showed some vacillation today. Continue to assess 4. Hypotension She has tolerated HD thus far. Will consider midodrine if needed. 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 Objective: Vital Signs Temp Pulse Resp BP Pulse Ox 36.7 C 90 14 89/45 L 98 07/02/18 07:33 07/02/18 07:33 07/02/18 07:33 07/02/18 07:33 07/02/18 07:33 Microbiology 06/26/18 14:45 Gram Stain - Final Thoracic Fluid - Aspirate 06/20/18 00:25 Urine Culture - Final Urine,Catheterized Ju[facility] Laboratory Results 07/02/18 04:28 07/02/18 04:28 07/01/18 07/02/18 07/03/18 05:59 05:59 05:59 Intake Total 250 Output Total 100 Balance 250 -100 PT 14.6 SEC (12.0-15.0) 07/02/18 04:28 INR 1.19 (0.83-1.16) H 07/02/18 04:28 Physical Exam - Physical Exam General Appearance: no apparent distress Respiratory: decreased breath sounds Cardiac/Chest: irregularly irregular Extremities: pedal edema Neuro/Psych: alert ICD10 Worksheet Patient Problems: Problems Problem Status Onset Acute kidney injury Acute C. difficile colitis Acute Renal insufficiency Acute Abdominal pain Acute CHF (congestive heart failure) Acute Cellulitis Acute Chest pain Acute Dehydration Acute Gallstone Acute Hypokalemia Acute Hypoxemia Acute Medication induced coagulopathy Acute Pulmonary edema Acute Severe sepsis Acute Upper GI bleed Acute
[2018-07-02 10:59] VITALS: BP 106/54
[2018-07-02] MEDS: PANTOPRAZOLE SODIUM 40 MG TAB PO SCH (12:23)
[2018-07-02] MEDS: guaiFENesin 600 MG TAB.ER PO SCH (12:23)
[2018-07-02] MEDS: ACETAMINOPHEN 325 MG TAB PO PRN (12:24)
--- NOTE | 2018-07-02 13:49 | PDDCSUM ---
Discharge Summary Discharge Summary: DISCHARGE DIAGNOSES: * New onset anuric renal failure * Acute metabolic encephalopathy * Hypotension * Volume overload/diastolic heart failure exacerbation * Pleural effusion due to volume overload * Acute hypoxemic respiratory failure * C diff colitis * Paroxysmal atrial fibrillation * Recent GI bleed, the patient is still quite anemic after that episode * Right heel ulcer from pressure present on admission * Thrombocytopenia * Chronic deafness * Obstructive sleep apnea * Chronic memory loss * Coronary artery disease history of bypass surgery CONSULTANTS: Dr. Nicanor Paul Minor PROCEDURES: Placement of temporary hemodialysis catheter Hemodialysis HOSPITAL COURSE SUMMARY: This patient had recently here with very significant upper GI bleed from ulcer. She was at a local nursing facility recovering from that episode when she developed some confusion and a chest x-ray was done showing abnormalities raising a question of pneumonia. In fact the patient actually had severe volume overload with very large right pleural effusion and was in acute renal failure, anuric. She had significant acute hypoxemic respiratory failure due to volume overload and effusions. There was some concern for possible infection but no infection was actually identified. As we were unable to diurese her medically, a temporary dialysis catheter was placed and she was started on hemodialysis. With hemodialysis would been able to remove almost all the excess fluid and she is now breathing much more easily and is new longer nearly so hypoxemic, and she is much less confused though she is back to her baseline which is with a fairly severe memory deficit. When she showed up she did have lower blood pressures and this is made fluid removal by dialysis fairly slow as she is not tolerating large volume removal. The patient has tolerated dialysis well. She is not having any signs of bleeding. She remains quite anemic after her recent upper GI bleed episode. As she stabilized [facility] attention to the chronicity of her renal problems felt that if she did recover renal function to come off dialysis of would take quite some time. It was presumed she would need long-term dialysis. There were numerous discussions including palliative discussions with the patient and her son. The patient was participating in the discussions but she has very severe memory loss and was not able to retain information from the conversations well at all. Initially the decision was made that she would continue hemodialysis and we were preparing to have a tunneled catheter placed and set her up for outpatient dialysis. On this date however the patient asks several times what was the reason for dialysis, what did dialysis due for her, and what would it look like out of the hospital. After all this the patient decided that she did not want to continue dialysis and further palliative discussions and hospice assessment were done. The patient and her son have chosen at this time to enter hospice care. PENDING TEST RESULTS: None MEDICATION CHANGES: Her medication list has been changed to include comfort medicines Which will include Ativan Roxanol Zofran Guaifenesin Protonix FOLLOW-UP PLAN: At this time she will be discharged from hospital and transferred directly to the inpatient care center at [facility] in [place] Greater than 35 minutes bedside and care coordination time today
--- NOTE | 2018-07-02 13:56 | PDIAF ---
- Diagnosis Diagnosis: Renal failure, recent GI bleed with ulcer, deafness, memory loss Code Status: Do Not Resuscitate - Medication Management Discharge Medications: electronically signed and located in the Home Medication List. - Orders Services needed: Registered Nurse, Certified Housekeeping Supervisor Hotel, Master Weed Burner Isolation Type: CDIFF Isolation, Droplet Isolation Diet Recommendation: no restrictions on diet Diet Texture: Dysphagia 3 - Advanced - Moist, Bite-Size, Thin Liquids, Meds Whole in Puree - Follow Up Care Current Providers and Referrals: Patient,NotPresent [Unknown] - As per Instructions
--- NOTE | 2018-07-02 14:32 | ASMTDCNOTE ---
Case Management Discharge Discharge Order Complete? Answers: Yes Patient to Obtain Answers: Other Notes: [facility] Medications Transportation Arranged Answers: Other Notes: [facility] stretcher transpor t Transport will Pick (Date 07/02/2018 12:00 AM & Time) EMTALA Complete Answers: No Case Management Transport Answers: Yes Notes: PCS form complete by TR U Form Complete RN Faxed Final Orders Answers: Yes Agency/Facility Transfer Answers: Yes Report Printed & Faxed to Receiving Agency Family Notified Answers: Yes Discharge Comments Notes: Pt has decided on hospice. Pts son Salvatore is on the same page. Carissa, the [facility] nurse came and assessed pt and deemed her appropriate for the [facility] inpatient care center. Carissa set up transport w/ [facility] stretcher. DC orders sent. Ira RN called to give report. CM available for changes. Plan: [facility] Date Signed: 07/02/2018 02:31 PM Electronically Signed By:MAX Alvarez
--- NOTE | 2018-07-02 14:33 | ASDISCHSUM ---
Discharge Information Plan Status:Hospice-Inpatient Medically Cleared to Leave: Discharge Date: D/C Disposition: [facility] D/C Disposition: Projected Discharge Date:07/02/2018 11:00 AM Transportation at D/C: Discharge Delay Reason: Follow-Up Date:07/02/2018 11:00 AM Discharge Slot: Final Diagnosis: Placement Information Referral Type:*Alf/SNF Referral ID:[id number] Provider Name: Address 1: Phone Number: Address 2: Fax Number: City: Selection Factors: State: Referral Type:Palliative Care Referral ID:[id number] Provider Name: Address 1: Phone Number: Address 2: Fax Number: City: Selection Factors: State: Referral Type:*Hospice Referral ID:[id number] Provider Name:[facility] Address 1:[address] Address 2: City:[place] Selection Factors: State:[place] Patient Contact Information Contact Name:DAISY Relationship:Patrick Address: City:[place] Alternate Phone: [facility]/Zip Code:[place] Email: Financial Information Financial Class:Medicare Advantage Plans Primary Plan Desc:RACIEL MEDICARE ADV Primary Plan Number:[id number] Secondary Plan Desc: Secondary Plan Number: Assessment Information LACE LACE Acuity / Level of Answers: Yes Care: Did the patient have an inpatient admission? Comorbidities - select Answers: Congestive heart failure all that apply Coronary Artery Disease Dementia Diabetes (uncontrolled or controlled) Other Notes: HTN # of Emergency department Answers: 3-4 visits in the last 6 months Score: 15 Date Signed: 06/20/2018 09:28 AM Electronically Signed By:Savanah Martinez [facility] CM Progress Note CM Note CM Note Notes: Patient admitted with confusion, HAYDEN, CHF exacerbation. She has a UTI. She is being treated for Cdiff (tx started by [facility] where she has been for last month). Patient has been at [facility] since late April. Per Isabel at [facility], her insurance company has threatened to stop paying and family/facility are in an appeals process. SNF says they will take her back, however. I spoke w her son Salvatore who is amenable to her returning to [facility]. Family has arranged for her to move into [facility] but she needs to get stronger in order to pass the assessment to move in there. Family would be find w her moving directly into [facility] if appropriate but understand that SNF may be necessary first. Case Management will follow. Date Signed: 06/20/2018 10:20 AM Electronically Signed By:Alesha Castaneda RN [facility] CM Progress Note CM Note CM Note Notes: Waiting on PT eval for patient. Patient can return to [facility] for SNF rehab if that's the recommendation. D/C plan TBD. CM will follow. Date Signed: 06/21/2018 01:35 PM Electronically Signed By:Tavia Cerna LCSW [facility] CM Progress Note CM Note CM Note Notes: Palliative Care Consult held today. See Palliative Care note for more details. Pt's son Salvatore (MDPBABITA) and his daughter Adrianna were present for meeting. They signed on with [facility] support. CM submit order via [employer]. CM followed up with Dr. Singh after meeting to discuss family's request for family meeting and Dr. Singh went to speak with Salvatore and were in agreement of continuing to treat and plan for family meeting later in the week to discuss goals of care depending on how she continues to progress. CM to continue to provide support and information regarding care planning after this hospitalization. At this time pt is able to return back to [facility]. Family is looking at other options as they were not totally satisfied with the care there. CM to follow. Plan: TBD, likely back to [facility]. Date Signed: 06/24/2018 03:13 PM Electronically Signed By:MAX Kelly [facility] CM Progress Note CM Note CM Note Notes: CM, hospitalist, and son Salvatore and his had impromptu family meeting regarding pt's prognosis. Pt is stabilized and moved yesterday to med surg floor, however, she is encephalopathic, perseverating on her condition, requiring hemodialysis Q2 days and still has high O2 needs. Pt is unable to have meaningful conversation regarding goals of care. Though pt and family had palliative consult and family meeting on June 24 and signed on with [facility]. Pt's course of antibiotics for sepsis from UTI, possible pneumonia and c diff will be complete on Sunday. Family and hospitalist want to wait and see how she responds to the end of this treatment or if patient is at a new baseline with increased needs. Family will then consider if treatment needs are aligned with pt's care goals. [facility] agreed to pass this along to [facility] care team. Family agreed to reconvene with hospitalist and care team on Sunday. 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 However, if patient does not improve family may consider hospice instead. Updates sent to [facility] and [facility]. Pt has used her covered days at [facility] and they are in the process of appealing with the insurance company. CM to follow. D/C Plan: [facility] and [facility] pending pt stability Date Signed: 06/28/2018 03:37 PM Electronically Signed By:Shanell Almaguer [facility] CHUCK Progress Note CM Note CM Note Notes: Pt to get dialyzed Sunday, will dc to [facility] when medically stable with [facility]. There was a family meeting on Sunday, see CM note. DC Plan: [facility] + [facility] Date Signed: 06/30/2018 02:34 PM Electronically Signed By:Jolene Castro RN [facility] Progress Note CM Note CM Note Notes: CM spoke privately with pt and then in family meeting with pt's son/ALIS Chase and [facility] Palliative care team. Pt verbalized to CHUCK and to Salvatore that she is not ready for hospice and wants to pursue hemodialysis. CM and hospitalist made it clear that she will need HD for the rest of her life. CM also clarified with pt how important it is for her to participate in therapies if she is to gain enough strength to discharge from Rehab to [facility]. Pt expressed understanding but concern that the therapist that she turned away earlier today was asking her to do too much. [facility] notified of pt's potential discharge tomorrow and updates were sent. [facility] to meet with son here at the hospital again tomorrow at 9:00. CM sent updates to [facility] as well. CM to follow. D/C Plan: [facility] with [facility] and Hemodialysis at [facility] in [place] Date Signed: 07/01/2018 04:29 PM Electronically Signed By:Shanell Almaguer Case Management Discharge Plan Note Case Management Discharge Discharge Order Complete? Answers: Yes Patient to Obtain Answers: Other Notes: [facility] Hospice Medications Transportation Arranged Answers: Other Notes: [facility] trans[facility] t Transport will Pick (Date 07/02/2018 12:00 AM & Time) EMTALA Complete Answers: No Case Management Transport Answers: Yes Notes: PCS form complete by TR U Form Complete RN Faxed Final Orders Answers: Yes Agency/Facility Transfer Answers: Yes Report Printed & Faxed to Receiving Agency Family Notified Answers: Yes Discharge Comments Notes: Pt has decided on hospice. Pts son Salvatore is on the same page. Carissa, the [facility] nurse came and assessed pt and deemed her appropriate for the [facility] inpatient care center. Carissa set up transport w/ Tamar maldonado. DC orders sent. MAIA Roth called to give report. CM available for changes. Plan: [facility] Inpatient Care Center Date Signed: 07/02/2018 02:31 PM Electronically Signed By:MAX Alvarez Intervention Information Intervention Type:*IM-Signed Date of Service:07/02/2018 02:13 PM Patient Type:Inpatient Staff Member:Savanah Martinez Hours: Discipline: Severity: Comment:Patients Salvatore SNELL [phone]
== END 2018-07-02 16:38 | disposition hospice, home (50) | DRG 682 ==
LOC: OBSVTOIN 21:54 → F2W 06-20 00:52 → F2N 06-20 12:52 → F3E 06-27 20:00
PROVIDERS: ADMIT Student in an Organized Health Care Education/Training Program; ATTEND Internal Medicine
PROC: 02HV33Z Insertion of Infusion Device into Superior Vena Cava, Percutaneous Approach (ICD-10-PCS; principal; 2018-06-20)
PROC: 5A1D70Z Performance of Urinary Filtration, Intermittent, Less than 6 Hours Per Day (ICD-10-PCS; 2018-06-20)
PROC: 0B938ZZ Drainage of Right Main Bronchus, Via Natural or Artificial Opening Endoscopic (ICD-10-PCS; 2018-06-22)
PROC: 0B9B8ZZ Drainage of Left Lower Lobe Bronchus, Via Natural or Artificial Opening Endoscopic (ICD-10-PCS; 2018-06-22)
PROC: 0B968ZZ Drainage of Right Lower Lobe Bronchus, Via Natural or Artificial Opening Endoscopic (ICD-10-PCS; 2018-06-22)
PROC: 0B948ZZ Drainage of Right Upper Lobe Bronchus, Via Natural or Artificial Opening Endoscopic (ICD-10-PCS; 2018-06-22)
PROC: 0B958ZZ Drainage of Right Middle Lobe Bronchus, Via Natural or Artificial Opening Endoscopic (ICD-10-PCS; 2018-06-22)
PROC: 0W993ZX Drainage of Right Pleural Cavity, Percutaneous Approach, Diagnostic (ICD-10-PCS; 2018-06-22)
PROC: 0B968ZZ Drainage of Right Lower Lobe Bronchus, Via Natural or Artificial Opening Endoscopic (ICD-10-PCS; 2018-06-23)
PROC: 0B938ZZ Drainage of Right Main Bronchus, Via Natural or Artificial Opening Endoscopic (ICD-10-PCS; 2018-06-23)
PROC: 0B958ZZ Drainage of Right Middle Lobe Bronchus, Via Natural or Artificial Opening Endoscopic (ICD-10-PCS; 2018-06-23)
PROC: 0B978ZZ Drainage of Left Main Bronchus, Via Natural or Artificial Opening Endoscopic (ICD-10-PCS; 2018-06-23)
PROC: 0B948ZZ Drainage of Right Upper Lobe Bronchus, Via Natural or Artificial Opening Endoscopic (ICD-10-PCS; 2018-06-23)
PROC: 0B918ZZ Drainage of Trachea, Via Natural or Artificial Opening Endoscopic (ICD-10-PCS; 2018-06-24)
PROC: 0W993ZX Drainage of Right Pleural Cavity, Percutaneous Approach, Diagnostic (ICD-10-PCS; 2018-06-26)
DX: N17.0 Acute kidney failure with tubular necrosis (principal); I11.0 Hypertensive heart disease with heart failure; I50.33 Acute on chronic diastolic (congestive) heart failure; G93.41 Metabolic encephalopathy; J96.01 Acute respiratory failure with hypoxia; J90 Pleural effusion, not elsewhere classified; A04.72 Enterocolitis due to Clostridium difficile, not specified as recurrent; B97.81 Human metapneumovirus as the cause of diseases classified elsewhere; I95.9 Hypotension, unspecified; I48.0 Paroxysmal atrial fibrillation; D64.9 Anemia, unspecified; L89.610 Pressure ulcer of right heel, unstageable; D69.6 Thrombocytopenia, unspecified; H91.90 Unspecified hearing loss, unspecified ear; G47.33 Obstructive sleep apnea (adult) (pediatric); I25.10 Atherosclerotic heart disease of native coronary artery without angina pectoris; R41.3 Other amnesia; F03.90 Unspecified dementia, unspecified severity, without behavioral disturbance, psychotic disturbance, mood disturbance, and anxiety; E66.01 Morbid (severe) obesity due to excess calories; E11.9 Type 2 diabetes mellitus without complications; E78.5 Hyperlipidemia, unspecified; Z95.1 Presence of aortocoronary bypass graft; Z87.891 Personal history of nicotine dependence; Z66 Do not resuscitate
CPT/HCPCS: 84484-ER; 86704-90; 92526-GN; 92610-GN; 97110-GP; 97112-GP; 97162-GP; 97166-GO; 97530-GO; 97530-GP; 97535-GO; C1750; J0696; J0885; J1160; J1335; J1644; J1940; J2250; J3010; J7608; P9047